=== PATIENT | female | born 1945 | race Caucasian/White ===

== ENCOUNTER 2023-02-13 19:44 | Inpatient (IN) ==
--- NOTE | 2023-02-13 20:37 | Emergency Department Note ---
Impression & Plan Ambulatory dysfunction, Thrombocytopenia, Anemia, Pancytopenia, Fall from standing, Hematoma of scalp ED Provider Note HISTORY OF PRESENT ILLNESS: Patient is a 78-year-old female presenting after a fall from standing. Patient is not on any anticoagulation. She reportedly has had significant balance issues for the last few weeks. She recently moved from [place] to be closer to family. She is currently living on her own in an apartment. She reportedly ambulates with a rollator walker. Son reports he last saw her at 630 this evening and then he got a call from a med that she was being transported to the hospital at 725. Patient reports she lost her balance and fell backwards, striking the back of her head. Denies loss of consciousness. She did have 1 episode of vomiting since falling. Denies any numbness or tingling or weakness in her extremities. Denies any changes in vision. She denies any chest pain, shortness of breath or lightheadedness prior to the fall. ROS: as above PHYSICAL EXAM: Constitutional: Patient appears in no acute distress. HENT: Head: Normocephalic. Hematoma to the posterior scalp. No obvious laceration or bleeding Eyes: EOMI, PERRL Mouth/Throat: Mucous membranes moist. Neck: Trachea midline. Neck supple. Cardiovascular: RRR, No murmurs, rubs or gallops. Intact distal pulses. Pulmonary/Chest: No respiratory distress. Breath sounds clear and equal bilaterally. No wheezes or rales. No chest wall tenderness to palpation. Abdominal: Abdomen soft, no tenderness, rebound or guarding. Back: No midline spinal tenderness, no paraspinal tenderness, no CVA tenderness. Patient is able to straight leg raise bilaterally without any pain. Musculoskeletal: No edema, tenderness or deformity noted. No tenderness to palpation of the pelvis. Skin: Warm and dry. No rash, erythema, pallor or cyanosis Neurological: Alert and keenly responsive. CN II-XII grossly intact, moving all extremities equally and fully. MDM: - Vitals signs stable. - History obtained via patient. Patient presents with scalp hematoma after fall from standing. Patient reportedly lost her balance earlier this evening while walking with her rollator walker and fell backwards, striking the back of her head. Denies loss of consciousness. She is not on anticoagulation. She recently moved from [place] to be closer to family. She lives at home alone. Family reports that she has been very unsteady on her feet recently. Patient denies any chest pain, shortness of breath or lightheadedness prior to the fall. Denies any syncope. - Chronic conditions affecting care: HTN; HLD; valve replacement surgery - Differential diagnoses include, but are not limited to: CVA; intracranial hemorrhage; ACS; dysrhythmia; UTI - Order placed for continuous cardiac monitoring. At this time, monitor showed rate of 95 bpm with normal sinus rhythm, per my interpretation. - External medical records reviewed. EMS run sheet was reviewed. Patient was vitally stable in route. No medications were given prehospital. - EKG reviewed by myself showed normal sinus rhythm. Rate tachycardic at 104 bpm. QTc 489. Noted to have a left bundle branch block. Also noted to have some PVCs. No previous EKGs available. - Laboratory workup interpreted by myself showed pancytopenia (WBC 1.94; hemoglobin 7.8; plt 108); hyponatremia (Na 123); normal liver function - CT head wo contrast negative for acute intracranial pathology. Noted to have a posterior scalp soft tissue swelling - CT cervical spine wo contrast negative for acute injury. - UA ordered. - Discussed results with patient and her family at bedside. Son expresses concern about the patient coming home, she does live alone and she has had multiple falls in the last few weeks. She is been very unsteady on her feet. - Discussion was had with social work about patient's case and need for admission - Hospitalist consulted for admission - Patient admitted to [facility] for further evaluation and management. ASSESSMENT AND PLAN: Diagnosis: ambulatory dysfunction;Fall from standing; posterior scalp hematoma; pancytopenia; thrombocytopenia; anemia; hyponatremia Plan: Admit Past Med/Surg History Social History Smoking Status: Never smoker Feels Safe at Home: Yes Allergies Allergies Allergy/AdvReac Type Severity Reaction Status Date / Time No Known Allergies Allergy Unverified 02/13/23 20:29 Home Meds Home Medications Medication Instructions Recorded Confirmed amoxicillin 250 mg chewable tablet 0 mg PO BID 02/13/23 02/13/23 metoprolol succinate 25 mg 25 mg PO DAILY 02/13/23 02/13/23 tablet,extended release 24 hr pramipexole 0.25 mg tablet 0.25 mg PO QPM 02/13/23 02/13/23 Results & Data (ED) Vital Signs Vital Signs - 24 hr 02/13/23 19:52 02/13/23 19:51 02/13/23 20:02 Temperature 36.8 C Temperature Source Oral Pulse Rate 112 H 104 H Pulse Rate from SpO2 Sensor Pulse Rhythm Regular Pulse Rhythm [Apical] Pulse Strength Normal Pulse Strength [Apical] Respiratory Rate 23 Respiratory Effort / Characteristics Non-Labored Respiratory Depth Normal Respiratory Pattern Regular Blood Pressure 138/77 Blood Pressure Mean 97 Pulse Oximetry 99 97 Oxygen Delivery Method Room Air Room Air Sepsis Recent Fever Within 48 Hours No Sepsis New/Unexplained Change in Mental Status No Sepsis Action Taken by Nursing Physician Notified 02/13/23 19:52 02/13/23 19:52 02/13/23 20:00 Temperature Temperature Source Pulse Rate 113 H 104 H Pulse Rate from SpO2 Sensor 105 H 103 H Pulse Rhythm Pulse Rhythm [Apical] Regular Pulse Strength Pulse Strength [Apical] Normal Respiratory Rate 22 29 H Respiratory Effort / Characteristics Non-Labored Respiratory Depth Normal Respiratory Pattern Regular Blood Pressure 138/77 146/72 H Blood Pressure Mean 97 96 Pulse Oximetry 99 99 Oxygen Delivery Method Room Air Room Air Room Air Sepsis Recent Fever Within 48 Hours Sepsis New/Unexplained Change in Mental Status Sepsis Action Taken by Nursing 02/13/23 20:30 02/13/23 21:01 02/13/23 21:30 Temperature Temperature Source Pulse Rate 100 H 108 H 93 H Pulse Rate from SpO2 Sensor 100 H 99 H 95 H Pulse Rhythm Pulse Rhythm [Apical] Pulse Strength Pulse Strength [Apical] Respiratory Rate 24 24 13 Respiratory Effort / Characteristics Respiratory Depth Respiratory Pattern Blood Pressure 115/71 133/53 L 128/57 L Blood Pressure Mean 85 79 80 Pulse Oximetry 100 99 100 Oxygen Delivery Method Room Air Room Air Room Air Sepsis Recent Fever Within 48 Hours Sepsis New/Unexplained Change in Mental Status Sepsis Action Taken by Nursing 02/13/23 22:00 02/13/23 22:30 02/13/23 23:00 Temperature Temperature Source Pulse Rate 97 H 92 H 94 H Pulse Rate from SpO2 Sensor 97 H 92 H 94 H Pulse Rhythm Pulse Rhythm [Apical] Pulse Strength Pulse Strength [Apical] Respiratory Rate 25 H 24 27 H Respiratory Effort / Characteristics Respiratory Depth Respiratory Pattern Blood Pressure 119/57 L 108/53 L 127/52 L Blood Pressure Mean 77 71 77 Pulse Oximetry 100 99 100 Oxygen Delivery Method Room Air Room Air Room Air Sepsis Recent Fever Within 48 Hours Sepsis New/Unexplained Change in Mental Status Sepsis Action Taken by Nursing 02/13/23 23:52 Temperature Temperature Source Pulse Rate 92 H Pulse Rate from SpO2 Sensor Pulse Rhythm Pulse Rhythm [Apical] Pulse Strength Pulse Strength [Apical] Respiratory Rate Respiratory Effort / Characteristics Respiratory Depth Respiratory Pattern Blood Pressure Blood Pressure Mean Pulse Oximetry Oxygen Delivery Method Sepsis Recent Fever Within 48 Hours Sepsis New/Unexplained Change in Mental Status Sepsis Action Taken by Nursing Laboratory Data 02/13/23 20:00 02/13/23 20:00 Lab Results 02/13/23 02/13/23 Range/Units 20:00 20:00 WBC 1.94 L (4.8-10.8) K/ul RBC 2.55 L (4.20-5.40) M/uL Hgb 7.8 L (12.0-16.0) g/dl Hct 22.6 L (37.0-47.0) % MCV 88.6 (80.0-100.0) fL MCH 30.6 (25.0-34.0) pg MCHC 34.5 (32.0-36.0) g/dL RDW Std Deviation 60.8 H (36.4-46.3) fL RDW Coeff of Angus 19.4 H (11.5-14.5) % Plt Count 108 L (130-400) K/uL MPV 9.0 L (9.4-12.4) fL Immature Gran % (Auto) 3.1 % Neut % (Auto) 78.9 % Lymph % (Auto) 13.4 % [place] % (Auto) 4.1 % Eos % (Auto) 0.0 % Baso % (Auto) 0.5 % Neut # (Auto) 1.53 (1.40-6.50) K/uL Lymph # (Auto) 0.26 L (1.20-3.40) K/uL [place] # (Auto) 0.08 L (0.11-0.59) K/uL Eos # (Auto) 0.00 (0.00-0.50) K/uL Baso # (Auto) 0.01 (0.00-0.20) K/uL Immature Gran # (Auto) 0.06 (0.01-0.20) K/uL Absolute Nucleated RBC 0.02 (0.00-0.12) K/uL Nucleated RBC % (auto) 1.0 % Tear Drop Cells 2+ Ovalocytes 1+ Sodium 123 L (136-145) mmol/L Potassium 4.5 (3.5-5.1) mmol/L Chloride 95 L (98-107) mmol/L Carbon Dioxide 17 L (21-32) mmol/L Anion Gap 11 (3-11) BUN 16 (6-23) mg/dl Creatinine 0.49 L (0.6-1.2) mg/dl Est Cr Clr Drug Dosing 96.7 ml/min Est GFR ( Amer) 108.9 ml/min Est GFR (Non-Af Amer) 94.0 ml/min BUN/Creatinine Ratio 32.7 H (10-20) Glucose 154 H (70-99(Fasting)) mg/dl Calcium 9.4 (8.6-10.3) mg/dl Total Bilirubin 3.1 H (0.2-1.0) mg/dl AST 37 (13-39) U/L ALT 16 (7-52) U/L Alkaline Phosphatase 64 (34-104) U/L Total Protein 7.0 (6.0-8.3) gm/dl Albumin 4.6 (3.4-5.0) gm/dl Globulin 2.4 L (2.5-4.0) gm/dl Albumin/Globulin Ratio 1.9 (0.9-2) Imaging Data Radiologist's Impression: Cervical Spine CT 02/13/23 20:16 Exam(s): CT C SPINE EXAM: CT Cervical Spine Without Intravenous Contrast CLINICAL HISTORY: Reason for exam: fall from standing. TECHNIQUE: Axial computed tomography images of the cervical spine without intravenous contrast. CTDI is 37.79 mGy and DLP is 1079.19 mGy-cm. Automated exposure control was utilized for the study. A dose lowering technique was utilized adhering to the principles of ALARA. COMPARISON: No relevant prior studies available. FINDINGS: The vertebral body heights are maintained. The craniocervical junction is intact. The atlanto-dens interval is maintained. The dens is intact. There is no spondylolisthesis. Multilevel cervical spondylosis and degenerative disc disease. Straightening of the cervical lordosis. Enlarged, nodular thyroid gland. IMPRESSION: No acute fracture or subluxation of the cervical spine. Electronically signed by: David Lowry MD 02/13/23 21:[address] 02/13/23 20:16 Exam(s): CT HEAD Without Contrast EXAM: CT Head Without Intravenous Contrast CLINICAL HISTORY: Reason for exam: fall from standing. TECHNIQUE: Axial computed tomography images of the head/brain without intravenous contrast. CTDI is 37.78 mGy and DLP is 1079.19 mGy-cm. Automated exposure control was utilized for the study. A dose lowering technique was utilized adhering to the principles of ALARA. COMPARISON: No relevant prior studies available. FINDINGS: No acute intracranial hemorrhage. No midline shift or mass effect. The territorial delcid-white matter differentiation is maintained throughout. Age-related cerebral volume loss. Periventricular and subcortical white matter hypoattenuation, consistent with chronic microangiopathy. The visualized orbits appear grossly unremarkable. The calvarium is intact. Posterior scalp soft tissue swelling. The visualized paranasal sinuses and mastoid air cells are grossly clear. IMPRESSION: No acute intracranial hemorrhage, midline shift, or mass effect. Posterior scalp soft tissue swelling. Electronically signed by: David Lowry MD 02/13/23 21:51 PM Discharge Plan Visit Data Chief Complaint: Fall Stated Complaint: fall ED Provider: Adina Bermudez Discharge Problem: Ambulatory dysfunction, Thrombocytopenia, Anemia, Pancytopenia, Fall from standing, Hematoma of scalp Forms Stand Alone Forms: My [facility] [place] Prescriptions Prescriptions: No Action pramipexole 0.25 mg tablet 0.25 mg PO QPM metoprolol succinate 25 mg tablet extended release 24 hr 25 mg PO DAILY amoxicillin 250 mg Tablet,Chewable 0 mg PO BID Rx Instructions: BEGIN 02/13/23, TAKE THIS MED TWICE DAILY Referrals Referrals: PCP,NO [Physician] -
[2023-02-13 20:46] LABS: Albumin Globulin Ratio 1.9 (0.9-2); Albumin Level 4.6 gm/dl (3.4-5.0); BUN Creatinine Ratio 32.7 (10-20); Bilirubin,Total 3.1 mg/dl (0.2-1.0); Calcium 9.4 mg/dl (8.6-10.3); Creatinine Clr Calc Pharmacy 96.7 ml/min; Est GFR (African American) 108.9 ml/min; Globulin 2.4 gm/dl (2.5-4.0); Potassium 4.5 mmol/L (3.5-5.1)
[2023-02-13 20:47] LABS: Hematocrit (blood only) 22.6 % (37.0-47.0); Hemoglobin 7.8 g/dl (12.0-16.0); Mean Corpuscular Hemoglobin 30.6 pg (25.0-34.0); Mean Corpuscular Hgb Conc 34.5 g/dL (32.0-36.0); Mean Corpuscular Volume 88.6 fL (80.0-100.0); Nucleated RBC # (auto) 0.02 K/uL (0.00-0.12); Platelet Count 108 K/uL (130-400); RDW Coefficient of Variation 19.4 % (11.5-14.5); RDW Standard Deviation 60.8 fL (36.4-46.3); Red Blood Count 2.55 M/uL (4.20-5.40); White Blood Count 1.94 K/ul (4.8-10.8)
[2023-02-13 20:50] LABS: Basophils # (auto) 0.01 K/uL (0.00-0.20); Basophils % (auto) 0.5 %; Immature Granulocytes # (auto) 0.06 K/uL (0.01-0.20); Immature Granulocytes % (auto) 3.1 %; Lymphocytes # (auto) 0.26 K/uL (1.20-3.40); Lymphocytes % (auto) 13.4 %; Monocytes # (auto) 0.08 K/uL (0.11-0.59); Monocytes % (auto) 4.1 %; Neutrophils # (auto) 1.53 K/uL (1.40-6.50); Neutrophils % (auto) 78.9 %; Ovalocytes 1+; Tear Drop Cells 2+
--- NOTE | 2023-02-13 21:52 | CT Scan Report ---
Exam(s): CT HEAD Without Contrast EXAM: CT Head Without Intravenous Contrast CLINICAL HISTORY: Reason for exam: fall from standing. TECHNIQUE: Axial computed tomography images of the head/brain without intravenous contrast. CTDI is 37.78 mGy and DLP is 1079.19 mGy-cm. Automated exposure control was utilized for the study. A dose lowering technique was utilized adhering to the principles of ALARA. COMPARISON: No relevant prior studies available. FINDINGS: No acute intracranial hemorrhage. No midline shift or mass effect. The territorial delcid-white matter differentiation is maintained throughout. Age-related cerebral volume loss. Periventricular and subcortical white matter hypoattenuation, consistent with chronic microangiopathy. The visualized orbits appear grossly unremarkable. The calvarium is intact. Posterior scalp soft tissue swelling. The visualized paranasal sinuses and mastoid air cells are grossly clear. IMPRESSION: No acute intracranial hemorrhage, midline shift, or mass effect. Posterior scalp soft tissue swelling. Electronically signed by: David Lowry MD 02/13/23 21:51 PM
--- NOTE | 2023-02-13 21:53 | CT Scan Report ---
Exam(s): CT C SPINE EXAM: CT Cervical Spine Without Intravenous Contrast CLINICAL HISTORY: Reason for exam: fall from standing. TECHNIQUE: Axial computed tomography images of the cervical spine without intravenous contrast. CTDI is 37.79 mGy and DLP is 1079.19 mGy-cm. Automated exposure control was utilized for the study. A dose lowering technique was utilized adhering to the principles of ALARA. COMPARISON: No relevant prior studies available. FINDINGS: The vertebral body heights are maintained. The craniocervical junction is intact. The atlanto-dens interval is maintained. The dens is intact. There is no spondylolisthesis. Multilevel cervical spondylosis and degenerative disc disease. Straightening of the cervical lordosis. Enlarged, nodular thyroid gland. IMPRESSION: No acute fracture or subluxation of the cervical spine. Electronically signed by: David Lowry MD 02/13/23 21:53 PM
[2023-02-14 00:10] LABS: Troponin I High Sensitivity 8.8 pg/ml (0-14)
[2023-02-14] MEDS ORDERED: PRAMIPEXOLE DIHYDROCHLO 0.25 MG TAB PO STA ×2 (01:32→03:53)
--- NOTE | 2023-02-14 01:40 | History & Physical Report ---
Date of Service February 14, 2023 Assessment & Plan (1) Psoriatic arthritis: (2) Hx of falling: (3) Status post fall: (4) Aortic valve prosthesis present: (5) Pancytopenia: (6) Ambulatory dysfunction: (7) Restless leg syndrome: (8) Hypo-osmolality and hyponatremia: Plan Status post fall/history of recurrent falls- Contributing factors include but not limited to: History of General debilitation, history of frequent falls, psoriatic arthritis, hyponatremia Consult PT/OT Hyponatremia- Sodium 123 on admission Serum osmolality is 270 with urine osmolality pending Patient overall appears dehydrated, start NSS at 60 mils per hour, adjust as results return Pancytopenia- WBC 1.94, hemoglobin 7.8, hematocrit 22.8, and platelets 108 Record review suggests history of pancytopenia, unsure if work-up has been performed Peripheral smear Order iron studies, B12 and folate Consult hematology Dr. Enrique Psoriatic arthritis- Patient reports having been on methotrexate and Enbrel in the past without significant improvement Discussed the possibility with family of additional medications that could be tried, as her arthritis significantly impedes her ability to ambulate Restless leg syndrome- Continue pramipexole Severe aortic stenosis status post TAVR 05/14- Noted and follow Hyperglycemia- No history diabetes mellitus Glucose 154 on admission Check hemoglobin A1c History of Present Illness Chief Complaint: The patient presents to the emergency department after having a fall at [facility], a residential home. Primary Care Provider: Nicole Troy MD The patient is a 78-year-old female with a past medical history including psoriatic arthritis, restless leg syndrome, severe aortic stenosis status post TAVR 05/14, osteoarthritis, pancytopenia, history of recurrent falls, history of rectovaginal fistula previously surgically repaired, ADITYA/BSO, bowel resection status post SBO. Family reports upon questioning, that she probably has had a 30 pound weight gain in the past 2 years. She was found after having a fall at [facility] today. Her son reports that she had been at a dental visit today, was found to have an abscess tooth in her left upper area, and was told that she would probably need a root canal. He did purchase a prescription for amoxicillin for today, but when he came back to give it to her he found her on the floor at that time. She was then brought into the emergency department, and family is present to provide her history. The patient had been living in [place], [place], and after her significant other passed earlier in the year, she was brought to live with her family close by in [place] in October. She has established with Dr. Troy locally, however, this evening for admission, HER MEDICAL RECORD has a duplication, which medical records will need to fix in the morning. The correct spelling of her name will be necessary as well Allergies Allergy/AdvReac Type Severity Reaction Status Date / Time No Known Allergies Allergy Unverified 02/13/23 20:29 Home Medications Medication Instructions Recorded Confirmed Type amoxicillin 250 mg chewable tablet 0 mg PO BID 02/13/23 02/13/23 History metoprolol succinate 25 mg 25 mg PO DAILY 02/13/23 02/13/23 History tablet,extended release 24 hr pramipexole 0.25 mg tablet 0.25 mg PO QPM 02/13/23 02/13/23 History Past Med/Surg History Medical History (Updated 02/14/23 @ 01:55 by Isai Gutierrez MD) Hx of falling Psoriatic arthritis Restless leg syndrome Surgical History (Updated 02/14/23 @ 01:55 by Isai Gutierrez MD) Aortic valve prosthesis present Social History Smoking Status: Never smoker Feels Safe at Home: Yes Review of Systems Review of Systems: The patient denies chest pain, palpitations, shortness of breath, dyspnea on exertion, cough, lower extremity swelling, sore throat, fevers, chills, sweats, nausea, vomiting, diarrhea , constipation, abdominal pain, pelvic pain, blood in urine or stool, dysuria, urinary frequency or urgency, rash, abnormal bruising or bleeding, focal weakness, numbness or tingling in arms or legs, back or neck pain, or night sweats. The review of systems is otherwise negative other than for that already noted above, and at least 10 systems have been reviewed. Physical Exam Physical Exam: The patient is awake, alert and oriented 3, normocephalic and atraumatic, lying in bed and in no acute distress. HEENT--PERRL, EOMI. Tongue with multiple bite valdez laterally bilaterally. Neck--supple. No JVD. No bruits. Thyroid normal, trachea midline, no adenopathy. Heart--normal S1 and S2. No murmurs, rubs or gallops. Lungs--clear bilaterally, no respiratory distress, no accessory muscle use. Abdomen--normal bowel sounds and soft. Nontender. Nondistended Extremities--no cyanosis or clubbing. No edema. Dermatologic--normal skin turgor, normal color, no abnormal lymph nodes, no rash. Neurologic--cranial nerves II through XII grossly intact. Rheumatologic--limited exam Psychiatric--normal affect. Results & Data Results & Data Vital Signs (Past 12 Hours) Vital Signs Temp Pulse Resp BP Pulse Ox O2 Del Method 02/13/23 23:52 92 H 02/13/23 23:00 94 H 27 H 127/52 L 100 Room Air 02/13/23 22:30 92 H 24 108/53 L 99 Room Air 02/13/23 22:00 97 H 25 H 119/57 L 100 Room Air 02/13/23 21:30 93 H 13 128/57 L 100 Room Air 02/13/23 21:01 108 H 24 133/53 L 99 Room Air 02/13/23 20:30 100 H 24 115/71 100 Room Air 02/13/23 20:00 104 H 29 H 146/72 H 99 Room Air 02/13/23 19:52 113 H 22 138/77 99 Room Air 02/13/23 19:52 Room Air 02/13/23 20:02 97 Room Air 02/13/23 19:51 104 H 02/13/23 19:52 36.8 C 112 H 23 138/77 99 Room Air Laboratory Results Laboratory Results WBC 1.94 K/ul (4.8-10.8) L 02/13/23 20:00 RBC 2.55 M/uL (4.20-5.40) L 02/13/23 20:00 Hgb 7.8 g/dl (12.0-16.0) L 02/13/23 20:00 Hct 22.6 % (37.0-47.0) L 02/13/23 20:00 MCV 88.6 fL (80.0-100.0) 02/13/23 20:00 MCH 30.6 pg (25.0-34.0) 02/13/23 20:00 MCHC 34.5 g/dL (32.0-36.0) 02/13/23 20:00 RDW Std Deviation 60.8 fL (36.4-46.3) H 02/13/23 20:00 RDW Coeff of Angus 19.4 % (11.5-14.5) H 02/13/23 20:00 Plt Count 108 K/uL (130-400) L 02/13/23 20:00 MPV 9.0 fL (9.4-12.4) L 02/13/23 20:00 Immature Gran % (Auto) 3.1 % 02/13/23 20:00 Neut % (Auto) 78.9 % 02/13/23 20:00 Lymph % (Auto) 13.4 % 02/13/23 20:00 Burnet % (Auto) 4.1 % 02/13/23 20:00 Eos % (Auto) 0.0 % 02/13/23 20:00 Baso % (Auto) 0.5 % 02/13/23 20:00 Neut # (Auto) 1.53 K/uL (1.40-6.50) 02/13/23 20:00 Lymph # (Auto) 0.26 K/uL (1.20-3.40) L 02/13/23 20:00 Burnet # (Auto) 0.08 K/uL (0.11-0.59) L 02/13/23 20:00 Eos # (Auto) 0.00 K/uL (0.00-0.50) 02/13/23 20:00 Baso # (Auto) 0.01 K/uL (0.00-0.20) 02/13/23 20:00 Immature Gran # (Auto) 0.06 K/uL (0.01-0.20) 02/13/23 20:00 Absolute Nucleated RBC 0.02 K/uL (0.00-0.12) 02/13/23 20:00 Nucleated RBC % (auto) 1.0 % 02/13/23 20:00 Tear Drop Cells 2+ 02/13/23 20:00 Ovalocytes 1+ 02/13/23 20:00 Sodium 123 mmol/L (136-145) L 02/13/23 20:00 Potassium 4.5 mmol/L (3.5-5.1) 02/13/23 20:00 Chloride 95 mmol/L (98-107) L 02/13/23 20:00 Carbon Dioxide 17 mmol/L (21-32) L 02/13/23 20:00 Anion Gap 11 (3-11) 02/13/23 20:00 BUN 16 mg/dl (6-23) 02/13/23 20:00 Creatinine 0.49 mg/dl (0.6-1.2) L 02/13/23 20:00 Est Cr Clr Drug Dosing 96.7 ml/min 02/13/23 20:00 Est GFR ( Amer) 108.9 ml/min 02/13/23 20:00 Est GFR (Non-Af Amer) 94.0 ml/min 02/13/23 20:00 BUN/Creatinine Ratio 32.7 (10-20) H 02/13/23 20:00 Glucose 154 mg/dl (70-99(Fasting)) H 02/13/23 20:00 Osmolality 270 mOsm/kg (280-300) L 02/13/23 20:00 Calcium 9.4 mg/dl (8.6-10.3) 02/13/23: Total Bilirubin 3.1 mg/dl (0.2-1.0) H 02/13/23 20:00 AST 37 U/L (13-39) 02/13/23 20:00 ALT 16 U/L (7-52) 02/13/23 20:00 Alkaline Phosphatase 64 U/L (34-104) 02/13/23 20:00 Troponin I High Sens 8.8 pg/ml (0-14) 02/13/23 20: Total Protein 7.0 gm/dl (6.0-8.3) 02/13/23 20:00 Albumin 4.6 gm/dl (3.4-5.0) 02/13/23 20:00 Globulin 2.4 gm/dl (2.5-4.0) L 02/13/23 20:00 Albumin/Globulin Ratio 1.9 (0.9-2) 02/13/23 20:[address] 02/13/23 20:16 Exam(s): CT C SPINE EXAM: CT Cervical Spine Without Intravenous Contrast CLINICAL HISTORY: Reason for exam: fall from standing. TECHNIQUE: Axial computed tomography images of the cervical spine without intravenous contrast. CTDI is 37.79 mGy and DLP is 1079.19 mGy-cm. Automated exposure control was utilized for the study. A dose lowering technique was utilized adhering to the principles of ALARA. COMPARISON: No relevant prior studies available. FINDINGS: The vertebral body heights are maintained. The craniocervical junction is intact. The atlanto-dens interval is maintained. The dens is intact. There is no spondylolisthesis. Multilevel cervical spondylosis and degenerative disc disease. Straightening of the cervical lordosis. Enlarged, nodular thyroid gland. IMPRESSION: No acute fracture or subluxation of the cervical spine. Electronically signed by: David Lowry MD 02/13/23 21:[address] 02/13/23 20:16 Exam(s): CT HEAD Without Contrast EXAM: CT Head Without Intravenous Contrast CLINICAL HISTORY: Reason for exam: fall from standing. TECHNIQUE: Axial computed tomography images of the head/brain without intravenous contrast. CTDI is 37.78 mGy and DLP is 1079.19 mGy-cm. Automated exposure control was utilized for the study. A dose lowering technique was utilized adhering to the principles of ALARA. COMPARISON: No relevant prior studies available. FINDINGS: No acute intracranial hemorrhage. No midline shift or mass effect. The territorial delcid-white matter differentiation is maintained throughout. Age-related cerebral volume loss. Periventricular and subcortical white matter hypoattenuation, consistent with chronic microangiopathy. The visualized orbits appear grossly unremarkable. The calvarium is intact. Posterior scalp soft tissue swelling. The visualized paranasal sinuses and mastoid air cells are grossly clear. IMPRESSION: No acute intracranial hemorrhage, midline shift, or mass effect. Posterior scalp soft tissue swelling. Electronically signed by: David Lowry MD 02/13/23 21:51 PM Code Status & VTE Plan Code Status Full code VTE Prophylaxis Plan VTE Prophylaxis will be ordered: Yes PG Care Time/CCT Total # of Minutes Spent Total Time Spent with Patient: Total time spent is greater than 50% in coordination of care (as documented) at patient's floor/unit and/or counseling patient: Coding Level of Care Code 19725 INT INP/OBS CARE 3/75MIN Diagnoses Psoriatic arthritis L40.50 Hx of falling Z91.81 Status post fall Z91.81 Aortic valve prosthesis present Z95.2 Pancytopenia D61.818 Ambulatory dysfunction R26.2 Restless leg syndrome G25.81 Hypo-osmolality and hyponatremia E87.1
[2023-02-14] MEDS ORDERED: SODIUM CHLORIDE 0.9% 1,000 ML IV SCH (01:45)
[2023-02-14] MEDS ORDERED: ONDANSETRON INJ 2 MG/ML 2 ML VIAL IV PRN (04:27)
[2023-02-14 05:22] LABS: Appearance Urine Clear (Clear); Bilirubin Urine 1+ (Negative); Blood Urine Trace-intact (Negative); Color Urine Yellow; Glucose Urine UA Negative (Negative); Ketones Urine 4+ (Negative); Leukocyte Esterase Urine 1+ (Negative); Nitrite Urine Positive (Negative); Protein Urine 2+ (Negative); Specific Gravity Urine 1.025 (1.000-1.030); Urobilinogen Urine Negative (Negative)
[2023-02-14 05:30] LABS: Albumin Level 4.1 gm/dl (3.4-5.0); BUN Creatinine Ratio 30.4 (10-20); Calcium 8.9 mg/dl (8.6-10.3); Est GFR (African American) 111.2 ml/min; Magnesium 2.1 mg/dl (1.7-2.4); Phosphorus 2.3 mg/dl (2.5-4.9); Potassium 4.2 mmol/L (3.5-5.1)
[2023-02-14] MEDS: SODIUM CHLORIDE 0.9% 1,000 ML IV SCH ×2 (05:46→22:27)
[2023-02-14 06:00] LABS: Hematocrit (blood only) 18.8 % (37.0-47.0); Hemoglobin 6.5 g/dl (12.0-16.0); Mean Corpuscular Hemoglobin 30.8 pg (25.0-34.0); Mean Corpuscular Hgb Conc 34.6 g/dL (32.0-36.0); Mean Corpuscular Volume 89.1 fL (80.0-100.0); Mean Platelet Volume 9.6 fL (9.4-12.4); Platelet Count 110 K/uL (130-400); RDW Coefficient of Variation 19.1 % (11.5-14.5); RDW Standard Deviation 60.1 fL (36.4-46.3); Red Blood Count 2.11 M/uL (4.20-5.40); White Blood Count 2.07 K/ul (4.8-10.8)
[2023-02-14 06:03] LABS: Immature Granulocytes # (auto) 0.05 K/uL (0.01-0.20); Immature Granulocytes % (auto) 2.4 %; Lymphocytes # (auto) 0.51 K/uL (1.20-3.40); Lymphocytes % (auto) 24.6 %; Monocytes # (auto) 0.09 K/uL (0.11-0.59); Monocytes % (auto) 4.3 %; Neutrophils # (auto) 1.42 K/uL (1.40-6.50); Neutrophils % (auto) 68.7 %; Tear Drop Cells 1+
[2023-02-14 06:09] LABS: Bacteria Urine Negative (Negative); RBC Urine 0-4 /hpf (0-4); WBC Urine >30 /hpf (0-5)
[2023-02-14 06:41] LABS: Reticulocytes # 0.11 10^6/uL (0.02-0.10)
[2023-02-14 06:49] LABS: Hematocrit (blood only) 18.8 % (37.0-47.0); Hemoglobin 6.5 g/dl (12.0-16.0)
[2023-02-14 07:13] LABS: Estimated Average Glucose 68 mg/dl
[2023-02-14] MEDS: METOPROLOL SUCC 25MG EXT REL TAB PO SCH (07:58)
[2023-02-14] MEDS: cefTRIAXone SODIUM 1,000 MG in DEXTROSE 5 % MINI-B 50 ML IV SCH (07:58)
[2023-02-14] MEDS: SODIUM CHLORIDE 1 GM TABLET PO SCH ×2 (07:58→20:33)
--- NOTE | 2023-02-14 08:57 | Oncology Consultation ---
Date of Consultation February 14, 2023 Assessment & Plan (1) Pancytopenia: Present on Admission?: Yes (2) Thrombocytopenia: Present on Admission?: Yes (3) Anemia: Present on Admission?: Yes (4) Aortic valve replaced: Present on Admission?: Yes Plan We are currently trying to get the patient's outside records including the previously done bone marrow biopsy from 2020. As noticed the patient has been transfusion independent since 2020 in the previous outside record, however she has now developed severe anemia. She also has leukopenia and thrombocytopenia. Her peripheral smear was reviewed and revealed atypical red blood cells with a lot of teardrop cells. This raises a concern for significant extramedullary hematopoiesis and underlying marrow dysfunction. We will try to get the outside bone marrow biopsy from Dr. Clement Jane's office. Given the significant pancytopenia it is prudent to perform a repeat bone marrow biopsy especially now since the patient is requiring another blood transfusion. We want to rule out an underlying condition such as myelodysplastic syndrome which is now progressing. The other reason behind her significant anemia and pancytopenia may be mechanical hemolysis because of the previously done TAVR procedure. However she did not have a lot of schistocytosis on peripheral smear review which is usually seen with mechanical hemolysis. Regardless I will also request a hemolytic work-up for this patient, which will include reticulocyte count, LDH, haptoglobin level. Since the patient is significantly anemic with a hemoglobin of 6.5 g/dL she will require a blood transfusion. She will be admitted to the hospital. We are also waiting for the results of her basic hematological work-up which was performed. Case discussed with Dr. Heck from [facility] medicine. Thank you for this interesting hematological consult. Hematology will continue to follow the patient and make appropriate recommendations. A total of 60 minutes were spent in review of prior records, counseling and coordination of care for this patient. History of Present Illness Reason for Consultation: Pancytopenia Severe anemia Thrombocytopenia, chronic post TAVR Attending Physician: Ursula Heck MD History of Present Illness The patient is a very pleasant 78-year-old woman with a past medical history of severe aortic stenosis, chronic pancytopenia who is transfusion dependent. She moved to the [facility] from [place], [place]. There she was getting her medical care at [facility]. Her prior history is consistent with severe aortic stenosis and she has undergone TAVR procedure back in April 2022. She has a history of pancytopenia, was following Dr. Hector in [place] and had last bone marrow biopsy in 2020. Based on outside reports she had been transfusion independent since 2020 however her post TAVR hemoglobin had dropped from a baseline of about 11 to 8 g/dl. At this point we do not have that outside bone marrow biopsy from 2020. Yesterday the patient sustained a fall and came to the ED. The patient was evaluated and hematology was consulted because of the pancytopenia where her CBC revealed a WBC count ofthree 2.07, hemoglobin of 6.5 g/dL, platelet count of 110,000/mcL. Based on a review of outside records it seems at the patient's baseline he platelet count was somewhere around 70,000/mcL. He will be transfused a unit of blood today. Her peripheral smear was reviewed and revealed atypical red blood cells with a lot of teardrop cells. A basic work-up from a hematological standpoint has been ordered and is pending. Hematology has been consulted to assist in management of this patient with severe pancytopenia who is currently requiring blood transfusions. Her other medical history includes psoriatic arthritis. Currently the patient is feeling very fatigued, tired. She looks very pale, has no energy. Allergies Allergy/AdvReac Type Severity Reaction Status Date / Time No Known Allergies Allergy Verified 02/14/23 07:39 Home Medications Medication Instructions Recorded Confirmed Type metoprolol succinate 25 mg 25 mg PO 1200 01/18/23 02/05/23 History tablet,extended release 24 hr pramipexole 0.25 mg tablet 0.25 mg PO HS 01/18/23 02/05/23 History halobetasol propionate 0.05 % 1 applic topical DAILY #15 grams 01/21/23 02/05/23 Rx topical ointment amoxicillin 250 mg chewable tablet 0 mg PO BID 02/13/23 02/13/23 History metoprolol succinate 25 mg 25 mg PO DAILY 02/13/23 02/13/23 History tablet,extended release 24 hr pramipexole 0.25 mg tablet 0.25 mg PO QPM 02/13/23 02/13/23 History Patient History Medical History Former smoker Frequent falls unknown reason, [place] was ~01/04/23. no injury at that time. Psoriatic arthritis Restless leg syndrome Stress incontinence Urgency incontinence Surgical History Aortic valve replaced Adams AMY 3 Value, done in [place], [place] Heart valve replaced April 2022 a hospital [place], replaced with a mechanical aortic valve. Followed with Dr Gerry Quintero [facility]. History of arthroscopy of right knee History of cardiac cath [facility] in [place] March 2022 - no stents. History of hysterectomy ADITYA with BSO Hx of cholecystectomy Hx of tonsillectomy Family History Other No family history of adverse response to anesthesia Denies family history of Ovarian cancer Prostate cancer Myocardial infarction Breast cancer Colorectal cancer Social History (System 02/14/23 @ 07:39 by Citlalli Gallegos) Smoking Status: Never smoker Tobacco Type: Cigarettes Second Hand Exposure: No; Do You Dip or Chew Tobacco: No; Tobacco Cessation Education Requested by Patient: No Hx Alcohol Use: No Hx Substance Use: No Preferred Language: Urdu Communication Ability: Effective Fire Marshal Required: No Beliefs That Will Affect Care: None Current Living Situation: Alone Current Living Situation Comment: has an apartment 5 minutes from her son Other Information That Helps Us Care for You: No Feels Safe at Home: Yes Safety Concerns: Feels Safe At This Time Dental Care, Regularly: Yes Seatbelt Use: always Sunscreen Use: No Assistive Devices: Walker Review of Systems Review of Systems: All systems reviewed & are unremarkable except as noted in HPI & below patient is complaining of fatigue, weight loss. She has moved to the [facility] recently. Constitutional: + fatigue and + weight loss Physical Exam Constitutional: + ill appearing and + thin Eyes: PERRL, conjunctivae normal, anicteric sclerae ENMT: external ear and nose normal, oropharynx normal Neck: trachea midline, no thyromegaly Respiratory: normal respiratory effort, lungs clear to auscultation Cardiovascular: RRR, no murmur, no edema Gastrointestinal (Abdomen): normal bowel sounds, soft, nontender, no hepatosplenomegaly Musculoskeletal: no cyanosis or clubbing, extremities motor strength 5/5 Skin: no rashes, warm and dry Results & Data Vital Signs (Past 12 Hours) Vital Signs Pulse Resp BP Pulse Ox Pulse Ox O2 Del Method O2 Del Method 02/14/23 07:00 82 17 113/50 L 94 Room Air 02/14/23 07:14 76 02/14/23 06:30 74 20 109/49 L 99 Room Air 02/14/23 06:00 80 21 100/45 L 100 Room Air 02/14/23 05:30 74 20 99/40 L 100 Room Air 02/14/23 05:00 83 17 118/59 L 100 02/14/23 04:36 81 22 101/50 L 100 Room Air 02/14/23 04:52 Room Air 02/14/23 04:27 Room Air 02/14/23 04:27 97 Room Air 02/14/23 04:30 79 24 100 02/14/23 04:00 83 19 100 02/14/23 03:30 86 24 100 02/14/23 03:01 89 16 110/64 100 02/14/23 03:00 89 17 122/42 L 100 02/14/23 03:50 89 02/14/23 02:30 90 16 123/55 L 100 Room Air 02/14/23 02:00 87 22 124/50 L 100 Room Air 02/14/23 01:30 87 25 H 100 Room Air 02/14/23 01:00 94 H 21 130/49 L 100 Room Air 02/14/23 00:30 87 24 119/65 100 Room Air 02/14/23 00:00 91 H 14 133/55 L 100 Room Air 02/13/23 23:30 87 25 H 119/54 L 99 Room Air 02/13/23 23:52 92 H 02/13/23 23:00 94 H 27 H 127/52 L 100 Room Air 02/13/23 22:30 92 H 24 108/53 L 99 Room Air 02/13/23 22:00 97 H 25 H 119/57 L 100 Room Air 02/13/23 21:30 93 H 13 128/57 L 100 Room Air 02/13/23 21:01 108 H 24 133/53 L 99 Room Air
[2023-02-14] MEDS ORDERED: PRAMIPEXOLE DIHYDROCHLO 0.25 MG TAB PO SCH (09:00)
[2023-02-14] MEDS ORDERED: SODIUM CHLORIDE 0.9% 250 ML IV PRN ×3 (09:43→17:21)
[2023-02-14] MEDS ORDERED: fentaNYL citrate PF 100 MCG/2 ML VIAL ONE (10:41)
[2023-02-14] MEDS ORDERED: ACETAMINOPHEN 1000 MG/100 ML IV IV ONE (10:42)
[2023-02-14 10:44] LABS: BUN Creatinine Ratio 33.3 (10-20); Calcium 8.9 mg/dl (8.6-10.3); Creatinine Clr Calc Pharmacy 114.1 ml/min; Est GFR (African American) 114.6 ml/min; Est GFR (Non-African American) 98.9 ml/min; Potassium 3.9 mmol/L (3.5-5.1)
[2023-02-14 11:04] LABS: Ferritin 263.4 ng/ml (8-388)
[2023-02-14 11:46] LABS: Folate (Folic Acid),Ser orPlas 16.4 ng/ml (>5.38)
--- NOTE | 2023-02-14 12:00 | History & Physical Bridge Note ---
Date of Service February 14, 2023 History & Physical Bridge Note I have examined the patient, reviewed the History & Physical and in the interval since the performance of the History & Physical I have noted the following changes of clinical significance: Pt feels lightheaded with sitting upright Hgb dropped further to 6.5 this AM after some IVF hydration overnight. Na+ did improve to 129 on repeat BMP this AM after NS IVFs She denies bleeding from anywhere but has been having multiple falls with bruises all over her body of various ages. Lives independently in a cottage at [facility]. She does not recall ever seeing a Telephone Lineman or having a bone marrow biopsy although records reviewed from chart from [place] (previous residence) state she followed regularly with Heme and had BMBx in 2020, chronic pancytopenia. She has not seen a Safe Deposit Clerk since leaving [place]. Denies headache, neck pain, CP, SOB, abd pain. She is not surprised she has a UTI as she gets them frequently I discussed her care with Heme/Onc Pt consents for PRBC transfusion Vitals reviewed NAD, AAOx2 Small hematoma posterior scalp RRR +gallop, 2/6 SHARON at [facility] CTAB no wcr +BS soft NT ND Ext no edema, multiple bruises and chronic venous stasis changes bilat MAEW, good strength throughout Labs to include CBC, BMP, mag, trop, phos, iron studies reviewed repeat BMP reviewed B12, folate pending Tele with [facility] 78 yo female here with syncope and multiple falls with acute on chronic anemia with chronic pancytopenia likely contributing. Does have TAVR from earlier this year and gallop on exam -monitor on tele for arrhythmias, check ECHO, add serial trop -transfuse 1 unit PRBCs -suspect possible hemolysis given elevated retic count and TBili, heart valve prosthetic-> check LDH, haptoglobin, TBili, serial CBC -appreciate Heme consult-recommends BMBx, check B12, folalte, iron studies are normal -no bleeding from anywhere but with multiple bruises from falls
--- NOTE | 2023-02-14 12:21 | CT Scan Report ---
CT-guided bone marrow biopsy Clinical indication: Pancytopenia Procedure: Procedure and risks were explained. Informed consent was obtained. A final timeout was com pleted. The patient was placed prone on the CT exam table. The skin of the left gluteal region was pr epped and draped in sterile fashion. 1% buffered lidocaine was utilized for skin anesthesia. The yun ent received 1 g Tylenol IV. Utilizing CT guidance, an 11-gauge bone biopsy needle was advanced into the left iliac bone. Multiple aspirates and one bone core was obtained and given to the lab for review. The needle was removed and Band-Aid applied. The patient tolerated the procedure well. Vital signs will be monitored postproced ure. IMPRESSION: CT-guided bone marrow biopsy as described above. Performed, dictated, and signed by Brando Conner PA-C; to be co-signed by Dr. Bryan Carr. Electronically signed by: Bryan Carr M.D. 02/14/2023 12:26 PM
[2023-02-14 13:44] LABS: Albumin Level 4.1 gm/dl (3.4-5.0); Bilirubin Direct 0.5 mg/dl (0-0.2); Bilirubin,Total 2.3 mg/dl (0.2-1.0); Total Protein 6.3 gm/dl (6.0-8.3)
[2023-02-14 13:50] LABS: Troponin I High Sensitivity 7.6 pg/ml (0-14)
[2023-02-14] MEDS: ACETAMINOPHEN 325 MG TAB PO PRN (16:55)
[2023-02-14 17:13] LABS: Hematocrit (blood only) 19.1 % (37.0-47.0); Hemoglobin 6.6 g/dl (12.0-16.0); Mean Corpuscular Hemoglobin 30.1 pg (25.0-34.0); Mean Corpuscular Hgb Conc 34.6 g/dL (32.0-36.0); Mean Corpuscular Volume 87.2 fL (80.0-100.0); Mean Platelet Volume 9.3 fL (9.4-12.4); Nucleated RBC # (auto) 0.03 K/uL (0.00-0.12); Nucleated RBC % (auto) 1.8 %; Platelet Count 105 K/uL (130-400); RDW Coefficient of Variation 18.7 % (11.5-14.5); RDW Standard Deviation 58.7 fL (36.4-46.3); Red Blood Count 2.19 M/uL (4.20-5.40); White Blood Count 1.63 K/ul (4.8-10.8)
[2023-02-14 17:39] LABS: Polychromasia 1+; Schistocytes 1+; Tear Drop Cells 2+
[2023-02-14 17:41] LABS: Immature Granulocytes # (auto) 0.07 K/uL (0.01-0.20); Immature Granulocytes % (auto) 4.3 %; Lymphocytes % (auto) 30.7 %; Monocytes # (auto) 0.19 K/uL (0.11-0.59); Monocytes % (auto) 11.7 %; Neutrophils # (auto) 0.87 K/uL (1.40-6.50); Neutrophils % (auto) 53.3 %
[2023-02-14] MEDS: CYANOCOBALAMIN 1000 MCG/ML VIAL IM SCH (18:33)
--- NOTE | 2023-02-14 18:57 | XCELERA ---
[id number]
[2023-02-14] MEDS: PRAMIPEXOLE DIHYDROCHLO 0.25 MG TAB PO SCH (20:33)
[2023-02-14 23:51] LABS: Hematocrit (blood only) 22.2 % (37.0-47.0); Hemoglobin 7.7 g/dl (12.0-16.0); Mean Corpuscular Hemoglobin 30.6 pg (25.0-34.0); Mean Corpuscular Hgb Conc 34.7 g/dL (32.0-36.0); Mean Corpuscular Volume 88.1 fL (80.0-100.0); Mean Platelet Volume 8.8 fL (9.4-12.4); Nucleated RBC # (auto) 0.03 K/uL (0.00-0.12); Nucleated RBC % (auto) 1.8 %; Platelet Count 102 K/uL (130-400); RDW Coefficient of Variation 18.4 % (11.5-14.5); RDW Standard Deviation 56.4 fL (36.4-46.3); Red Blood Count 2.52 M/uL (4.20-5.40); White Blood Count 1.67 K/ul (4.8-10.8)
[2023-02-15] MEDS ORDERED: OPTIRAY 320 100ml IV ONE (02:29)
--- NOTE | 2023-02-15 03:36 | CT Scan Report ---
Exam(s): CT ABDOMEN + PELVIS W/WO Contrast IV Amt: 93 ml opti 320 EXAM: CT Abdomen and Pelvis Without and With Intravenous Contrast CLINICAL HISTORY: Reason for exam: elevated LFTs,pancytopenia,h/o splenomegaly. TECHNIQUE: Axial computed tomography images of the abdomen and pelvis without and with intravenous contrast. CTDI is 21.79 mGy and DLP is 1085.03 mGy-cm. Automated exposure control was utilized for the study. A dose lowering technique was utilized adhering to the principles of ALARA. CONTRAST: Patient received 93 ml opti 320 of IV contrast COMPARISON: None. FINDINGS: Lung bases: Minimal left lower lobe atelectasis, otherwise clear lung bases. Heart: Cardiomegaly. ABDOMEN: Liver: Unremarkable. No mass. Gallbladder and bile ducts: Nonvisualized gallbladder suggestive of previous cholecystectomy versus severe contraction. Nonspecific mild biliary distention. No ductal dilation. Pancreas: Unremarkable. No mass. No ductal dilation. Spleen: Marked enlargement of the spleen measuring 23 cm. Adrenals: Unremarkable. No mass. Kidneys and ureters: Unremarkable. No solid mass. No obstructing stones. No hydronephrosis. Stomach and bowel: Moderate fecal debris within the colon. Postoperative changes in the distal sigmoid/rectal junction. The stomach is decompressed. No obstruction. No mucosal thickening. PELVIS: Appendix: Nonvisualized appendix with no inflammation by the cecum to suggest appendicitis. Bladder: Unremarkable. No mass. No stones. Reproductive: Nonvisualized uterus suggestive of previous hysterectomy. ABDOMEN and PELVIS: Intraperitoneal space: Unremarkable. No free air. No significant fluid collection. Bones/joints: Multilevel degenerative disease throughout the spine, bilateral SI joints and hips. No acute fracture. No dislocation. Soft tissues: Unremarkable. Vasculature: Calcified at the scar disease of aorta with no aneurysm. Lymph nodes: Unremarkable. No enlarged lymph nodes. IMPRESSION: 1. Severe splenomegaly, spleen measuring up to 23 cm. 2. Status post cholecystectomy versus contracted gallbladder. Remainder of abdominal viscera are unremarkable 3. No bowel obstruction or focal inflammatory process throughout the gastrointestinal tract. Electronically signed by: Savana Montejo MD 02/15/23 03:35 AM
[2023-02-15 07:48] LABS: BUN Creatinine Ratio 31.4 (10-20); Bilirubin Direct 0.7 mg/dl (0-0.2); Calcium 8.7 mg/dl (8.6-10.3); Creatinine Clr Calc Pharmacy 84.8 ml/min; Est GFR (African American) 107.5 ml/min; Est GFR (Non-African American) 92.8 ml/min; Magnesium 2.1 mg/dl (1.7-2.4); Phosphorus 2.6 mg/dl (2.5-4.9); Potassium 3.8 mmol/L (3.5-5.1); Total Protein 6.1 gm/dl (6.0-8.3)
[2023-02-15] MEDS: ACETAMINOPHEN 325 MG TAB PO PRN ×2 (07:50→16:18)
[2023-02-15 08:16] LABS: Hematocrit (blood only) 20.7 % (37.0-47.0); Hemoglobin 7.1 g/dl (12.0-16.0); Mean Corpuscular Hemoglobin 30.7 pg (25.0-34.0); Mean Corpuscular Hgb Conc 34.3 g/dL (32.0-36.0); Mean Corpuscular Volume 89.6 fL (80.0-100.0); Mean Platelet Volume 8.2 fL (9.4-12.4); Nucleated RBC # (auto) 0.02 K/uL (0.00-0.12); Nucleated RBC % (auto) 1.8 %; Platelet Count 96 K/uL (130-400); RDW Coefficient of Variation 19.1 % (11.5-14.5); Red Blood Count 2.31 M/uL (4.20-5.40); White Blood Count 1.13 K/ul (4.8-10.8)
[2023-02-15 08:18] LABS: Reticulocyte % 5.3 % (0.5-2.0); Reticulocytes # 0.12 10^6/uL (0.02-0.10)
[2023-02-15 08:23] LABS: ALC (manual) 0.31 K/uL (1.2-3.4); ANC (manual) 0.82 K/uL (1.4-6.5); Lymphocytes # (manual) 0.31 K/uL (1.2-3.4); Lymphocytes % (manual) 27 %; Neutrophils # (manual) 0.82 K/uL (1.40-6.50); Neutrophils % (manual) 73 %; Platelet Estimate Decreased (Normal); Schistocytes 1+; Tear Drop Cells 1+
--- NOTE | 2023-02-15 09:26 | Hematology/Oncology Prog Note ---
Date of Service February 15, 2023 Assessment & Plan (1) Pancytopenia: (2) Thrombocytopenia: (3) Anemia: (4) Aortic valve replaced: Plan I reviewed the prior bone marrow biopsy from 2020 which revealed hypercellular marrow, with left shifted erythroid hyperplasia, megaloblastoid changes, reduced stainable iron. A basic work-up for anemia revealed B12 deficiency, which is being replaced. CT scan of the abdomen revealed severe splenomegaly, measuring 23 cm, bone marrow biopsy has been performed, results are pending. Preliminary read does show some dysplasia. However we are waiting for a final bone marrow biopsy report. Given the elevated LDH, elevated reticulocyte count, there are concerns for underlying hemolysis and we have also sent for Donny test. I am not surprised that she has not responded well to the blood transfusions, given the massive splenomegaly and sequestration of transfused products in the large spleen. At this time I would recommend to maintain her hemoglobin close to 7 g/dL for hemodynamic safety. Given her living situation, I would not be surprised if there are other reasons for her pancytopenia including nutritional deficiency along with the B12 deficiency. At some point I will check for micronutrient deficiency, which could be done when she was discharged from the hospital. This would include checking for copper and zinc levels as that can mimic myelodysplastic syndrome. 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 At this point we are trying to figure out how much of that component is contributing to the severe anemia. I discussed her case with our hematopathologist, Dr. Salazar; and there were only a few schistocytes on the peripheral smear. Case discussed with Dr. Ursula Heck DO from [facility] Hematology will continue to follow the patient and make appropriate recommendations. A total of 60 minutes were spent in review of prior records, counseling and coordination of care for this patient. Admission and Anticipated Discharge Date Admission Date: February 14, 2023 Subjective The patient evaluated this morning, who is awake, lying in the bed comfortably. Reported no distress or pain, however never did report feeling weak. Today she remembered that she moved here from [place], [place] and remembered that she was being followed by a production controller over the. I went over the prior bone marrow biopsy. I went over the results of the CT scan with the patient She has been afebrile and is feeling generally weak. She has been transfused a couple of units, however her hemoglobin is only improved to 7.1 g/dL. There has been no active bleeding while she has been in the hospital. No hematuria. Review of Systems Review of Systems: patient is complaining of fatigue, weight loss. She has moved to the [facility] recently. Rest of the review of system per HPI Constitutional: + fatigue and + weight loss Physical Exam Constitutional: + ill appearing and + thin Eyes: PERRL, conjunctivae normal, anicteric sclerae ENMT: external ear and nose normal, oropharynx normal Neck: trachea midline, no thyromegaly Respiratory: normal respiratory effort, lungs clear to auscultation Cardiovascular: RRR, no murmur, no edema Gastrointestinal (Abdomen): normal bowel sounds, soft, nontender, no hepat osplenomegaly Musculoskeletal: no cyanosis or clubbing, extremities motor strength 5/5 Skin: no rashes, warm and dry Results & Data Vital Signs (Past 12 Hours) Vital Signs Temp Pulse Pulse Resp BP Pulse Ox O2 Del Method 02/15/23 07:46 36.9 C 85 18 113/61 99 Room Air 02/15/23 03:46 36.8 C 88 20 121/61 98 Room Air 02/15/23 00:32 37.3 C 82 20 110/65 98 Room Air 02/15/23 00:26 79
[2023-02-15] MEDS: SODIUM CHLORIDE 1 GM TABLET PO SCH ×2 (09:54→21:52)
[2023-02-15] MEDS: cefTRIAXone SODIUM 1,000 MG in DEXTROSE 5 % MINI-B 50 ML IV SCH (09:54)
[2023-02-15] MEDS: CYANOCOBALAMIN 1000 MCG/ML VIAL IM SCH (11:14)
[2023-02-15] MEDS: METOPROLOL SUCC 25MG EXT REL TAB PO SCH (11:15)
[2023-02-15] MEDS: SODIUM CHLORIDE 0.9% 1,000 ML IV SCH (15:22)
--- NOTE | 2023-02-15 17:35 | Hospitalist Progress Note ---
Date of Service February 15, 2023 Assessment & Plan (1) Pancytopenia: Plan: Severe, acute on chronic Now s/p bone marrow biopsy on 02/14-awaiting results but preliminary read does show some dysplasia-awaiting final report Appreciate hematology/oncology consultation B12 deficiency discovered-replacing with IM B12 Folate normal, iron studies normal, TSH not performed yet. No bleeding from anywhere With known history of splenomegaly and pancytopenia and had bone marrow biopsy in 2020-hematology was able to track down these results which showed hypercellular marrow with left shifted erythroid hyperplasia, megaloblastoid changes, reduced stainable iron With some possible evidence of hemolysis here with elevated total bilirubin, elevated reticulocyte count, elevated LDH, and known prosthetic heart valve. She has been transfused 2 units of blood and hemoglobin remains at 7.1 which is similar to admission. A few schistocytes were seen as per pathology review. Follow haptoglobin which is pending, LDH, reticulocyte count Check EBV, await bone marrow studies Follow CBC Transfuse only to keep hemoglobin around 7 given severe splenomegaly and possible hemolysis (2) Hypo-osmolality and hyponatremia: Plan: Sodium 123 on admission patient has been steadily declining with weakness and mental status changes over the last month as per discussion with her son Most likely due to hypovolemia from severe anemia, poor p.o. intake Sodium continues to improve after normal saline infusion and blood transfusion Follow BMP Stop IV fluids (3) Hx of falling: Plan: Status post fall/history of recurrent falls- Contributing factors include but not limited to: History of General debilitation, history of frequent falls, psoriatic arthritis, hyponatremia, severe anemia Consult PT/OT (4) Splenomegaly: Plan: Massive splenomegaly [address] Ongoing for a few years patient reports she was told this was secondary to taking Enbrel Spleen is likely sequestering RBCs and platelets as well as WBCs Keep hemoglobin only at 7-do not over transfuse Checking Donny test Will also consider EBV testing-we will discuss with hematology (5) UTI (urinary tract infection): Plan: Continue ceftriaxone Follow urine culture (6) Hyperbilirubinemia: Plan: Total bilirubin persistently 2-3, check CT abdomen/pelvis-no liver abnormalities that are significant Suspect possible hemolysis Discussed with hematology Follow LFTs (7) Aortic valve replaced: Plan: Severe aortic stenosis status post TAVR 05/14- Echo here with mild aortic stenosis (8) Psoriatic arthritis: Plan: Psoriatic arthritis- Patient reports having been on methotrexate and Enbrel in the past without significant improvement Discussed the possibility with family of additional medications that could be tried, as her arthritis significantly impedes her ability to ambulate (9) Restless leg syndrome: Plan: Continue pramipexole Iron levels normal Plan Disposition-continued stay Discussed care with son on the phone on 02/15 Admission and Anticipated Discharge Date Admission Date: February 14, 2023 Subjective Patient feeling much better today and not as confused. No nausea or abdominal pains. Discussed her care with heme-onc. No longer lightheaded. Telemetry with normal sinus rhythm IVCD, rates in the 70s to 80s Physical Exam Constitutional: WD/WN, vitals as above Neck: trachea midline, no thyromegaly Respiratory: normal respiratory effort, lungs clear to auscultation Cardiovascular: RRR, no murmur, no edema Chest (Breasts): Chest: normal inspection of chest Gastrointestinal (Abdomen): Inspection/Auscultation: abdomen normal to inspection and normal bowel sounds; abdomen not distended Musculoskeletal: Extremities: extremities normal to inspection; no cyanosis and no clubbing Skin: no rashes, warm and dry Neurologic: moves all extremities and awake; no focal motor deficits Psychiatric: A+Ox3, euthymic affect Lymphatic: no lymphedema Results & Data Results & Data Vital Signs (Past 12 Hours) Vital Signs Temp Pulse Pulse Resp BP BP Pulse Ox 02/15/23 17:19 84 02/15/23 15:14 36.7 C 84 16 101/62 98 02/15/23 13:40 80 02/15/23 11:26 36.5 C 83 16 160/84 H 97 02/15/23 07:46 36.9 C 85 18 113/61 99 O2 Del Method 02/15/23 17:19 02/15/23 15:14 Room Air 02/15/23 13:40 02/15/23 11:26 Room Air 02/15/23 07:46 Room Air Laboratory Results CBC, reticulocyte count, BMP, magnesium, LFTs, urine culture, LDH reviewed PG Care Time/CCT Total # of Minutes Spent Total Time Spent with Patient: Total time spent is greater than 50% in coordination of care (as documented) at patient's floor/unit and/or counseling patient: Coding Level of Care Code 66355 SUB INP/OBS CARE 3/50MIN Diagnoses Pancytopenia D61.818 Hypo-osmolality and hyponatremia E87.1 Hx of falling Z91.81 Splenomegaly R16.1 UTI (urinary tract infection) N39.0 Hyperbilirubinemia E80.6 Aortic valve replaced Z95.2 Psoriatic arthritis L40.50 Restless leg syndrome G25.81
--- NOTE | 2023-02-15 20:45 | Electrocardiogram Report ---
Test Reason : Blood Pressure : / mmHG Vent. Rate : 104 BPM Atrial Rate : 104 BPM P-R Int : 156 ms QRS Dur : 128 ms QT Int : 372 ms P-R-T Axes : 058 -40 081 degrees QTc Int : 489 ms Sinus tachycardia with Premature supraventricular complexes Left axis deviation Left bundle branch block Abnormal ECG No previous ECGs available Confirmed by Bruno Montez ([id number]) on 02/15/2023 8:45:23 PM Referred By: REFERRED SELF Confirmed By:Bruno Montez
[2023-02-15] MEDS: PRAMIPEXOLE DIHYDROCHLO 0.25 MG TAB PO SCH (21:52)
[2023-02-16] MEDS: ACETAMINOPHEN 325 MG TAB PO PRN ×2 (01:58→19:42)
[2023-02-16 06:32] LABS: Hemoglobin 6.3 g/dl (12.0-16.0); Mean Corpuscular Hemoglobin 30.9 pg (25.0-34.0); Mean Corpuscular Hgb Conc 33.2 g/dL (32.0-36.0); Mean Corpuscular Volume 93.1 fL (80.0-100.0); Mean Platelet Volume 8.5 fL (9.4-12.4); Nucleated RBC # (auto) 0.03 K/uL (0.00-0.12); Nucleated RBC % (auto) 2.7 %; Platelet Count 64 K/uL (130-400); RDW Coefficient of Variation 20.1 % (11.5-14.5); RDW Standard Deviation 64.4 fL (36.4-46.3); Red Blood Count 2.04 M/uL (4.20-5.40); White Blood Count 1.11 K/ul (4.8-10.8)
[2023-02-16 06:45] LABS: Anisocytosis Present; Schistocytes 1+; Tear Drop Cells 1+
[2023-02-16] MEDS ORDERED: SODIUM CHLORIDE 0.9% 250 ML IV PRN (06:50)
[2023-02-16 06:53] LABS: Immature Granulocytes # (auto) 0.05 K/uL (0.01-0.20); Immature Granulocytes % (auto) 4.5 %; Lymphocytes # (auto) 0.59 K/uL (1.20-3.40); Lymphocytes % (auto) 53.2 %; Monocytes # (auto) 0.11 K/uL (0.11-0.59); Monocytes % (auto) 9.9 %; Neutrophils # (auto) 0.36 K/uL (1.40-6.50); Neutrophils % (auto) 32.4 %
[2023-02-16 06:55] LABS: Albumin Level 3.7 gm/dl (3.4-5.0); Calcium 8.5 mg/dl (8.6-10.3); Creatinine Clr Calc Pharmacy 86.5 ml/min; Est GFR (African American) 108.2 ml/min; Est GFR (Non-African American) 93.4 ml/min; Magnesium 2.1 mg/dl (1.7-2.4); Phosphorus 3.5 mg/dl (2.5-4.9); Potassium 3.7 mmol/L (3.5-5.1)
[2023-02-16] MEDS: cefTRIAXone SODIUM 1,000 MG in DEXTROSE 5 % MINI-B 50 ML IV SCH (06:59)
[2023-02-16] MEDS: METOPROLOL SUCC 25MG EXT REL TAB PO SCH (09:34)
[2023-02-16] MEDS: CYANOCOBALAMIN 1000 MCG/ML VIAL IM SCH (09:34)
[2023-02-16] MEDS: SODIUM CHLORIDE 1 GM TABLET PO SCH ×2 (09:34→20:44)
--- NOTE | 2023-02-16 09:58 | Hematology/Oncology Prog Note ---
Date of Service February 16, 2023 Assessment & Plan (1) Pancytopenia: (2) Thrombocytopenia: (3) Anemia: (4) Aortic valve replaced: Plan ?MDS: waiting for final bone marrow biopsy results. Prelim reports suggest some dysplasia and tear drop cells in peripheral blood. 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 To me it seems unlikely that this splenomegaly is due to increased vascular congestion as there is no evidence of heart failure of liver cirrhosis. The massive spleen is probably causing additional sequestration of blood and we are not seeing an appropriate response to transfusions. Severe anemia refractory to transfusions: Retic count elevated, LDH high, Donny positive. There may be a a component of hemolysis. Donny was positive after a blood transfusion, so will wait for BM result to call it AIHA. What we are probably seeing is extravascular hemolysis due to the massive spleen and splenic sequestration. No significant schistocytes or spherocytes in peripheral blood. Continue transfusions to maintain Hb level ~ 7-8 g/dl. Nutritional deficiency: B12 level are low, being replaced. Copper/Zinc levels pending. H/o Severe aortic stenosis and TAVR: H/o psoriasis and methotrexate use: Hematology will continue to follow the patient and make appropriate recommendations. A total of 60 minutes were spent in review of prior records, counseling and coordination of care for this patient. Admission and Anticipated Discharge Date Admission Date: February 14, 2023 Subjective Awake this AM. Lying very comfortably. Reports no shortness of breath, cough, chest pain, abdominal pain. Reports generalized weakness and lightheadedness when she gets up. Reports getting up and walking. No reports of bleeding/blood in urine or stool. No excessive bruising. No fever. She has been eating well and is able to swallow food. No bruising on gums or oral bleeding. Review of Systems Review of Systems: Complete ROS done, pertinent positives mentioned in HPI. Constitutional: + fatigue and + weight loss Physical Exam Constitutional: + ill appearing, + thin and cooperative Eyes: PERRL, conjunctivae normal, anicteric sclerae ENMT: external ear and nose normal, oropharynx normal Neck: trachea midline, no thyromegaly Respiratory: normal respiratory effort, lungs clear to auscultation Cardiovascular: RRR, no murmur, no edema Gastrointestinal (Abdomen): normal bowel sounds, soft, nontender, no hepatosplenomegaly splenomegaly present Musculoskeletal: no cyanosis or clubbing, extremities motor strength 5/5 Skin: no rashes, warm and dry Results & Data Vital Signs (Past 12 Hours) Vital Signs Temp Pulse Pulse Resp BP BP BP 02/16/23 09:20 36.5 C 84 18 105/55 L 02/16/23 08:48 36.5 C 77 18 109/61 02/16/23 08:33 36.7 C 76 18 104/56 L 02/16/23 08:17 36.8 C 71 18 111/58 L 02/16/23 08:16 36.8 C 76 18 109/61 97/42 L 02/16/23 07:17 71 02/16/23 05:04 86 02/16/23 03:27 36.9 C 70 18 90/45 L 02/15/23 23:35 36.7 C 87 18 110/36 L Pulse Ox O2 Del Method 02/16/23 09:20 99 02/16/23 08:48 99 02/16/23 08:33 99 02/16/23 08:17 100 02/16/23 08:16 100 Room Air 02/16/23 07:17 02/16/23 05:04 02/16/23 03:27 97 Room Air 02/15/23 23:35 94 Room Air
[2023-02-16 12:13] LABS: Thyroid Stimulating Hormone 5.395 uIu/ml (0.300-4.500)
[2023-02-16 13:05] LABS: T4 Free Thyroxine 0.76 ng/dl (0.61-1.60)
[2023-02-16] MEDS ORDERED: POLYETHYLENE (MIRALAX) 17 GM PACK PO PRN (14:56)
--- NOTE | 2023-02-16 15:08 | Hospitalist Progress Note ---
Date of Service February 16, 2023 Assessment & Plan (1) Pancytopenia: Plan: Severe, acute on chronic Now s/p bone marrow biopsy on 02/14-awaiting results but preliminary read does show some dysplasia-awaiting final report Appreciate hematology/oncology consultation B12 deficiency discovered-replacing with IM B12 Folate normal, iron studies normal, TSH only mildly elevated. No bleeding from anywhere With known history of splenomegaly and pancytopenia and had bone marrow biopsy in 2020-hematology was able to track down these results which showed hypercellular marrow with left shifted erythroid hyperplasia, megaloblastoid changes, reduced stainable iron With some possible evidence of hemolysis here with elevated total bilirubin, elevated reticulocyte count, elevated LDH, and known prosthetic heart valve. She has been transfused 2 units of blood and hemoglobin still only 6.3. A few schistocytes were seen as per pathology review. Follow haptoglobin which is pending, LDH, reticulocyte count Donny positive but could be false positive due to recent transfusion Splenomegaly likely from extramedullary hematopoiesis and may be causing sequestration as per Heme Check EBV, await bone marrow studies hopefully Saturday Copper and Zinc also pending as per Heme Follow CBC Transfuse only to keep hemoglobin around 7 given severe splenomegaly and possible hemolysis (2) Hypo-osmolality and hyponatremia: Plan: Sodium 123 on admission patient has been steadily declining with weakness and mental status changes over the last month as per discussion with her son Most likely due to hypovolemia from severe anemia, poor p.o. intake Sodium normalized after normal saline infusion and blood transfusion Follow BMP (3) Hx of falling: Plan: Status post fall/history of recurrent falls-from lightheadedness and weakness from severe anemia and hyponatremia in setting of psoriatic arthritis Consult PT/OT-may need rehab (4) Splenomegaly: Plan: Massive splenomegaly [address] Ongoing for a few years patient reports she was told this was secondary to taking Enbrel Spleen is likely sequestering RBCs and platelets as well as WBCs Keep hemoglobin only at 7-do not over transfuse EBV titer pending (5) UTI (urinary tract infection): Plan: received ceftriaxone x 3 doses, no symptoms urine culture mixed tamia no further treatment needed (6) Hyperbilirubinemia: Plan: Total bilirubin persistently 2-3, check CT abdomen/pelvis-no liver abnormalities that are significant Suspect possible hemolysis Discussed with hematology Follow LFTs (7) Aortic valve replaced: Plan: Severe aortic stenosis status post TAVR 05/14- Echo here with mild aortic stenosis, preserved EF (8) Psoriatic arthritis: Plan: Psoriatic arthritis- Patient reports having been on methotrexate and Enbrel in the past without significant improvement Her arthritis significantly impedes her ability to ambulate (9) Restless leg syndrome: Plan: Severe, causing her a lot of issues Continue pramipexole but increase dose to 0.25mg po bid Iron levels normal Plan Disposition-continued stay Discussed care with son on the phone on 02/15 Admission and Anticipated Discharge Date Admission Date: February 14, 2023 Subjective Pt feeling very lightheaded with standing up today but it did improve after some time of sitting in the chair. Has not moved her bowels since admission. Denies CP, SOB. Is having severe restless legs and asking for Mirapex dose to be increased. Tele with NSR, IVCD, rates 60-80s Physical Exam Constitutional: WD/WN, vitals as above Neck: trachea midline, no thyromegaly Respiratory: normal respiratory effort, lungs clear to auscultation Cardiovascular: RRR, no murmur, no edema Chest (Breasts): Chest: normal inspection of chest Gastrointestinal (Abdomen): Inspection/Auscultation: abdomen normal to inspection and normal bowel sounds; abdomen not distended P ercussion/Palpation: + splenomegaly Musculoskeletal: Extremities: extremities normal to inspection; no cyanosis and no clubbing Skin: no rashes, warm and dry (with numerous ecchymoses on legs) Neurologic: moves all extremities and awake; no focal motor deficits Psychiatric: A+Ox3, euthymic affect Lymphatic: no lymphedema Results & Data Results & Data Vital Signs (Past 12 Hours) Vital Signs Temp Pulse Pulse Resp BP BP BP 02/16/23 12:00 36.9 C 76 18 123/67 02/16/23 12:00 36.9 C 76 18 123/67 02/16/23 10:50 37.0 C 77 17 119/71 02/16/23 09:50 36.6 C 86 18 119/64 02/16/23 09:20 36.5 C 84 18 105/55 L 02/16/23 08:48 36.5 C 77 18 109/61 02/16/23 08:33 36.7 C 76 18 104/56 L 10/28/23 08:17 36.8 C 71 18 111/58 L 02/16/23 08:16 36.8 C 76 18 109/61 97/42 L 02/16/23 07:17 71 02/16/23 05:04 86 02/16/23 03:27 36.9 C 70 18 90/45 L Pulse Ox O2 Del Method O2 Flow Rate 02/16/23 12:00 100 0 02/16/23 12:00 100 0 02/16/23 10:50 100 02/16/23 09:50 99 02/16/23 09:20 99 02/16/23 08:48 99 02/16/23 08:33 99 02/16/23 08:17 100 02/16/23 08:16 100 Room Air 02/16/23 07:17 02/16/23 05:04 02/16/23 03:27 97 Room Air Laboratory Results CBC, CMP, TSH, magnesium reviewed PG Care Time/CCT Total # of Minutes Spent Total Time Spent with Patient: Total time spent is greater than 50% in coordination of care (as documented) at patient's floor/unit and/or counseling patient: Coding Level of Care Code 97749 SUB INP/OBS CARE 3/50MIN Diagnoses Pancytopenia D61.818 Hypo-osmolality and hyponatremia E87.1 Hx of falling Z91.81 Splenomegaly R16.1 UTI (urinary tract infection) N39.0 Hyperbilirubinemia E80.6 Aortic valve replaced Z95.2 Psoriatic arthritis L40.50 Restless leg syndrome G25.81
[2023-02-16] MEDS: DOCUSATE SODIUM 100 MG CAP PO SCH ×2 (15:20→20:44)
[2023-02-16] MEDS: PRAMIPEXOLE DIHYDROCHLO 0.25 MG TAB PO SCH ×2 (15:20→20:44)
[2023-02-17 01:07] LABS: Hematocrit (blood only) 20.9 % (37.0-47.0); Mean Corpuscular Hemoglobin 30.7 pg (25.0-34.0); Mean Corpuscular Hgb Conc 33.5 g/dL (32.0-36.0); Mean Corpuscular Volume 91.7 fL (80.0-100.0); Mean Platelet Volume 9.2 fL (9.4-12.4); Platelet Count 66 K/uL (130-400); RDW Coefficient of Variation 20.3 % (11.5-14.5); RDW Standard Deviation 62.8 fL (36.4-46.3); Red Blood Count 2.28 M/uL (4.20-5.40); White Blood Count 1.14 K/ul (4.8-10.8)
[2023-02-17 01:53] LABS: Immature Granulocytes # (auto) 0.02 K/uL (0.01-0.20); Immature Granulocytes % (auto) 1.8 %; Lymphocytes # (auto) 0.61 K/uL (1.20-3.40); Lymphocytes % (auto) 53.5 %; Monocytes % (auto) 8.8 %; Neutrophils # (auto) 0.41 K/uL (1.40-6.50); Neutrophils % (auto) 35.9 %; Polychromasia 1+; Tear Drop Cells 2+
[2023-02-17 06:58] LABS: Hemoglobin 7.1 g/dl (12.0-16.0); Mean Corpuscular Hemoglobin 30.5 pg (25.0-34.0); Mean Corpuscular Hgb Conc 32.3 g/dL (32.0-36.0); Mean Corpuscular Volume 94.4 fL (80.0-100.0); Mean Platelet Volume 8.5 fL (9.4-12.4); Platelet Count 60 K/uL (130-400); RDW Coefficient of Variation 20.5 % (11.5-14.5); RDW Standard Deviation 65.4 fL (36.4-46.3); Red Blood Count 2.33 M/uL (4.20-5.40); Reticulocyte % 6.7 % (0.5-2.0); Reticulocytes # 0.16 10^6/uL (0.02-0.10); White Blood Count 1.24 K/ul (4.8-10.8)
[2023-02-17 07:32] LABS: Acanthocytes 1+; Polychromasia 1+; Schistocytes 1+; Tear Drop Cells 1+
[2023-02-17 07:35] LABS: Immature Granulocytes # (auto) 0.04 K/uL (0.01-0.20); Immature Granulocytes % (auto) 3.2 %; Lymphocytes # (auto) 0.63 K/uL (1.20-3.40); Lymphocytes % (auto) 50.8 %; Monocytes # (auto) 0.11 K/uL (0.11-0.59); Monocytes % (auto) 8.9 %; Neutrophils # (auto) 0.46 K/uL (1.40-6.50); Neutrophils % (auto) 37.1 %
[2023-02-17 07:36] LABS: Albumin Level 3.8 gm/dl (3.4-5.0); BUN Creatinine Ratio 38.1 (10-20); Bilirubin Direct 0.8 mg/dl (0-0.2); Bilirubin,Total 3.3 mg/dl (0.2-1.0); Calcium 8.7 mg/dl (8.6-10.3); Est GFR (African American) 114.6 ml/min; Est GFR (Non-African American) 98.9 ml/min; Magnesium 2.2 mg/dl (1.7-2.4); Potassium 3.6 mmol/L (3.5-5.1); Total Protein 5.8 gm/dl (6.0-8.3)
[2023-02-17] MEDS: SODIUM CHLORIDE 1 GM TABLET PO SCH ×2 (10:02→21:12)
[2023-02-17] MEDS: PRAMIPEXOLE DIHYDROCHLO 0.25 MG TAB PO SCH ×2 (10:02→21:12)
[2023-02-17] MEDS: METOPROLOL SUCC 25MG EXT REL TAB PO SCH (10:02)
[2023-02-17] MEDS: DOCUSATE SODIUM 100 MG CAP PO SCH ×2 (10:04→21:25)
--- NOTE | 2023-02-17 11:34 | Hematology/Oncology Prog Note ---
Date of Service February 17, 2023 Assessment & Plan (1) Pancytopenia: (2) Thrombocytopenia: (3) Anemia: (4) Aortic valve replaced: Plan ?MDS: waiting for final bone marrow biopsy results. Prelim reports suggest some dysplasia and tear drop cells in peripheral blood. 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 To me it seems unlikely that this splenomegaly is due to increased vascular congestion as there is no evidence of heart failure of liver cirrhosis. The massive spleen is probably causing additional sequestration of blood and we are not seeing an appropriate response to transfusions. Severe anemia refractory to transfusions: Retic count elevated, LDH high, Donny positive. There may be a a component of hemolysis. Donny was positive after a blood transfusion, so will wait for BM result to call it AIHA. What we are probably seeing is extravascular hemolysis due to the massive spleen and splenic sequestration. No significant schistocytes or spherocytes in peripheral blood. Continue transfusions to maintain Hb level ~ 7-8 g/dl. Nutritional deficiency: B12 level are low, being replaced. Copper/Zinc levels pending. H/o Severe aortic stenosis and TAVR H/o psoriasis and methotrexate use Hematology will continue to follow the patient and make appropriate recommendations. A total of 60 minutes were spent in review of prior records, counseling and coordination of care for this patient. Admission and Anticipated Discharge Date Admission Date: February 14, 2023 Subjective Patient evaluated this AM in the presence of son and daughter in law. Currently patient lying comfortably in bed. Overall continues to be tired and lightheaded, especially when she gets up from a lying position. Has been eating and drinking well. Denies any fever, chills, night sweats, nausea or vomiting. No diarrhea. No pain anywhere. Review of Systems Review of Systems: All systems reviewed & are unremarkable except as noted in HPI & below Physical Exam Constitutional: + thin and + cachectic Eyes: PERRL, conjunctivae normal, anicteric sclerae ENMT: external ear and nose normal, oropharynx normal Neck: trachea midline, no thyromegaly Respiratory: normal respiratory effort, lungs clear to auscultation Cardiovascular: RRR, no murmur, no edema Gastrointestinal (Abdomen): Inspection/Auscultation: abdomen normal to inspection Musculoskeletal: no cyanosis or clubbing, extremities motor strength 5/5 Lymphatic: no cervical or axillary lymphadenopathy Results & Data Vital Signs (Past 12 Hours) Vital Signs Temp Pulse Pulse Resp BP Pulse Ox O2 Del Method 02/17/23 07:41 37.2 C 63 18 118/53 L 100 Room Air 02/17/23 02:24 36.9 C 66 18 100/57 L 99 Room Air 02/17/23 01:24 70
--- NOTE | 2023-02-17 14:29 | Hospitalist Progress Note ---
Date of Service February 17, 2023 Assessment & Plan (1) Pancytopenia: Plan: acute on chronic. Extravascular sequestration associated with massive splenomegaly is a consideration. Donny positive and autoimmune hemolytic anemia remains in the differential. Hemoglobin improved after transfusion to 7.1. She remains pancytopenic. The patient and family are hopeful for SNF or IPR placement at the time of discharge. S/p bone marrow biopsy on 02/14- awaiting final results but preliminary read reveals dysplasia. Appreciate hematology/oncology consultation. She has B12 deficiency. Replacement therapy underway. No evidence of gastrointestinal bleeding. With known history of splenomegaly and pancytopenia. She apparently had bone marrow biopsy in 2020-hematology was able to track down these results which showed hypercellular marrow with left shifted erythroid hyperplasia, megaloblastoid changes, reduced stainable iron. Some evidence of hemolysis here with elevated total bilirubin, elevated reticulocyte count, elevated LDH, and known prosthetic heart valve. She has received blood transfusion. Hemoglobin continues to remain low. (2) Hypo-osmolality and hyponatremia: Plan: Sodium 123 on admission. Improving. Fluid restriction. Serial labs. (3) Hx of falling: Plan: Status post fall/history of recurrent falls-from lightheadedness and weakness from severe anemia and hyponatremia in setting of psoriatic arthritis. Continue OT and PT while hospitalized (4) Splenomegaly: Plan: Massive splenomegaly [address] Ongoing for a few years patient reports she was told this was secondary to taking Enbrel. Likely causing sequestration of RBCs and platelets as well as WBCs (5) UTI (urinary tract infection): Plan: received ceftriaxone x 3 doses, no symptoms. Urine culture revealed mixed tamia. No further treatment needed (6) Hyperbilirubinemia: Plan: Total bilirubin persistently 2-3. CT abdomen/pelvis-no liver abnormalities that are significant. Serial labs (7) Aortic valve replaced: Plan: History of severe aortic stenosis. 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 Echo revealed mild aortic stenosis, preserved EF (8) Psoriatic arthritis: Plan: Treated with methotrexate and Enbrel in the past without significant improvement. Her arthritis significantly impedes her ability to ambulate (9) Restless leg syndrome: Plan: Severe. Pramipexole dosage uptitrated this admission. Plan Hopeful discharge to SNF or IPR at discharge. Possibly within the next day or 2 Admission and Anticipated Discharge Date Admission Date: February 14, 2023 Subjective Alert and oriented. No distress. Case discussed with hematologyoncology. Bone marrow biopsy obtained February 14 remains pending. The patient is agreeable to going to SNF for rehab at the time of discharge. She remains pancytopenic. Autoimmune hemolytic anemia remains in the differential. Review of Systems Review of Systems: Constitutional-no fever or chills ENT-no blurred vision, no double vision, no epistaxis, no sore throat Respiratory-no cough, no wheezing, no shortness of breath Cardiac-no palpitations, no chest pain, no syncope GI-no nausea, vomiting, diarrhea, melena, hematochezia -no urinary retention, no urinary incontinence, no dysuria, no hematuria Musculoskeletal-no joint pain, no muscle tenderness Skin-no bruising, no rashes, no pruritus. Pallor noted Neuro-generalized weakness Psych-no depression, no anxiety Physical Exam Physical Exam: General-alert and oriented x3, no fevers, no chills HEENT-head atraumatic and normocephalic, pupils equal and reactive to light, extraocular muscles intact Neck-no lymphadenopathy or thyromegaly, trachea midline Chest-clear to auscultation percussion. No rales wheezing or rhonchi Cardiac-regular rate and rhythm, normal S1 and S2 Abdomen-normal bowel sounds, nontender, no hepatosplenomegaly Extremities-no cyanosis, clubbing, or edema Skinpallor noted Neuro-cranial nerves II through XII intact, motor and sensory function within normal limits, strength symmetrical , no focal deficits Psych-normal affect, normal mood Results & Data Results & Data Vital Signs (Past 12 Hours) Vital Signs Temp Pulse Pulse Resp BP Pulse Ox O2 Del Method 02/17/23 13:00 64 02/17/23 11:37 36.8 C 78 18 127/69 99 Room Air 02/17/23 07:41 37.2 C 63 18 118/53 L 100 Room Air 02/17/23 02:24 36.9 C 66 18 100/57 L 99 Room Air Laboratory Results 02/17/23 06:33 02/17/23 06:33 PG Care Time/CCT Total # of Minutes Spent Total Time Spent with Patient: Total time spent is greater than 50% in coordination of care (as documented) at patient's floor/unit and/or counseling patient: Coding Level of Care Code 32207 SUB INP/OBS CARE 350MIN Diagnoses Pancytopenia D61.818 Hypo-osmolality and hyponatremia E87.1 Hx of falling Z91.81 Splenomegaly R16.1 UTI (urinary tract infection) N39.0 Hyperbilirubinemia E80.6 Aortic valve replaced Z95.2 Psoriatic arthritis L40.50 Restless leg syndrome G25.81
[2023-02-17] MEDS: ACETAMINOPHEN 325 MG TAB PO PRN (16:34)
[2023-02-18] MEDS: ACETAMINOPHEN 325 MG TAB PO PRN ×3 (04:08→22:01)
[2023-02-18 07:20] LABS: Hematocrit (blood only) 21.6 % (37.0-47.0); Mean Corpuscular Hemoglobin 30.3 pg (25.0-34.0); Mean Corpuscular Hgb Conc 32.4 g/dL (32.0-36.0); Mean Corpuscular Volume 93.5 fL (80.0-100.0); Mean Platelet Volume 9.7 fL (9.4-12.4); Platelet Count 69 K/uL (130-400); RDW Coefficient of Variation 21.2 % (11.5-14.5); RDW Standard Deviation 68.6 fL (36.4-46.3); Red Blood Count 2.31 M/uL (4.20-5.40); White Blood Count 1.37 K/ul (4.8-10.8)
[2023-02-18 07:38] LABS: BUN Creatinine Ratio 32.5 (10-20); Calcium 8.6 mg/dl (8.6-10.3); Creatinine Clr Calc Pharmacy 108.1 ml/min; Est GFR (African American) 116.4 ml/min; Est GFR (Non-African American) 100.5 ml/min; Potassium 3.8 mmol/L (3.5-5.1)
[2023-02-18 07:46] LABS: ALC (manual) 0.63 K/uL (1.2-3.4); Anisocytosis Present; Lymphocytes # (manual) 0.63 K/uL (1.2-3.4); Lymphocytes % (manual) 46 %; Monocytes # (manual) 0.01 K/uL (0.11-0.59); Monocytes % (manual) 1 %; Myelocytes # (manual) 0.03 K/uL (0-0); Myelocytes % (manual) 2 %; Neutrophils % (manual) 51 %; Polychromasia 1+; Tear Drop Cells 1+
[2023-02-18] MEDS: PRAMIPEXOLE DIHYDROCHLO 0.25 MG TAB PO SCH ×2 (08:45→20:11)
[2023-02-18] MEDS: METOPROLOL SUCC 25MG EXT REL TAB PO SCH (08:46)
[2023-02-18] MEDS: DOCUSATE SODIUM 100 MG CAP PO SCH ×2 (08:46→20:11)
[2023-02-18] MEDS: SODIUM CHLORIDE 1 GM TABLET PO SCH ×2 (08:46→20:11)
--- NOTE | 2023-02-18 12:16 | Hospitalist Progress Note ---
Date of Service February 18, 2023 Assessment & Plan (1) Pancytopenia: Plan: acute on chronic. Extravascular sequestration associated with massive splenomegaly is a consideration. Donny positive and autoimmune hemolytic anemia remains in the differential. Hemoglobin improved after transfusion to 7.1. She remains pancytopenic. The patient and family are hopeful for SNF or IPR placement at the time of discharge. S/p bone marrow biopsy on 02/14- awaiting final results but preliminary read reveals dysplasia. Appreciate hematology/oncology consultation. She has B12 deficiency. Replacement therapy underway. No evidence of gastrointestinal bleeding. With known history of splenomegaly and pancytopenia. She apparently had bone marrow biopsy in 2020-hematology was able to track down these results which showed hypercellular marrow with left shifted erythroid hyperplasia, megaloblastoid changes, reduced stainable iron. Some evidence of hemolysis here with elevated total bilirubin, elevated reticulocyte count, elevated LDH, and known prosthetic heart valve. She has received blood transfusion. Hemoglobin continues to remain low. (2) Hypo-osmolality and hyponatremia: Plan: Sodium 123 on admission. Now normalized. Serial labs. (3) Hx of falling: Plan: Status post fall/history of recurrent falls-from lightheadedness and weakness from severe anemia and hyponatremia in setting of psoriatic arthritis. Continue OT and PT while hospitalized (4) Splenomegaly: Plan: Massive splenomegaly [address] Ongoing for a few years patient reports she was told this was secondary to taking Enbrel. Likely causing sequestration of RBCs and platelets as well as WBCs (5) UTI (urinary tract infection): Plan: received ceftriaxone x 3 doses, no symptoms. Urine culture revealed mixed tamia. No further treatment needed (6) Hyperbilirubinemia: Plan: Total bilirubin persistently 2-3. CT abdomen/pelvis-no liver abnormalities that are significant. Serial labs (7) Aortic valve replaced: Plan: History of severe aortic stenosis. 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 Echo revealed normal TAVR function with mild aortic stenosis parameters, preserved EF (8) Psoriatic arthritis: Plan: Treated with methotrexate and Enbrel in the past without significant improvement. Her arthritis significantly impedes her ability to ambulate (9) Restless leg syndrome: Plan: Severe. Pramipexole dosage uptitrated this admission. Plan Hopeful discharge to SNF or IPR at discharge. She is medically stable for discharge. Admission and Anticipated Discharge Date Admission Date: February 14, 2023 Subjective Alert and oriented. No distress. She states she would like to go to inpatient rehab at discharge. Bone marrow biopsy done February 14 remains pending. Hemoglobin stable at 7.0. White blood cell count up slightly to 1.3. Platelet count remains low but stable at 69,000. Cardiac echo revealed normal ejection fraction with normal TAVR function. Review of Systems Review of Systems: Constitutional-no fever or chills ENT-no blurred vision, no double vision, no epistaxis, no sore throat Respiratory-no cough, no wheezing, no shortness of breath Cardiac-no palpitations, no chest pain, no syncope GI-no nausea, vomiting, diarrhea, melena, hematochezia -no urinary retention, no urinary incontinence, no dysuria, no hematuria Musculoskeletal-no joint pain, no muscle tenderness Skin-no bruising, no rashes, no pruritus. Pallor noted Neuro-generalized weakness Psych-no depression, no anxiety Physical Exam Physical Exam: General-alert and oriented x3, no fevers, no chills HEENT-head atraumatic and normocephalic, pupils equal and reactive to light, extraocular muscles intact Neck-no lymphadenopathy or thyromegaly, trachea midline Chest-clear to auscultation percussion. No rales wheezing or rhonchi Cardiac-regular rate and rhythm, normal S1 and S2 Abdomen-normal bowel sounds, nontender, no hepatosplenomegaly Extremities-no cyanosis, clubbing, or edema Skinpallor noted Neuro-cranial nerves II through XII intact, motor and sensory function within normal limits, strength symmetrical , no focal deficits Psych-normal affect, normal mood Results & Data Results & Data Vital Signs (Past 12 Hours) Vital Signs Temp Pulse Pulse Pulse Resp BP Pulse Ox 02/18/23 06:00 66 02/18/23 07:12 36.9 C 68 18 110/49 L 96 02/18/23 02:39 37.0 C 71 18 114/63 100 02/18/23 00:54 72 O2 Del Method 02/18/23 06:00 02/18/23 07:12 Room Air 02/18/23 02:39 Room Air 02/18/23 00:54 Laboratory Results 02/18/23 06:42 02/18/23 06:42 PG Care Time/CCT Total # of Minutes Spent Total Time Spent with Patient: Total time spent is greater than 50% in coordination of care (as documented) at patient's floor/unit and/or counseling patient: Coding Level of Care Code 43564 SUB INP/OBS CARE 2/35MIN Diagnoses Pancytopenia D61.818 Hypo-osmolality and hyponatremia E87.1 Hx of falling Z91.81 Splenomegaly R16.1 UTI (urinary tract infection) N39.0 Hyperbilirubinemia E80.6 Aortic valve replaced Z95.2 Psoriatic arthritis L40.50 Restless leg syndrome G25.81
--- NOTE | 2023-02-18 13:13 | Electrocardiogram Report ---
Test Reason : Blood Pressure : / mmHG Vent. Rate : 077 BPM Atrial Rate : 077 BPM P-R Int : 156 ms QRS Dur : 134 ms QT Int : 420 ms P-R-T Axes : 063 -39 102 degrees QTc Int : 475 ms Sinus rhythm with Premature supraventricular complexes Left axis deviation Left bundle branch block Abnormal ECG No previous ECGs available Confirmed by Neville Chávez ([id number] on 02/18/2023 1:13:15 PM Referred By: REFERRED SELF Confirmed By:Casey Chávez
[2023-02-18 18:12] LABS: Copper, Serum 120 mcg/dL (70-175); Zinc 63 mcg/dL (60-130)
[2023-02-19] MEDS: METOPROLOL SUCC 25MG EXT REL TAB PO SCH (07:38)
[2023-02-19] MEDS: DOCUSATE SODIUM 100 MG CAP PO SCH ×2 (07:38→20:39)
[2023-02-19] MEDS: PRAMIPEXOLE DIHYDROCHLO 0.25 MG TAB PO SCH ×2 (07:39→20:39)
[2023-02-19] MEDS: SODIUM CHLORIDE 1 GM TABLET PO SCH ×2 (07:39→20:40)
[2023-02-19 07:55] LABS: Hematocrit (blood only) 20.8 % (37.0-47.0); Hemoglobin 6.7 g/dl (12.0-16.0); Mean Corpuscular Hemoglobin 30.3 pg (25.0-34.0); Mean Corpuscular Hgb Conc 32.2 g/dL (32.0-36.0); Mean Corpuscular Volume 94.1 fL (80.0-100.0); Mean Platelet Volume 9.5 fL (9.4-12.4); Nucleated RBC # (auto) 0.02 K/uL (0.00-0.12); Nucleated RBC % (auto) 1.7 %; Platelet Count 74 K/uL (130-400); RDW Coefficient of Variation 20.9 % (11.5-14.5); RDW Standard Deviation 69.1 fL (36.4-46.3); Red Blood Count 2.21 M/uL (4.20-5.40); White Blood Count 1.18 K/ul (4.8-10.8)
[2023-02-19 07:57] LABS: BUN Creatinine Ratio 26.2 (10-20); Calcium 8.5 mg/dl (8.6-10.3); Est GFR (African American) 114.6 ml/min; Est GFR (Non-African American) 98.9 ml/min; Potassium 3.8 mmol/L (3.5-5.1)
[2023-02-19 08:26] LABS: Basophils # (auto) 0.01 K/uL (0.00-0.20); Basophils % (auto) 0.8 %; Eosinophils # (auto) 0.01 K/uL (0.00-0.50); Eosinophils % (auto) 0.8 %; Lymphocytes # (auto) 0.53 K/uL (1.20-3.40); Lymphocytes % (auto) 44.9 %; Monocytes % (auto) 8.5 %; Neutrophils # (auto) 0.53 K/uL (1.40-6.50)
[2023-02-19] MEDS: ACETAMINOPHEN 325 MG TAB PO PRN (12:38)
[2023-02-19 14:52] LABS: EBV Nuclear Ag Antibody >600.00 U/mL; EBV Virus Capsid Ag IgG Ab >750.00 U/mL
--- NOTE | 2023-02-19 14:53 | Hospitalist Progress Note ---
Date of Service February 19, 2023 Assessment & Plan (1) Pancytopenia: Plan: acute on chronic. Extravascular sequestration associated with massive splenomegaly is a consideration. Donny positive and autoimmune hemolytic anemia remains in the differential. Hemoglobin improved after transfusion to 7.1. She remains pancytopenic. The patient and family are hopeful for SNF or IPR placement at the time of discharge. S/p bone marrow biopsy on 02/14- awaiting final results but preliminary read reveals dysplasia. Appreciate hematology/oncology consultation. She has B12 deficiency. Replacement therapy underway. No evidence of gastrointestinal bleeding. With known history of splenomegaly and pancytopenia. She apparently had bone marrow biopsy in 2020-hematology was able to track down these results which showed hypercellular marrow with left shifted erythroid hyperplasia, megaloblastoid changes, reduced stainable iron. Some evidence of hemolysis here with elevated total bilirubin, elevated reticulocyte count, elevated LDH, and known prosthetic heart valve. She has received blood transfusion. Hemoglobin continues to remain low. (2) Hypo-osmolality and hyponatremia: Plan: Sodium 123 on admission. Now normalized. Serial labs. (3) Hx of falling: Plan: Status post fall/history of recurrent falls-from lightheadedness and weakness from severe anemia and hyponatremia in setting of psoriatic arthritis. Continue OT and PT while hospitalized (4) Splenomegaly: Plan: Massive splenomegaly [address] Ongoing for a few years patient reports she was told this was secondary to taking Enbrel. Likely causing sequestration of RBCs and platelets as well as WBCs (5) UTI (urinary tract infection): Plan: received ceftriaxone x 3 doses, no symptoms. Urine culture revealed mixed tamia. No further treatment needed (6) Hyperbilirubinemia: Plan: Total bilirubin persistently 2-3. CT abdomen/pelvis-no liver abnormalities that are significant. Serial labs (7) Aortic valve replaced: Plan: History of severe aortic stenosis. 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 Echo revealed normal TAVR function with mild aortic stenosis parameters, preserved EF (8) Psoriatic arthritis: Plan: Treated with methotrexate and Enbrel in the past without significant improvement. Her arthritis significantly impedes her ability to ambulate (9) Restless leg syndrome: Plan: Severe. Pramipexole dosage uptitrated this admission. Plan Hopeful discharge to home tomorrow, February 20, with home health services Admission and Anticipated Discharge Date Admission Date: February 14, 2023 Subjective Alert and oriented. No significant change. Case management is working on home health arrangements. The patient was informed that she will be going home tomorrow, February 20. Unfortunately, the pathology report from the bone marrow aspirate done February 14 remains pending. Hemoglobin is low at 6.7 but she does not respond to blood transfusion. Oncology consultation has stated that she is Donny positive which raises the possibility of autoimmune hemolytic anemia. Review of Systems Review of Systems: Constitutional-no fever or chills ENT-no blurred vision, no double vision, no epistaxis, no sore throat Respiratory-no cough, no wheezing, no shortness of breath Cardiac-no palpitations, no chest pain, no syncope GI-no nausea, vomiting, diarrhea, melena, hematochezia -no urinary retention, no urinary incontinence, no dysuria, no hematuria Musculoskeletal-no joint pain, no muscle tenderness Skin-no bruising, no rashes, no pruritus. Pallor noted Neuro-generalized weakness Psych-no depression, no anxiety Physical Exam Physical Exam: General-alert and oriented x3, no fevers, no chills HEENT-head atraumatic and normocephalic, pupils equal and reactive to light, extraocular muscles intact Neck-no lymphadenopathy or thyromegaly, trachea midline Chest-clear to auscultation percussion. No rales wheezing or rhonchi Cardiac-regular rate and rhythm, normal S1 and S2 Abdomen-normal bowel sounds, nontender, no hepatosplenomegaly Extremities-no cyanosis, clubbing, or edema Skinpallor noted Neuro-cranial nerves II through XII intact, motor and sensory function within normal limits, strength symmetrical , no focal deficits Psych-normal affect, normal mood Results & Data Results & Data Vital Signs (Past 12 Hours) Vital Signs Temp Pulse Pulse Resp BP Pulse Ox O2 Del Method 02/19/23 11:48 36.8 C 76 18 105/59 L 96 Room Air 02/19/23 07:31 36.9 C 78 18 119/68 100 Room Air 02/19/23 07:17 72 02/19/23 03:00 36.9 C 68 16 114/69 96 Room Air Laboratory Results 02/19/23 06:32 02/19/23 06:32 PG Care Time/CCT Total # of Minutes Spent Total Time Spent with Patient: Total time spent is greater than 50% in coordination of care (as documented) at patient's floor/unit and/or counseling patient: Coding Level of Care Code 06964 SUB INP/OBS CARE 2/35MIN Diagnoses Pancytopenia D61.818 Hypo-osmolality and hyponatremia E87.1 Hx of falling Z91.81 Splenomegaly R16.1 UTI (urinary tract infection) N39.0 Hyperbilirubinemia E80.6 Aortic valve replaced Z95.2 Psoriatic arthritis L40.50 Restless leg syndrome G25.81
--- NOTE | 2023-02-19 16:59 | Hematology/Oncology Prog Note ---
Date of Service February 19, 2023 Assessment & Plan (1) Pancytopenia: (2) Thrombocytopenia: (3) Anemia: (4) Aortic valve replaced: Plan ?MDS: bone marrow biopsy pending. 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 To me it seems unlikely that this splenomegaly is due to increased vascular congestion as there is no evidence of heart failure of liver cirrhosis. The massive spleen is probably causing additional sequestration of blood and we are not seeing an appropriate response to transfusions. Severe anemia refractory to transfusions: Recommend transfusion to maintain Hb~ 7.0 g/dll. Nutritional deficiency: B12 level are low, being replaced. Copper/Zinc levels pending. H/o Severe aortic stenosis and TAVR H/o psoriasis and methotrexate use: currently in remission, hasn't used MTX in over 2 years Hematology will continue to follow the patient and make appropriate recommendations. A total of 60 minutes were spent in review of prior records, counseling and coordination of care for this patient. Admission and Anticipated Discharge Date Admission Date: February 14, 2023 Subjective Patient evaluated this am. Doing wel. Sitting upright on a chair comfortably. Reports no bleeding, nausea or vomiting. No diarrhea. No bleeding anywherel. Review of Systems Review of Systems: Complains of fatigue, otherwise no bleeding/bruising Results & Data Vital Signs (Past 12 Hours) Vital Signs Temp Pulse Pulse Resp BP Pulse Ox O2 Del Method 02/19/23 16:19 75 02/19/23 15:41 36.7 C 76 18 107/62 96 Room Air 02/19/23 11:48 36.8 C 76 18 105/59 L 96 Room Air 02/19/23 07:31 36.9 C 78 18 119/68 100 Room Air 02/19/23 07:17 72
[2023-02-20] MEDS: ACETAMINOPHEN 325 MG TAB PO PRN ×2 (01:31→07:33)
[2023-02-20] MEDS: METOPROLOL SUCC 25MG EXT REL TAB PO SCH (07:28)
[2023-02-20] MEDS: DOCUSATE SODIUM 100 MG CAP PO SCH (07:28)
[2023-02-20] MEDS: SODIUM CHLORIDE 1 GM TABLET PO SCH (07:28)
[2023-02-20] MEDS: PRAMIPEXOLE DIHYDROCHLO 0.25 MG TAB PO SCH (07:28)
[2023-02-20 08:37] LABS: Hematocrit (blood only) 23.2 % (37.0-47.0); Hemoglobin 7.6 g/dl (12.0-16.0); Mean Corpuscular Hemoglobin 30.2 pg (25.0-34.0); Mean Corpuscular Hgb Conc 32.8 g/dL (32.0-36.0); Mean Corpuscular Volume 92.1 fL (80.0-100.0); Nucleated RBC # (auto) 0.02 K/uL (0.00-0.12); Nucleated RBC % (auto) 1.4 %; Platelet Count 87 K/uL (130-400); RDW Coefficient of Variation 20.9 % (11.5-14.5); RDW Standard Deviation 68.1 fL (36.4-46.3); Red Blood Count 2.52 M/uL (4.20-5.40); White Blood Count 1.38 K/ul (4.8-10.8)
[2023-02-20 08:51] LABS: BUN Creatinine Ratio 21.7 (10-20); Calcium 8.8 mg/dl (8.6-10.3); Est GFR (African American) 111.2 ml/min; Potassium 3.8 mmol/L (3.5-5.1)
[2023-02-20 09:02] LABS: Tear Drop Cells 2+
[2023-02-20 09:03] LABS: Basophils # (auto) 0.01 K/uL (0.00-0.20); Basophils % (auto) 0.7 %; Eosinophils # (auto) 0.02 K/uL (0.00-0.50); Eosinophils % (auto) 1.4 %; Immature Granulocytes # (auto) 0.05 K/uL (0.01-0.20); Immature Granulocytes % (auto) 3.6 %; Lymphocytes # (auto) 0.63 K/uL (1.20-3.40); Lymphocytes % (auto) 45.7 %; Monocytes # (auto) 0.11 K/uL (0.11-0.59); Neutrophils # (auto) 0.56 K/uL (1.40-6.50); Neutrophils % (auto) 40.6 %
--- NOTE | 2023-02-20 11:59 | Discharge Summary ---
Date of Service February 20, 2023 Admission HPI Per Admitting Provider The patient is a 78-year-old female with a past medical history including psoriatic arthritis, restless leg syndrome, severe aortic stenosis status post TAVR 05/14, osteoarthritis, pancytopenia, history of recurrent falls, history of rectovaginal fistula previously surgically repaired, ADITYA/BSO, bowel resection status post SBO. Family reports upon questioning, that she probably has had a 30 pound weight gain in the past 2 years. She was found after having a fall at [facility] living today. Her son reports that she had been at a dental visit today, was found to have an abscess tooth in her left upper area, and was told that she would probably need a root canal. He did purchase a prescription for amoxicillin for today, but when he came back to give it to her he found her on the floor at that time. She was then brought into the emergency department, and family is present to provide her history. The patient had been living in [place], [place], and after her significant other passed earlier in the year, she was brought to live with her family close by in [place] in October. She has established with Dr. Troy locally, however, this evening for admission, HER MEDICAL RECORD has a duplication, which medical records will need to fix in the morning. The correct spelling of her name will be necessary as well Principal Diagnosis Pancytopenia, splenomegaly, possible autoimmune hemolytic anemia, PSVT Discharge Exam General-alert and oriented x3, no fevers, no chills HEENT-head atraumatic and normocephalic, pupils equal and reactive to light, extraocular muscles intact Neck-no lymphadenopathy or thyromegaly, trachea midline Chest-clear to auscultation percussion. No rales wheezing or rhonchi Cardiac-regular rate and rhythm, normal S1 and S2 Abdomen-normal bowel sounds, nontender, no hepatosplenomegaly Extremities-no cyanosis, clubbing, or edema Skinpallor noted Neuro-cranial nerves II through XII intact, motor and sensory function within normal limits, strength symmetrical , no focal deficits Psych-normal affect, normal mood Discharge Data Allergies Allergy/AdvReac Type Severity Reaction Status Date / Time No Known Allergies Allergy Verified 02/14/23 07:39 Consultations 02/13/23 23:49 ED Decision to Admit Stat 02/14/23 04:27 Consult Hematology Routine Ordered Studies 02/13/23 20:16 CT cervical spine wo con Stat CT head/brain wo con Stat 02/14/23 09:30 IR bone marrow bx & asp Urgent 02/14/23 17:03 CT abdomen pelvis wo/w con Routine Hospital Course (1) Pancytopenia: acute on chronic. Extravascular sequestration associated with massive splenomegaly is a consideration. Donny positive and autoimmune hemolytic anemia remains in the differential. Hemoglobin improved after transfusion to 7.1. She remains pancytopenic. The patient and family are hopeful for SNF or IPR placement at the time of discharge. S/p bone marrow biopsy on 02/14- awaiting final results but preliminary read reveals dysplasia. Appreciate hematology/oncology consultation. She has B12 deficiency. Replacement therapy underway. No evidence of gastrointestinal bleeding. With known history of splenomegaly and pancytopenia. She apparently had bone marrow biopsy in 2020- hematology was able to track down these results which showed hypercellular marrow with left shifted erythroid hyperplasia, megaloblastoid changes, reduced stainable iron. Some evidence of hemolysis here with elevated total bilirubin, elevated reticulocyte count, elevated LDH, and known prosthetic heart valve. She has received blood transfusion. Hemoglobin continues to remain low. (2) Hypo-osmolality and hyponatremia: Sodium 123 on admission. Now normalized. Serial labs. (3) Hx of falling: Status post fall/history of recurrent falls-from lightheadedness and weakness from severe anemia and hyponatremia in setting of psoriatic arthritis. Continue OT and PT while hospitalized (4) Splenomegaly: Massive splenomegaly [address] Ongoing for a few years patient reports she was told this was secondary to taking Enbrel. Likely causing sequestration of RBCs and platelets as well as WBCs (5) UTI (urinary tract infection): received ceftriaxone x 3 doses, no symptoms. Urine culture revealed mixed tamia. No further treatment needed (6) Hyperbilirubinemia: Total bilirubin persistently 2-3. CT abdomen/pelvis-no liver abnormalities that are significant. Serial labs (7) Aortic valve replaced: History of severe aortic stenosis. 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 Echo revealed normal TAVR function with mild aortic stenosis parameters, preserved EF (8) Psoriatic arthritis: Treated with methotrexate and Enbrel in the past without significant impro vement. Her arthritis significantly impedes her ability to ambulate (9) Restless leg syndrome: Severe. Pramipexole dosage uptitrated this admission. (10) PSVT (paroxysmal supraventricular tachycardia): Occasional short bursts of SVT. Metoprolol dosage has been increased Plan Home today, February 20, with home health services Total Time Total Time Spent Total Time Spent (In Minutes): 45 minutes Discharge Plan Discharge Items Patient Disposition: Home - Home Health Services Reason For Visit: S/P FALL, HYPONATREMIA, PANCYTOPENIA Discharge Diagnosis: Pancytopenia, splenomegaly, possible autoimmune hemolytic anemia, PSVT Activity: Resume your previous activity Non-emergency contact: Primary Care Provider and Oncologist Call non-emergency contact if: you have any medication questions and your symptoms worsen Follow-up/Referrals: Nicole Troy MD [Primary Care Provider] - Diet: Regular Addtl Attending Provider Instructions: Metoprolol succinate dosage has been increased. Pramipexole dosage has been increased. Follow-up with primary care physician and oncology as soon as possible. Pathology report from the bone marrow assessment is still pending at the time of discharge from the hospital Pending Studies at Discharge: Yes Studies:: Recent bone marrow biopsy pathology report Stand-Alone Forms: [facility], Smoking Cessation Medications and DC Order Prescriptions: New metoprolol succinate 50 mg Tablet Extended Release 24 Hr 50 mg PO DAILY Qty: 30 0RF pramipexole 0.25 mg Tablet 0.25 mg PO BID Qty: 60 0RF polyethylene glycol 3350 [Miralax] 17 gram Powder In Packet 17 g PO DAILY PRN (Reason: constipation) Qty: 0 0RF docusate sodium 100 mg Capsule 100 mg PO BID Qty: 0 0RF Continued halobetasol propionate 0.05 % ointment 1 applic topical DAILY Qty: 15 2RF pramipexole 0.25 mg tablet 0.25 mg PO QPM amoxicillin 250 mg Tablet,Chewable 0 mg PO BID Rx Instructions: BEGIN 02/13/23, TAKE THIS MED TWICE DAILY Discontinued pramipexole 0.25 mg tablet 0.25 mg PO HS metoprolol succinate 25 mg tablet extended release 24 hr 25 mg PO 1200 metoprolol succinate 25 mg tablet extended release 24 hr 25 mg PO DAILY Discharge Orders: Discharge Order (Routine); Ordered 02/20/23 Ordered By: Wing Solis Admission Data Admit Date/Time: 02/14/23 01:40 Attending Provider: Wing Solis Admit Provider: Isai Gutierrez Primary Care Provider: Nicole Troy Other Providers: Isai Gutierrez ; Karrie Enrqiue ; [facility] Fax Coding Level of Care Code 76627 INP/OBS DISCH >30 MIN Diagnoses Pancytopenia D61.818 Hypo-osmolality and hyponatremia E87.1 Hx of falling Z91.81 Splenomegaly R16.1 UTI (urinary tract infection) N39.0 Hyperbilirubinemia E80.6 Aortic valve replaced Z95.2 Psoriatic arthritis L40.50 Restless leg syndrome G25.81 PSVT (paroxysmal supraventricular tachycardia) I47.10
[2023-02-20] MEDS ORDERED: METOPROLOL SUCC 25MG EXT REL TAB PO ONE (12:15)
[2023-02-21] MEDS ORDERED: METOPROLOL SUCC 50MG EXT REL TAB PO SCH (09:00)
--- NOTE | 2023-03-08 04:16 | Coding Query ---
PATHOLOGY To promote full compliance with coding requirements relating to patient care, physician participation is requested in all cases of buhr dresser uncertainty. Please assist us with the question(s) below: Please review the Pathology report and document any relevant diagnosis(es) below. Patient admitted with acute/chronic pancytopenia and spelenomegaly. Core & aspiration bone marrow biopsies done. Thanks for your help. [facility] Diagnosis(es): Acute T-cell lymphocytic lymphoma MTDD
== END 2023-02-20 17:46 | disposition home health service (06) | DRG 841 ==
LOC: ED 19:44 → EDINP 02-14 01:40 → SUATTDRO 02-14 01:40 → MERGE 02-14 01:40 → 2N 02-14 04:28

== ENCOUNTER 2023-03-26 21:40 | Inpatient (IN) ==
--- NOTE | 2023-03-26 22:34 | Emergency Department Note ---
History of Present Illness General Chief complaint: Fall Stated complaint: FALL, UNABLE TO GET UP Time Seen by Provider: 03/26/23 22:19 History of Present Illness Maximum Pain Intensity: 4 This is a 78-year-old female with a history of malignancy that presents to the emergency department via EMS with complaints of "fall, unable to get up". Patient's son as well as [id number] are at bedside. Patient as well as family provides history. The family note that this evening shortly after 8 PM they were visiting the patient and then left. Not long after they received notification that the patient had fallen and EMS was summoned. The patient notes that she believes that her foot slipped on the bathroom floor on some water causing her to fall. She notes that she struck her head on a round bar. She denies loss of consciousness. She notes she was unable to get up and had to pull the call peace summoning EMS therefore bring her here for evaluation. She estimates the amount of time she was on the floor was about 20 minutes. No prolonged time on the floor. The patient is following with hematology for underlying malignancy. Patient as well as family note that she was here in the hospital about a month ago. The family at bedside also notes that patient has been noting some dizziness and lightheadedness as well as frequent falls over the past few days. No chest pain or shortness of breath. Patient feels overall well at this time. Home Medications Medication Instructions Recorded Confirmed Type docusate sodium 100 mg capsule 100 mg PO BID #0 caps 02/20/23 03/27/23 Rx metoprolol succinate 50 mg 50 mg PO DAILY #30 tabs 02/20/23 03/27/23 Rx tablet,extended release 24 hr polyethylene glycol 3350 17 gram 17 g PO DAILY PRN constipation #0 02/20/23 03/27/23 Rx oral powder packet (Miralax) ea pramipexole 0.25 mg tablet 0.25 mg PO BID #60 tabs 02/20/23 03/27/23 Rx acyclovir 400 mg tablet 400 mg PO BID 03/27/23 03/27/23 History ciprofloxacin HCl 0.3 % eye drops 0 drp ophthalmic (eye) UD 03/27/23 03/27/23 History Allergies Allergy/AdvReac Type Severity Reaction Status Date / Time No Known Allergies Allergy Verified 03/27/23 00:34 Past Med/Surg History Medical History Symptomatic anemia Restless leg syndrome Hx of falling Psoriatic arthritis Frequent falls unknown reason, following with pcpCONTRERAS -- last fall was ~01/04/23. no injury at that time. Urgency incontinence Stress incontinence Psoriatic arthritis Restless leg syndrome Former cigarette smoker Former smoker Psoriasis Surgical History Aortic valve prosthesis present History of cardiac cath [facility] in [place] March 2022 - no stents. History of arthroscopy of right knee Aortic valve replaced Adams AMY 3 Value, done in [place], [place] Hx of tonsillectomy Hx of cholecystectomy History of hysterectomy ADITYA with BSO Heart valve replaced April 2022 a hospital [place], replaced with a mechanical aortic valve. Followed with Dr Gerry Quintero [facility]. Family History Other No family history of adverse response to anesthesia Denies family history of Ovarian cancer Prostate cancer Myocardial infarction Breast cancer Colorectal cancer Social History Smoking Status: Former smoker Tobacco Type: Cigarettes Second Hand Exposure: No; Do You Dip or Chew Tobacco: No; Hx Alcohol Use: No Hx Substance Use: No Preferred Language: Swedish Communication Ability: Effective Accounts Payable Specialist Required: No Beliefs That Will Affect Care: None Current Living Situation: Alone Current Living Situation Comment: has an apartment 5 minutes from her son Feels Safe at Home: Yes Safety Concerns: Feels Safe At This Time Dental Care, Regularly: Yes Seatbelt Use: always Sunscreen Use: No Assistive Devices: Walker Review of Systems A total of 10 systems reviewed and were otherwise negative Physical Exam Vital Signs Vital Signs - 24 hr 03/26/23 21:44 03/26/23 23:06 03/27/23 01:16 Temperature 36.5 C Temperature Source Temporal Artery Scan Pulse Rate 96 H 80 Pulse Rate [Finger] 84 Pulse Rhythm [Finger] Regular Pulse Strength [Finger] Normal Respiratory Rate 18 17 Respiratory Effort / Characteristics Non-Labored Spontaneous Non-Labored Spontaneous Respiratory Depth Normal Normal Respiratory Pattern Regular Blood Pressure 124/76 Blood Pressure [Right Arm] 110/51 L Blood Pressure Mean 92 Blood Pressure Mean [Right Arm] 70 Blood Pressure Position [Right Arm] Lying Pulse Oximetry 100 100 Oxygen Delivery Method Room Air Room Air Sepsis Recent Fever Within 48 Hours No Sepsis New/Unexplained Change in Mental Status No Sepsis Action Taken by Nursing No Action Required VITAL SIGNS - Vital signs and nursing notes were reviewed. Stable and afebrile. GENERAL -78-year-old female appearing her stated age. Communicates well with provider and answers questions appropriately. SKIN - Gross examination of the entire body surface demonstrates no lacerations to the body surface. Small superficial abrasion noted to the left mid medial/dorsal forearm region. There is ecchymosis present overlying the patient's upper and lower extremities. HEAD - Normocephalic, Atraumatic. No Stephenson's Sign or Raccoon's Eyes. No depressed skull fractures palpable. EYES - PERRL with EOMI bilaterally. Without subconjunctival hemorrhage. No hyphema. Palpebral conjunctiva pink and moist with no injection. EARS - No deformities of external structures noted on gross examination bilaterally. No hemotympanum present. NOSE - Midline and without cyanosis. No epistaxis or clear watery discharge noted. MOUTH/OROPHARYNX - Without perioral cyanosis. NECK -no tenderness to palpation over the cervical spinous processes. No cervical paraspinal muscle tenderness noted. LUNGS - Chest wall symmetric without accessory muscle use, intercostals retractions, or central cyanosis. No flail chest or depressed fractures noted. Normal vesicular breath sounds CTA B/L. No wheezes, rales, or rhonchi appreciated. CARDIAC - RRR with S1/S2. No murmur, rubs, or gallops appreciated. ABDOMEN - Abdominal contour normal and without pulsations or visible masses. No signs of abdominal trauma. EXTREMITIES - No gross deformities noted of the extremities. No tenderness of the arms or legs. +5/5 strength noted in UE/LE bilaterally. NEUROLOGIC - Cranial nerves II through XII grossly intact. PSYCH - A&Ox3 and cooperates fully with examiner. Pt is very pleasant and interacts well with examiner. Course Administered Medications Acyclovir (Acyclovir 400 Mg Tab) 400 mg PO BID KRISTINA Stop: 04/26/23 08:59 Last Admin: 03/28/23 20:00 Dose: 400 mg Documented By: Admin: 03/28/23 08:10 Dose: 400 mg Documented By: Admin: 03/27/23 22:16 Dose: 400 mg Documented By: Admin: 03/27/23 10:42 Dose: 400 mg Documented By: CARYL Docusate Sodium (Docusate Sodium 100 Mg Cap) 100 mg PO BID KRISTINA Stop: 04/26/23 08:59 Last Admin: 03/28/23 20:32 Dose: 100 mg Documented By: Admin: 03/28/23 08:09 Dose: 100 mg Documented By: Admin: 03/27/23 22:17 Dose: 100 mg Documented By: Admin: 03/27/23 10:42 Dose: 100 mg Documented By: CARYL Metoprolol Succinate (Metoprolol Succ 50mg Ext Rel Tab) 50 mg PO DAILY KRISTINA Stop: 04/26/23 08:59 Last Admin: 03/28/23 08:10 Dose: 50 mg Documented By: Admin: 03/27/23 10:42 Dose: Not Given Documented By: CARYL Miscellaneous (Ciprofloxacin Hcl 0.3% Op Soln - Order Awaiting Action) 1 each N/A QS KRISTINA Stop: 04/26/23 07:59 Last Admin: 03/29/23 00:03 Dose: Not Given Documented By: Admin: 03/28/23 17:45 Dose: Not Given Documented By: Admin: 03/28/23 08:56 Dose: Not Given Documented By: Admin: 03/28/23 00:05 Dose: Not Given Documented By: Admin: 03/27/23 21:56 Dose: Not Given Documented By: Admin: 03/27/23 10:41 Dose: Not Given Documented By: CARYL Pramipexole Dihydrochloride (Pramipexole Dihydrochlo 0.25 Mg Tab) 0.25 mg PO BID KRISTINA Stop: 04/26/23 08:59 Last Admin: 03/28/23 20:00 Dose: 0.25 mg Documented By: Admin: 03/28/23 08:10 Dose: 0.25 mg Documented By: Admin: 03/27/23 22:16 Dose: 0.25 mg Documented By: Admin: 03/27/23 10:42 Dose: 0.25 mg Documented By: CARYL Trimethoprim/Sulfamethoxazole (Sulfamethoxazole/Trimethoprim Ds 800/160mg Tab) 1 tab PO Q2D@2100 KRISTINA Stop: 04/27/23 20:59 Last Admin: 03/28/23 20:32 Dose: 1 tab Documented By: EKF Discontinued Medications Potassium Chloride/Sodium Chloride (Normal Saline W/20 Meq Kcl) 20 meq in 1,000 mls @ 80 mls/hr IV .[id number] KRISTINA Stop: 03/27/23 15:05 Last Infusion: 03/27/23 22:21 Dose: Infused Documented By: Admin: 03/27/23 06:38 Dose: 80 mls/hr Documented By: MARIAELENA Medical Decision Making Laboratory Data 03/28/23 06:30 03/28/23 06:30 Lab Results 03/26/23 03/26/23 03/27/23 Range/Units 23:10 23:11 00:15 WBC 2.00 L (4.8-10.8) K/ul RBC 2.32 L (4.20-5.40) M/uL Hgb 6.8 L* (12.0-16.0) g/dl Hct 19.3 L* (37.0-47.0) % MCV 83.2 (80.0-100.0) fL MCH 29.3 (25.0-34.0) pg MCHC 35.2 (32.0-36.0) g/dL RDW Std Deviation 56.9 H (36.4-46.3) fL RDW Coeff of Angus 19.4 H (11.5-14.5) % Plt Count 91 L (130-400) K/uL MPV 8.3 L (9.4-12.4) fL Immature Gran % (Auto) 2.5 % Neut % (Auto) 77.5 % Lymph % (Auto) 14.0 % Motley % (Auto) 5.5 % Eos % (Auto) 0.0 % Baso % (Auto) 0.5 % Neut # (Auto) 1.55 (1.40-6.50) K/uL Lymph # (Auto) 0.28 L (1.20-3.40) K/uL Motley # (Auto) 0.11 (0.11-0.59) K/uL Eos # (Auto) 0.00 (0.00-0.50) K/uL Baso # (Auto) 0.01 (0.00-0.20) K/uL Immature Gran # (Auto) 0.05 (0.01-0.20) K/uL Absolute Nucleated RBC 0.02 (0.00-0.12) K/uL Nucleated RBC % (auto) 1.0 % Polychromasia 1+ Poikilocytosis Present PT 11.7 (9.0-12.0) Seconds INR 1.1 (0.9-1.1) APTT 30 (21-31) Seconds PTT Ratio 1.1 Sodium 124 L (136-145) mmol/L Potassium 4.3 (3.5-5.1) mmol/L Chloride 94 L (98-107) mmol/L Carbon Dioxide 21 (21-32) mmol/L Anion Gap 9 (3-11) BUN 27 H (6-23) mg/dl Creatinine 1.07 (0.6-1.2) mg/dl Est Cr Clr Drug Dosing 39.6 ml/min Est GFR ( Amer) 58.0 ml/min Est GFR (Non-Af Amer) 50.0 ml/min BUN/Creatinine Ratio 25.2 H (10-20) Glucose 151 H (70-99(Fasting)) mg/dl Osmolality 269 L (280-300) mOsm/kg Calcium 9.4 (8.6-10.3) mg/dl Total Bilirubin 2.8 H (0.2-1.0) mg/dl AST 28 (13-39) U/L ALT 9 (7-52) U/L Alkaline Phosphatase 58 (34-104) U/L Total Protein 6.8 (6.0-8.3) gm/dl Albumin 4.5 (3.4-5.0) gm/dl Globulin 2.3 L (2.5-4.0) gm/dl Albumin/Globulin Ratio 2.0 (0.9-2) Blood Type A Positive Antibody Screen NEGATIVE Crossmatch See Detail Imaging Data Radiologist's Impression: Exam(s): CT HEAD Without Contrast EXAM: CT Head Without Intravenous Contrast CLINICAL HISTORY: Reason for exam: Fall, trauma. TECHNIQUE: Axial computed tomography images of the head/brain without intravenous contrast. Automated exposure control was utilized for the study. A dose lowering technique was utilized adhering to the principles of ALARA. COMPARISON: No relevant prior studies available. FINDINGS: No acute intracranial hemorrhage. No midline shift or mass effect. The territorial delcid-white matter differentiation is maintained throughout. Age-related cerebral volume loss. Periventricular and subcortical white matter hypoattenuation, consistent with chronic microangiopathy. The visualized orbits appear grossly unremarkable. The calvarium is intact. The visualized paranasal sinuses and mastoid air cells are grossly clear. IMPRESSION: No acute intracranial hemorrhage, midline shift, or mass effect. Electronically signed by: David Lowry MD 03/26/23 23:34 PM Exam(s): CT C SPINE EXAM: CT Cervical Spine Without Intravenous Contrast CLINICAL HISTORY: Reason for exam: Fall, trauma. TECHNIQUE: Axial computed tomography images of the cervical spine without intravenous contrast. CTDI is 37.95 mGy and DLP is 1129.91 mGy-cm. Automated exposure control was utilized for the study. A dose lowering technique was utilized adhering to the principles of ALARA. COMPARISON: No relevant prior studies available. FINDINGS: The vertebral body heights are maintained. The craniocervical junction is intact. The atlanto-dens interval is maintained. The dens is intact. There is no spondylolisthesis. Multilevel cervical spondylosis and degenerative disc disease. Straightening of the cervical lordosis. The unenhanced neck soft tissues are grossly unremarkable. The visualized lung apices are grossly clear. IMPRESSION: No acute fracture or subluxation of the cervical spine. Electronically signed by: David Lowry MD 03/26/23 23:34 PM MDM Narrative Patient was seen and evaluated as above in room D03 and then room C04. Review was performed of triage nursing notes and vital signs. I did review pertinent previous visits and patient history. After obtaining a thorough history and physical examination the above work up was performed. Patient presents to us today status post fall and was unable to get up. She was on the floor for about 20 minutes. She was able to pull her call peace and EMS was summoned bring her here for evaluation. Patient's son and [id number] at bedside also help provide history. They note that the patient has been complaining of dizziness and lightheadedness over the past few days and having frequent falls. History of underlying malignancy currently seeing hematology. Patient notes that she is not currently on chemotherapy. No history of transplant or current immunosuppressant therapy. Options of care were discussed with patient and family at bedside. IV access was established. Labs were drawn. CT scan of the head and C-spine were obtained. CT imaging overall negative from a traumatic standpoint. Laboratory studies here reveal pancytopenia noting significantly low hemoglobin at 6.8. Thrombocytopenia noted with platelet count of 91. This anemia is not new however hemoglobin at this time is felt to be low to a point where it is likely causing symptomatic anemia therefore possibly contributory to her falls and certainly likely the cause of her dizziness and lightheadedness over the past few days. Metabolic panel also reveals hyponatremia with sodium of 124. Coags are normal. Serum and urine osmolality ordered. T. bili elevated 2.8. Urinalysis ordered but no urine sample thus far. At this time with the patient having suspected symptomatic anemia I do believe the transfusion is reasonable. I did review benefit versus risk with the patient as well as family at bedside. Appropriate paperwork/consent form completed by patient and completed in conjunction with ED attending physician. At this time it is felt that the benefit of transfusion outweighs risk. 1 unit of PRBC ordered to be transfused as well as 1 unit on hold. I did call and speak with our blood bank at 11:58 PM on 03/26/2023 to review previous transfusion. They noted patient was transfused in late January of this year. Patient did not require irradiated PRBCs. case discussed with the hospitalist service for further evaluation and management. Please refer to further documentation regarding her stay. Patient as well as family amenable to plan of care. Case was discussed with the attending physician. GCS: 15 In the evaluation and treatment of this patient the following differential diagnoses were entertained: Acute intracranial hemorrhage, skull fracture, C- spine injury, anemia, fracture, dislocation, subluxation, contusion, among others. Impression & Plan Symptomatic anemia, Thrombocytopenia, Pancytopenia, Fall from standing Discharge Plan Visit Data Chief Complaint: Fall Stated Complaint: FALL, UNABLE TO GET UP ED Provider: Hansel Diaz ED Midlevel Provider: Lukas Gant Discharge Problem: Symptomatic anemia, Thrombocytopenia, Pancytopenia, Fall from standing Patient Disposition: Admitted As Inpatient Condition: Good Discharge Instructions Interventions: ED Discharge Assessment Last Done: 03/27/23 02:37 Addendum March 29, 2023 00:22 I was consulted by the Advanced Practice Provider and was substantively involved in the patient's visit.This includes aspects of the HPI, MDM, diagnostic interpretations, and disposition/plan. I discussed the case with the ALEX and agree with the findings and plan as documented in ALEX Bamat's note.
--- NOTE | 2023-03-26 23:35 | CT Scan Report ---
Exam(s): CT HEAD Without Contrast EXAM: CT Head Without Intravenous Contrast CLINICAL HISTORY: Reason for exam: Fall, trauma. TECHNIQUE: Axial computed tomography images of the head/brain without intravenous contrast. Automated exposure control was utilized for the study. A dose lowering technique was utilized adhering to the principles of ALARA. COMPARISON: No relevant prior studies available. FINDINGS: No acute intracranial hemorrhage. No midline shift or mass effect. The territorial delcid-white matter differentiation is maintained throughout. Age-related cerebral volume loss. Periventricular and subcortical white matter hypoattenuation, consistent with chronic microangiopathy. The visualized orbits appear grossly unremarkable. The calvarium is intact. The visualized paranasal sinuses and mastoid air cells are grossly clear. IMPRESSION: No acute intracranial hemorrhage, midline shift, or mass effect. Electronically signed by: David Lowry MD 03/26/23 23:34 PM
--- NOTE | 2023-03-26 23:35 | CT Scan Report ---
Exam(s): CT C SPINE EXAM: CT Cervical Spine Without Intravenous Contrast CLINICAL HISTORY: Reason for exam: Fall, trauma. TECHNIQUE: Axial computed tomography images of the cervical spine without intravenous contrast. CTDI is 37.95 mGy and DLP is 1129.91 mGy-cm. Automated exposure control was utilized for the study. A dose lowering technique was utilized adhering to the principles of ALARA. COMPARISON: No relevant prior studies available. FINDINGS: The vertebral body heights are maintained. The craniocervical junction is intact. The atlanto-dens interval is maintained. The dens is intact. There is no spondylolisthesis. Multilevel cervical spondylosis and degenerative disc disease. Straightening of the cervical lordosis. The unenhanced neck soft tissues are grossly unremarkable. The visualized lung apices are grossly clear. IMPRESSION: No acute fracture or subluxation of the cervical spine. Electronically signed by: David Lowry MD 03/26/23 23:34 PM
[2023-03-26 23:43] LABS: Hematocrit (blood only) 19.3 % (37.0-47.0); Hemoglobin 6.8 g/dl (12.0-16.0); Mean Corpuscular Hemoglobin 29.3 pg (25.0-34.0); Mean Corpuscular Hgb Conc 35.2 g/dL (32.0-36.0); Mean Corpuscular Volume 83.2 fL (80.0-100.0); Mean Platelet Volume 8.3 fL (9.4-12.4); Nucleated RBC # (auto) 0.02 K/uL (0.00-0.12); Platelet Count 91 K/uL (130-400); RDW Coefficient of Variation 19.4 % (11.5-14.5); RDW Standard Deviation 56.9 fL (36.4-46.3); Red Blood Count 2.32 M/uL (4.20-5.40)
[2023-03-26 23:44] LABS: Albumin Level 4.5 gm/dl (3.4-5.0); BUN Creatinine Ratio 25.2 (10-20); Bilirubin,Total 2.8 mg/dl (0.2-1.0); Calcium 9.4 mg/dl (8.6-10.3); Creatinine Clr Calc Pharmacy 39.6 ml/min; Globulin 2.3 gm/dl (2.5-4.0); Potassium 4.3 mmol/L (3.5-5.1); Total Protein 6.8 gm/dl (6.0-8.3)
[2023-03-26 23:47] LABS: Basophils # (auto) 0.01 K/uL (0.00-0.20); Basophils % (auto) 0.5 %; Immature Granulocytes # (auto) 0.05 K/uL (0.01-0.20); Immature Granulocytes % (auto) 2.5 %; Lymphocytes # (auto) 0.28 K/uL (1.20-3.40); Monocytes # (auto) 0.11 K/uL (0.11-0.59); Monocytes % (auto) 5.5 %; Neutrophils # (auto) 1.55 K/uL (1.40-6.50); Neutrophils % (auto) 77.5 %; Poikilocytosis Present; Polychromasia 1+
[2023-03-26 23:54] LABS: INR 1.1 (0.9-1.1); Partial Thromboplastin Ratio 1.1; Partial Thromboplastin Time 30 Seconds (21-31); Prothrombin Time 11.7 Seconds (9.0-12.0)
[2023-03-26] MEDS ORDERED: SODIUM CHLORIDE 0.9% 250 ML IV PRN (23:59)
--- NOTE | 2023-03-27 01:41 | History & Physical Report ---
Date of Service March 27, 2023 Assessment & Plan (1) Ambulatory dysfunction: (2) Fall from standing: (3) Status post fall: (4) Aortic valve prosthesis present: (5) Hypo-osmolality and hyponatremia: (6) Psoriatic arthritis: (7) Symptomatic anemia: Plan Symptomatic anemia- Hemoglobin 6.8 on admission, sree has a history of having had 2 units PRBCs transfused during last admission between 02/14 and 02/20/2023 Has been seen by hematology, and workup pending Admit to monitored bed, and is receiving 2 units PRBCs ordered from the ED H&H every 6 hours x 4 CBC with differential and chemistry profile every morning Consideration may be given to use appropriate if requires continued transfusions Consult hematology " Hyponatremia with hyperosmolality- Similar to previous admission, sodium stays 124, last admission was 123 Sodium did normalize to 140 by time of discharge on 02/20/2023 Patient has had overall decreased oral intake, and will continue with IV fluids NSS + KCl 20 mill equivalents at 80 mL/h x 1 L Follow serial chemistry profile as noted above along with magnesium levels Severe aortic stenosis status post TAVR 05/14- Maintain preload so that History of Present Illness Chief Complaint: The patient presents to the emergency department with a recurrence of falls, most recently she fell and hit a basket, and then also fell directly to the floor, without any new joint or other bodily injury, including denying head injury. Primary Care Provider: Nicole Troy MD The patient is a 78-year-old female with past medical history including PSVT, splenomegaly, pancytopenia, prosthetic aortic valve, psoriatic arthritis, ambulatory dysfunction, RLS and recurrent hyponatremia with hyperosmolality. The patient was most recently mated to [facility] from 02/14-02/20/2023 for similar symptoms as today. Family is with her in the emergency department, and confirms that she has overall been stable other than for frequent falling. She has had decreased oral intake during this interval. Allergies Allergy/AdvReac Type Severity Reaction Status Date / Time No Known Allergies Allergy Verified 03/27/23 00:34 Home Medications Medication Instructions Recorded Confirmed Type docusate sodium 100 mg capsule 100 mg PO BID #0 caps 02/20/23 03/27/23 Rx metoprolol succinate 50 mg 50 mg PO DAILY #30 tabs 11/01/23 12/06/23 Rx tablet,extended release 24 hr polyethylene glycol 3350 17 gram 17 g PO DAILY PRN constipation #0 02/20/23 03/27/23 Rx oral powder packet (Miralax) ea pramipexole 0.25 mg tablet 0.25 mg PO BID #60 tabs 02/20/23 03/27/23 Rx acyclovir 400 mg tablet 400 mg PO BID 03/27/23 03/27/23 History ciprofloxacin HCl 0.3 % eye drops 0 drp ophthalmic (eye) UD 03/27/23 03/27/23 History Past Med/Surg History Medical History (Updated 03/27/23 @ 03:33 by Isai Gutierrez MD) Symptomatic anemia Restless leg syndrome Hx of falling Psoriatic arthritis Frequent falls unknown reason, following with pcpCONTRERAS -- last fall was ~01/04/23. no injury at that time. Urgency incontinence Stress incontinence Psoriatic arthritis Restless leg syndrome Former cigarette smoker Former smoker Psoriasis Surgical History (Updated 02/21/23 @ 00:11 by Hannah Manuel) Aortic valve prosthesis present History of cardiac cath [facility] in [place] March 2022 - no stents. History of arthroscopy of right knee Aortic valve replaced Adams AMY 3 Value, done in [place], [place] Hx of tonsillectomy Hx of cholecystectomy History of hysterectomy ADITYA with BSO Heart valve replaced April 2022 a hospital [place], replaced with a mechanical aortic valve. Followed with Dr Gerry Quintero [facility]. Family History Other No family history of adverse response to anesthesia Denies family history of Ovarian cancer Prostate cancer Myocardial infarction Breast cancer Colorectal cancer Social History (System 02/14/23 @ 07:39 by Citlalli Gallegos) Smoking Status: Former smoker Tobacco Type: Cigarettes Second Hand Exposure: No; Do You Dip or Chew Tobacco: No; Hx Alcohol Use: No Hx Substance Use: No Preferred Language: Macanese Communication Ability: Effective Catering Administrative Assistant Required: No Beliefs That Will Affect Care: None Current Living Situation: Alone Current Living Situation Comment: has an apartment 5 minutes from her son Feels Safe at Home: Yes Safety Concerns: Feels Safe At This Time Dental Care, Regularly: Yes Seatbelt Use: always Sunscreen Use: No Assistive Devices: Walker Review of Systems Review of Systems: The patient denies chest pain, palpitations, shortness of breath, dyspnea on exertion, cough, lower extremity swelling, sore throat, fevers, chills, sweats, nausea, vomiting, diarrhea , constipation, abdominal pain, pelvic pain, blood in urine or stool, dysuria, urinary frequency or urgency, headache, loss of consciousness, rash, abnormal bruising or bleeding, focal weakness, numbness or tingling in arms or legs, generalized arthralgias or myalgias, back or neck pain, or night sweats. The review of systems is otherwise negative other than for that already noted above, and at least 10 systems have been reviewed. Physical Exam Physical Exam: The patient is awake, alert and oriented, normocephalic and atraumatic, lying in bed and in no acute distress. HEENT--PERRL, EOMI, mucous membranes and oropharynx mildly dry. Neck--supple. No JVD. No bruits. Thyroid normal, trachea midline, no adenopathy. Heart--normal S1 and S2. No murmurs, rubs or gallops. Lungs--clear bilaterally, no respiratory distress, no accessory muscle use. Abdomen--normal bowel sounds and soft. Nontender. Nondistended. Extremities--no cyanosis or clubbing. No edema. Dermatologic--scattered ecchymoses Neurologic--cranial nerves II through XII grossly intact. Rheumatologic--normal range of motion. Psychiatric--normal affect. Results & Data Results & Data Vital Signs (Past 12 Hours) Vital Signs Temp Pulse Pulse Resp BP BP Pulse Ox 03/27/23 01:16 80 03/26/23 23:06 84 17 110/51 L 100 03/26/23 21:44 36.5 C 96 H 18 124/76 100 O2 Del Method 03/27/23 01:16 03/26/23 23:06 Room Air 03/26/23 21:44 Room Air Laboratory Results Laboratory Results WBC 2.00 K/ul (4.8-10.8) L 03/26/23 23:10 RBC 2.32 M/uL (4.20-5.40) L 03/26/23 23:10 Hgb 6.8 g/dl (12.0-16.0) L* 03/26/23 23:10 Hct 19.3 % (37.0-47.0) L* 03/26/23 23:10 MCV 83.2 fL (80.0-100.0) 03/26/23 23:10 MCH 29.3 pg (25.0-34.0) 03/26/23 23:10 MCHC 35.2 g/dL (32.0-36.0) 03/26/23 23:10 RDW Std Deviation 56.9 fL (36.4-46.3) H 03/26/23 23:10 RDW Coeff of Angus 19.4 % (11.5-14.5) H 03/26/23 23:10 Plt Count 91 K/uL (130-400) L 03/26/23 23:10 MPV 8.3 fL (9.4-12.4) L 03/26/23 23:10 Immature Gran % (Auto) 2.5 % 03/26/23 23:10 Neut % (Auto) 77.5 % 03/26/23 23:10 Lymph % (Auto) 14.0 % 03/26/23 23:10 Kerr % (Auto) 5.5 % 03/26/23 23:10 Eos % (Auto) 0.0 % 03/26/23 23:10 Baso % (Auto) 0.5 % 03/26/23 23:10 Neut # (Auto) 1.55 K/uL (1.40-6.50) 03/26/23 23:10 Lymph # (Auto) 0.28 K/uL (1.20-3.40) L 03/26/23 23:10 Kerr # (Auto) 0.11 K/uL (0.11-0.59) 03/26/23 23:10 Eos # (Auto) 0.00 K/uL (0.00-0.50) 03/26/23 23:10 Baso # (Auto) 0.01 K/uL (0.00-0.20) 03/26/23 23:10 Immature Gran # (Auto) 0.05 K/uL (0.01-0.20) 03/26/23 23:10 Absolute Nucleated RBC 0.02 K/uL (0.00-0.12) 03/26/23 23:10 Nucleated RBC % (auto) 1.0 % 03/26/23 23:10 Polychromasia 1+ 03/26/23 23:10 Poikilocytosis Present 03/26/23 23:10 PT 11.7 Seconds (9.0-12.0) 03/26/23 23:10 INR 1.1 (0.9-1.1) 03/26/23 23:10 APTT 30 Seconds (21-31) 03/26/23 23:10 PTT Ratio 1.1 03/26/23 23:10 Sodium 124 mmol/L (136-145) L 03/26/23 23:10 Potassium 4.3 mmol/L (3.5-5.1) 03/26/23 23:10 Chloride 94 mmol/L (98-107) L 03/26/23 23:10 Carbon Dioxide 21 mmol/L (21-32) 03/26/23 23:10 Anion Gap 9 (3-11) 03/26/23 23:10 BUN 27 mg/dl (6-23) H 03/26/23 23:10 Creatinine 1.07 mg/dl (0.6-1.2) 03/26/23 23:10 Est Cr Clr Drug Dosing 39.6 ml/min 03/26/23 23:10 Est GFR ( Amer) 58.0 ml/min 03/26/23 23:10 Est GFR (Non-Af Amer) 50.0 ml/min 03/26/23 23:10 BUN/Creatinine Ratio 25.2 (10-20) H 03/26/23 23:10 Glucose 151 mg/dl (70-99(Fasting)) H 03/26/23 23:10 Osmolality 269 mOsm/kg (280-300) L 03/26/23 23:11 Calcium 9.4 mg/dl (8.6-10.3) 03/26/23 23:10 Total Bilirubin 2.8 mg/dl (0.2-1.0) H 03/26/23 23:10 AST 28 U/L (13-39) 03/26/23 23:10 ALT 9 U/L (7-52) 03/26/23 23:10 Alkaline Phosphatase 58 U/L (34-104) 03/26/23 23:10 Total Protein 6.8 gm/dl (6.0-8.3) 12/05/23 23:10 Albumin 4.5 gm/dl (3.4-5.0) 03/26/23 23:10 Globulin 2.3 gm/dl (2.5-4.0) L 03/26/23 23:10 Albumin/Globulin Ratio 2.0 (0.9-2) 03/26/23 23:10 Blood Type A Positive 03/27/23 00:15 Antibody Screen NEGATIVE 03/27/23 00:15 Crossmatch See Detail 03/27/23 00:[address] 03/26/23 22:28 Exam(s): CT C SPINE EXAM: CT Cervical Spine Without Intravenous Contrast CLINICAL HISTORY: Reason for exam: Fall, trauma. TECHNIQUE: Axial computed tomography images of the cervical spine without intravenous contrast. CTDI is 37.95 mGy and DLP is 1129.91 mGy-cm. Automated exposure control was utilized for the study. A dose lowering technique was utilized adhering to the principles of ALARA. COMPARISON: No relevant prior studies available. FINDINGS: The vertebral body heights are maintained. The craniocervical junction is intact. The atlanto-dens interval is maintained. The dens is intact. There is no spondylolisthesis. Multilevel cervical spondylosis and degenerative disc disease. Straightening of the cervical lordosis. The unenhanced neck soft tissues are grossly unremarkable. The visualized lung apices are grossly clear. IMPRESSION: No acute fracture or subluxation of the cervical spine. Electronically signed by: David Lowry MD 03/26/23 23:[address] 03/26/23 22:28 Exam(s): CT HEAD Without Contrast EXAM: CT Head Without Intravenous Contrast CLINICAL HISTORY: Reason for exam: Fall, trauma. TECHNIQUE: Axial computed tomography images of the head/brain without intravenous contrast. Automated exposure control was utilized for the study. A dose lowering technique was utilized adhering to the principles of ALARA. COMPARISON: No relevant prior studies available. FINDINGS: No acute intracranial hemorrhage. No midline shift or mass effect. The territorial delcid-white matter differentiation is maintained throughout. Age-related cerebral volume loss. Periventricular and subcortical white matter hypoattenuation, consistent with chronic microangiopathy. The visualized orbits appear grossly unremarkable. The calvarium is intact. The visualized paranasal sinuses and mastoid air cells are grossly clear. IMPRESSION: No acute intracranial hemorrhage, midline shift, or mass effect. Electronically signed by: David Lowry MD 03/26/23 23:34 PM Code Status & VTE Plan Code Status Full code VTE Prophylaxis Plan VTE Prophylaxis will be ordered: Yes PG Care Time/CCT Total # of Minutes Spent Total Time Spent with Patient: Total time spent is greater than 50% in coordination of care (as documented) at patient's floor/unit and/or counseling patient: Coding Level of Care Code 97225 INT INP/OBS CARE 3/75MIN Diagnoses Ambulatory dysfunction R26.2 Fall from standing W19.XXXA Status post fall Z91.81 Aortic valve prosthesis present Z95.2 Hypo-osmolality and hyponatremia E87.1 Psoriatic arthritis L40.50 Symptomatic anemia D64.9
[2023-03-27] MEDS ORDERED: ONDANSETRON INJ 2 MG/ML 2 ML VIAL IV PRN (02:36)
[2023-03-27] MEDS ORDERED: POLYETHYLENE (MIRALAX) 17 GM PACK PO PRN (02:36)
[2023-03-27] MEDS ORDERED: NSS + 20MEQ KCL 20 MEQ/1,000 ML BAG IV SCH (02:36)
--- NOTE | 2023-03-27 03:40 | Billing Data ---
Date of Service March 27, 2023 Coding Level of Care Code 24258 INT INP/OBS CARE
--- NOTE | 2023-03-27 08:27 | Oncology Consultation ---
Date of Consultation March 27, 2023 Assessment & Plan (1) Pancytopenia: Recommend supportive care at this point, continue prophylactic antibiotics, as infections are cause of mortality in patients with advanced T-LGL with pancytopenia. Previously we have started her on acyclovir, Bactrim and Diflucan for prophylaxis (2) Symptomatic anemia: Recommend as needed blood transfusions to maintain a hemoglobin level of 7 g/dL (3) T-cell large granular lymphocytic leukemia: Previously i had an extensive discussion with the family members regarding T- cell LGL, its prognosis, relative indolent nature, as well as its rarity. I had discussed the option of splenectomy given that her spleen is very large in size and is directly contributing to her pancytopenia. We had placed a referral for surgical opinion. I am not sure whether she has seen one of my surgical colleagues. I am not sure whether surgical evaluation in the hospital at this point will make sense. I will keep having the discussions with the family, about the course of care. She may be served by going to either [facility] or [facility] or [place] given the rarity of T-cell LGL, about thousand cases are diagnosed in the annually. There is some underlying dementia as reported by the daughter. We will have a extensive discussion about goals of care if the family request while she is admitted in the hospital. History of Present Illness Reason for Consultation: Pancytopenia Splenomegaly T-cell LGL Attending Physician: Vijay Giang MD History of Present Illness The patient is a very pleasant 78-year-old woman, who is well-known to me. I evaluated her previously for pancytopenia. We performed a bone marrow biopsy on 02/14/2023, final pathology was reported as T-cell LGL after consult at [facility]. She has massive splenomegaly, size of 23 cm, previously had requested an evaluation by our surgical colleagues for splenectomy. I had also discussed the opinion of going to a tertiary care center such as [facility] or [facility] for consideration of splenectomy. However the patient chose to keep her care locally. She again comes to the hospital after falls, was found to be severely anemic with symptomatic anemia, hemoglobin of 6.8 g/dL. Reports no bleeding or bruising. Reports no fever or chills. Reports no growing lumps. Allergies Allergy/AdvReac Type Severity Reaction Status Date / Time No Known Allergies Allergy Verified 03/27/23 00:34 Home Medications Medication Instructions Recorded Confirmed Type docusate sodium 100 mg capsule 100 mg PO BID #0 caps 02/20/23 03/27/23 Rx metoprolol succinate 50 mg 50 mg PO DAILY #30 tabs 02/20/23 03/27/23 Rx tablet,extended release 24 hr polyethylene glycol 3350 17 gram 17 g PO DAILY PRN constipation #0 02/20/23 03/27/23 Rx oral powder packet (Miralax) ea pramipexole 0.25 mg tablet 0.25 mg PO BID #60 tabs 02/20/23 03/27/23 Rx acyclovir 400 mg tablet 400 mg PO BID 03/27/23 03/27/23 History ciprofloxacin HCl 0.3 % eye drops 0 drp ophthalmic (eye) UD 03/27/23 03/27/23 History Patient History Medical History (Updated 03/27/23 @ 08:29 by Manish Arroyo MD) Symptomatic anemia Restless leg syndrome Hx of falling Psoriatic arthritis Frequent falls unknown reason, following with pcp[facility]ER[facility] -- last fall was ~01/04/23. no injury at that time. Urgency incontinence Stress incontinence Psoriatic arthritis Restless leg syndrome Former cigarette smoker Former smoker Psoriasis Surgical History (Updated 02/21/23 @ 00:11 by Hannah Manuel) Aortic valve prosthesis present History of cardiac cath [facility] in [place] March 2022 - no stents. History of arthroscopy of right knee Aortic valve replaced Adams AMY 3 Value, done in [place], [place] Hx of tonsillectomy Hx of cholecystectomy History of hysterectomy ADITYA with BSO Heart valve replaced April 2022 a [facility], replaced with a mechanical aortic valve. Followed with Dr Gerry Quintero [facility]. Family History Other No family history of adverse response to anesthesia Denies family history of Ovarian cancer Prostate cancer Myocardial infarction Breast cancer Colorectal cancer Social History (System 02/14/23 @ 07:39 by Citlalli Gallegos) Smoking Status: Former smoker Tobacco Type: Cigarettes Second Hand Exposure: No; Do You Dip or Chew Tobacco: No; Hx Alcohol Use: No Hx Substance Use: No Preferred Language: Uzbek Communication Ability: Effective Insurance Office Supervisor Required: No Beliefs That Will Affect Care: None Current Living Situation: Alone Current Living Situation Comment: has an apartment 5 minutes from her son Feels Safe at Home: Yes Safety Concerns: Feels Safe At This Time Dental Care, Regularly: Yes Seatbelt Use: always Sunscreen Use: No Assistive Devices: Walker Results & Data Vital Signs (Past 12 Hours) Vital Signs Temp Pulse Pulse Resp BP BP Pulse Ox 03/27/23 08:20 77 03/27/23 07:23 36.9 C 78 17 110/52 L 98 03/27/23 05:47 37.2 C 77 19 101/48 L 96 03/27/23 04:45 37.2 C 76 18 102/51 L 96 03/27/23 03:45 37.2 C 81 19 124/58 L 96 03/27/23 03:15 37.2 C 81 18 117/60 97 03/27/23 03:15 37.2 C 81 19 124/58 L 99 03/27/23 03:00 37.0 C 78 19 111/53 L 96 03/27/23 02:52 36.8 C 81 18 109/45 L 96 03/27/23 02:41 36.8 C 76 18 109/45 L 98 03/27/23 01:52 85 18 93/50 L 94 03/27/23 01:16 80 03/26/23 23:06 84 17 110/51 L 100 03/26/23 21:44 36.5 C 96 H 18 124/76 100 O2 Del Method 03/27/23 08:20 03/27/23 07:23 Room Air 03/27/23 05:47 03/27/23 04:45 03/27/23 03:45 03/27/23 03:15 03/27/23 03:15 03/27/23 03:00 03/27/23 02:52 Room Air 03/27/23 02:41 03/27/23 01:52 03/27/23 01:16 03/26/23 23:06 Room Air 03/26/23 21:44 Room Air
[2023-03-27 09:24] LABS: Hematocrit (blood only) 19.4 % (37.0-47.0); Hemoglobin 6.9 g/dl (12.0-16.0)
[2023-03-27] MEDS: METOPROLOL SUCC 50MG EXT REL TAB PO SCH (10:42)
[2023-03-27] MEDS: ACYCLOVIR 400 MG TAB PO SCH ×2 (10:42→22:16)
[2023-03-27] MEDS: PRAMIPEXOLE DIHYDROCHLO 0.25 MG TAB PO SCH ×2 (10:42→22:16)
[2023-03-27] MEDS: DOCUSATE SODIUM 100 MG CAP PO SCH ×2 (10:42→22:17)
[2023-03-27 12:34] LABS: Hematocrit (blood only) 19.7 % (37.0-47.0); Hemoglobin 6.9 g/dl (12.0-16.0); Mean Corpuscular Hemoglobin 29.4 pg (25.0-34.0); Mean Corpuscular Volume 83.8 fL (80.0-100.0); Mean Platelet Volume 8.8 fL (9.4-12.4); Nucleated RBC # (auto) 0.02 K/uL (0.00-0.12); Nucleated RBC % (auto) 1.5 %; Platelet Count 83 K/uL (130-400); RDW Coefficient of Variation 18.6 % (11.5-14.5); RDW Standard Deviation 54.8 fL (36.4-46.3); Red Blood Count 2.35 M/uL (4.20-5.40); White Blood Count 1.31 K/ul (4.8-10.8)
[2023-03-27] MEDS ORDERED: SODIUM CHLORIDE 0.9% 250 ML IV PRN (14:24)
[2023-03-27 18:21] LABS: Appearance Urine Cloudy (Clear); Bacteria Urine Automated 4+ (Negative); Bilirubin Urine Negative (Negative); Blood Urine Negative (Negative); Cast Urine Automated 0 /lpf (0-5); Color Urine Orange; Epithelial Cell Urine Auto 0-5 /lpf (0-5); Glucose Urine UA Negative (Negative); Ketones Urine Negative (Negative); Leukocyte Esterase Urine 3+ (Negative); Nitrite Urine Negative (Negative); RBC Urine Automated 0-4 /hpf (0-4); Specific Gravity Urine 1.014 (1.000-1.030); Urobilinogen Urine Negative (Negative); WBC Urine Automated >30 /hpf (0-5)
[2023-03-27 18:23] LABS: Protein Urine Trace (Negative)
[2023-03-27 19:01] LABS: Hemoglobin 7.8 g/dl (12.0-16.0)
[2023-03-28] MEDS: DOCUSATE SODIUM 100 MG CAP PO SCH ×2 (08:09→20:32)
[2023-03-28] MEDS: METOPROLOL SUCC 50MG EXT REL TAB PO SCH (08:10)
[2023-03-28] MEDS: PRAMIPEXOLE DIHYDROCHLO 0.25 MG TAB PO SCH ×2 (08:10→20:00)
[2023-03-28] MEDS: ACYCLOVIR 400 MG TAB PO SCH ×2 (08:10→20:00)
[2023-03-28 08:24] LABS: Albumin Globulin Ratio 2.2 (0.9-2); Albumin Level 4.2 gm/dl (3.4-5.0); BUN Creatinine Ratio 39.3 (10-20); Bilirubin,Total 4.1 mg/dl (0.2-1.0); Calcium 9.2 mg/dl (8.6-10.3); Creatinine Clr Calc Pharmacy 69.5 ml/min; Est GFR (African American) 101.3 ml/min; Est GFR (Non-African American) 87.4 ml/min; Globulin 1.9 gm/dl (2.5-4.0); Magnesium 2.1 mg/dl (1.7-2.4); Potassium 4.5 mmol/L (3.5-5.1); Total Protein 6.1 gm/dl (6.0-8.3)
[2023-03-28 08:50] LABS: Hematocrit (blood only) 21.6 % (37.0-47.0); Hemoglobin 7.4 g/dl (12.0-16.0); Mean Corpuscular Hgb Conc 34.3 g/dL (32.0-36.0); Mean Corpuscular Volume 87.4 fL (80.0-100.0); Mean Platelet Volume 8.9 fL (9.4-12.4); Nucleated RBC # (auto) 0.02 K/uL (0.00-0.12); Nucleated RBC % (auto) 1.5 %; Platelet Count 91 K/uL (130-400); RDW Coefficient of Variation 19.6 % (11.5-14.5); RDW Standard Deviation 58.2 fL (36.4-46.3); Red Blood Count 2.47 M/uL (4.20-5.40)
[2023-03-28 09:09] LABS: Basophils # (auto) 0.02 K/uL (0.00-0.20); Basophils % (auto) 1.5 %; Echinocytes 1+; Eosinophils # (auto) 0.01 K/uL (0.00-0.50); Eosinophils % (auto) 0.8 %; Immature Granulocytes # (auto) 0.05 K/uL (0.01-0.20); Immature Granulocytes % (auto) 3.8 %; Lymphocytes # (auto) 0.51 K/uL (1.20-3.40); Lymphocytes % (auto) 39.2 %; Monocytes # (auto) 0.11 K/uL (0.11-0.59); Monocytes % (auto) 8.5 %; Neutrophils % (auto) 46.2 %; Platelet Estimate Decreased (Normal); Polychromasia 1+; Tear Drop Cells 2+
--- NOTE | 2023-03-28 16:10 | Hematology/Oncology Prog Note ---
Date of Service March 28, 2023 Assessment & Plan (1) Pancytopenia: Plan: Recommend supportive care at this point, continue prophylactic antibiotics, as infections are cause of mortality in patients with advanced T-LGL with pancytopenia. Previously we have started her on acyclovir, Bactrim and Diflucan for prophylaxis (2) Symptomatic anemia: Plan: Continue monitoring hemoglobin level, discharge per primary (3) T-cell large granular lymphocytic leukemia: Plan: Had a discussion with family again yesterday. Will resume outpatient follow-up and discussion for management Admission and Anticipated Discharge Date Admission Date: March 27, 2023 Subjective Patient evaluated this morning. Is doing well. Hemoglobin is steady. Results & Data Vital Signs (Past 12 Hours) Vital Signs Temp Pulse Pulse Resp BP BP Pulse Ox 03/28/23 12:00 36.8 C 75 16 117/63 99 03/28/23 08:15 36.7 C 72 18 113/67 99 03/28/23 08:00 69 03/28/23 03:05 36.8 C 74 17 95/54 L 98 O2 Del Method 03/28/23 12:00 Room Air 03/28/23 08:15 Room Air 03/28/23 08:00 03/28/23 03:05 Room Air
--- NOTE | 2023-03-28 19:01 | Hospitalist Progress Note ---
Date of Service March 28, 2023 Assessment & Plan (1) Ambulatory dysfunction: (2) Fall from standing: (3) Status post fall: (4) Aortic valve prosthesis present: (5) Hypo-osmolality and hyponatremia: (6) Psoriatic arthritis: (7) Symptomatic anemia: Plan Symptomatic anemia History of T-LGL l lymphoma, with huge splenomegaly, as per my discussion with consulting vertical lathe operator only option is to proceed with splenectomy Presented to the hospital with hemoglobin of 6.8, status post 2 unit of packed RBC, currently hemoglobin around 7, discussed with hematology possible discharge tomorrow if hemoglobin stable Patient has leukopenia/thrombocytopenia, neutrophil count is trending down today, discussed with vertical lathe operator if the patient is a candidate for granulocyte disintegrating factor Hem recommend supportive care at this point, continue prophylactic antibiotics, as infections are cause of mortality in patients with advanced T-LGL with pancytopenia. Previously we have started her on acyclovir, Bactrim and Diflucan for prophylaxis Hyponatremia with hyperosmolality- Similar to previous admission, sodium stays 124, last admission was 123 Improving, today sodium is 130 Severe aortic stenosis status post TAVR 05/14- Maintain preload so that Admission and Anticipated Discharge Date Admission Date: March 27, 2023 Subjective Patient evaluated this morning. Is doing well. Hemoglobin is steady. Review of Systems Review of Systems: The patient denies chest pain, palpitations, shortness of breath, dyspnea on exertion, cough, lower extremity swelling, sore throat, fevers, chills, sweats, nausea, vomiting, diarrhea , constipation, abdominal pain, pelvic pain, blood in urine or stool, dysuria, urinary frequency or urgency, headache, loss of consciousness, rash, abnormal bruising or bleeding, focal weakness, numbness or tingling in arms or legs, generalized arthralgias or myalgias, back or neck pain, or night sweats. The review of systems is otherwise negative other than for that already noted above, and at least 10 systems have been reviewed. Physical Exam Physical Exam: The patient is awake, alert and oriented, normocephalic and atraumatic, lying in bed and in no acute distress. HEENT--PERRL, EOMI, mucous membranes and oropharynx mildly dry. Neck--supple. No JVD. No bruits. Thyroid normal, trachea midline, no adenopathy. Heart--normal S1 and S2. No murmurs, rubs or gallops. Lungs--clear bilaterally, no respiratory distress, no accessory muscle use. Abdomen--normal bowel sounds and soft. Nontender. Nondistended. Extremities--no cyanosis or clubbing. No edema. Dermatologic--scattered ecchymoses Neurologic--cranial nerves II through XII grossly intact. Rheumatologic--normal range of motion. Psychiatric--normal affect. Results & Data Results & Data Vital Signs (Past 12 Hours) Vital Signs Temp Pulse Pulse Resp BP BP Pulse Ox 03/28/23 16:05 36.8 C 69 18 93/52 L 98 03/28/23 12:00 36.8 C 75 16 117/63 99 03/28/23 08:15 36.7 C 72 18 113/67 99 03/28/23 08:00 69 O2 Del Method 03/28/23 16:05 Room Air 03/28/23 12:00 Room Air 03/28/23 08:15 Room Air 03/28/23 08:00 PG Care Time/CCT Total # of Minutes Spent Total Time Spent with Patient: Total time spent is greater than 50% in coordination of care (as documented) at patient's floor/unit and/or counseling patient: Coding Level of Care Code 55582 SUB INP/OBS CARE 2/35MIN Diagnoses Ambulatory dysfunction R26.2 Fall from standing W19.XXXA Status post fall Z91.81 Aortic valve prosthesis present Z95.2 Hypo-osmolality and hyponatremia E87.1 Psoriatic arthritis L40.50 Symptomatic anemia D64.9
[2023-03-28] MEDS: SULFAMETHOXAZOLE/TRIMETHOPRIM DS 800/160MG TAB PO SCH (20:32)
[2023-03-29] MEDS: ACETAMINOPHEN 325 MG TAB PO PRN ×2 (04:54→20:37)
[2023-03-29 07:14] LABS: Hematocrit (blood only) 20.5 % (37.0-47.0); Mean Corpuscular Hemoglobin 29.5 pg (25.0-34.0); Mean Corpuscular Hgb Conc 34.1 g/dL (32.0-36.0); Mean Corpuscular Volume 86.5 fL (80.0-100.0); Mean Platelet Volume 8.6 fL (9.4-12.4); Platelet Count 76 K/uL (130-400); RDW Coefficient of Variation 19.5 % (11.5-14.5); RDW Standard Deviation 58.2 fL (36.4-46.3); Red Blood Count 2.37 M/uL (4.20-5.40); White Blood Count 1.38 K/ul (4.8-10.8)
[2023-03-29 07:25] LABS: Albumin Globulin Ratio 2.1 (0.9-2); BUN Creatinine Ratio 42.9 (10-20); Calcium 8.9 mg/dl (8.6-10.3); Creatinine Clr Calc Pharmacy 67.3 ml/min; Est GFR (African American) 100.3 ml/min; Est GFR (Non-African American) 86.5 ml/min; Globulin 1.9 gm/dl (2.5-4.0); Potassium 4.2 mmol/L (3.5-5.1); Total Protein 5.9 gm/dl (6.0-8.3)
[2023-03-29 07:31] LABS: Basophils # (auto) 0.01 K/uL (0.00-0.20); Basophils % (auto) 0.7 %; Eosinophils # (auto) 0.01 K/uL (0.00-0.50); Eosinophils % (auto) 0.7 %; Immature Granulocytes # (auto) 0.04 K/uL (0.01-0.20); Immature Granulocytes % (auto) 2.9 %; Lymphocytes # (auto) 0.68 K/uL (1.20-3.40); Lymphocytes % (auto) 49.3 %; Monocytes # (auto) 0.11 K/uL (0.11-0.59); Neutrophils # (auto) 0.53 K/uL (1.40-6.50); Neutrophils % (auto) 38.4 %
[2023-03-29 07:33] LABS: Anisocytosis Present; Polychromasia 1+; Tear Drop Cells 3+
[2023-03-29] MEDS ORDERED: SODIUM CHLORIDE 0.9% 250 ML IV PRN (07:57)
[2023-03-29] MEDS: ACYCLOVIR 400 MG TAB PO SCH ×2 (10:10→20:35)
[2023-03-29] MEDS: FLUCONAZOLE 100 MG TAB PO SCH (10:11)
[2023-03-29] MEDS: METOPROLOL SUCC 50MG EXT REL TAB PO SCH (10:11)
[2023-03-29] MEDS: PRAMIPEXOLE DIHYDROCHLO 0.25 MG TAB PO SCH ×2 (10:12→20:36)
[2023-03-29] MEDS ORDERED: cefTRIAXone SODIUM 2,000 MG in DEXTROSE 5 % MINI-B 50 ML IV SCH (16:00)
--- NOTE | 2023-03-29 18:47 | Hematology/Oncology Prog Note ---
Date of Service March 29, 2023 Assessment & Plan (1) Pancytopenia: Plan: Recommend supportive care at this point, continue prophylactic antibiotics, as infections are cause of mortality in patients with advanced T-LGL with pancytopenia. Previously we have started her on acyclovir, Bactrim and Diflucan for prophylaxis (2) Symptomatic anemia: Plan: Continue monitoring hemoglobin level, discharge per primary. Patient will need another blood transfusion as hemoglobin is dropping. 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 Review of Systems Review of Systems: All systems reviewed & are unremarkable except as noted in HPI & below Physical Exam Constitutional: WD/WN, vitals as above Eyes: PERRL, conjunctivae normal, anicteric sclerae ENMT: external ear and nose normal, oropharynx normal Neck: trachea midline, no thyromegaly Respiratory: normal respiratory effort, lungs clear to auscultation Cardiovascular: RRR, no murmur, no edema Chest (Breasts): normal inspection/palpation of breasts Gastrointestinal (Abdomen): normal bowel sounds, soft, nontender, no hepatosplenomegaly Musculoskeletal: no cyanosis or clubbing, extremities motor strength 5/5 Results & Data Vital Signs (Past 12 Hours) Vital Signs Temp Pulse Pulse Pulse Resp BP BP 03/29/23 14:50 36.7 C 72 16 102/54 L 03/29/23 12:51 36.9 C 74 24 03/29/23 11:54 36.5 C 68 18 111/52 L 03/29/23 10:56 36.7 C 67 20 104/61 03/29/23 09:56 36.8 C 75 20 114/65 03/29/23 09:56 03/29/23 09:26 36.4 C L 70 20 102/57 L 03/29/23 09:11 70 20 101/60 03/29/23 08:54 36.5 C 71 16 107/61 03/29/23 07:46 36.6 C 67 20 03/29/23 07:10 36.9 C 61 16 102/53 L BP Pulse Ox O2 Del Method 12/08/23 14:50 97 Room Air 03/29/23 12:51 138/62 98 Room Air 03/29/23 11:54 95 03/29/23 10:56 98 03/29/23 09:56 96 03/29/23 09:56 Room Air 03/29/23 09:26 98 03/29/23 09:11 98 03/29/23 08:54 99 03/29/23 07:46 118/62 98 Room Air 03/29/23 07:10 97 Room Air
[2023-03-29] MEDS: DOCUSATE SODIUM 100 MG CAP PO SCH ×2 (18:49→20:38)
--- NOTE | 2023-03-29 20:17 | Hospitalist Progress Note ---
Date of Service March 29, 2023 Assessment & Plan (1) Ambulatory dysfunction: (2) Fall from standing: (3) Status post fall: (4) Aortic valve prosthesis present: (5) Hypo-osmolality and hyponatremia: (6) Psoriatic arthritis: (7) Symptomatic anemia: Plan Symptomatic anemia History of T-LGL l lymphoma, with huge splenomegaly, as per my discussion with consulting paint dipper only option is to proceed with splenectomy Presented to the hospital with hemoglobin of 6.8, status post 2 unit of packed RBC, today hemoglobin dropped to 7, status post unit of packed RBC today, hematocrit after transfusion was 24, message left for paint dipper, patient is a candidate for rehab Patient has leukopenia/thrombocytopenia, neutrophil count is trending down today, discussed with paint dipper if the patient is a candidate for granulocyte disintegrating factor Hem recommend supportive care at this point, continue prophylactic antibiotics, as infections are cause of mortality in patients with advanced T-LGL with pancytopenia. Previously we have started her on acyclovir, Bactrim and Diflucan for prophylaxis Hyponatremia with hyperosmolality- Similar to previous admission, sodium stays 124, last admission was 123 Improving, today sodium is 130 Severe aortic stenosis status post TAVR 05/14- Maintain preload so that Admission and Anticipated Discharge Date Admission Date: March 27, 2023 Subjective Her hemoglobin dropped, patient continues to be fatigued, seen by PT recommended rehab, patient hemoglobin dropped to 7, s/p transfusion 1 unit today, hematocrit evidence her vision is 24 CBC tomorrow Physical Exam Physical Exam: The patient is awake, alert and oriented, normocephalic and atraumatic, lying in bed and in no acute distress. HEENT--PERRL, EOMI, mucous membranes and oropharynx mildly dry. Neck--supple. No JVD. No bruits. Thyroid normal, trachea midline, no adenopathy. Heart--normal S1 and S2. No murmurs, rubs or gallops. Lungs--clear bilaterally, no respiratory distress, no accessory muscle use. Abdomen--normal bowel sounds and soft. Nontender. Nondistended. Extremities--no cyanosis or clubbing. No edema. Dermatologic--scattered ecchymoses Neurologic--cranial nerves II through XII grossly intact. Rheumatologic--normal range of motion. Psychiatric--normal affect. Results & Data Results & Data Vital Signs (Past 12 Hours) Vital Signs Temp Pulse Pulse Pulse Resp BP BP 03/29/23 20:05 37.1 C 68 16 107/58 L 03/29/23 14:50 36.7 C 72 16 102/54 L 03/29/23 12:51 36.9 C 74 24 03/29/23 11:54 36.5 C 68 18 111/52 L 03/29/23 10:56 36.7 C 67 20 104/61 03/29/23 09:56 36.8 C 75 20 114/65 03/29/23 09:56 03/29/23 09:26 36.4 C L 70 20 102/57 L 03/29/23 09:11 70 20 101/60 03/29/23 08:54 36.5 C 71 16 107/61 BP Pulse Ox O2 Del Method 03/29/23 20:05 97 Room Air 03/29/23 14:50 97 Room Air 03/29/23 12:51 138/62 98 Room Air 03/29/23 11:54 95 03/29/23 10:56 98 03/29/23 09:56 96 03/29/23 09:56 Room Air 03/29/23 09:26 98 03/29/23 09:11 98 03/29/23 08:54 99 PG Care Time/CCT Total # of Minutes Spent Total Time Spent with Patient: Total time spent is greater than 50% in coordination of care (as documented) at patient's floor/unit and/or counseling patient: Coding Level of Care Code 76787 SUB INP/OBS CARE 2/35MIN Diagnoses Ambulatory dysfunction R26.2 Fall from standing W19.XXXA Status post fall Z91.81 Aortic valve prosthesis present Z95.2 Hypo-osmolality and hyponatremia E87.1 Psoriatic arthritis L40.50 Symptomatic anemia D64.9
[2023-03-29] MEDS: CEFDINIR 300 MG CAP PO SCH (20:35)
[2023-03-30 07:04] LABS: Hematocrit (blood only) 24.6 % (37.0-47.0); Hemoglobin 8.2 g/dl (12.0-16.0); Mean Corpuscular Hemoglobin 29.3 pg (25.0-34.0); Mean Corpuscular Hgb Conc 33.3 g/dL (32.0-36.0); Mean Corpuscular Volume 87.9 fL (80.0-100.0); Mean Platelet Volume 8.5 fL (9.4-12.4); Platelet Count 74 K/uL (130-400); RDW Coefficient of Variation 20.7 % (11.5-14.5); RDW Standard Deviation 62.5 fL (36.4-46.3); White Blood Count 1.79 K/ul (4.8-10.8)
[2023-03-30 07:51] LABS: Polychromasia 1+; Tear Drop Cells 2+
[2023-03-30 07:53] LABS: Basophils # (auto) 0.01 K/uL (0.00-0.20); Basophils % (auto) 0.6 %; Eosinophils # (auto) 0.02 K/uL (0.00-0.50); Eosinophils % (auto) 1.1 %; Immature Granulocytes # (auto) 0.04 K/uL (0.01-0.20); Immature Granulocytes % (auto) 2.2 %; Lymphocytes # (auto) 0.86 K/uL (1.20-3.40); Monocytes # (auto) 0.14 K/uL (0.11-0.59); Monocytes % (auto) 7.8 %; Neutrophils # (auto) 0.72 K/uL (1.40-6.50); Neutrophils % (auto) 40.3 %
[2023-03-30] MEDS: CEFDINIR 300 MG CAP PO SCH ×2 (08:25→19:59)
[2023-03-30] MEDS: METOPROLOL SUCC 50MG EXT REL TAB PO SCH (08:26)
[2023-03-30] MEDS: ACYCLOVIR 400 MG TAB PO SCH ×2 (08:26→19:59)
[2023-03-30] MEDS: FLUCONAZOLE 100 MG TAB PO SCH (08:26)
[2023-03-30] MEDS: PRAMIPEXOLE DIHYDROCHLO 0.25 MG TAB PO SCH ×2 (08:26→19:59)
[2023-03-30] MEDS: DOCUSATE SODIUM 100 MG CAP PO SCH ×2 (08:30→20:00)
--- NOTE | 2023-03-30 12:18 | Hematology/Oncology Prog Note ---
Date of Service March 30, 2023 Assessment & Plan (1) Pancytopenia: Plan: Continue supportive care, transfusions as needed and prophylactic antibiotics. (2) Symptomatic anemia: Plan: Continue monitoring hemoglobin level, discharge per primary. Patient will need another blood transfusion as hemoglobin is dropping. 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 The patient will need a splenectomy in my opinion however that can be performed on an elective basis. At this point she does not fulfill the criteria for emergent splenectomy. Even if she undergoes splenectomy today, her hemoglobin will likely not improve for the next 4 to 6 weeks. Keeping this in mind will not consult our surgical colleagues while she is admitted to the hospital. At this point the recommendation is going to be continued supportive care with as needed blood transfusions. Her hemoglobin is 8.4 g/dL today. She does not need a blood transfusion today. Disposition Yayo will leave that to our colleagues from hospital medicine, discharge per the recommendations. Plan Case discussed with our colleagues from hospital medicine. Hematology will continue to make appropriate recommendations. Admission and Anticipated Discharge Date Admission Date: March 27, 2023 Subjective Patient evaluated this morning, sitting upright in chair, breathing on room air. Reports no shortness of breath. He is less fatigued. Reports no lightheadedness. She is able to eat a full meal Physical Exam Constitutional: WD/WN, vitals as above Eyes: PERRL, conjunctivae normal, anicteric sclerae ENMT: external ear and nose normal, oropharynx normal Neck: trachea midline, no thyromegaly Respiratory: normal respiratory effort, lungs clear to auscultation Cardiovascular: RRR, no murmur, no edema Results & Data Vital Signs (Past 12 Hours) Vital Signs Temp Pulse Resp BP Pulse Ox O2 Del Method 03/30/23 07:57 36.5 C 65 16 103/63 100 Room Air
--- NOTE | 2023-03-30 17:32 | Hospitalist Progress Note ---
Date of Service March 30, 2023 Assessment & Plan (1) Ambulatory dysfunction: (2) Fall from standing: (3) Status post fall: (4) Aortic valve prosthesis present: (5) Hypo-osmolality and hyponatremia: (6) Psoriatic arthritis: (7) Symptomatic anemia: Plan Symptomatic anemia History of T-LGL l lymphoma, with huge splenomegaly, as per my discussion with consulting piano tuner only option is to proceed with splenectomy Presented to the hospital with hemoglobin of 6.8, status post 2 unit of packed RBC, today hemoglobin dropped to 7, status post unit of packed RBC today, hematocrit after transfusion was 24, patient is a candidate for rehab Patient has leukopenia/thrombocytopenia, neutrophil count is trending down today, discussed with piano tuner if the patient is not a candidate for granulocyte disintegrating factor Hem recommend supportive care at this point, continue prophylactic antibiotics, as infections are cause of mortality in patients with advanced T-LGL with pancytopenia. Previously we have started her on acyclovir, Bactrim and Diflucan for prophylaxis Hyponatremia with hyperosmolality- Similar to previous admission, sodium stays 124, last admission was 123 Improving, today sodium is 130 Severe aortic stenosis status post TAVR 05/14- Maintain preload so that Admission and Anticipated Discharge Date Admission Date: March 27, 2023 Subjective No complaint today, discussed with manager rn case, pending placement, discussed with piano tuner Physical Exam Physical Exam: The patient is awake, alert and oriented, normocephalic and atraumatic, lying in bed and in no acute distress. HEENT--PERRL, EOMI, mucous membranes and oropharynx mildly dry. Neck--supple. No JVD. No bruits. Thyroid normal, trachea midline, no adenopathy. Heart--normal S1 and S2. No murmurs, rubs or gallops. Lungs--clear bilaterally, no respiratory distress, no accessory muscle use. Abdomen--normal bowel sounds and soft. Nontender. Nondistended. Extremities--no cyanosis or clubbing. No edema. Dermatologic--scattered ecchymoses Neurologic--cranial nerves II through XII grossly intact. Rheumatologic--normal range of motion. Psychiatric--normal affect. Results & Data Results & Data Vital Signs (Past 12 Hours) Vital Signs Temp Pulse Resp BP BP Pulse Ox O2 Del Method 03/30/23 15:16 36.9 C 66 16 111/50 L 99 Room Air 03/30/23 07:57 36.5 C 65 16 103/63 100 Room Air PG Care Time/CCT Total # of Minutes Spent Total Time Spent with Patient: Total time spent is greater than 50% in coordination of care (as documented) at patient's floor/unit and/or counseling patient: Coding Level of Care Code 42900 SUB INP/OBS CARE 2/35MIN Diagnoses Ambulatory dysfunction R26.2 Fall from standing W19.XXXA Status post fall Z91.81 Aortic valve prosthesis present Z95.2 Hypo-osmolality and hyponatremia E87.1 Psoriatic arthritis L40.50 Symptomatic anemia D64.9
[2023-03-30] MEDS: SULFAMETHOXAZOLE/TRIMETHOPRIM DS 800/160MG TAB PO SCH (19:59)
[2023-03-30] MEDS: ACETAMINOPHEN 325 MG TAB PO PRN (21:17)
[2023-03-31] MEDS: CEFDINIR 300 MG CAP PO SCH ×2 (08:32→20:57)
[2023-03-31] MEDS: ACYCLOVIR 400 MG TAB PO SCH ×2 (08:32→20:57)
[2023-03-31] MEDS: METOPROLOL SUCC 50MG EXT REL TAB PO SCH (08:33)
[2023-03-31] MEDS: FLUCONAZOLE 100 MG TAB PO SCH (08:33)
[2023-03-31] MEDS: PRAMIPEXOLE DIHYDROCHLO 0.25 MG TAB PO SCH ×2 (08:33→20:57)
[2023-03-31] MEDS: DOCUSATE SODIUM 100 MG CAP PO SCH ×2 (08:34→20:57)
--- NOTE | 2023-03-31 18:23 | Hospitalist Progress Note ---
Date of Service March 31, 2023 Assessment & Plan (1) Ambulatory dysfunction: (2) Fall from standing: (3) Status post fall: (4) Aortic valve prosthesis present: (5) Hypo-osmolality and hyponatremia: (6) Psoriatic arthritis: (7) Symptomatic anemia: Plan Symptomatic anemia History of T-LGL l lymphoma, with huge splenomegaly, as per my discussion with consulting professional skateboarder only option is to proceed with splenectomy Presented to the hospital with hemoglobin of 6.8, status post 2 unit of packed RBC, today hemoglobin dropped to 7, status post unit of packed RBC today, hematocrit after transfusion was 24, patient is a candidate for rehab Patient has leukopenia/thrombocytopenia, neutrophil count is trending down today, discussed with professional skateboarder if the patient is not a candidate for granulocyte disintegrating factor Hem recommend supportive care at this point, continue prophylactic antibiotics, as infections are cause of mortality in patients with advanced T-LGL with pancytopenia. Previously we have started her on acyclovir, Bactrim and Diflucan for prophylaxis Hyponatremia with hyperosmolality- Similar to previous admission, sodium stays 124, last admission was 123 Improving, today sodium is 130 Severe aortic stenosis status post TAVR 05/14- Maintain preload so that Admission and Anticipated Discharge Date Admission Date: March 27, 2023 Subjective No complaint today, discussed with case advocate, pending placement, discussed with professional skateboarder Review of Systems Review of Systems: The patient denies chest pain, palpitations, shortness of breath, dyspnea on exertion, cough, lower extremity swelling, sore throat, fevers, chills, sweats, nausea, vomiting, diarrhea , constipation, abdominal pain, pelvic pain, blood in urine or stool, dysuria, urinary frequency or urgency, headache, loss of consciousness, rash, abnormal bruising or bleeding, focal weakness, numbness or tingling in arms or legs, generalized arthralgias or myalgias, back or neck pain, or night sweats. The review of systems is otherwise negative other than for that already noted above, and at least 10 systems have been reviewed. Physical Exam Physical Exam: The patient is awake, alert and oriented, normocephalic and atraumatic, lying in bed and in no acute distress. HEENT--PERRL, EOMI, mucous membranes and oropharynx mildly dry. Neck--supple. No JVD. No bruits. Thyroid normal, trachea midline, no adenopathy. Heart--normal S1 and S2. No murmurs, rubs or gallops. Lungs--clear bilaterally, no respiratory distress, no accessory muscle use. Abdomen--normal bowel sounds and soft. Nontender. Nondistended. Extremities--no cyanosis or clubbing. No edema. Dermatologic--scattered ecchymoses Neurologic--cranial nerves II through XII grossly intact. Rheumatologic--normal range of motion. Psychiatric--normal affect. Results & Data Results & Data Vital Signs (Past 12 Hours) Vital Signs Temp Pulse Resp BP Pulse Ox O2 Del Method 03/31/23 14:52 36.7 C 76 16 100/62 97 Room Air 03/31/23 07:11 36.7 C 66 16 103/64 98 Room Air PG Care Time/CCT Total # of Minutes Spent Total Time Spent with Patient: Total time spent is greater than 50% in coordination of care (as documented) at patient's floor/unit and/or counseling patient: Coding Level of Care Code 83987 SUB INP/OBS CARE 1/25MIN Diagnoses Ambulatory dysfunction R26.2 Fall from standing W19.XXXA Status post fall Z91.81 Aortic valve prosthesis present Z95.2 Hypo-osmolality and hyponatremia E87.1 Psoriatic arthritis L40.50 Symptomatic anemia D64.9
--- NOTE | 2023-03-31 18:44 | Hospitalist Progress Note ---
Date of Service March 31, 2023 Assessment & Plan Admission and Anticipated Discharge Date Admission Date: March 27, 2023 Subjective The patient is a 89-year-old she is from [place] Results & Data Results & Data Vital Signs (Past 12 Hours) Vital Signs Temp Pulse Resp BP Pulse Ox O2 Del Method 03/31/23 14:52 36.7 C 76 16 100/62 97 Room Air 03/31/23 07:11 36.7 C 66 16 103/64 98 Room Air PG Care Time/CCT Total # of Minutes Spent Total Time Spent with Patient: Total time spent is greater than 50% in coordination of care (as documented) at patient's floor/unit and/or counseling patient: Coding
[2023-03-31] MEDS: ACETAMINOPHEN 325 MG TAB PO PRN (19:32)
[2023-04-01] MEDS: ACYCLOVIR 400 MG TAB PO SCH ×2 (07:50→20:17)
[2023-04-01] MEDS: CEFDINIR 300 MG CAP PO SCH ×2 (07:51→20:17)
[2023-04-01] MEDS: METOPROLOL SUCC 50MG EXT REL TAB PO SCH (07:52)
[2023-04-01] MEDS: PRAMIPEXOLE DIHYDROCHLO 0.25 MG TAB PO SCH ×2 (07:53→20:17)
[2023-04-01] MEDS: FLUCONAZOLE 100 MG TAB PO SCH (07:56)
[2023-04-01] MEDS: DOCUSATE SODIUM 100 MG CAP PO SCH ×2 (07:56→20:18)
[2023-04-01 08:26] LABS: Hematocrit (blood only) 20.8 % (37.0-47.0); Hemoglobin 7.2 g/dl (12.0-16.0); Mean Corpuscular Hemoglobin 29.4 pg (25.0-34.0); Mean Corpuscular Hgb Conc 34.6 g/dL (32.0-36.0); Mean Corpuscular Volume 84.9 fL (80.0-100.0); Mean Platelet Volume 8.9 fL (9.4-12.4); Nucleated RBC # (auto) 0.02 K/uL (0.00-0.12); Nucleated RBC % (auto) 1.3 %; Platelet Count 71 K/uL (130-400); RDW Coefficient of Variation 20.7 % (11.5-14.5); RDW Standard Deviation 61.9 fL (36.4-46.3); Red Blood Count 2.45 M/uL (4.20-5.40); White Blood Count 1.54 K/ul (4.8-10.8)
[2023-04-01 08:35] LABS: Microcytosis Present; Ovalocytes 1+; Polychromasia 1+; Tear Drop Cells 1+
[2023-04-01 08:36] LABS: Basophils # (auto) 0.02 K/uL (0.00-0.20); Basophils % (auto) 1.3 %; Eosinophils # (auto) 0.02 K/uL (0.00-0.50); Eosinophils % (auto) 1.3 %; Immature Granulocytes # (auto) 0.02 K/uL (0.01-0.20); Immature Granulocytes % (auto) 1.3 %; Lymphocytes # (auto) 0.81 K/uL (1.20-3.40); Lymphocytes % (auto) 52.6 %; Monocytes # (auto) 0.14 K/uL (0.11-0.59); Monocytes % (auto) 9.1 %; Neutrophils # (auto) 0.53 K/uL (1.40-6.50); Neutrophils % (auto) 34.4 %
[2023-04-01] MEDS ORDERED: SODIUM CHLORIDE 0.9% 250 ML IV PRN ×2 (09:24→09:41)
--- NOTE | 2023-04-01 18:54 | Hospitalist Progress Note ---
Date of Service April 01, 2023 Assessment & Plan (1) Ambulatory dysfunction: (2) Fall from standing: (3) Status post fall: (4) Aortic valve prosthesis present: (5) Hypo-osmolality and hyponatremia: (6) Psoriatic arthritis: (7) Symptomatic anemia: Plan Symptomatic anemia History of T-LGL l lymphoma, with huge splenomegaly, as per my discussion with consulting semi automatic sewing machine operator only option is to proceed with splenectomy Presented to the hospital with hemoglobin of 6.8, status post 4 unit of packed RBC, - after his transfusion and hemoglobin regulated. And then he started trending down, I discussed with hematology there is no good option unless patient proceed with with the splenectomy can be managed as an outpatient, patient candidate for rehab, as well as the rehab is arranged patient can be discharged. Today hemoglobin dropped to 7 and I transfused the patient again 1 unit of packed RBC, recheck hematocrit tomorrow Patient has leukopenia/thrombocytopenia,, discussed with semi automatic sewing machine operator if the patient is not a candidate for granulocyte stimulating factor Hem recommend supportive care at this point, continue prophylactic antibiotics, as infections are cause of mortality in patients with advanced T-LGL with pancytopenia. Previously we have started her on acyclovir, Bactrim and Diflucan for prophylaxis will continue current regimen Hyponatremia with hyperosmolality- Similar to previous admissions, patient with sodium 124, last sodium on 03/29 was [id number] 1 repeat sodium tomorrow Improving, today sodium is 130 Severe aortic stenosis status post TAVR 05/14- Maintain preload so that Admission and Anticipated Discharge Date Admission Date: March 27, 2023 Subjective no complaint hemoglobin dropped again today, going for transfusion again today Review of Systems Review of Systems: The patient denies chest pain, palpitations, shortness of breath, dyspnea on exertion, cough, lower extremity swelling, sore throat, fevers, chills, sweats, nausea, vomiting, diarrhea , constipation, abdominal pain, pelvic pain, blood in urine or stool, dysuria, urinary frequency or urgency, headache, loss of consciousness, rash, abnormal bruising or bleeding, focal weakness, numbness or tingling in arms or legs, generalized arthralgias or myalgias, back or neck pain, or night sweats. The review of systems is otherwise negative other than for that already noted above, and at least 10 systems have been reviewed. Physical Exam Physical Exam: The patient is awake, alert and oriented, normocephalic and atraumatic, lying in bed and in no acute distress. HEENT--PERRL, EOMI, mucous membranes and oropharynx mildly dry. Neck--supple. No JVD. No bruits. Thyroid normal, trachea midline, no adenopathy. Heart--normal S1 and S2. No murmurs, rubs or gallops. Lungs--clear bilaterally, no respiratory distress, no accessory muscle use. Abdomen--normal bowel sounds and soft. Nontender. Nondistended. Extremities--no cyanosis or clubbing. No edema. Dermatologic--scattered ecchymoses Neurologic--cranial nerves II through XII grossly intact. Rheumatologic--normal range of motion. Psychiatric--normal affect. Results & Data Results & Data Vital Signs (Past 12 Hours) Vital Signs Temp Pulse Pulse Resp BP BP BP 04/01/23 15:14 36.6 C 78 16 105/61 04/01/23 14:20 36.7 C 77 18 102/62 04/01/23 13:20 36.5 C 80 18 122/61 04/01/23 12:20 36.9 C 81 16 117/67 04/01/23 11:50 36.7 C 76 16 91/48 L 04/01/23 11:50 36.9 C 81 16 117/67 04/01/23 11:50 36.7 C 75 16 91/48 L 04/01/23 11:35 36.4 C L 77 16 91/53 L 04/01/23 11:27 36.4 C L 77 16 92/53 L 04/01/23 11:17 36.7 C 77 16 101/54 L 04/01/23 07:29 36.6 C 68 16 97/59 L Pulse Ox O2 Del Method 04/01/23 15:14 94 Room Air 04/01/23 14:20 98 04/01/23 13:20 100 04/01/23 12:20 97 04/01/23 11:50 98 04/01/23 11:50 97 04/01/23 11:50 97 04/01/23 11:35 98 04/01/23 11:27 98 04/01/23 11:17 98 04/01/23 07:29 99 Room Air PG Care Time/CCT Total # of Minutes Spent Total Time Spent with Patient: Total time spent is greater than 50% in coordination of care (as documented) at patient's floor/unit and/or counseling patient: Coding Level of Care Code 16412 SUB INP/OBS CARE 3/50MIN Diagnoses Ambulatory dysfunction R26.2 Fall from standing W19.XXXA Status post fall Z91.81 Aortic valve prosthesis present Z95.2 Hypo-osmolality and hyponatremia E87.1 Psoriatic arthritis L40.50 Symptomatic anemia D64.9
[2023-04-01] MEDS: SULFAMETHOXAZOLE/TRIMETHOPRIM DS 800/160MG TAB PO SCH (20:17)
[2023-04-02] MEDS: ACYCLOVIR 400 MG TAB PO SCH ×2 (08:22→20:20)
[2023-04-02] MEDS: CEFDINIR 300 MG CAP PO SCH ×2 (08:22→20:20)
[2023-04-02] MEDS: FLUCONAZOLE 100 MG TAB PO SCH (08:23)
[2023-04-02] MEDS: PRAMIPEXOLE DIHYDROCHLO 0.25 MG TAB PO SCH ×2 (08:23→20:19)
[2023-04-02] MEDS: METOPROLOL SUCC 50MG EXT REL TAB PO SCH (08:24)
[2023-04-02] MEDS: DOCUSATE SODIUM 100 MG CAP PO SCH ×2 (08:25→20:22)
[2023-04-02 10:06] LABS: Hematocrit (blood only) 22.8 % (37.0-47.0); Hemoglobin 7.8 g/dl (12.0-16.0); Mean Corpuscular Hemoglobin 28.9 pg (25.0-34.0); Mean Corpuscular Hgb Conc 34.2 g/dL (32.0-36.0); Mean Corpuscular Volume 84.4 fL (80.0-100.0); Mean Platelet Volume 9.4 fL (9.4-12.4); Platelet Count 76 K/uL (130-400); RDW Coefficient of Variation 20.8 % (11.5-14.5); RDW Standard Deviation 61.5 fL (36.4-46.3); White Blood Count 1.35 K/ul (4.8-10.8)
[2023-04-02 10:26] LABS: BUN Creatinine Ratio 34.5 (10-20); Calcium 9.2 mg/dl (8.6-10.3); Creatinine Clr Calc Pharmacy 73.1 ml/min; Est GFR (Non-African American) 88.9 ml/min; Potassium 3.7 mmol/L (3.5-5.1)
--- NOTE | 2023-04-02 18:54 | Hospitalist Progress Note ---
Date of Service April 02, 2023 Assessment & Plan (1) Ambulatory dysfunction: (2) Fall from standing: (3) Status post fall: (4) Aortic valve prosthesis present: (5) Hypo-osmolality and hyponatremia: (6) Psoriatic arthritis: (7) Symptomatic anemia: Plan Symptomatic anemia History of T-LGL l lymphoma, with huge splenomegaly, as per discussion with consulting barrel inspector tight only option is to proceed with splenectomy eventually Presented to the hospital with hemoglobin of 6.8, status post 4 unit of packed RBC, And then he started trending down, I discussed with hematology there is no good option unless patient proceed with with the splenectomy can be managed as an outpatient, patient candidate for rehab, as well as the rehab is arranged patient can be discharged. today hemoglobin is stable above 7. Plan is to discharge the patient so she can have an elective splenectomy done outpatient In the meantime we will continue acyclovir, Bactrim, Diflucan for prophylaxis. Hyponatremia with hyperosmolality- Similar to previous admissions, patient with sodium 124, last sodium on 03/29 was [id number] 1 repeat sodium tomorrow Improving, today sodium is 134 Severe aortic stenosis status post TAVR 05/14- Maintain preload Disposition: Awaiting placement. Case management on board. Admission and Anticipated Discharge Date Admission Date: March 27, 2023 Subjective patient feels well. Denies chest pain or shortness of breath. Review of Systems Review of Systems: All systems reviewed & are unremarkable except as noted in Subjective Physical Exam Physical Exam: General: Awake, conversant Heart: S1, S2/regular rate and rhythm, no murmur rubs or gallops Lungs: Clear to auscultation bilaterally. Normal effort Abdomen: Soft/nontender/nondistended. splenomegaly noted Extremities: No clubbing/cyanosis. No edema Behavior: Appropriate, cooperative Results & Data Results & Data Vital Signs (Past 12 Hours) Vital Signs Temp Pulse Resp BP BP Pulse Ox O2 Del Method 04/02/23 15:03 36.6 C 62 16 95/56 L 95 Room Air 04/02/23 07:24 36.4 C L 72 16 122/68 100 Room Air Laboratory Results Abnormal lab results 04/02/23 Range/Units 09:53 WBC 1.35 L (4.8-10.8) K/ul RBC 2.70 L (4.20-5.40) M/uL Hgb 7.8 L (12.0-16.0) g/dl Hct 22.8 L (37.0-47.0) % RDW Std Deviation 61.5 H (36.4-46.3) fL RDW Coeff of Angus 20.8 H (11.5-14.5) % Plt Count 76 L (130-400) K/uL Sodium 134 L (136-145) mmol/L Creatinine 0.58 L (0.6-1.2) mg/dl BUN/Creatinine Ratio 34.5 H (10-20) Glucose 134 H (70-99(Fasting)) mg/dl PG Care Time/CCT Total # of Minutes Spent Total Time Spent with Patient: Total time spent is greater than 50% in coordination of care (as documented) at patient's floor/unit and/or counseling patient: Coding Level of Care Code 28878 SUB INP/OBS CARE 2/35MIN Diagnoses Ambulatory dysfunction R26.2 Fall from standing W19.XXXA Status post fall Z91.81 Aortic valve prosthesis present Z95.2 Hypo-osmolality and hyponatremia E87.1 Psoriatic arthritis L40.50 Symptomatic anemia D64.9
[2023-04-02] MEDS: ACETAMINOPHEN 325 MG TAB PO PRN (21:53)
[2023-04-03 07:35] LABS: Hematocrit (blood only) 22.3 % (37.0-47.0); Hemoglobin 7.6 g/dl (12.0-16.0); Mean Corpuscular Hemoglobin 28.7 pg (25.0-34.0); Mean Corpuscular Hgb Conc 34.1 g/dL (32.0-36.0); Mean Corpuscular Volume 84.2 fL (80.0-100.0); Mean Platelet Volume 8.8 fL (9.4-12.4); Nucleated RBC # (auto) 0.02 K/uL (0.00-0.12); Nucleated RBC % (auto) 1.5 %; Platelet Count 76 K/uL (130-400); RDW Coefficient of Variation 20.8 % (11.5-14.5); RDW Standard Deviation 62.2 fL (36.4-46.3); Red Blood Count 2.65 M/uL (4.20-5.40)
[2023-04-03 07:49] LABS: BUN Creatinine Ratio 35.6 (10-20); Calcium 9.2 mg/dl (8.6-10.3); Creatinine Clr Calc Pharmacy 71.9 ml/min; Est GFR (African American) 102.5 ml/min; Est GFR (Non-African American) 88.4 ml/min; Potassium 4.1 mmol/L (3.5-5.1)
[2023-04-03] MEDS: CEFDINIR 300 MG CAP PO SCH (08:35)
[2023-04-03] MEDS: FLUCONAZOLE 100 MG TAB PO SCH (08:35)
[2023-04-03] MEDS: ACYCLOVIR 400 MG TAB PO SCH ×2 (08:35→20:24)
[2023-04-03] MEDS: METOPROLOL SUCC 50MG EXT REL TAB PO SCH (08:36)
[2023-04-03] MEDS: PRAMIPEXOLE DIHYDROCHLO 0.25 MG TAB PO SCH ×2 (08:36→20:24)
[2023-04-03] MEDS: DOCUSATE SODIUM 100 MG CAP PO SCH ×2 (08:38→20:25)
--- NOTE | 2023-04-03 15:38 | Hospitalist Progress Note ---
Date of Service April 03, 2023 Assessment & Plan (1) Ambulatory dysfunction: (2) Fall from standing: (3) Status post fall: (4) Aortic valve prosthesis present: (5) Hypo-osmolality and hyponatremia: (6) Psoriatic arthritis: (7) Symptomatic anemia: Plan Symptomatic anemia History of T-LGL l lymphoma, with huge splenomegaly, as per discussion with consulting carbonation tester only option is to proceed with splenectomy eventually Presented to the hospital with hemoglobin of 6.8, status post 4 unit of packed RBC, And then he started trending down. The case was discussed with hematology . There is no good option unless patient proceed with with the splenectomy can be managed as an outpatient, patient candidate for rehab, as well as the rehab is arranged patient can be discharged. today hemoglobin is stable above 7. Plan is to discharge the patient so she can have an elective splenectomy done outpatient In the meantime we will continue acyclovir, Bactrim, Diflucan for prophylaxis. Hyponatremia with hyperosmolality- Similar to previous admissions, patient with sodium 124, last sodium on 03/29 was [id number] 1 repeat sodium tomorrow Improving, today sodium is 134 Severe aortic stenosis status post TAVR 05/14- Maintain preload Disposition: Awaiting placement. Case management on board. Admission and Anticipated Discharge Date Admission Date: March 27, 2023 Subjective Patient feels well. Denies chest pain or shortness of breath. Denies dizziness. Review of Systems Review of Systems: All systems reviewed & are unremarkable except as noted in Subjective Physical Exam Physical Exam: General: Awake, conversant Heart: S1, S2/regular rate and rhythm, no murmur rubs or gallops Lungs: Clear to auscultation bilaterally. Normal effort Abdomen: Soft/nontender/nondistended. splenomegaly noted Extremities: No clubbing/cyanosis. No edema Behavior: Appropriate, cooperative Results & Data Results & Data Vital Signs (Past 12 Hours) Vital Signs Temp Pulse Resp BP Pulse Ox O2 Del Method 04/03/23 08:14 36.3 C L 71 16 100/59 L 100 Room Air Laboratory Results Abnormal lab results 04/03/23 Range/Units 07:12 WBC 1.30 L (4.8-10.8) K/ul RBC 2.65 L (4.20-5.40) M/uL Hgb 7.6 L (12.0-16.0) g/dl Hct 22.3 L (37.0-47.0) % RDW Std Deviation 62.2 H (36.4-46.3) fL RDW Coeff of Angus 20.8 H (11.5-14.5) % Plt Count 76 L (130-400) K/uL MPV 8.8 L (9.4-12.4) fL Sodium 134 L (136-145) mmol/L Creatinine 0.59 L (0.6-1.2) mg/dl BUN/Creatinine Ratio 35.6 H (10-20) Glucose 111 H (70-99(Fasting)) mg/dl PG Care Time/CCT Total # of Minutes Spent Total Time Spent with Patient: Total time spent is greater than 50% in coordination of care (as documented) at patient's floor/unit and/or counseling patient: Coding Level of Care Code 76496 SUB INP/OBS CARE 2/35MIN Diagnoses Ambulatory dysfunction R26.2 Fall from standing W19.XXXA Status post fall Z91.81 Aortic valve prosthesis present Z95.2 Hypo-osmolality and hyponatremia E87.1 Psoriatic arthritis L40.50 Symptomatic anemia D64.9
[2023-04-03] MEDS: SULFAMETHOXAZOLE/TRIMETHOPRIM DS 800/160MG TAB PO SCH (20:24)
[2023-04-04 07:15] LABS: Hematocrit (blood only) 21.4 % (37.0-47.0); Hemoglobin 7.2 g/dl (12.0-16.0); Mean Corpuscular Hemoglobin 28.9 pg (25.0-34.0); Mean Corpuscular Hgb Conc 33.6 g/dL (32.0-36.0); Mean Corpuscular Volume 85.9 fL (80.0-100.0); Mean Platelet Volume 8.5 fL (9.4-12.4); Platelet Count 78 K/uL (130-400); RDW Coefficient of Variation 20.8 % (11.5-14.5); RDW Standard Deviation 63.1 fL (36.4-46.3); Red Blood Count 2.49 M/uL (4.20-5.40); White Blood Count 1.41 K/ul (4.8-10.8)
[2023-04-04 07:35] LABS: BUN Creatinine Ratio 37.7 (10-20); Est GFR (African American) 106.1 ml/min; Est GFR (Non-African American) 91.6 ml/min
[2023-04-04] MEDS: ACYCLOVIR 400 MG TAB PO SCH ×2 (08:16→20:51)
[2023-04-04] MEDS: PRAMIPEXOLE DIHYDROCHLO 0.25 MG TAB PO SCH ×2 (08:17→20:51)
[2023-04-04] MEDS: DOCUSATE SODIUM 100 MG CAP PO SCH ×2 (08:17→20:51)
[2023-04-04] MEDS: METOPROLOL SUCC 50MG EXT REL TAB PO SCH (08:17)
[2023-04-04] MEDS: FLUCONAZOLE 100 MG TAB PO SCH (08:17)
[2023-04-04] MEDS ORDERED: SODIUM CHLORIDE 0.9% 250 ML IV PRN (13:48)
--- NOTE | 2023-04-04 15:48 | Hospitalist Progress Note ---
Date of Service April 04, 2023 Assessment & Plan (1) Ambulatory dysfunction: (2) Fall from standing: (3) Status post fall: (4) Aortic valve prosthesis present: (5) Hypo-osmolality and hyponatremia: (6) Psoriatic arthritis: (7) Symptomatic anemia: Plan Symptomatic anemia History of T-LGL l lymphoma, with huge splenomegaly, as per discussion with consulting director of district office only option is to proceed with splenectomy eventually Presented to the hospital with hemoglobin of 6.8, status post 4 unit of packed RBC, And then he started trending down. The case was discussed with hematology . There is no good option unless patient proceed with with the splenectomy can be managed as an outpatient, patient candidate for rehab, as well as the rehab is arranged patient can be discharged. The patient is fatigued today and her hemoglobin is barely above 7. Decided to give her a unit of blood today in preparation for discharge tomorrow Plan is to discharge the patient so she can have an elective splenectomy done outpatient In the meantime we will continue acyclovir, Bactrim, Diflucan for prophylaxis. Hyponatremia with hyperosmolality- Similar to previous admissions, patient with sodium 124 Stable. Sodium is 134 Severe aortic stenosis status post TAVR 05/14- Maintain preload Disposition: Likely discharge tomorrow to home as insurance has denied SNF Admission and Anticipated Discharge Date Admission Date: March 27, 2023 Subjective Patient feels fatigued and tired. But no chest pain or shortness of breath. Nothing else bothering her. Peer to peer completed with insurance company. Denied. She plans to go home tomorrow Review of Systems Review of Systems: All systems reviewed & are unremarkable except as noted in Subjective Physical Exam Physical Exam: General: Awake, conversant Heart: S1, S2/regular rate and rhythm, no murmur rubs or gallops Lungs: Clear to auscultation bilaterally. Normal effort Abdomen: Soft/nontender/nondistended. splenomegaly noted Extremities: No clubbing/cyanosis. No edema Behavior: Appropriate, cooperative Results & Data Results & Data Vital Signs (Past 12 Hours) Vital Signs Temp Pulse Resp BP BP Pulse Ox O2 Del Method 04/04/23 14:25 36.8 C 70 16 111/64 99 Room Air 04/04/23 08:15 76 110/64 04/04/23 08:01 36.5 C 68 16 95/53 L 100 Room Air Laboratory Results Abnormal lab results 04/04/23 04/04/23 Range/Units 06:40 14:17 WBC 1.41 L (4.8-10.8) K/ul RBC 2.49 L (4.20-5.40) M/uL Hgb 7.2 L (12.0-16.0) g/dl Hct 21.4 L (37.0-47.0) % RDW Std Deviation 63.1 H (36.4-46.3) fL RDW Coeff of Angus 20.8 H (11.5-14.5) % Plt Count 78 L (130-400) K/uL MPV 8.5 L (9.4-12.4) fL Sodium 134 L (136-145) mmol/L Creatinine 0.53 L (0.6-1.2) mg/dl BUN/Creatinine Ratio 37.7 H (10-20) Crossmatch See Detail See Detail PG Care Time/CCT Total # of Minutes Spent Total Time Spent with Patient: Total time spent is greater than 50% in coordination of care (as documented) at patient's floor/unit and/or counseling patient: Coding Level of Care Code 13182 SUB INP/OBS CARE 2/35MIN Diagnoses Ambulatory dysfunction R26.2 Fall from standing W19.XXXA Status post fall Z91.81 Aortic valve prosthesis present Z95.2 Hypo-osmolality and hyponatremia E87.1 Psoriatic arthritis L40.50 Symptomatic anemia D64.9
[2023-04-04] MEDS: ACETAMINOPHEN 325 MG TAB PO PRN (20:51)
[2023-04-05 07:44] LABS: Hematocrit (blood only) 22.6 % (37.0-47.0); Hemoglobin 7.9 g/dl (12.0-16.0); Mean Corpuscular Hemoglobin 29.2 pg (25.0-34.0); Mean Corpuscular Volume 83.4 fL (80.0-100.0); Mean Platelet Volume 8.8 fL (9.4-12.4); Platelet Count 83 K/uL (130-400); RDW Coefficient of Variation 20.7 % (11.5-14.5); Red Blood Count 2.71 M/uL (4.20-5.40); White Blood Count 1.38 K/ul (4.8-10.8)
[2023-04-05 08:07] LABS: BUN Creatinine Ratio 34.5 (10-20); Calcium 9.1 mg/dl (8.6-10.3); Creatinine Clr Calc Pharmacy 77.1 ml/min; Est GFR (African American) 104.9 ml/min; Est GFR (Non-African American) 90.5 ml/min
--- NOTE | 2023-04-05 08:40 | Hematology/Oncology Prog Note ---
Date of Service April 05, 2023 Assessment & Plan (1) T-cell large granular lymphocytic leukemia: Plan: We are anticipating that the patient will be discharged today. I will leave the dispositional plan with our hospital internal medicine colleagues. We will continue to discuss goals of care and treatment plan. The patient will be brought into the hematology clinic next week for reassessment of her CBC to see whether she will need further blood transfusions. Further discussion of treatment will be done on an outpatient basis. Will consider starting her on low-dose immunosuppressive therapy on discharge. (2) Symptomatic anemia: Plan: She has received multiple blood transfusions during this admission and is currently awaiting discharge today. CBC will be checked next week to see whether she needs any further blood transfusions on an outpatient basis Plan Hematology will continue to follow the patient and make appropriate rec ommendations. Case discussed with our colleagues from [facility] internal medicine. Admission and Anticipated Discharge Date Admission Date: March 27, 2023 Subjective Patient assessed this morning, continues to feel weak when she gets up. Continues to feel lightheaded. She has received 4 units of blood during this admission. Her hemoglobin is now stable between 7 to 8 g/dL. She reports no active bleeding or bruising. She was sitting upright in the bed eating break fast during my evaluation this morning Review of Systems Review of Systems: Patient complaining of fatigue, tiredness, lightheadedness. Physical Exam Constitutional: + ill appearing and + in distress Eyes: PERRL, conjunctivae normal, anicteric sclerae ENMT: external ear and nose normal, oropharynx normal Neck: trachea midline, no thyromegaly Respiratory: normal respiratory effort, lungs clear to auscultation Cardiovascular: RRR, no murmur, no edema Gastrointestinal (Abdomen): Percussion/Palpation: + hepatosplenomegaly Musculoskeletal: no cyanosis or clubbing, extremities motor strength 5/5 Results & Data Vital Signs (Past 12 Hours) Vital Signs Temp Pulse Pulse Resp BP BP Pulse Ox 04/05/23 07:35 36.7 C 78 17 110/68 100 04/04/23 22:00 36.6 C 71 18 105/61 96 O2 Del Method 04/05/23 07:35 Room Air 04/04/23 22:00 Room Air
[2023-04-05] MEDS: DOCUSATE SODIUM 100 MG CAP PO SCH (09:15)
[2023-04-05] MEDS: PRAMIPEXOLE DIHYDROCHLO 0.25 MG TAB PO SCH (09:16)
[2023-04-05] MEDS: METOPROLOL SUCC 50MG EXT REL TAB PO SCH (09:16)
[2023-04-05] MEDS: FLUCONAZOLE 100 MG TAB PO SCH (09:16)
[2023-04-05] MEDS: ACYCLOVIR 400 MG TAB PO SCH (09:16)
--- NOTE | 2023-04-05 12:16 | Discharge Summary ---
Date of Service April 05, 2023 Admission HPI Per Admitting Provider The patient is a 78-year-old female with past medical history including PSVT, splenomegaly, pancytopenia, prosthetic aortic valve, psoriatic arthritis, ambulatory dysfunction, RLS and recurrent hyponatremia with hyperosmolality. The patient was most recently mated to [facility] from 02/14-02/20/2023 for similar symptoms as today. Family is with her in the emergency department, and confirms that she has overall been stable other than for frequent falling. She has had decreased oral intake during this interval. Admission Exam Per Admitting Provider The patient is awake, alert and oriented, normocephalic and atraumatic, lying in bed and in no acute distress. HEENT--PERRL, EOMI, mucous membranes and oropharynx mildly dry. Neck--supple. No JVD. No bruits. Thyroid normal, trachea midline, no adenopathy. Heart--normal S1 and S2. No murmurs, rubs or gallops. Lungs--clear bilaterally, no respiratory distress, no accessory muscle use. Abdomen--normal bowel sounds and soft. Nontender. Nondistended. Extremities--no cyanosis or clubbing. No edema. Dermatologic--scattered ecchymoses Neurologic--cranial nerves II through XII grossly intact. Rheumatologic--normal range of motion. Psychiatric--normal affect. 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 Normal effort Abdomen: Soft/nontender/nondistended. splenomegaly noted Extremities: No clubbing/cyanosis. No edema Behavior: Appropriate, cooperative Discharge Data Allergies Allergy/AdvReac Type Severity Reaction Status Date / Time No Known Allergies Allergy Verified 03/27/23 00:34 Consultations 03/27/23 00:15 ED Decision to Admit Stat 03/27/23 02:36 Consult Hematology Routine Ordered Studies 03/26/23 22:28 CT cervical spine wo con Stat CT head/brain wo con Stat Hospital Course (1) Ambulatory dysfunction: (2) Fall from standing: (3) Status post fall: (4) Aortic valve prosthesis present: (5) Hypo-osmolality and hyponatremia: (6) Psoriatic arthritis: (7) Symptomatic anemia: Plan Symptomatic anemia History of T-LGL l lymphoma, with huge splenomegaly, as per discussion with consulting peoples[employer] financial developer only option is to proceed with splenectomy eventually Presented to the hospital with hemoglobin of 6.8, status post several units of packed RBC, The case was discussed with hematology . There is no good option unless patient proceed with with the splenectomy which can be arranged as an outpatient Plan is to discharge the patient so she can have an elective splenectomy done outpatient In the meantime we will continue acyclovir, Bactrim, Diflucan for prophylaxis. Hyponatremia with hyperosmolality- Similar to previous admissions, patient initially with sodium 124 Stable. 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 Pending Studies at Discharge: No Stand-Alone Forms: My [facility] Medications and DC Order Prescriptions: New fluconazole [Diflucan] 100 mg tablet 100 mg PO DAILY 21 Days Qty: 21 0RF sulfamethoxazole-trimethoprim [Bactrim DS] 800-160 mg tablet 1 tab PO .qod Qty: 14 0RF Rx Instructions: 1 tab orally every other day Continued acyclovir 400 mg tablet 400 mg PO BID ciprofloxacin HCl 0.3 % drops 0 drp ophthalmic (eye) UD metoprolol succinate 50 mg Tablet Extended Release 24 Hr 50 mg PO DAILY Qty: 30 0RF docusate sodium 100 mg Capsule 100 mg PO BID Qty: 0 0RF pramipexole 0.25 mg Tablet 0.25 mg PO BID Qty: 60 0RF polyethylene glycol 3350 [Miralax] 17 gram Powder In Packet 17 g PO DAILY PRN (Reason: constipation) Qty: 0 0RF Discharge Orders: Discharge Order (Routine); Ordered 04/05/23 Ordered By: Dipti Graff/Other Patient Handouts: Anemia Admission Data Admit Date/Time: 03/27/23 01:40 Attending Provider: Dipti Holm Admit Provider: Isai Gutierrez Primary Care Provider: Nicole Troy Other Providers: Isai Gutierrez; Manish Arroyo; [place],Care Coding Level of Care Code 47201 INP/OBS DISCH >30 MIN Diagnoses Ambulatory dysfunction R26.2 Fall from standing W19.XXXA Status post fall Z91.81 Aortic valve prosthesis present Z95.2 Hypo-osmolality and hyponatremia E87.1 Psoriatic arthritis L40.50 Symptomatic anemia D64.9
== END 2023-04-05 16:07 | disposition home health service (06) | DRG 841 ==
LOC: ED 21:40 → EDINP 03-27 01:40 → SUATTDRO 03-27 01:40 → 2S 03-27 02:37 → 3W 03-28 19:45

== ENCOUNTER 2023-09-06 13:49 | Inpatient (IN) ==
[2023-09-06] MEDS: LORazepam 1 MG/1 ML SYR ED Inj Use IV STA (14:07)
[2023-09-06] MEDS: SODIUM CHLORIDE 0.9% 1,000 ML IV SCH (14:07)
--- NOTE | 2023-09-06 14:20 | Emergency Department Note ---
Impression & Plan Altered mental status, Elevated troponin, Hyponatremia, Acute UTI (urinary tract infection), Ventricular tachycardia ED Provider Note ED Provider Note NAME: RAVEN TORREZ AGE:78 SEX: Female : 1945 ARRIVES VIA: EMS INFORMANT: son, EMS ED PROVIDER(s): Charisse Scales DO CHIEF COMPLAINT: Altered mental status HPI: This is a 78 yo female brought in by EMS after being found alterered and on the floor of her residence by her son who came to pick her up for a doctors appointment. He had last seen her on Saturday. 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 He states she had been recovering well. No recent change in medication and no other recent illness. Patient unable to provide any history on arrival here. PAST MEDICAL HISTORY:See Below PAST SURGICAL HISTORY:See Below FAMILY HISTORY:See Below SOCIAL HISTORY:See Below HOME MEDICATIONS:See Below ALLERGIES:See Below VITALS:See Below PHYSICAL EXAMINATION: GENERAL: unwell appearing, well nourished, agitated appearing HEAD: contusion and edema noted to left periorbital region and left forehead/pentecostal EYE EXAM: normal conjunctiva, PERRL and EOM's grossly intact, left periorbital edema, no obvious hyphema OROPHARYNX: no exudate, no erythema, lips, buccal mucosa, and tongue normal and mucous membranes are dry NECK: supple, no nuchal rigidity, no adenopathy, non-tender LUNGS: Clear to auscultation. Normal chest wall mechanics, no w/r/r HEART: no murmurs, S1 normal and S2 normal ABDOMEN: abdomen soft, non-tender, normo-active bowel sounds, no masses, no rebound or guarding. BACK: Back is symmetrical on inspection and there is no deformity, no midline tenderness, no CVA tenderness. SKIN: no rashes or petechiae UPPER EXTREMITIES: upper extremities are grossly normal. FROM, nml pulses b/l. Several contusion noted, predominantly on the left UE in various stages of healing, no obvious deformities LOWER EXTREMITIES: No pitting edema. FROM, nml pulses b/l, multiple contusions to hips, buttock, and distal LE in various stages of healing, no obvious deformities NEURO EXAM: patient withdrawals to pain, opens eyes to pain, no verbal response, moving all extremities spontaneously Vital Signs: reviewed and remarkable Differential Diagnosis: CHI, ICH, occult fracture, post op complication, TOVA, dehydration, stroke, anemia, hypoglycemia, hyponatremia, hypernatremia, urinary tract infection, pneumonia, bronchitis, sepsis, gastroenteritis, additional abdominal pathology, metabolic abnormalities, as well as others were considered MEDICAL DECISION MAKING: This is a 78 yo female who presents to the ER with altered mental status. Patient unable to provide hx, all hx came from EMS and son. She had stable VS on arrival. Labs drawn and sent, IV established, EKG and CXR and pelvic xray performed and interpreted at bedside, and patient placed on telemetry. SHe was noted to have a fever. Blood cultures, procal, and lactic acid added. POC BMP with stable H/H and mild TOVA. Empiric cefepime and vancomycin added due to recent splenectomy and hospitalization. CXR without obvious infiltrate. She was sent for CT head/cspine/abd and pelvis due to trauma and recent surgery. Son updated several times. Patient's BP remained stable. She was give IVF as she appeared clinically dehydrated but was not hypotensive. CTs ultimately reassuring. In the interim it was noted that the patient's troponin was >1000 and she began having dysrhythmia. No hx of cardiac problems. UA results suggestive of UTI, which I felt was more likely to be the source. SHe began having intermittent runs of VT. Case discussed with cardiology and ED pharmacist and amiodarone bolus/drip started with improvement. She was continued on IVF to reach 30ml/kg sepsis goal as a precaution. She had borderline hypotension following amio initiation, however this continued to improved with volume repletion. Case discussed with hospitalist for additional evaluation and mgmt. While patient with borderline GCS initially, she maintained to respiratory effort and ventilation. No hypoxia. Mental status slowly improved with hydration. Son updated multiple times and we did discuss code status also. Consultation(s): 1558: Discussed with Dr. Chávez, cardiology, after discussion with Smiley, ED pharmacist regarding med options and risks to treat her intermittent VT. 1650: Discussed with Dr. Spencer, [place] hospitalist team, for additional evaluation and mgmt. ER Treatment Provided: See below 1412: Discussed with son who presented to bedside. He states his sister who lives in [place] is the power of criminal defense attorney. He states based on the prior conversations patient would want all appropriate medical interventions until such time as she has something that would render her terminal. He states she did have surgery at [facility] in [place] 3 weeks ago for a splenectomy as she had splenomegaly secondary to her B-cell lymphoma. He states she takes minimal medications, no antiplatelet or anticoagulation medication. Diagnostics Interpreted By Me: -ECG: Sinus tachycardia at 110, leftward axis, left bundle branch block, nonspecific ST/T wave changes, baseline artifact noted; left bundle branch block seen on prior EKG from January 2023 -Cardiac Monitoring: An order was placed for continuous cardiac monitoring. The monitor shows a rate of 112 with sinus tachycardia rhythm. -Laboratory studies: As stated above and show below. -Imaging studies: X-ray Chest: A single view study of the chest was reviewed and was negative for cardiomegaly, focal infiltrate, effusion, pulmonary edema, or wide mediastinum. Triage Nursing Note Reviewed Prior/Outside Records Reviewed Critical Care: Critical care of 72 min performed to assess and manage high likelihood of life- threatening ams, sepsis, dysrhythmia, involving labs and imaging performed with assessment to evaluate ams diagnosis with frequent reassessment. This time includes bedside time, treatment discussions with patient/family/consultants, documentation time and excludes procedure time. Past Med/Surg History Problem List (Updated 09/08/23 @ 11:33 by John Wong MD) Ventricular tachycardia S/p TAVR (transcatheter aortic valve replacement), bioprosthetic Cardiac arrest with successful resuscitation Suspected UTI Lactate blood increased Status post splenectomy Fall Sepsis Ventricular tachycardia (Acute) Acute UTI (urinary tract infection) (Acute) Hyponatremia (Acute) Elevated troponin (Acute) Altered mental status (Acute) Psoriatic arthritis PSVT (paroxysmal supraventricular tachycardia) Hyperbilirubinemia Hypo-osmolality and hyponatremia Pancytopenia (Acute) Bilateral cataracts s/p removal with Dr. 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 no injury at that time. Urgency incontinence Stress incontinence Former cigarette smoker Surgical History H/O splenectomy [place]/16/20[place] [facility] Doug[place] History of cardiac cath [facility] in [place] March 2022 - no stents. History of arthroscopy of right knee Hx of tonsillectomy Hx of cholecystectomy History of hysterectomy ADITYA with BSO Heart valve replaced April 2022 a hospital [place], replaced with a mechanical aortic valve. Followed with Dr Gerry Quintero [facility]. 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 Beliefs That Will Affect Care: None marital status: / Current Living Situation: Alone Current Living Situation Comment: senior apartments current occupational status: retired How many Children do You have: 3 Other Information That Helps Us Care for You: No Feels Safe at Home: Yes Safety Concerns: Feels Safe At This Time Childhood Exposure to Second-Hand Smoke: Yes (occasional smoker) during the past year weight has: decreased > 10 lbs Dental Care, Regularly: Yes Seatbelt Use: always Sunscreen Use: No Assistive Devices: Walker Allergies Allergies Allergy/AdvReac Type Severity Reaction Status Date / Time No Known Allergies Allergy Verified 09/06/23 16:10 Home Meds Home Medications Medication Instructions Recorded Confirmed cyanocobalamin (vitamin B-12) 1,000 mcg PO DAILY 08/21/23 09/06/23 1,000 mcg capsule folic acid 1 mg tablet 1 mg PO DAILY 08/21/23 09/06/23 ondansetron 4 mg disintegrating 4 mg PO Q8H PRN Nausea 08/21/23 09/06/23 tablet acetaminophen 325 mg capsule 650 mg PO Q6H PRN Fever Or Pain 09/06/23 09/06/23 (Tylenol) halobetasol propionate 0.05 % 1 applic topical DAILY PRN .flare 09/06/23 09/06/23 topical cream ups vits no.130-ferrous fum 1 tab PO DAILY 09/06/23 09/06/23 27 mg iron-folic acid 800 mcg tablet ( Vitamin) Previous Rx's Medication Instructions Recorded pramipexole 0.25 mg tablet 0.5 mg (2 x 0.25 mg) PO BID #360 07/11/23 tabs oxybutynin chloride 10 mg 10 mg PO DAILY #30 tabs 08/26/23 tablet,extended release 24 hr Results & Data (ED) Vital Signs Vital Signs - 24 hr 09/06/23 13:59 09/06/23 14:00 09/06/23 14:01 Temperature 36.5 C 37.3 C Temperature Source Pulse Rate 109 H 109 H 110 H Pulse Rate from SpO2 Sensor 104 H 115 H Pulse Rhythm Respiratory Rate 20 30 H Respiratory Effort / Characteristics Respiratory Depth Blood Pressure 129/87 Blood Pressure Mean 101 Pulse Oximetry 90 93 Oxygen Delivery Method Room Air Room Air Sepsis Recent Fever Within 48 Hours Sepsis New/Unexplained Change in Mental Status Sepsis Action Taken by Nursing 09/06/23 14:08 09/06/23 14:10 09/06/23 14:20 Temperature 38.4 C H 38.4 C H 38.6 C H Temperature Source Fischer Cath ( Temp Sensing) Pulse Rate 109 H 108 H 113 H Pulse Rate from SpO2 Sensor 110 H 112 H Pulse Rhythm Regular Respiratory Rate 20 18 24 Respiratory Effort / Characteristics Non-Labored Spontaneous Respiratory Depth Normal Blood Pressure 129/87 Blood Pressure Mean 101 Pulse Oximetry 95 96 92 Oxygen Delivery Method Room Air Room Air Room Air Sepsis Recent Fever Within 48 Hours No Sepsis New/Unexplained Change in Mental Status No Sepsis Action Taken by Nursing Physician Notified 09/06/23 14:30 09/06/23 14:31 09/06/23 14:40 Temperature 38.7 C H 38.7 C H 38.8 C H Temperature Source Pulse Rate 111 H 110 H 103 H Pulse Rate from SpO2 Sensor 119 H 110 H 106 H Pulse Rhythm Respiratory Rate 18 22 30 H Respiratory Effort / Characteristics Respiratory Depth Blood Pressure 129/92 Blood Pressure Mean 104 Pulse Oximetry 91 93 94 Oxygen Delivery Method Room Air Room Air Room Air Sepsis Recent Fever Within 48 Hours Sepsis New/Unexplained Change in Mental Status Sepsis Action Taken by Nursing 09/06/23 15:10 09/06/23 15:11 09/06/23 15:30 Temperature 37.3 C 37.5 C 38.1 C H Temperature Source Pulse Rate 102 H 100 H 101 H Pulse Rate from SpO2 Sensor 102 H 102 H 102 H Pulse Rhythm Respiratory Rate 24 22 22 Respiratory Effort / Characteristics Respiratory Depth Blood Pressure 128/90 122/74 Blood Pressure Mean 102 90 Pulse Oximetry 95 93 95 Oxygen Delivery Method Room Air Room Air Room Air Sepsis Recent Fever Within 48 Hours Sepsis New/Unexplained Change in Mental Status Sepsis Action Taken by Nursing 09/06/23 15:40 09/06/23 15:50 09/06/23 15:58 Temperature 38.5 C H 38.7 C H 38.7 C H Temperature Source Fischer Cath ( Temp Sensing) Pulse Rate 107 H 100 H Pulse Rate from SpO2 Sensor 98 H 99 H Pulse Rhythm Respiratory Rate 20 32 H Respiratory Effort / Characteristics Respiratory Depth Blood Pressure Blood Pressure Mean Pulse Oximetry 94 94 Oxygen Delivery Method Room Air Room Air Sepsis Recent Fever Within 48 Hours Sepsis New/Unexplained Change in Mental Status Sepsis Action Taken by Nursing 09/06/23 15:58 09/06/23 16:00 09/06/23 16:10 Temperature 38.7 C H 38.8 C H Temperature Source Pulse Rate 111 H 108 H Pulse Rate from SpO2 Sensor 92 H 93 H Pulse Rhythm Respiratory Rate 28 H 26 H Respiratory Effort / Characteristics Respiratory Depth Blood Pressure 99/74 L Blood Pressure Mean 82 Pulse Oximetry 96 97 96 Oxygen Delivery Method Room Air Room Air Room Air Sepsis Recent Fever Within 48 Hours Sepsis New/Unexplained Change in Mental Status Sepsis Action Taken by Nursing 09/06/23 16:20 09/06/23 16:30 09/06/23 16:30 Temperature 38.8 C H 38.8 C H Temperature Source Pulse Rate 92 H 89 Pulse Rate from SpO2 Sensor 92 H 88 Pulse Rhythm Respiratory Rate 26 H 25 H Respiratory Effort / Characteristics Respiratory Depth Blood Pressure 117/69 Blood Pressure Mean 98 Pulse Oximetry 98 95 Oxygen Delivery Method Room Air Room Air Sepsis Recent Fever Within 48 Hours Sepsis New/Unexplained Change in Mental Status Sepsis Action Taken by Nursing 09/06/23 16:45 09/06/23 17:00 09/06/23 17:01 Temperature 38.7 C H 38.4 C H Temperature Source Pulse Rate 91 H 98 H Pulse Rate from SpO2 Sensor 92 H 95 H Pulse Rhythm Respiratory Rate 33 H 19 Respiratory Effort / Characteristics Respiratory Depth Blood Pressure 122/94 Blood Pressure Mean 105 Pulse Oximetry 96 94 Oxygen Delivery Method Room Air Room Air Sepsis Recent Fever Within 48 Hours Sepsis New/Unexplained Change in Mental Status Sepsis Action Taken by Nursing 09/06/23 17:01 09/06/23 17:15 09/06/23 17:30 Temperature 38.6 C H 38.6 C H 38.4 C H Temperature Source Pulse Rate 94 H 95 H 100 H Pulse Rate from SpO2 Sensor 95 H 94 H 100 H Pulse Rhythm Respiratory Rate 30 H 22 22 Respiratory Effort / Characteristics Respiratory Depth Blood Pressure Blood Pressure Mean Pulse Oximetry 97 96 100 Oxygen Delivery Method Room Air Room Air Room Air Sepsis Recent Fever Within 48 Hours Sepsis New/Unexplained Change in Mental Status Sepsis Action Taken by Nursing 09/06/23 17:31 09/06/23 17:31 09/06/23 17:45 Temperature 37.8 C H 38.5 C H Temperature Source Pulse Rate 99 H 92 H Pulse Rate from SpO2 Sensor 100 H 92 H Pulse Rhythm Respiratory Rate 19 25 H Respiratory Effort / Characteristics Respiratory Depth Blood Pressure 128/66 Blood Pressure Mean 90 Pulse Oximetry 96 97 Oxygen Delivery Method Room Air Room Air Sepsis Recent Fever Within 48 Hours Sepsis New/Unexplained Change in Mental Status Sepsis Action Taken by Nursing Laboratory Data 09/08/23 04:56 09/08/23 04:56 Lab Results 09/06/23 09/06/23 09/06/23 Range/Units 14:14 14:21 14:40 WBC 26.69 H (4.8-10.8) K/ul RBC 3.94 L (4.20-5.40) M/uL Hgb 12.0 (12.0-16.0) g/dl POC Hgb 13.9 (12.0-16.0) g/dl Hct 37.2 (37.0-47.0) % POC Hct 41 (37-47) % MCV 94.4 (80.0-100.0) fL MCH 30.5 (25.0-34.0) pg MCHC 32.3 (32.0-36.0) g/dL RDW Std Deviation 64.9 H (36.4-46.3) fL RDW Coeff of Angus 18.6 H (11.5-14.5) % Plt Count 461 H (130-400) K/uL MPV 10.6 (9.4-12.4) fL Immature Gran % (Auto) 0.6 % Neut % (Auto) 90.7 % Lymph % (Auto) 5.3 % [place] % (Auto) 3.1 % Eos % (Auto) 0.0 % Baso % (Auto) 0.3 % Neut # (Auto) 24.21 H (1.40-6.50) K/uL Lymph # (Auto) 1.42 (1.20-3.40) K/uL [place] # (Auto) 0.82 H (0.11-0.59) K/uL Eos # (Auto) 0.00 (0.00-0.50) K/uL Baso # (Auto) 0.07 (0.00-0.20) K/uL Immature Gran # (Auto) 0.17 (0.01-0.20) K/uL Absolute Nucleated RBC 0.04 (0.00-0.12) K/uL Nucleated RBC % (auto) 0.1 % PT 11.3 (9.0-12.0) Seconds INR 1.0 (0.9-1.1) VBG pH 7.34 L (7.36-7.41) VBG pCO2 45 (38-50) mmHg VBG pO2 26 mmHg VBG HCO3 24 mmol/L VBG O2 Saturation < 60.0 % VBG Base Excess -1.7 mEq/L POC Sodium 129 L (135-144) mmol/L Sodium 128 L (136-145) mmol/L POC Potassium 4.2 (3.3-5.0) mmol/L Potassium 4.2 (3.5-5.1) mmol/L POC Chloride 93 L (101-112) mmol/L Chloride 92 L (98-107) mmol/L Carbon Dioxide 24 (21-32) mmol/L POC Total CO2 24 (24-31) mmol/L Anion Gap 12 H (3-11) POC Anion Gap 17.0 (16-25) mmol/L POC BUN 9 (7-18) mg/dl BUN 11 (6-23) mg/dl Creatinine 0.50 L (0.6-1.2) mg/dl POC Creatinine 0.4 L (0.6-1.3) mg/dl Est Cr Clr Drug Dosing 81.4 ml/min Est GFR ( Amer) 108.2 ml/min Est GFR (Non-Af Amer) 93.4 ml/min BUN/Creatinine Ratio 22.0 H (10-20) Glucose 170 H (70-99(Fasting)) mg/dl POC Glucose (other) 168 H (70-99) mg/dl Osmolality 273 L (280-300) mOsm/kg Calcium 10.9 H (8.6-10.3) mg/dl POC Ioniz Calcium Jimmy 1.31 (1.12-1.32) mmol/l Magnesium 1.7 (1.7-2.4) mg/dl Total Bilirubin 0.9 (0.2-1.0) mg/dl AST 29 (13-39) U/L ALT 11 (7-52) U/L Alkaline Phosphatase 70 (34-104) U/L Total Creatine Kinase 125 (26-192) U/L Troponin I High Sens 1012.4 H* (0-14) pg/ml Total Protein 7.3 (6.0-8.3) gm/dl Albumin 4.3 (3.4-5.0) gm/dl Globulin 3.0 (2.5-4.0) gm/dl Albumin/Globulin Ratio 1.4 (0.9-2) Lipase 17 (11-82) U/L Procalcitonin 0.47 (0-0.5) ng/ml TSH 5.395 H (0.300-4.500) uIu/ml Free T4 0.93 (0.61-1.60) ng/dl Urine Color Dark Yellow Urine Appearance Cloudy A (Clear) Urine pH 5.5 (4.5-7.5) Ur Specific [place] 1.017 (1.000-1.030) Urine Protein 2+ H (Negative) Urine Glucose (UA) Negative (Negative) Urine Ketones 2+ H (Negative) Urine Blood Trace H (Negative) Urine Nitrite Negative (Negative) Urine Bilirubin Negative (Negative) Urine Urobilinogen Negative (Negative) Ur Leukocyte Esterase 1+ H (Negative) Urine WBC (Auto) 21-50 H (0-5) /hpf Urine RBC (Auto) 11-20 H (0-2) /hpf U Hyaline Cast (Auto) 3-5 H (0-2) /lpf U Epithel Cells (Auto) 0-2 (0-2) /hpf Urine Bacteria (Auto) 4+ H (None Seen) Administered Medications Fentanyl Citrate (Fentanyl Bolus From Bag) 50 mcg IV Q60M PRN PRN Reason: Pain or Agitation Stop: 09/21/23 16:35 Last Admin: 09/08/23 10:29 Dose: 50 mcg Documented By: MEL Co-signed By: RIANNA Acetaminophen (Ofirmev) 1,000 mg in 100 mls @ 400 mls/hr IV Q8H PRN PRN Reason: Pain Stop: 09/10/23 12:57 Last Admin: 09/08/23 15:05 Dose: 400 mls/hr Documented By: Infusion: 09/08/23 01:48 Dose: Infused Documented By: Admin: 09/08/23 00:53 Dose: 400 mls/hr Documented By: Infusion: 09/07/23 16:12 Dose: Infused Documented By: Admin: 09/07/23 14:18 Dose: 400 mls/hr Documented By: DIAMOND Epinephrine HCl () 4 mg in 254 mls @ 51.054 mls/hr IV .[id number] [facility]; Protocol Stop: 10/07/23 15:59 Last Titration: 09/08/23 14:10 Dose: 0.04 mcg/kg/min, 10.2 mls/hr Documented By: Titration: 09/08/23 09:11 Dose: 0.05 mcg/kg/min, 12.8 mls/hr Documented By: Titration: 09/08/23 07:04 Dose: 0.04 mcg/kg/min, 10.2 mls/hr Documented By: MEL Co-signed By: CLC Admin: 09/08/23 06:06 Dose: 0.04 mcg/kg/min, 10.2 mls/hr Documented By: CLC Co-signed By: ANGELIKA Titration: 09/08/23 06:06 Dose: Infused Documented By: FITO Co-signed By: ANGELIKA Titration: 09/08/23 05:45 Dose: 0.045 mcg/kg/min, 11.5 mls/hr Documented By: Admin: 09/08/23 05:01 Dose: Not Given Documented By: Admin: 09/08/23 05:01 Dose: Not Given Documented By: Titration: 09/08/23 04:47 Dose: 0.04 mcg/kg/min, 10.2 mls/hr Documented By: Titration: 09/08/23 03:41 Dose: 0.045 mcg/kg/min, 11.5 mls/hr Documented By: Titration: 09/08/23 03:18 Dose: 0.05 mcg/kg/min, 12.8 mls/hr Documented By: Titration: 09/08/23 03:09 Dose: 0.04 mcg/kg/min, 10.2 mls/hr Documented By: Titration: 09/08/23 02:26 Dose: 0.035 mcg/kg/min, 8.9 mls/hr Documented By: Titration: 09/08/23 02:18 Dose: 0.03 mcg/kg/min, 7.7 mls/hr Documented By: Titration: 09/07/23 23:48 Dose: 0.04 mcg/kg/min, 10.2 mls/hr Documented By: Titration: 09/07/23 23:11 Dose: 0.05 mcg/kg/min, 12.8 mls/hr Documented By: Titration: 09/07/23 21:49 Dose: 0.06 mcg/kg/min, 15.3 mls/hr Documented By: Titration: 09/07/23 21:40 Dose: 0.07 mcg/kg/min, 17.9 mls/hr Documented By: Titration: 09/07/23 21:31 Dose: 0.08 mcg/kg/min, 20.4 mls/hr Documented By: Titration: 09/07/23 21:20 Dose: 0.09 mcg/kg/min, 23 mls/hr Documented By: Titration: 09/07/23 20:55 Dose: 0.1 mcg/kg/min, 25.5 mls/hr Documented By: Titration: 09/07/23 20:19 Dose: 0.09 mcg/kg/min, 23 mls/hr Documented By: Titration: 09/07/23 20:11 Dose: 0.1 mcg/kg/min, 25.5 mls/hr Documented By: Titration: 09/07/23 19:58 Dose: 0.11 mcg/kg/min, 28.1 mls/hr Documented By: Titration: 09/07/23 19:31 Dose: 0.1 mcg/kg/min, 25.5 mls/hr Documented By: Titration: 09/07/23 19:00 Dose: 0.09 mcg/kg/min, 23 mls/hr Documented By: WRS Co-signed By: CLC Titration: 09/07/23 16:59 Dose: 0.09 mcg/kg/min, 23 mls/hr Documented By: Titration: 09/07/23 16:43 Dose: 0.08 mcg/kg/min, 20.4 mls/hr Documented By: Titration: 09/07/23 16:41 Dose: 0.09 mcg/kg/min, 23 mls/hr Documented By: Titration: 09/07/23 16:34 Dose: 0.1 mcg/kg/min, 25.5 mls/hr Documented By: Titration: 09/07/23 16:26 Dose: 0.21 mcg/kg/min, 53.6 mls/hr Documented By: Admin: 09/07/23 16:01 Dose: 0.2 mcg/kg/min, 51.1 mls/hr Documented By: RIANNA Co-signed By: ERIKA Fentanyl Citrate (Fentanyl Citrate) 2,500 mcg in 250 mls @ 7.5 mls/hr IV .[id number] [facility]; Protocol Stop: 09/21/23 16:44 Last Titration: 09/08/23 12:00 Dose: Infused Documented By: MEL Co-signed By: LAF Admin: 09/08/23 10:28 Dose: 75 mcg/hr, 7.5 mls/hr Documented By: MEL Co-signed By: WRS Titration: 09/08/23 10:28 Dose: Infused Documented By: IKERL Co-signed By: WRS Titration: 09/08/23 09:29 Dose: 75 mcg/hr, 7.5 mls/hr Documented By: MEL Co-signed By: WRS Titration: 09/08/23 09:14 Dose: 100 mcg/hr, 10 mls/hr Documented By: IKERL Co-signed By: WRS Titration: 09/08/23 07:04 Dose: 150 mcg/hr, 15 mls/hr Documented By: MEL Co-signed By: CLC Titration: 09/08/23 03:51 Dose: 150 mcg/hr, 15 mls/hr Documented By: CLC Co-signed By: MNM Titration: 09/07/23 20:32 Dose: 125 mcg/hr, 12.5 mls/hr Documented By: CLC Co-signed By: MNM Titration: 09/07/23 19:00 Dose: 100 mcg/hr, 10 mls/hr Documented By: WRS Co-signed By: CLC Titration: 09/07/23 18:20 Dose: 100 mcg/hr, 10 mls/hr Documented By: WRS Co-signed By: LAF Titration: 09/07/23 17:20 Dose: 75 mcg/hr, 7.5 mls/hr Documented By: WRS Co-signed By: LAF Titration: 09/07/23 16:45 Dose: 50 mcg/hr, 5 mls/hr Documented By: WRS Co-signed By: LAF Admin: 09/07/23 16:21 Dose: 25 mcg/hr, 2.5 mls/hr Documented By: MADDYS Co-signed By: ERIKA Heparin Sodium/Dextrose (Heparin Sodium/Dextrose) 25,000 units in 500 mls @ 21 mls/hr IV .[id number] [facility]; Protocol Stop: 10/07/23 17:14 Last Admin: 09/08/23 15:12 Dose: 1,050 units/hr, 21 mls/hr Documented By: MEL Co-signed By: WRNirmal Titration: 09/08/23 15:12 Dose: Infused Documented By: MEL Co-signed By: WRS Titration: 09/08/23 07:04 Dose: 1,050 units/hr, 21 mls/hr Documented By: KJL Co-signed By: CLC Titration: 09/08/23 00:39 Dose: 1,050 units/hr, 21 mls/hr Documented By: CLC Co-signed By: MNM Titration: 09/07/23 19:00 Dose: 1,050 units/hr, 21 mls/hr Documented By: WRS Co-signed By: CLC Admin: 09/07/23 17:21 Dose: 1,050 units/hr, 21 mls/hr Documented By: WRS Co-signed By: ERIKA Thiamine HCl 100 mg/ Syringe 10 mls @ 2 mls/min IV QAM KRISTINA Stop: 10/08/23 08:59 Last Admin: 09/08/23 08:29 Dose: 2 mls/min Documented By: MEL Amiodarone HCl/Dextrose (Nexterone / D5w) 360 mg in 200 mls @ 16.667 mls/hr IV .Q12H KRISTINA Stop: 09/08/23 17:14 Last Admin: 09/08/23 15:12 Dose: 0.5 mg/min, 16.7 mls/hr Documented By: MEL Co-signed By: WRS Infusion: 09/08/23 15:12 Dose: Infused Documented By: KJL Co-signed By: WRS Admin: 09/08/23 03:45 Dose: 0.5 mg/min, 16.7 mls/hr Documented By: CLC Co-signed By: MNM Infusion: 09/08/23 03:45 Dose: Infused Documented By: CLC Co-signed By: MNM Infusion: 09/07/23 19:00 Dose: 0.5 mg/min, 16.7 mls/hr Documented By: WRS Co-signed By: CLC Admin: 09/07/23 17:24 Dose: 0.5 mg/min, 16.7 mls/hr Documented By: WRS Co-signed By: LAF Vasopressin 20 units/ Sodium (Chloride) 101 mls @ 0 mls/hr IV .Q0M KRISTINA Stop: 10/07/23 20:59 Last Infusion: 09/08/23 11:40 Dose: 0 unit/min, 0 mls/hr Documented By: Infusion: 09/08/23 07:04 Dose: 0.04 unit/min, 12.1 mls/hr Documented By: KJL Co-signed By: CLC Admin: 09/08/23 03:45 Dose: 0.04 unit/min, 12.1 mls/hr Documented By: CLC Co-signed By: MNM Infusion: 09/08/23 03:45 Dose: Infused Documented By: CLC Co-signed By: MNM Admin: 09/07/23 21:10 Dose: 0.04 unit/min, 12.1 mls/hr Documented By: CLC Co-signed By: MNM Ceftriaxone Sodium (Rocephin) 1,000 mg in 50 mls @ 100 mls/hr IV Q24H KRISTINA Stop: 09/13/23 11:59 Last Infusion: 09/08/23 13:17 Dose: Infused Documented By: Admin: 09/08/23 12:47 Dose: 100 mls/hr Documented By: MEL Insulin Aspart (Insulin Aspart Per Unit Charge) 0 units SC Q6 [facility] Stop: 10/07/23 18:14 Last Admin: 09/08/23 11:39 Dose: Not Given Documented By: Admin: 09/08/23 06:04 Dose: 1 units Documented By: FITO Co-signed By: ANGELIKA Admin: 09/08/23 00:01 Dose: 1 units Documented By: FITO Co-signed By: ANGELIKA Admin: 09/07/23 18:23 Dose: 3 units Documented By: RIANNA Co-signed By: ERIKA Miconazole Nitrate (Miconazole Nitrate 2% Cr 30 Gm Tube) 1 appln EXT BID [facility] Stop: 10/07/23 11:14 Last Admin: 09/08/23 09:32 Dose: 1 appln Documented By: Admin: 09/07/23 21:52 Dose: 1 appln Documented By: Admin: 09/07/23 12:34 Dose: 1 appln Documented By: DIAMOND Midazolam HCl (Midazolam Hcl 1 Mg/Ml 2ml Vial) 2 mg IV Q4H PRN PRN Reason: Sedation Stop: 10/07/23 16:46 Last Admin: 09/08/23 03:56 Dose: 2 mg Documented By: Admin: 09/07/23 20:51 Dose: 2 mg Documented By: Admin: 09/07/23 16:53 Dose: 2 mg Documented By: RIANNA Discontinued Medications Amiodarone HCl (Amiodarone Iv Bolus & Drip) 1 each IV NOW STA; Protocol Stop: 09/06/23 16:12 Last Admin: 09/06/23 16:25 Dose: 1 each Documented By: REJI Fentanyl Citrate (Fentanyl Citrate Pf 100 Mcg/2 Ml Vial) Confirm Administered Dose 100 mcg .ROUTE .STK-MED ONE Stop: 09/07/23 16:06 Last Admin: 09/07/23 16:10 Dose: 100 mcg Documented By: RIANNA Fentanyl Citrate (Fentanyl Citrate 2,500 Mcg/250 Ml Bag) Confirm Administered Dose 2,500 mcg IV .STK-MED ONE Stop: 09/07/23 16:07 Last Admin: 09/07/23 16:57 Dose: Not Given Documented By: WRS Furosemide (Furosemide 40 Mg/4 Ml Vial) 40 mg IV ONE ONE Stop: 09/08/23 12:01 Last Admin: 09/08/23 12:14 Dose: 40 mg Documented By: MEL Heparin Sodium/Dextrose (Heparin 48267 Unit/500 Ml D5w) Confirm Administered Dose 25,000 units IV .STK-MED ONE Stop: 09/07/23 17:12 Last Admin: 09/07/23 17:35 Dose: Not Given Documented By: MADDYS Sodium Chloride (Nss) 1,000 mls @ 250 mls/hr IV .Q4H KRISTINA Stop: 10/06/23 13:59 Last Infusion: 09/06/23 19:18 Dose: Infused Documented By: Admin: 09/06/23 14:07 Dose: 250 mls/hr Documented By: HS Acetaminophen (Ofirmev) 1,000 mg in 100 mls @ 400 mls/hr IV NOW STA Stop: 09/06/23 14:32 Last Infusion: 09/06/23 14:40 Dose: Infused Documented By: Admin: 09/06/23 14:25 Dose: 400 mls/hr Documented By: HS Vancomycin HCl 1,250 mg/ (Sodium Chloride) 525 mls @ 200 mls/hr IV NOW ONE Stop: 09/06/23 17:20 Last Infusion: 09/06/23 19:19 Dose: Infused Documented By: Admin: 09/06/23 15:42 Dose: 200 mls/hr Documented By: REJI Cefepime HCl (Maxipime) 2,000 mg in 20 mls @ 5 mls/min IV NOW STA; Protocol Stop: 09/06/23 14:46 Last Admin: 09/06/23 15:43 Dose: 5 mls/min Documented By: REJI Magnesium Sulfate/Dextrose (Magnesium Sulfate / D5w) 1 gm in 100 mls @ 100 mls/hr IV NOW STA Stop: 09/06/23 16:25 Last Infusion: 09/06/23 16:49 Dose: Infused Documented By: Admin: 09/06/23 15:43 Dose: 100 mls/hr Documented By: REJI Amiodarone HCl/Dextrose (Nexterone / D5w) 150 mg in 100 mls @ 600 mls/hr IV NOW STA Stop: 09/06/23 16:20 Last Infusion: 09/06/23 16:51 Dose: Infused Documented By: LINDA Co-signed By: REJI Admin: 09/06/23 16:17 Dose: 600 mls/hr Documented By: REJI Co-signed By: ANGIE Amiodarone HCl/Dextrose (Nexterone / D5w) 360 mg in 200 mls @ 33.333 mls/hr IV ONE ONE Stop: 09/06/23 22:20 Last Infusion: 09/06/23 22:35 Dose: Infused Documented By: [id number] Co-signed By: TYSON Admin: 09/06/23 16:32 Dose: 1 mg/min, 33.3 mls/hr Documented By: REJI Co-signed By: LINDA Amiodarone HCl/Dextrose (Nexterone / D5w) 360 mg in 200 mls @ 16.667 mls/hr IV .Q12H KRISTINA Stop: 10/06/23 22:14 Last Infusion: 09/07/23 16:00 Dose: Infused Documented By: RIANNA Co-signed By: LINDA(2) Admin: 09/07/23 14:16 Dose: 0.5 mg/min, 16.7 mls/hr Documented By: DIAMOND Co-signed By: ELIO Infusion: 09/07/23 09:55 Dose: Infused Documented By: DIAMOND Co-signed By: ELIO Infusion: 09/07/23 07:05 Dose: 0.5 mg/min, 16.7 mls/hr Documented By: DIAMOND Co-signed By: [id number] Admin: 09/06/23 21:56 Dose: 0.5 mg/min, 16.7 mls/hr Documented By: [id number] Co-signed By: ESG Lactated Ringer's (Lr) 1,000 mls @ 80 mls/hr IV .[id number] KRISTINA Stop: 09/07/23 18:29 Last Infusion: 09/07/23 16:27 Dose: Infused Documented By: Admin: 09/07/23 06:38 Dose: 80 mls/hr Documented By: [id number] Infusion: 09/07/23 06:38 Dose: Infused Documented By: [id number] Admin: 09/06/23 19:18 Dose: 80 mls/hr Documented By: LINDA Magnesium Sulfate/Dextrose (Magnesium Sulfate / D5w) 1 gm in 100 mls @ 50 mls/hr IV Q2H KRISTINA Stop: 09/06/23 21:29 Last Infusion: 09/06/23 21:45 Dose: Infused Documented By: [id number] Admin: 09/06/23 19:32 Dose: 50 mls/hr Documented By: Infusion: 09/06/23 19:31 Dose: Infused Documented By: Admin: 09/06/23 17:40 Dose: 50 mls/hr Documented By: LINDA Cefepime HCl 2,000 mg/ Syringe 20 mls @ 5 mls/min IV Q8H KRISTINA; Protocol Stop: 09/16/23 21:59 Last Admin: 09/07/23 12:34 Dose: 5 mls/min Documented By: Admin: 09/07/23 05:02 Dose: 5 mls/min Documented By: [id number] Admin: 09/06/23 21:36 Dose: 5 mls/min Documented By: [id number] Vancomycin HCl 1,000 mg/ (Sodium Chloride) 270 mls @ 200 mls/hr IV Q12H KRISTINA Stop: 09/16/23 22:59 Last Admin: 09/07/23 15:46 Dose: Not Given Documented By: Infusion: 09/07/23 00:38 Dose: Infused Documented By: [id number] Admin: 09/06/23 23:15 Dose: 200 mls/hr Documented By: [id number] Acetaminophen (Ofirmev) 1,000 mg in 100 mls @ 400 mls/hr IV NOW STA Stop: 09/06/23 23:26 Last Infusion: 09/06/23 23:55 Dose: Infused Documented By: [id number] Admin: 09/06/23 23:28 Dose: 400 mls/hr Documented By: [id number] Cefepime HCl 1,000 mg/ Syringe 10 mls @ 5 mls/min IV Q8H KRISTINA; Protocol Stop: 09/17/23 19:59 Last Admin: 09/08/23 11:34 Dose: 5 mls/min Documented By: Admin: 09/08/23 04:59 Dose: 5 mls/min Documented By: Admin: 09/07/23 20:11 Dose: 5 mls/min Documented By: FITO Thiamine HCl 500 mg/ Sodium (Chloride) 55 mls @ 210 mls/hr IV NOW STA Stop: 09/07/23 17:27 Last Infusion: 09/07/23 18:27 Dose: Infused Documented By: Admin: 09/07/23 18:06 Dose: 210 mls/hr Documented By: RIANNA Potassium Acetate () 20 meq in 110 mls @ 55 mls/hr IV Q2H KRISTINA Stop: 09/08/23 16:14 Last Admin: 09/08/23 15:06 Dose: 55 mls/hr Documented By: Infusion: 09/08/23 15:06 Dose: Infused Documented By: Admin: 09/08/23 14:10 Dose: 55 mls/hr Documented By: MEL Ioversol (Optiray 320 100ml) 90 ml IV ONCE ONE Stop: 09/06/23 14:58 Last Admin: 09/06/23 14:58 Dose: 90 ml Documented By: BRIAN Ketorolac Tromethamine (Ketorolac Tromethamine 15 Mg/Ml Vial) 10 mg IV NOW ONE Stop: 09/06/23 16:55 Last Admin: 09/06/23 17:08 Dose: 10 mg Documented By: LINDA Lorazepam (Lorazepam 1 Mg/1 Ml Syr Ed Inj Use) 0.25 mg IV ONE STA Stop: 09/06/23 14:00 Last Admin: 09/06/23 14:07 Dose: 0.25 mg Documented By: RASHI Metoprolol Tartrate (Metoprolol Tartrate 25 Mg Tab) 25 mg PO BID [facility] Stop: 10/07/23 14:59 Last Admin: 09/07/23 15:46 Dose: Not Given Documented By: RIANNA Metoprolol Tartrate (Metoprolol Tartrate 1 Mg/Ml Vial) Confirm Administered Dose 5 mg IV .STK-MED ONE Stop: 09/07/23 15:30 Last Admin: 09/07/23 16:25 Dose: Not Given Documented By: RIANNA Miconazole Nitrate (Miconazole Nitrate Powder 85 Gm) 1 appln EXT BID [facility] Stop: 10/07/23 09:44 Last Admin: 09/07/23 15:46 Dose: Not Given Documented By: RIANNA Midazolam HCl (Midazolam Hcl 1 Mg/Ml 2ml Vial) Confirm Administered Dose 2 mg .ROUTE .STK-MED ONE Stop: 09/07/23 16:07 Last Admin: 09/07/23 16:10 Dose: 2 mg Documented By: RIANNA Midazolam HCl (Midazolam Hcl 1 Mg/Ml 2ml Vial) Confirm Administered Dose 2 mg .ROUTE .STK-MED ONE Stop: 09/07/23 16:51 Last Admin: 09/07/23 16:56 Dose: Not Given Documented By: RIANNA [place] (Stat Iv Infusion Titration Per Protocol) 1 each N/A NOW STA Stop: 09/06/23 16:12 Last Admin: 09/06/23 16:25 Dose: 1 each Documented By: REJI [place] (Icu Protocol For Hyperglycemia) 1 each N/A ACHS KRISTINA Stop: 09/08/23 20:59 Last Admin: 09/07/23 15:46 Dose: Not Given Documented By: Admin: 09/06/23 21:31 Dose: Not Given Documented By: [id number] Miscellaneous (Rapid Sequence Induction Bag) Confirm Administered Dose 1 each N/A .STK-MED ONE Stop: 09/07/23 15:37 Last Admin: 09/07/23 15:40 Dose: 1 each Documented By: RIANNA Olanzapine (Olanzapine 10 Mg/2.1 Ml Sdv) 5 mg IM NOW STA Stop: 09/07/23 14:45 Last Admin: 09/07/23 14:54 Dose: 5 mg Documented By: DIAMOND Potassium Chloride (Potassium Chloride 20 Meq/15 Ml Udc) 40 meq PO NOW STA Stop: 09/07/23 17:54 Last Admin: 09/07/23 18:10 Dose: 40 meq Documented By: RIANNA Potassium Chloride (Potassium Chloride 20 Meq/15 Ml Udc) 40 meq PO NOW STA Stop: 09/08/23 05:50 Last Admin: 09/08/23 06:27 Dose: 40 meq Documented By: CLC Imaging Data Radiologist's Impression: Abdomen/Pelvis CT 09/06/23 13:[address] WITH IV CONTRAST HISTORY: Acute generalized abdominal pain trauma TECHNIQUE: Multiaxial CT images of the abdomen and pelvis were performed following the IV administration of 90 cc of Optiray, A dose lowering technique was utilized adhering to the principles of ALARA. COMPARISON STUDY: 07/30/2023 FINDINGS: Cardiomegaly with aortic valvular prosthesis. Trace pleural effusions with bibasilar atelectasis. No free air. The study is limited secondary to upper trauma to positioning and respiratory motion artifact. Interval splenectomy with small amount of free fluid within the abdomen, loculated component within the lesser sac abutting the ectatic tail measuring up to 2.9 cm on image 120. Pancreas is otherwise unchanged. 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 Unremarkable adrenal glands. Cholecystectomy with unchanged biliary ductal dilation. Stable appearance of the liver. Patent portal vein. Unremarkable kidneys. No hydronephrosis. Decompressed bladder with Fischer catheter in place. Air noted within the urinary bladder lumen. Atherosclerosis of the aorta without aneurysm. No lymphadenopathy. Mild wall thickening of the stomach with partial distention. Duodenal diverticulum. Moderate rectal fecal retention. Rectal surgical suture material. Tiny fat filled umbilical hernia. Marginal is body wall edema. Postoperative changes of the anterior midline abdominal wall. Unchanged appearance of the sacrum and coccyx, notably with a chronic appearing fracture at S5 and posteriorly displaced distal coccyx. Mild lumbar levoscoliosis. IMPRESSION: 1. Limited exam as above. 2. Interval splenectomy with small amount of upper abdominal ascites. No drainable fluid collections identified. 3. Loculated 2.9 cm focus of fluid adjacent to the pancreas, likely related to the splenectomy. An acute peripancreatic fluid collection could appear similarly. Correlate with lipase level. 4. No bowel obstruction. 5. No new lymphadenopathy. 6. Additional findings as above. ACT 112: Negative or not required by law. The above report was generated using voice recognition software. It may contain grammatical, syntax or spelling errors. Electronically signed by: Rustam Shanks M.D. 09/06/2023 3:[address] 09/06/23 13:57 CT SCAN OF THE CERVICAL SPINE CLINICAL HISTORY: Trauma. COMPARISON STUDY: CT of the cervical spine dated 03/26/2023. TECHNIQUE: CT scan of the cervical spine is performed from the skull base to the upper thoracic spine. Images are reviewed in the axial, sagittal, and coronal planes. IV contrast was not administered for this examination. A dose lowering technique was utilized adhering to the principles of ALARA. CT DOSE: 2551.54 mGy.cm FINDINGS: Skeletal structures: The skeletal structures are osteopenic. There is no evidence of fracture or subluxation involving the cervical spine. Vertebral body height and alignment are maintained. There is straightening of the cervical lordosis. Anterior osteophytes are seen throughout. The odontoid process and lateral masses are intact. The atlantoaxial articulation is preserved lytic destructive degenerative change. The spinous processes appear intact. Intervertebral discs: There is moderate to severe disc space narrowing at C7-T1 with endplate sclerosis. Mild to moderate narrowing is seen at the remaining cervical levels. Central canal: Posterior disc osteophyte complexes at C5-C6 and C6-C7 may contribute to mild acquired compromise of the central canal. Soft tissues: The prevertebral and paraspinous soft tissues are within normal limits. There is atherosclerotic calcification of the carotid bulbs. The thyroid gland is enlarged and heterogeneous. There is infiltration and trace fluid seen throughout the soft tissues of the left neck. Calvarium: The visualized calvarium at the skull base appears intact. Brain parenchyma: Partially visualized brain parenchyma at the skull base is within normal limits. Sinuses and mastoids: There is trace mucosal thickening in the right sphenoid sinus. There is a small left mastoid effusion. The right mastoid air cells are well pneumatized. Lung apices: Intralobular septal thickening is seen in the upper lobes. IMPRESSION: 1. There is no evidence of fracture or subluxation involving the cervical spine. 2. Osteopenia and spondylotic changes as above. 3. There is evidence of fluid overload/congestive failure. Correlate clinically. 4. There is infiltration and trace fluid seen throughout the subcutaneous soft tissues of the left neck. Correlate clinically for evidence of contusion versus an infectious/inflammatory process. ACT 112: Negative or not required by law. Electronically signed by: Rohit Gorman M.D. 09/06/2023 3:25 PM Chest X-Ray 09/06/23 13:57 XR chest 1V portable CLINICAL HISTORY: trauma TECHNIQUE: Single frontal radiograph of the chest was obtained. Comparison: None available at the time of this dictation. FINDINGS: No lines and tubes are seen. Aortic valvular prosthesis is seen. The lungs are clear. No evidence of pleural effusion or pneumothorax. IMPRESSION: No acute chest disease. ACT 112: Negative or not required by law. Electronically signed by: Johnnie Lee M.D. 09/06/2023 2:[address] 09/06/23 13:57 CT head/brain wo con CLINICAL HISTORY: 78 years-old Female with trauma. Acute trauma TECHNIQUE: Multiple axial CT images of the head were obtained without contrast. A dose lowering technique was utilized adhering to the principles of ALARA. COMPARISON: 03/26/2023 FINDINGS: Motion degraded exam. No acute intracranial hemorrhage, midline shift, intracranial mass, hydrocephalus, territorial ischemia or abnormal extra-axial collection. Age-related cerebral volume loss. Periventricular and subcortical white matter hypoattenuation, consistent with chronic microangiopathy. The calvarium is intact. Small left periorbital subcutaneous contusion. The paranasal sinuses, mastoid air cells, and middle ear cavities are clear. IMPRESSION: 1. No acute intracranial abnormality or calvarial fracture. 2. Left periorbital contusions. ACT 112: Negative or not required by law. The above report was generated using voice recognition software. It may contain grammatical, syntax or spelling errors. Electronically signed by: Rustam Shanks M.D. 09/06/2023 3:19 PM Pelvis X-Ray 09/06/23 13:57 SINGLE VIEW PELVIS CLINICAL HISTORY: Trauma. FINDINGS: An AP, portable, supine pelvic radiograph is correlated with pelvic CT dated 08/09/2023. The skeletal structures are osteopenic. There is no radiographic evidence of acute fracture involving the hips or bony pelvis. Mild/moderate arthritic change and joint space narrowing is seen in the hips. There is degenerative sclerosis of the sacroiliac joints. A catheter projects over the pelvis. There are pelvic phleboliths. Lumbosacral spondylosis is partially visualized. The overlying soft tissues are within normal limits. IMPRESSION: No acute bony abnormality is identified. Electronically signed by: Rohit Gorman M.D. 09/06/2023 3:[address] 09/06/23 14:03 CT facial bones wo con CLINICAL HISTORY: trauma TECHNIQUE: Multidetector row helical CT of the maxillofacial bones was performed without administration of intravenous contrast, and processed with bone and soft tissue algorithms. Coronal and sagittal reformations were obtained. Automated dose lowering techniques and/or adjustment according to patient size were utilized for this exam. Comparison: None available at the time of this dictation. FINDINGS: Nasal bones are normal. The mandible is intact. The temporomandibular joints are anatomically aligned. Pterygoid plates are intact. Zygomatic arches are intact. The globes are normal and symmetric, without proptosis, obvious disruption or lens dislocation. There is no orbital radiopaque foreign body. The orbital martínez are intact. The retrobulbar fat is without evidence of disruption. Extraocular muscles are normal and symmetric. Optic nerve sheath complexes are normal in course and caliber. Imaged portions of the paranasal sinuses and mastoid air cells are clear. Soft tissue swelling is seen in the left periorbital region. IMPRESSION: Soft tissue swelling in the left periorbital region without evidence of fracture. ACT 112: Negative or not required by law. Electronically signed by: Johnnie Lee M.D. 09/06/2023 3:40 PM Forearm X-Ray 09/06/23 17:07 XR forearm LT 2V CLINICAL HISTORY: trauma TECHNIQUE: 2 views of the left forearm were obtained. Comparison: None available at the time of this dictation. FINDINGS: There is no evidence of acute fracture or dislocation. Joint spaces are well- preserved. No soft tissue abnormality is seen. IMPRESSION: No evidence of acute osseous injury. ACT 112: Negative or not required by law. Electronically signed by: Johnnie Lee M.D. 09/06/2023 5:32 PM Knee X-Ray 09/06/23 17:07 XR knee LT 1 or 2V routine CLINICAL HISTORY: trauma TECHNIQUE: 2 views of the left knee were obtained. Comparison: None available at the time of this dictation. FINDINGS: There is no evidence of an acute fracture. Degenerative changes are seen most prominent in the medial compartment. No joint effusion is seen. No soft tissue abnormality is seen. IMPRESSION: Degenerative changes without evidence of acute injury. ACT 112: Negative or not required by law. Electronically signed by: Johnnie Lee M.D. 09/06/2023 5:33 PM Discharge Plan Visit Data Chief Complaint: Unresponsive Stated Complaint: UNRESPONSIVE, BRUISING & SKIN TEARS ED Provider: Charises Scales Discharge Problem: Altered mental status, Elevated troponin, Hyponatremia, Acute UTI (urinary tract infection), Ventricular tachycardia Patient Disposition: Admitted As Inpatient Discharge Instructions Interventions: ED Discharge Assessment Last Done: 09/06/23 19:36
[2023-09-06] MEDS: ACETAMINOPHEN 1,000 MG/100 ML VIAL IV STA ×2 (14:25→23:28)
[2023-09-06 14:31] LABS: Base Excess VBG -1.7 mEq/L; HCO3 VBG 24 mmol/L; Oxygen Saturation VBG < 60.0 %; PCO2 VBG 45 mmHg (38-50); PO2 VBG 26 mmHg; pH VBG 7.34 (7.36-7.41)
[2023-09-06 14:43] LABS: Hematocrit (blood only) 37.2 % (37.0-47.0); Mean Corpuscular Hemoglobin 30.5 pg (25.0-34.0); Mean Corpuscular Hgb Conc 32.3 g/dL (32.0-36.0); Mean Corpuscular Volume 94.4 fL (80.0-100.0); Mean Platelet Volume 10.6 fL (9.4-12.4); Nucleated RBC # (auto) 0.04 K/uL (0.00-0.12); Nucleated RBC % (auto) 0.1 %; Platelet Count 461 K/uL (130-400); RDW Coefficient of Variation 18.6 % (11.5-14.5); RDW Standard Deviation 64.9 fL (36.4-46.3); Red Blood Count 3.94 M/uL (4.20-5.40); White Blood Count 26.69 K/ul (4.8-10.8)
[2023-09-06] MEDS ORDERED: VANCOMYCIN CONSULT ACTIVE PRN (14:43)
--- NOTE | 2023-09-06 14:44 | XRay Report ---
XR chest 1V portable CLINICAL HISTORY: trauma TECHNIQUE: Single frontal radiograph of the chest was obtained. Comparison: None available at the time of this dictation. FINDINGS: No lines and tubes are seen. Aortic valvular prosthesis is seen. The lungs are clear. No evidence of pleural effusion or pneumothorax. IMPRESSION: No acute chest disease. ACT 112: Negative or not required by law. Electronically signed by: Johnnie Lee M.D. 09/06/2023 2:43 PM
[2023-09-06 14:52] LABS: iSTAT Creatinine 0.4 mg/dl (0.6-1.3); iSTAT Hemoglobin 13.9 g/dl (12.0-16.0); iSTAT Ionized Calcium 1.31 mmol/l (1.12-1.32); iSTAT Potassium 4.2 mmol/L (3.3-5.0)
[2023-09-06 14:53] LABS: Albumin Globulin Ratio 1.4 (0.9-2); Albumin Level 4.3 gm/dl (3.4-5.0); Bilirubin,Total 0.9 mg/dl (0.2-1.0); Calcium 10.9 mg/dl (8.6-10.3); Creatinine Clr Calc Pharmacy 81.4 ml/min; Est GFR (African American) 108.2 ml/min; Est GFR (Non-African American) 93.4 ml/min; Magnesium 1.7 mg/dl (1.7-2.4); Potassium 4.2 mmol/L (3.5-5.1); Total Protein 7.3 gm/dl (6.0-8.3)
[2023-09-06] MEDS: OPTIRAY 320 100ml IV ONE (14:58)
[2023-09-06 14:59] LABS: Appearance Urine Cloudy (Clear); Bacteria Urine Automated 4+ (None Seen); Bilirubin Urine Negative (Negative); Blood Urine Trace (Negative); Color Urine Dark Yellow; Epithelial Cell Urine Auto 0-2 /hpf (0-2); Glucose Urine UA Negative (Negative); Ketones Urine 2+ (Negative); Leukocyte Esterase Urine 1+ (Negative); Nitrite Urine Negative (Negative); Protein Urine 2+ (Negative); Specific Gravity Urine 1.017 (1.000-1.030); Urobilinogen Urine Negative (Negative); WBC Urine Automated 21-50 /hpf (0-5); pH Urine 5.5 (4.5-7.5)
[2023-09-06 15:05] LABS: Troponin I High Sensitivity 1012.4 pg/ml (0-14)
[2023-09-06 15:08] LABS: Thyroid Stimulating Hormone 5.395 uIu/ml (0.300-4.500)
[2023-09-06 15:11] LABS: Prothrombin Time 11.3 Seconds (9.0-12.0)
[2023-09-06 15:15] LABS: Basophils # (auto) 0.07 K/uL (0.00-0.20); Basophils % (auto) 0.3 %; Immature Granulocytes # (auto) 0.17 K/uL (0.01-0.20); Immature Granulocytes % (auto) 0.6 %; Lymphocytes # (auto) 1.42 K/uL (1.20-3.40); Lymphocytes % (auto) 5.3 %; Monocytes # (auto) 0.82 K/uL (0.11-0.59); Monocytes % (auto) 3.1 %; Neutrophils # (auto) 24.21 K/uL (1.40-6.50); Neutrophils % (auto) 90.7 %
--- NOTE | 2023-09-06 15:20 | CT Scan Report ---
CT head/brain wo con CLINICAL HISTORY: 78 years-old Female with trauma. Acute trauma TECHNIQUE: Multiple axial CT images of the head were obtained without contrast. A dose lowering tech nique was utilized adhering to the principles of ALARA. COMPARISON: 03/26/2023 FINDINGS: Motion degraded exam. No acute intracranial hemorrhage, midline shift, intracranial mass, hydrocephal us, territorial ischemia or abnormal extra-axial collection. Age-related cerebral volume loss. Perive ntricular and subcortical white matter hypoattenuation, consistent with chronic microangiopathy. The calvarium is intact. Small left periorbital subcutaneous contusion. The paranasal sinuses, mastoi d air cells, and middle ear cavities are clear. IMPRESSION: 1. No acute intracranial abnormality or calvarial fracture. 2. Left periorbital contusions. ACT 112: Negative or not required by law. The above report was generated using voice recognition software. It may contain grammatical, syntax o r spelling errors. Electronically signed by: Rustam Shanks M.D. 09/06/2023 3:19 PM
--- NOTE | 2023-09-06 15:20 | XRay Report ---
SINGLE VIEW PELVIS CLINICAL HISTORY: Trauma. FINDINGS: An AP, portable, supine pelvic radiograph is correlated with pelvic CT dated 08/09/2023. The skeletal structures are osteopenic. There is no radiographic evidence of acute fracture involving th e hips or bony pelvis. Mild/moderate arthritic change and joint space narrowing is seen in the hips. There is degenerative sclerosis of the sacroiliac joints. A catheter projects over the pelvis. There are pelvic phleboliths. Lumbosacral spondylosis is partially visualized. The overlying soft tissues a re within normal limits. IMPRESSION: No acute bony abnormality is identified. Electronically signed by: Rohit Gorman M.D. 09/06/2023 3:18 PM
--- NOTE | 2023-09-06 15:28 | CT Scan Report ---
CT SCAN OF THE CERVICAL SPINE CLINICAL HISTORY: Trauma. COMPARISON STUDY: CT of the cervical spine dated 03/26/2023. TECHNIQUE: CT scan of the cervical spine is performed from the skull base to the upper thoracic spine . Images are reviewed in the axial, sagittal, and coronal planes. IV contrast was not administered fo r this examination. A dose lowering technique was utilized adhering to the principles of ALARA. CT DOSE: 2551.54 mGy.cm FINDINGS: Skeletal structures: The skeletal structures are osteopenic. There is no evidence of fracture or subl uxation involving the cervical spine. Vertebral body height and alignment are maintained. There is s traightening of the cervical lordosis. Anterior osteophytes are seen throughout. The odontoid process and lateral masses are intact. The atlantoaxial articulation is preserved lytic destructive degenera tive change. The spinous processes appear intact. Intervertebral discs: There is moderate to severe disc space narrowing at C7-T1 with endplate scleros is. Mild to moderate narrowing is seen at the remaining cervical levels. Central canal: Posterior disc osteophyte complexes at C5-C6 and C6-C7 may contribute to mild acquired compromise of the central canal. Soft tissues: The prevertebral and paraspinous soft tissues are within normal limits. There is athero sclerotic calcification of the carotid bulbs. The thyroid gland is enlarged and heterogeneous. There is infiltration and trace fluid seen throughout the soft tissues of the left neck. Calvarium: The visualized calvarium at the skull base appears intact. Brain parenchyma: Partially visualized brain parenchyma at the skull base is within normal limits. Sinuses and mastoids: There is trace mucosal thickening in the right sphenoid sinus. There is a small left mastoid effusion. The right mastoid air cells are well pneumatized. Lung apices: Intralobular septal thickening is seen in the upper lobes. IMPRESSION: 1. There is no evidence of fracture or subluxation involving the cervical spine. 2. Osteopenia and spondylotic changes as above. 3. There is evidence of fluid overload/congestive failure. Correlate clinically. 4. There is infiltration and trace fluid seen throughout the subcutaneous soft tissues of the left ne ck. Correlate clinically for evidence of contusion versus an infectious/inflammatory process. ACT 112: Negative or not required by law. Electronically signed by: Rohit Gorman M.D. 09/06/2023 3:25 PM
[2023-09-06] MEDS: VANCOMYCIN HCL 1,250 MG in SODIUM CHLORIDE 0.9% 500 ML IV ONE (15:42)
--- NOTE | 2023-09-06 15:42 | CT Scan Report ---
CT facial bones wo con CLINICAL HISTORY: trauma TECHNIQUE: Multidetector row helical CT of the maxillofacial bones was performed without administrati on of intravenous contrast, and processed with bone and soft tissue algorithms. Coronal and sagittal reformations were obtained. Automated dose lowering techniques and/or adjustment according to patient size were utilized for this exam. Comparison: None available at the time of this dictation. FINDINGS: Nasal bones are normal. The mandible is intact. The temporomandibular joints are anatomically aligned . Pterygoid plates are intact. Zygomatic arches are intact. The globes are normal and symmetric, without proptosis, obvious disruption or lens dislocation. Ther e is no orbital radiopaque foreign body. The orbital martínez are intact. The retrobulbar fat is without evidence of disruption. Extraocular muscles are normal and symmetric. Optic nerve sheath complexes are normal in course and caliber. Imaged portions of the paranasal sinuses and mastoid air cells are clear. Soft tissue swelling is see n in the left periorbital region. IMPRESSION: Soft tissue swelling in the left periorbital region without evidence of fracture. ACT 112: Negative or not required by law. Electronically signed by: Johnnie Lee M.D. 09/06/2023 3:40 PM
[2023-09-06 15:43] LABS: T4 Free Thyroxine 0.93 ng/dl (0.61-1.60)
[2023-09-06] MEDS: MAGNESIUM SULFATE / D5W 1 GM/100 ML BAG IV STA (15:43)
[2023-09-06] MEDS: CEFEPIME 2,000 MG/20 ML VIAL IV STA (15:43)
--- NOTE | 2023-09-06 16:01 | CT Scan Report ---
ABDOMEN AND PELVIS CT WITH IV CONTRAST HISTORY: Acute generalized abdominal pain trauma TECHNIQUE: Multiaxial CT images of the abdomen and pelvis were performed following the IV administrat ion of 90 cc of Optiray, A dose lowering technique was utilized adhering to the principles of ALARA. COMPARISON STUDY: 07/30/2023 FINDINGS: Cardiomegaly with aortic valvular prosthesis. Trace pleural effusions with bibasilar atelec tasis. No free air. The study is limited secondary to upper trauma to positioning and respiratory mot ion artifact. Interval splenectomy with small amount of free fluid within the abdomen, loculated comp onent within the lesser sac abutting the ectatic tail measuring up to 2.9 cm on image 120. Pancreas i s otherwise unchanged. 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 Unremarkabl e adrenal glands. Cholecystectomy with unchanged biliary ductal dilation. Stable appearance of the [place]. Patent portal vein. Unremarkable kidneys. No hydronephrosis. Decompressed bladder with Fischer catheter in place. Air noted within the urinary bladder lumen. Atherosclerosis of the aorta without aneurysm. No lymphadenopathy. Mild wall thickening of the stomach with partial distention. Duodenal diverticulum. Moderate rectal f ecal retention. Rectal surgical suture material. Tiny fat filled umbilical hernia. Marginal is body w all edema. Postoperative changes of the anterior midline abdominal wall. Unchanged appearance of the sacrum and coccyx, notably with a chronic appearing fracture at S5 and posteriorly displaced distal c occyx. Mild lumbar levoscoliosis. IMPRESSION: 1. Limited exam as above. 2. Interval splenectomy with small amount of upper abdominal ascites. No drainable fluid collections identified. 3. Loculated 2.9 cm focus of fluid adjacent to the pancreas, likely related to the splenectomy. An ac nicanor peripancreatic fluid collection could appear similarly. Correlate with lipase level. 4. No bowel obstruction. 5. No new lymphadenopathy. 6. Additional findings as above. ACT 112: Negative or not required by law. The above report was generated using voice recognition software. It may contain grammatical, syntax o r spelling errors. Electronically signed by: Rustam Shanks M.D. 09/06/2023 3:59 PM
[2023-09-06] MEDS ORDERED: 0.2 MICRON FILTER SET 1 EACH IV STA (16:11)
[2023-09-06] MEDS: AMIODARONE / D5W 150 MG/100 ML BAG IV STA (16:17)
[2023-09-06] MEDS: AMIODARONE IV BOLUS & DRIP IV STA (16:25)
[2023-09-06] MEDS: STAT IV Infusion **Titration per Protocol STA (16:25)
[2023-09-06] MEDS: AMIODARONE / D5W 360 MG/200 ML BAG IV ONE (16:32)
--- NOTE | 2023-09-06 16:53 | History & Physical Report ---
Date of Service September 06, 2023 Assessment & Plan (1) Altered mental status: Plan: -Admit to the PCU on tele and pulse oximetry -Currently hemodynamically stable, stable on RA, and able to protect her own at this time -Was found down at home by family earlier today, minimally responsive -CT of the head/brain wo con was negative for acute findings -While her AMS could possible be caused from metabolic encephalopathy from sepsis and dehydration, cannot rule out CVA causing her initial fall -Discussed case with ICU Nurse practitioner who is aware of the patient, if she were to decompensate overnight we will transfer to the ICU, but she is currently stable enough for the PCU at this time -Will obtain MRI of the brain wo con for further evaluation -Q4h neuro checks -Fall/aspiration precautions -BL SCD's for DVT PPX -Strict NPO until she is more alert -AM CBC, CMP, mag, PT/INR (2) Sepsis: Plan: -Noted to be tachycardic, tachypneic, and febrile on arrival -Leukocytosis of 26, lactate of 2.8 -Source appears to be her UTI at this time -S/P sepsis bolus of 1.8L in the ED -Will continue maintenance LR overnight while NPO -Follow blood/urine cultures -Will follow repeat lactate this evening (3) Ventricular tachycardia: Plan: -Patient developed multiple runs of VTACH while in the ED -ED spoke with Cardiology who recommended starting amiodarone drip -Patient has been in sinus tachycardia since starting amiodarone drip, continue for now -Potassium stable, mag at 1.7 -S/P 1gmIV mag sulfate in the ED >Will give another 2gm IV mag sulfate on admission -Continue to monitor on tele (4) Elevated troponin: Plan: -Initial high sen trop of 1012 -->1388 on 2 hour repeat -Patient is without acute ST segment or t-wave changes on ECG -Did have runs of V-tach while in the ED prior to initiation of amiodarone drip -Likely due to demand with sepsis, dehydration, and fall -Continue to trend high sen trop overnight -Cardiology consulted -Will obtain TTE tomorrow (5) Lactate blood increased: Plan: -Initial lactate of 2.8 -Likely due to sepsis and significant dehydration -Currently hemodynamically stable -Continue IV resuscitation -Will follow repeat lactate (6) Hyponatremia: Plan: -Corrected sodium of 129 on arrival -Patient appears dehydrated on exam -Will add on serum osmolality, urine osmolality, and urine sodium for further evaluation (7) Acute UTI (urinary tract infection): Plan: -Likely her source of infection -Has previously e.coli resistant to Bactrim, Levaquin, and Unasyn -S/P one dose of Cefepime and Vancomycin in the ED -Will continue with Cefepime and vancomycin for now -Follow blood and urine cultures (8) Fall: Plan: -Unclear etiology at this time -Is without acute trauma on extensive imaging in the ED -She has multiple possible sources to call her fall including baseline ambulatory dysfunction, UTI/sepsis causing weakness, possible CVA, and recent arrhythmias -CK is WNL -Strict bedrest for now, fall/aspiration precautions -Will need PT/OT if she is stable enough later in the admission (9) Status post splenectomy: Plan: -Surgical scar appears intact and without signs of infection -No acute findings on CT of the abd/pelvis today Plan The patient was seen with and discussed with Dr. 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 On arrival to the ED she was noted to be tachycardic with HR in the 110's, tachypneic at 32, and febrile at 38.8c, but otherwise stable. Labs were significant for a leukocytosis of 26 with neutrophil predominance of 24, VBG pH of 7.34 with pCO2 and pO2 WNL, stable cr with sodium of 128, chloride of 92, AG of 12 with bicarb WNL, glucose of 170, total CK WNL, initial high sen trop of 1012, and UA consistent withi UTI. CT of the head wo con noted Left periorbital contusions but was negative for other acute findings. CT of the cervical spine was read as "1. There is no evidence of fracture or subluxation involving the ce rvical spine. 2. Osteopenia and spondylotic changes as above. 3. There is evidence of fluid overload/congestive failure. Correlate clinically. 4. There is infiltration and trace fluid seen throughout the subcutaneous soft tissues of the left neck. Correlate clinically for evidence of contusion versus an infectious/inflammatory process.". CT of the abd/pelvis was negative for acute infectious or traumatic findings. Xray of the pelvis, face, left forearm and left knee were read as negative for acute trauma. The patient was given 1L NSS, vancomycin, cefepime. The patient started to develop short runs of V-tach after arrival. The ED discussed with Cardiology and the patient was placed on an amiodarone drip with return to sinus tachycardia. She was also given 1gm IV mag- sulfate in the ED. AT the time of the admission the patient was lying in bed in no acute distress. History was obtained from her son, Hesham Orosco, who is bedside. He explains that the patient had been doing well after her splenectomy last month. She was living at home, independently; he would check on her [id number]. He went to pick her up for a follow[place] [facility] and found her on the ground, unresponsive, next to her bed, with dried vomit next to her. She was last known to be well approximately 48 hours earlier. She would only pull away to touch so he called EMS. He states that her baseline previously was alert and completely oriented. She had no complaints 48 hours prior. We explained to her son that she is severely ill, he expressed understanding. He spoke to his sister, Malena Galan, who is the patient's POA. At this time the patient is a full code until we determine her neurologic status moving forward. If she were to have irreversible findings then they will begin to re-think her code status moving forward. Please refer to Dr. Spencer's attestation for any changes to the treatment plan Allergies Allergy/AdvReac Type Severity Reaction Status Date / Time No Known Allergies Allergy Verified 09/06/23 16:10 Home Medications Medication Instructions Recorded Confirmed Type pramipexole 0.25 mg tablet 0.5 mg (2 x 0.25 mg) PO BID #[id number] 07/11/23 09/06/23 Rx tabs cyanocobalamin (vitamin B-12) 1,000 mcg PO DAILY 08/21/23 09/06/23 History 1,000 mcg capsule folic acid 1 mg tablet 1 mg PO DAILY 08/21/23 09/06/23 History ondansetron 4 mg disintegrating 4 mg PO Q8H PRN Nausea 08/21/23 09/06/23 History tablet oxybutynin chloride 10 mg 10 mg PO DAILY #30 tabs 08/26/23 09/06/23 Rx tablet,extended release 24 hr acetaminophen 325 mg capsule 650 mg PO Q6H PRN Fever Or Pain 09/06/23 09/06/23 History (Tylenol) halobetasol propionate 0.05 % 1 applic topical DAILY PRN .flare 09/06/23 09/06/23 History topical cream ups vits no.130-ferrous fum 1 tab PO DAILY 09/06/23 09/06/23 History 27 mg iron-folic acid 800 mcg tablet ( Vitamin) Past Med/Surg History Problem List Suspected UTI Lactate blood increased Status post splenectomy Fall Sepsis Ventricular tachycardia (Acute) Acute UTI (urinary tract infection) (Acute) Hyponatremia (Acute) Elevated troponin (Acute) Altered mental status (Acute) Psoriatic arthritis PSVT (paroxysmal supraventricular tachycardia) Hyperbilirubinemia Hypo-osmolality and hyponatremia Pancytopenia (Acute) Bilateral cataracts s/p removal with Dr. Hernandez T-cell large granular lymphocytic leukemia dx 03/2023>> following w/ Dr Arroyo Aortic valve prosthesis present Medical History Restless leg syndrome Frequent falls unknown reason, following with [facility] -- last fall was ~01/04/23. no injury at that time. Urgency incontinence Stress incontinence Former cigarette smoker Surgical History H/O [place] [facility] [place] History of cardiac cath [facility] [place] March 2022 - no stents. History of arthroscopy of right knee Hx of tonsillectomy Hx of cholecystectomy History of hysterectomy ADITYA with BSO Heart valve replaced April 2022 a hospital [place], replaced with a mechanical aortic valve. Followed with Dr Gerry Quintero [facility]. Family History Brother Stroke Mother Diabetes Other No family history of adverse response to anesthesia Denies family history of Ovarian cancer Prostate cancer Myocardial infarction Breast cancer Colorectal cancer Social History Smoking Status: Former smoker Tobacco Type: Cigarettes Smoking End Date: 1999; Second Hand Exposure: No; Do You Dip or Chew Tobacco: No; Hx Alcohol Use: No Hx Substance Use: No Preferred Language: Kiswahili Communication Ability: Impaired Communication Ability Comment: confusion at this time [employer] Required: No Beliefs That Will Affect Care: None marital status: / Current Living Situation: Alone Current Living Situation Comment: senior apartments current occupational status: retired How many Children do You have: 3 Other Information That Helps Us Care for You: No Feels Safe at Home: Yes Safety Concerns: Feels Safe At This Time Childhood Exposure to Second-Hand Smoke: Yes (occasional smoker) during the past year weight has: decreased > 10 lbs Dental Care, Regularly: Yes Seatbelt Use: always Sunscreen Use: No Assistive Devices: Walker Physical Exam Physical Exam: Physical Exam: General: Responsive to painful stimuli only, acutely ill appearing HEENT: Bruisng noted on the left face/neck from being on the ground for an extended period of time, no scleral icterus, pupils around round, symmetrical, and not currently reactive to light, dry, mucus membranes, trachea midline, no thyromegaly Chest/Pulm: No respiratory distress, symmetrical chest expansion, clear breath sounds throughout Cardiac: tachycardic rate, regular rhythm, no murmurs noted Abdomen: Negative for ascites and bruising, normoactive bowel sounds, central abdominal scar from recent splenectomy is well-healed and without signs of infection, soft, patient noes not grimace or attempt to guard during palpation Musculoskeletal: Patient with bruising noted on the left neck, LUE, left knee, and left lateral [place], will move both upper and lower extremities voluntarily, intermittently, does not follow commands for strength testing Extremities: Radial, dorsalis pedis, and posterior tibial pulses are intact and symmetrical, no edema noted in the BL LE's Skin: Bruising as noted above Neuro: Will open eye when calling name, will follow simple commands but does not respond to questions, no focal neuro defects, will not follow commands for CN testing, does squeeze fingers and move BL feet for strength testing , no tremors notes Psych: In no acute distress, not currently agitated Results & Data Results & Data Vital Signs (Past 12 Hours) Vital Signs Temp Pulse Resp BP Pulse Ox O2 Del Method 09/06/23 16:20 38.8 C H 92 H 26 H 98 Room Air 09/06/23 16:10 38.8 C H 108 H 26 H 96 Room Air 09/06/23 16:00 38.7 C H 111 H 28 H 99/74 L 97 Room Air 09/06/23 15:58 96 Room Air 09/06/23 15:58 38.7 C H 09/06/23 15:50 38.7 C H 100 H 32 H 94 Room Air 09/06/23 15:40 38.5 C H 107 H 20 94 Room Air 09/06/23 15:30 38.1 C H 101 H 22 122/74 95 Room Air 09/06/23 15:11 37.5 C 100 H 22 128/90 93 Room Air 09/06/23 15:10 37.3 C 102 H 24 95 Room Air 09/06/23 14:40 38.8 C H 103 H 30 H 94 Room Air 09/06/23 14:31 38.7 C H 110 H 22 129/92 93 Room Air 09/06/23 14:30 38.7 C H 111 H 18 91 Room Air 09/06/23 14:20 38.6 C H 113 H 24 92 Room Air 09/06/23 14:10 38.4 C H 108 H 18 96 Room Air 09/06/23 14:08 38.4 C H 109 H 20 129/87 95 Room Air 09/06/23 14:01 110 H 09/06/23 14:00 37.3 C 109 H 30 H 129/87 93 Room Air 09/06/23 13:59 36.5 C 109 H 20 90 Room Air Laboratory Results Abnormal lab results 09/06/23 09/06/23 09/06/23 Range/Units 14:14 14:21 14:40 WBC 26.69 H (4.8-10.8) K/ul RBC 3.94 L (4.20-5.40) M/uL RDW Std Deviation 64.9 H (36.4-46.3) fL RDW Coeff of Angus 18.6 H (11.5-14.5) % Plt Count 461 H (130-400) K/uL Neut # (Auto) 24.21 H (1.40-6.50) K/uL [place] # (Auto) 0.82 H (0.11-0.59) K/uL VBG pH 7.34 L (7.36-7.41) POC Sodium 129 L (135-144) mmol/L Sodium 128 L (136-145) mmol/L POC Chloride 93 L (101-112) mmol/L Chloride 92 L (98-107) mmol/L Anion Gap 12 H (3-11) Creatinine 0.50 L (0.6-1.2) mg/dl POC Creatinine 0.4 L (0.6-1.3) mg/dl BUN/Creatinine Ratio 22.0 H (10-20) Glucose 170 H (70-99(Fasting)) mg/dl POC Glucose (other) 168 H (70-99) mg/dl Calcium 10.9 H (8.6-10.3) mg/dl Troponin I High Sens 1012.4 H* (0-14) pg/ml TSH 5.395 H (0.300-4.500) uIu/ml Urine Appearance Cloudy A (Clear) Urine Protein 2+ H (Negative) Urine Ketones 2+ H (Negative) Urine Blood Trace H (Negative) Ur Leukocyte Esterase 1+ H (Negative) Urine WBC (Auto) 21-50 H (0-5) /hpf Urine RBC (Auto) 11-20 H (0-2) /hpf U Hyaline Cast (Auto) 3-5 H (0-2) /lpf Urine Bacteria (Auto) 4+ H (None Seen) Diagnostic Findings Abdomen/Pelvis CT 09/06/23 13:[address] WITH IV CONTRAST HISTORY: Acute generalized abdominal pain trauma TECHNIQUE: Multiaxial CT images of the abdomen and pelvis were performed following the IV administration of 90 cc of Optiray, A dose lowering technique was utilized adhering to the principles of ALARA. COMPARISON STUDY: 07/30/2023 FINDINGS: Cardiomegaly with aortic valvular prosthesis. Trace pleural effusions with bibasilar atelectasis. No free air. The study is limited secondary to upper trauma to positioning and respiratory motion artifact. Interval splenectomy with small amount of free fluid within the abdomen, loculated component within the lesser sac abutting the ectatic tail measuring up to 2.9 cm on image 120. Pancreas is otherwise unchanged. 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 Unremarkable adrenal glands. Cholecystectomy with unchanged biliary ductal dilation. Stable appearance of the liver. Patent portal vein. Unremarkable kidneys. No hydronephrosis. Decompressed bladder with Fischer catheter in place. Air noted within the urinary bladder lumen. Atherosclerosis of the aorta without aneurysm. No lymphadenopathy. Mild wall thickening of the stomach with partial distention. Duodenal diverticulum. Moderate rectal fecal retention. Rectal surgical suture material. Tiny fat filled umbilical hernia. Marginal is body wall edema. Postoperative changes of the anterior midline abdominal wall. Unchanged appearance of the sacrum and coccyx, notably with a chronic appearing fracture at S5 and posteriorly displaced distal coccyx. Mild lumbar levoscoliosis. IMPRESSION: 1. Limited exam as above. 2. Interval splenectomy with small amount of upper abdominal ascites. No drainable fluid collections identified. 3. Loculated 2.9 cm focus of fluid adjacent to the pancreas, likely related to the splenectomy. An acute peripancreatic fluid collection could appear similarly. Correlate with lipase level. 4. No bowel obstruction. 5. No new lymphadenopathy. 6. Additional findings as above. ACT 112: Negative or not required by law. The above report was generated using voice recognition software. It may contain grammatical, syntax or spelling errors. Electronically signed by: Rustam Shanks M.D. 09/06/2023 3:[address] 09/06/23 13:57 CT SCAN OF THE CERVICAL SPINE CLINICAL HISTORY: Trauma. COMPARISON STUDY: CT of the cervical spine dated 03/26/2023. TECHNIQUE: CT scan of the cervical spine is performed from the skull base to the upper thoracic spine. Images are reviewed in the axial, sagittal, and coronal planes. IV contrast was not administered for this examination. A dose lowering technique was utilized adhering to the principles of ALARA. CT DOSE: 2551.54 mGy.cm FINDINGS: Skeletal structures: The skeletal structures are osteopenic. There is no evidence of fracture or subluxation involving the cervical spine. Vertebral body height and alignment are maintained. There is straightening of the cervical lordosis. Anterior osteophytes are seen throughout. The odontoid process and lateral masses are intact. The atlantoaxial articulation is preserved lytic destructive degenerative change. The spinous processes appear intact. Intervertebral discs: There is moderate to severe disc space narrowing at C7-T1 with endplate sclerosis. Mild to moderate narrowing is seen at the remaining cervical levels. Central canal: Posterior disc osteophyte complexes at C5-C6 and C6-C7 may contribute to mild acquired compromise of the central canal. Soft tissues: The prevertebral and paraspinous soft tissues are within normal limits. There is atherosclerotic calcification of the carotid bulbs. The thyroid gland is enlarged and heterogeneous. There is infiltration and trace fluid seen throughout the soft tissues of the left neck. Calvarium: The visualized calvarium at the skull base appears intact. Brain parenchyma: Partially visualized brain parenchyma at the skull base is within normal limits. Sinuses and mastoids: There is trace mucosal thickening in the right sphenoid sinus. There is a small left mastoid effusion. The right mastoid air cells are well pneumatized. Lung apices: Intralobular septal thickening is seen in the upper lobes. IMPRESSION: 1. There is no evidence of fracture or subluxation involving the cervical spine. 2. Osteopenia and spondylotic changes as above. 3. There is evidence of fluid overload/congestive failure. Correlate clinically. 4. There is infiltration and trace fluid seen throughout the subcutaneous soft tissues of the left neck. Correlate clinically for evidence of contusion versus an infectious/inflammatory process. ACT 112: Negative or not required by law. Electronically signed by: Rohit Gorman M.D. 09/06/2023 3:25 PM Chest X-Ray 09/06/23 13:57 XR chest 1V portable CLINICAL HISTORY: trauma TECHNIQUE: Single frontal radiograph of the chest was obtained. Comparison: None available at the time of this dictation. FINDINGS: No lines and tubes are seen. Aortic valvular prosthesis is seen. The lungs are clear. No evidence of pleural effusion or pneumothorax. IMPRESSION: No acute chest disease. ACT 112: Negative or not required by law. Electronically signed by: Johnnie Lee M.D. 09/06/2023 2:[address] 09/06/23 13:57 CT head/brain wo con CLINICAL HISTORY: 78 years-old Female with trauma. Acute trauma TECHNIQUE: Multiple axial CT images of the head were obtained without contrast. A dose lowering technique was utilized adhering to the principles of ALARA. COMPARISON: 03/26/2023 FINDINGS: Motion degraded exam. No acute intracranial hemorrhage, midline shift, intracranial mass, hydrocephalus, territorial ischemia or abnormal extra-axial collection. Age-related cerebral volume loss. Periventricular and subcortical white matter hypoattenuation, consistent with chronic microangiopathy. The calvarium is intact. Small left periorbital subcutaneous contusion. The paranasal sinuses, mastoid air cells, and middle ear cavities are clear. IMPRESSION: 1. No acute intracranial abnormality or calvarial fracture. 2. Left periorbital contusions. ACT 112: Negative or not required by law. The above report was generated using voice recognition software. It may contain grammatical, syntax or spelling errors. Electronically signed by: Rustam Shanks M.D. 09/06/2023 3:19 PM Pelvis X-Ray 09/06/23 13:57 SINGLE VIEW PELVIS CLINICAL HISTORY: Trauma. FINDINGS: An AP, portable, supine pelvic radiograph is correlated with pelvic CT dated 08/09/2023. The skeletal structures are osteopenic. There is no radiographic evidence of acute fracture involving the hips or bony pelvis. Mild/moderate arthritic change and joint space narrowing is seen in the hips. There is degenerative sclerosis of the sacroiliac joints. A catheter projects over the pelvis. There are pelvic phleboliths. Lumbosacral spondylosis is partially visualized. The overlying soft tissues are within normal limits. IMPRESSION: No acute bony abnormality is identified. Electronically signed by: Rohit Gorman M.D. 09/06/2023 3:[address] 09/06/23 14:03 CT facial bones wo con CLINICAL HISTORY: trauma TECHNIQUE: Multidetector row helical CT of the maxillofacial bones was performed without administration of intravenous contrast, and processed with bone and soft tissue algorithms. Coronal and sagittal reformations were obtained. Automated dose lowering techniques and/or adjustment according to patient size were utilized for this exam. Comparison: None available at the time of this dictation. FINDINGS: Nasal bones are normal. The mandible is intact. The temporomandibular joints are anatomically aligned. Pterygoid plates are intact. Zygomatic arches are intact. The globes are normal and symmetric, without proptosis, obvious disruption or lens dislocation. There is no orbital radiopaque foreign body. The orbital martínez are intact. The retrobulbar fat is without evidence of disruption. Extraocular muscles are normal and symmetric. Optic nerve sheath complexes are normal in course and caliber. Imaged portions of the paranasal sinuses and mastoid air cells are clear. Soft tissue swelling is seen in the left periorbital region. IMPRESSION: Soft tissue swelling in the left periorbital region without evidence of fracture. ACT 112: Negative or not required by law. Electronically signed by: Johnnie Lee M.D. 09/06/2023 3:40 PM ECG Additional Comments: Sinus tachycardia Possible Left atrial enlargement Left axis deviation Left ventricular hypertrophy with QRS widening ( Lennox product ) Anterolateral infarct , age undetermined Abnormal ECG When compared with ECG of 17-FEB-2023 19:14, Premature supraventricular complexes are no longer Present Left bundle branch block is no longer Present Anterior infarct is now Present ... Code Status & VTE Plan Code Status Full code VTE Prophylaxis Plan VTE Prophylaxis will be ordered: Yes Supervising Physician Co-Signing Physician Notes I personally saw and examined the patient. I verified all perez points and agree with Rom Louis PA-C with the following exceptions and/or additions: 78 year old female presents to the ER with unresponsive state. Unable to get any history from patient. Found by her son today lying on the floor on her left side. LNK 48 hours previously. O/E unresponsive, GCS 6 (E1V1M4), pupils constricted, equal and responsive to light, Erythema and swelling on left side of face and arm with abrasions down left side of her body, HS RRR, no murmurs, Chest CTAB, Abdo soft A/P Sepsis - ?skin/urine source, lactate 2.8, sepsis bolus of fluids given, broad spectrum coverage vancomycin/cefepime pending culture results Unresponsive state - Brain MRI to assess to stroke, total CK normal, discussed with ICU for possible admission but responsiveness already improving therefore will monitor closely on PCU Ventricular tachycardia - aim Mg > 2, K >4, TTE, trend troponin, continue IV amiodarone Elevated troponin - low suspicion of ACS, TTE pending PG Care Time/CCT Total # of Minutes Spent Total Time Spent with Patient: Total time spent is greater than 50% in coordination of care (as documented) at patient's floor/unit and/or counseling patient: Coding [place] [address] INT INP/OBS CARE 3/75MIN Patient Type Established Medical Decision Making High Complexity Diagnoses Altered mental status R41.82 Sepsis A41.9 Ventricular tachycardia I47.20 Elevated troponin R79.89 Lactate blood increased R79.89 Hyponatremia E87.1 Acute UTI (urinary tract infection) N39.0 Fall W19.XXXA Status post splenectomy Z90.81
[2023-09-06] MEDS: KETOROLAC TROMETHAMINE 15 MG/ML VIAL IV ONE (17:08)
--- NOTE | 2023-09-06 17:34 | XRay Report ---
XR forearm LT 2V CLINICAL HISTORY: trauma TECHNIQUE: 2 views of the left forearm were obtained. Comparison: None available at the time of this dictation. FINDINGS: There is no evidence of acute fracture or dislocation. Joint spaces are well-preserved. No soft tissu e abnormality is seen. IMPRESSION: No evidence of acute osseous injury. ACT 112: Negative or not required by law. Electronically signed by: Johnnie Lee M.D. 09/06/2023 5:32 PM
--- NOTE | 2023-09-06 17:35 | XRay Report ---
XR knee LT 1 or 2V routine CLINICAL HISTORY: trauma TECHNIQUE: 2 views of the left knee were obtained. Comparison: None available at the time of this dictation. FINDINGS: There is no evidence of an acute fracture. Degenerative changes are seen most prominent in the medial compartment. No joint effusion is seen. No soft tissue abnormality is seen. IMPRESSION: Degenerative changes without evidence of acute injury. ACT 112: Negative or not required by law. Electronically signed by: Johnnie Lee M.D. 09/06/2023 5:33 PM
[2023-09-06] MEDS: MAGNESIUM SULFATE / D5W 1 GM/100 ML BAG IV SCH (17:40)
--- NOTE | 2023-09-06 18:59 | Magnetic Resonance Report ---
Exam(s): MRI HEAD Without Contrast EXAM: MR Head Without Intravenous Contrast CLINICAL HISTORY: Reason for exam: ICU requesting stat T2 MRI. TECHNIQUE: Magnetic resonance images of the head/brain without intravenous contrast in multiple planes. COMPARISON: CT head 09/06/23 FINDINGS: Limited MRI is performed consisting of axial T2, DWI, and ADC sequences. There is no diffusion restriction to suggest acute cerebral ischemia. There is no evidence of acute intracranial hemorrhage or abnormal extra- axial fluid collection. There is no mass-effect or midline shift. There is age-related parenchymal volume loss with chronic small vessel ischemic changes in the cerebral white matter. There is no hydrocephalus. Patient has undergone previous bilateral lens replacements. There is trace fluid in the left mastoids. Sinuses are clear. IMPRESSION: No acute findings on limited MRI. Electronically signed by: Natasha Reddy M.D. 09/06/23 18:58 PM
[2023-09-06] MEDS: LACTATED RINGER'S 1,000 ML IV SCH (19:18)
[2023-09-06] MEDS: ICU Protocol for HYPERglycemia SCH (21:31)
[2023-09-06] MEDS: CEFEPIME 2,000 MG in SYRINGE 0 ML IV SCH (21:36)
[2023-09-06] MEDS: AMIODARONE / D5W 360 MG/200 ML BAG IV SCH (21:56)
[2023-09-06] MEDS: VANCOMYCIN HCL 1,000 MG in SODIUM CHLORIDE 0.9% 250 ML IV SCH (23:15)
[2023-09-07 05:14] LABS: Basophils # (auto) 0.08 K/uL (0.00-0.20); Basophils % (auto) 0.6 %; Eosinophils # (auto) 0.01 K/uL (0.00-0.50); Eosinophils % (auto) 0.1 %; Hematocrit (blood only) 31.1 % (37.0-47.0); Hemoglobin 9.9 g/dl (12.0-16.0); Immature Granulocytes % (auto) 0.8 %; Lymphocytes # (auto) 1.94 K/uL (1.20-3.40); Lymphocytes % (auto) 14.7 %; Mean Corpuscular Hemoglobin 30.3 pg (25.0-34.0); Mean Corpuscular Hgb Conc 31.8 g/dL (32.0-36.0); Mean Corpuscular Volume 95.1 fL (80.0-100.0); Monocytes # (auto) 1.28 K/uL (0.11-0.59); Monocytes % (auto) 9.7 %; Neutrophils # (auto) 9.82 K/uL (1.40-6.50); Neutrophils % (auto) 74.1 %; Nucleated RBC # (auto) 0.03 K/uL (0.00-0.12); Nucleated RBC % (auto) 0.2 %; Platelet Count 371 K/uL (130-400); RDW Coefficient of Variation 18.4 % (11.5-14.5); RDW Standard Deviation 64.6 fL (36.4-46.3); Red Blood Count 3.27 M/uL (4.20-5.40); White Blood Count 13.23 K/ul (4.8-10.8)
[2023-09-07 05:26] LABS: Troponin I High Sensitivity 1403.2 pg/ml (0-14)
[2023-09-07 05:34] LABS: Albumin Globulin Ratio 1.5 (0.9-2); Albumin Level 3.6 gm/dl (3.4-5.0); BUN Creatinine Ratio 24.6 (10-20); Bilirubin,Total 0.8 mg/dl (0.2-1.0); Calcium 9.5 mg/dl (8.6-10.3); Creatinine Clr Calc Pharmacy 66.7 ml/min; Est GFR (African American) 101.3 ml/min; Est GFR (Non-African American) 87.4 ml/min; Globulin 2.4 gm/dl (2.5-4.0); Magnesium 2.4 mg/dl (1.7-2.4); Potassium 3.5 mmol/L (3.5-5.1); Prothrombin Time 10.7 Seconds (9.0-12.0)
--- NOTE | 2023-09-07 08:23 | Cardiology Consultation ---
Date of Consultation September 07, 2023 Assessment & Plan (1) Ventricular tachycardia: (2) Elevated troponin: (3) Aortic valve prosthesis present: Plan 1. Ventricular tachycardia: To my knowledge she does not have a history of this and she did not have coronary disease at catheterization a year and a half ago. Despite the troponin elevation is unlikely that this is an ischemic arrhythmia, although the polymorphic nature of it is suspicious. I think it is more likely related to sepsis, possibly her electrolyte abnormalities. It was suppressed easily with amiodarone. She did have a borderline low potassium and magnesium was not measured. I am going to send a magnesium level to make sure that is not very low. For the moment I would continue the amiodarone, if her left ventricular function is poor that we will have to be addressed, but if not she may not need long-term antiarrhythmic therapy but may need long-term monitoring. Those decisions can be made over the next few days. I would make sure she is not hypokalemic or hypomagnesemic. 2. Elevated troponin: I believe her elevated troponin is most likely due to sepsis, not coronary disease. Without coronary disease a year and a half ago it is very unlikely she has developed significant coronary artery disease. If her left ventricular function has deteriorated or she has wall motion abnormalities we may have to reconsider coronary evaluation (we cannot read electrocardiogram due to left bundle branch pattern). 3. Aortic valve prosthesis: Clinically her valve is functioning well, will evaluate this by echocardiogram today. History of Present Illness Reason for Consultation: VT, elevated troponin Attending Physician: Wing Solis MD History of Present Illness This is a 78-year-old woman who has seen cardiology in [facility] and has been hospitalized here but we have not seen the patient. She is scheduled to see Dr. Lazar in our office on October 04, 2023. She has a background history of T-cell leukemia, paroxysmal supraventricular tachycardia and a bioprosthetic aortic valve (TAVR). She was found at home unresponsive and brought to the emergency room on September 06, 2023. She was observed to have runs of ventricular tachycardia in the emergency room, and she has a significantly elevated troponin. Echocardiography is pending. We do have limited cardiac records but that includes a cardiac catheterization there on March 26, 2022 where she was found to have no significant coronary artery disease, however she did have severe aortic stenosis and TAVR was recommended. She is reported to have of transient left bundle branch block during TAVR with a temporary pacemaker which was removed May 18, 2022. The left bundle branch pattern has remained. An echocardiogram May 18, 2022 (post TAVR) showed normal left ventricular size and function with an ejection fraction of 60 to 65%. The aortic valve function was appropriate. An echocardiogram done here February 14, 2023 shows normal left ventricular size and function with an ejection fraction 65 to 70% and possible mild TAVR stenosis. Her presenting electrocardiogram here shows sinus tachycardia at 110 bpm with a left bundle branch block pattern. Although her heart rate has slowed her left bundle has remained. Laboratory studies are notable for an elevated white count, markedly elevated troponins with a peak high-sensitivity troponin of 1462 about 8 hours after presentation with subsequent drop. Her sodium is somewhat low, potassium was borderline at 3.5 and it does not appear that her magnesium level was drawn. I did review telemetry and only 1-lead is available from the emergency room, but it does appear that she had multiple runs of ventricular tachycardia, mostly unifocal but some are polymorphic and none requiring therapy. She was started on intravenous amiodarone and shortly thereafter the ectopy subsided and has not been present for some time now. At the time of my evaluation she was resting in bed, she was confused but conversational and her son was present. She has no complaints and has no memory of yesterday for her hospitalization and no cardiovascular complaints. Allergies Allergy/AdvReac Type Severity Reaction Status Date / Time No Known Allergies Allergy Verified 09/06/23 16:10 Home Medications Medication Instructions Recorded Confirmed Type pramipexole 0.25 mg tablet 0.5 mg (2 x 0.25 mg) PO BID #360 07/11/23 09/06/23 Rx tabs cyanocobalamin (vitamin B-12) 1,000 mcg PO DAILY 08/21/23 09/06/23 History 1,000 mcg capsule folic acid 1 mg tablet 1 mg PO DAILY 08/21/23 09/06/23 History ondansetron 4 mg disintegrating 4 mg PO Q8H PRN Nausea 08/21/23 09/06/23 History tablet oxybutynin chloride 10 mg 10 mg PO DAILY #30 tabs 08/26/23 09/06/23 Rx tablet,extended release 24 hr acetaminophen 325 mg capsule 650 mg PO Q6H PRN Fever Or Pain 09/06/23 09/06/23 History (Tylenol) halobetasol propionate 0.05 % 1 applic topical DAILY PRN .flare 09/06/23 09/06/23 History topical cream ups vits no.130-ferrous fum 1 tab PO DAILY 09/06/23 09/06/23 History 27 mg iron-folic acid 800 mcg tablet ( Vitamin) Patient History Medical History Restless leg syndrome Frequent falls unknown reason, following with pcp, CONTRERAS De [facility] -- last fall was ~. no injury at that time. Urgency incontinence Stress incontinence Former cigarette smoker Surgical History [place] [facility] [place] History of cardiac cath [facility] [place] March 2022 - no stents. History of arthroscopy of right knee Hx of tonsillectomy Hx of cholecystectomy History of hysterectomy ADITYA with BSO Heart valve replaced April 2022 a [facility], replaced with a mechanical aortic valve. Followed with Dr Gerry Quintero [facility]. Family History Brother Stroke Mother Diabetes Other No family history of adverse response to anesthesia Denies family history of Ovarian cancer Prostate cancer Myocardial infarction Breast cancer Colorectal cancer Social History Smoking Status: Former smoker Tobacco Type: Cigarettes Smoking End Date: 1999; Second Hand Exposure: No; Do You Dip or Chew Tobacco: No; Hx Alcohol Use: No Hx Substance Use: No Preferred Language: Uzbek Communication Ability: Impaired Communication Ability Comment: confusion at this time Senior Quality Technician Required: No Beliefs That Will Affect Care: None marital status: / Current Living Situation: Alone Current Living Situation Comment: senior apartments current occupational status: retired How many Children do You have: 3 Other Information That Helps Us Care for You: No Feels Safe at Home: Yes Safety Concerns: Feels Safe At This Time Childhood Exposure to Second-Hand Smoke: Yes (occasional smoker) during the past year weight has: decreased > 10 lbs Dental Care, Regularly: Yes Seatbelt Use: always Sunscreen Use: No Assistive Devices: Walker Review of Systems Review of Systems: Unobtainable due to cognitive status Physical Exam Physical Exam: Constitutional: Alert, cooperative and in no distress. She is resting supine in bed. HEENT: Unremarkable Neck: No jugular venous distention, carotid pulses are normal and equal bilaterally without bruits. Pulmonary: Clear to auscultation bilaterally. Cardiac: Regular rhythm with a grade 2/6 crescendo decrescendo murmur at the base no gallop or rub. Abdomen: Soft, nontender with normal bowel sounds. Extremities: No edema. Neurologic: No focal findings. Skin: No rash or petechiae, she does have ecchymosis on her arms. Results & Data Vital Signs (Past 12 Hours) Vital Signs Temp Pulse Pulse Pulse Resp BP Pulse Ox 09/07/23 07:52 36.6 C 85 16 115/71 96 09/07/23 06:35 37.2 C 77 20 113/70 95 09/07/23 02:00 37.5 C 95 H 24 101/66 95 09/07/23 00:23 38.5 C H 73 24 110/58 L 96 09/06/23 23:00 38.6 C H 24 117/71 97 09/06/23 23:00 77 09/06/23 22:04 36.5 C 24 111/63 O2 Del Method 09/07/23 07:52 Room Air 09/07/23 06:35 Room Air 09/07/23 02:00 Room Air 09/07/23 00:23 Room Air, Nasal Cannula 09/06/23 23:00 Room Air 09/06/23 23:00 09/06/23 22:04 Room Air Laboratory Results Cardiac Enzymes 09/06/23 09/06/23 09/06/23 Range/Units 14:21 18:19 22:36 AST 29 (13-39) U/L Troponin I High Sens 1012.4 H* 1388.4 H* D 1461.9 H* (0-14) pg/ml 09/07/23 Range/Units 04:21 AST 30 (13-39) U/L Troponin I High Sens 1403.2 H* (0-14) pg/ml Coagulation 09/06/23 09/07/23 Range/Units 14:21 04:21 PT 11.3 10.7 (9.0-12.0) Seconds CBC 09/06/23 09/07/23 Range/Units 14:21 04:21 WBC 26.69 H 13.23 H D (4.8-10.8) K/ul RBC 3.94 L 3.27 L (4.20-5.40) M/uL Hgb 12.0 9.9 L (12.0-16.0) g/dl Hct 37.2 31.1 L (37.0-47.0) % Plt Count 461 H 371 (130-400) K/uL Neut # (Auto) 24.21 H 9.82 H (1.40-6.50) K/uL Lymph # (Auto) 1.42 1.94 (1.20-3.40) K/uL Lawrence # (Auto) 0.82 H 1.28 H (0.11-0.59) K/uL Eos # (Auto) 0.00 0.01 (0.00-0.50) K/uL Baso # (Auto) 0.07 0.08 (0.00-0.20) K/uL Comprehensive Metabolic Panel 09/06/23 09/07/23 Range/Units 14:21 04:21 Sodium 128 L 129 L (136-145) mmol/L Potassium 4.2 3.5 (3.5-5.1) mmol/L Chloride 92 L 97 L (98-107) mmol/L Carbon Dioxide 24 23 (21-32) mmol/L BUN 11 15 (6-23) mg/dl Creatinine 0.50 L 0.61 (0.6-1.2) mg/dl Glucose 170 H 117 H (70-99(Fasting)) mg/dl Calcium 10.9 H 9.5 (8.6-10.3) mg/dl AST 29 30 (13-39) U/L ALT 11 11 (7-52) U/L Alkaline Phosphatase 70 57 (34-104) U/L Total Protein 7.3 6.0 (6.0-8.3) gm/dl Albumin 4.3 3.6 (3.4-5.0) gm/dl Intake and Output 09/06/23 09/07/23 09/07/23 22:59 06:59 14:59 Intake Total 2125 / 3501.667 1276.667 / 3501.667 152.805 / 152.805 Output Total 70 / 280 210 / 280 Balance 20541.667 1066.667 / 3221.667 152.805 / 152.805 Intake: IV 2124 3501.667 1276.667 / 3501.667 152.805 / 152.805 Acetaminophen 1,000 mg In 100 100 / 100 ml @ 400 mls/hr IV NOW STA Rx#: [id number] Amiodarone / D5w 150 mg In 100 100 / 100 ml @ 600 mls/hr IV NOW STA Rx#: [id number] Amiodarone / D5w 360 mg In 200 200 / 200 152.805 / 152.805 ml @ 0.5 MG/MIN 16.667 mls/hr IV .Q12H [facility] Rx#:[id number] Lactated Ringer's 1,000 ml @ 80 906.667 / 906.667 mls/hr IV .[id number] [facility] Rx#: [id number] Magnesium Sulfate / D5w 1 gm In 300 / 300 100 ml @ 50 mls/hr IV Q2H [facility] Rx#:[id number] Sodium Chloride 0.9% 1,000 ml @ 1000 / 1000 250 mls/hr IV .Q4H [facility] Rx#: [id number] Vancomycin HCl 1,000 mg In 270 / 270 Sodium Chloride 0.9% 250 ml @ 200 mls/hr IV Q12H [facility] Rx#: [id number] Vancomycin HCl 1,250 mg In 525 / 525 Sodium Chloride 0.9% 500 ml @ 200 mls/hr IV NOW ONE Rx#: [id number] Output: Urine Amount (Catheter) 70 / 280 210 / 280 Fischer/Indwelling 70 / 280 210 / 280 Other: Weight 60.2 kg 67 kg Weight Measurement Method Built in [facility] Built in [facility] Diagnostic Findings Telemetry: Sinus rhythm with intact AV conduction and a wide conducted complex predominantly, period of increased ventricular ectopy in the emergency room which included PVCs, ventricular couplets and nonsustained ventricular tachycardia. Most of brief runs of monomorphic tachycardia (with a different morphology than her conducted left bundle pattern) but some brief runs of polymorphic ventricular tachycardia (several seconds). Very little ectopy once amiodarone was initiated. PG Care Time/CCT Total # of Minutes Spent Total Time Spent with Patient: Total time spent is greater than 50% in coordination of care (as documented) at patient's floor/unit and/or counseling patient: Coding Level of Care Code 26768 INT INP/OBS CARE 3/75MIN Diagnoses Ventricular tachycardia I47.20 Elevated troponin R79.89 Aortic valve prosthesis present Z95.2
--- NOTE | 2023-09-07 09:54 | Hospitalist Progress Note ---
Date of Service September 07, 2023 Assessment & Plan (1) Altered mental status: Plan: Acute metabolic encephalopathy present on admission probably due to UTI. Supportive care. No evidence of acute CVA or intracranial hemorrhage seen on head CT scan and brain MRI scan. (2) Suspected UTI: Plan: Await urine culture results. Continue intravenous cefepime and vancomycin for now. Day 2 (3) Sepsis: Plan: Present on admission. Due to suspected UTI. Fortunately she has not required pressor support. (4) Ventricular tachycardia: Plan: She has a history of SVT. She has had wide-complex beats. Telemetry. Cardiology consultation requested. I doubt if this is actually ventricular tachycardia. (5) Elevated troponin: Plan: Mild. No acute EKG changes. No chest pain. Cardiac echo report pending. No definite evidence of acute coronary syndrome. (6) Hyponatremia: Plan: Mild on admission. Monitor intake and output. Serial labs (7) Fall: Plan: Fall at home probably due to acute UTI with acute metabolic encephalopathy. Supportive care. Treat underlying illness. OT and PT assessments requested (8) Status post splenectomy: Plan: Recently completed at another hospital on August 15 of this year. 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 No intervention necessary at this time. Plan To be determined Admission and Anticipated Discharge Date Admission Date: September 06, 2023 Subjective Awake and alert. No acute distress. She is confused however consistent with acute metabolic encephalopathy. She probably has underlying UTI and remains on cefepime and vancomycin, day 2, for now. She has evidence of tinea corporis on the left hip area and Lotrimin cream has been ordered. Head CT scan negative on admission. Brain MRI scan negative for acute CVA. Face CT scan reveals no evidence of fractures. C-spine CT, right forearm x-ray, pelvis x-rays all negative for fracture. Left knee also negative for fracture. Wide-complex beats seen on EKG and cardiology consultation requested. Continue IV fluids for now. OT and PT assessments requested. She most recently underwent splenectomy procedure at another hospital on August 15 of this year for splenomegaly associated with T-cell leukemia. She has a history of aortic valve stenosis and bioprosthetic aortic valve placement. She also has a history of PSVT. Review of Systems 2 Review of Systems: The patient is confused and unable to reliably answer any questions regarding review of systems at this time Physical Exam 2 Physical Exam: General-alert but disoriented. No fever HEENT-left periorbital bruising from falling at home. Pupils equal and reactive to light, extraocular muscles intact Neck-no lymphadenopathy or thyromegaly, trachea midline Chest-clear to auscultation. No rales, wheezing or rhonchi Cardiac-regular rate and rhythm, normal S1 and S2 Abdomen-normal bowel sounds, no hepatosplenomegaly Extremities-no cyanosis, clubbing, or edema Neuro-cranial nerves II through XII intact, motor and sensory function within normal limits, strength symmetrical, no focal deficits Psych-normal affect although confused Results & Data Results & Data Vital Signs (Past 12 Hours) Vital Signs Temp Pulse Pulse Pulse Resp BP Pulse Ox 09/07/23 07:52 36.6 C 85 16 115/71 96 09/07/23 06:35 37.2 C 77 20 113/70 95 09/07/23 02:00 37.5 C 95 H 24 101/66 95 09/07/23 00:23 38.5 C H 73 24 110/58 L 96 09/06/23 23:00 38.6 C H 24 117/71 97 09/06/23 23:00 77 09/06/23 22:04 36.5 C 24 111/63 O2 Del Method 09/07/23 07:52 Room Air 09/07/23 06:35 Room Air 09/07/23 02:00 Room Air 09/07/23 00:23 Room Air, Nasal Cannula 09/06/23 23:00 Room Air 09/06/23 23:00 09/06/23 22:04 Room Air Laboratory Results 09/07/23 04:21 09/07/23 04:21 PG Care Time/CCT Total # of Minutes Spent Total Time Spent with Patient: Total time spent is greater than 50% in coordination of care (as documented) at patient's floor/unit and/or counseling patient: Coding Level of Care Code 03565 SUB INP/OBS CARE 3/50MIN Diagnoses Altered mental status R41.82 Suspected UTI R39.89 Sepsis A41.9 Ventricular tachycardia I47.20 Elevated troponin R79.89 Hyponatremia E87.1 Fall W19.XXXA Status post splenectomy Z90.81
--- NOTE | 2023-09-07 10:20 | Electrocardiogram Report ---
Test Reason : Blood Pressure : / mmHG Vent. Rate : 110 BPM Atrial Rate : 110 BPM P-R Int : 160 ms QRS Dur : 122 ms QT Int : 390 ms P-R-T Axes : 067 -51 118 degrees QTc Int : 527 ms Sinus tachycardia Possible Left atrial enlargement Left axis deviation Left bundle branch block Abnormal ECG When compared with ECG of 17-FEB-2023 19:14, Premature supraventricular complexes are no longer Present Confirmed by Cameron Ramirez ([id number]) on 09/07/2023 10:20:14 AM Referred By: REFERRED SELF Confirmed By:Cameron Ramirez
--- NOTE | 2023-09-07 10:33 | Electrocardiogram Report ---
Test Reason : Blood Pressure : / mmHG Vent. Rate : 123 BPM Atrial Rate : 049 BPM P-R Int : 154 ms QRS Dur : 134 ms QT Int : 530 ms P-R-T Axes : 080 -57 152 degrees QTc Int : 758 ms Sinus rhythm with frequent and repetitive premature ventricular beats Left axis deviation Left bundle branch block Abnormal ECG When compared with ECG of 06-SEP-2023 14:29, (unconfirmed) Premature ventricular complexes are now Present Confirmed by Cameron Ramirez ([id number]) on 09/07/2023 10:33:30 AM Referred By: REFERRED SELF Confirmed By:Cameron Ramirez
--- NOTE | 2023-09-07 10:39 | Electrocardiogram Report ---
Test Reason : Blood Pressure : / mmHG Vent. Rate : 094 BPM Atrial Rate : 094 BPM P-R Int : 166 ms QRS Dur : 126 ms QT Int : 426 ms P-R-T Axes : 079 -73 164 degrees QTc Int : 532 ms Normal sinus rhythm Left axis deviation Left bundle branch block Abnormal ECG When compared with ECG of 06-SEP-2023 15:31, (unconfirmed) Premature ventricular complexes are no longer Present Confirmed by Cameron Ramirez ([id number]) on 09/07/2023 10:39:07 AM Referred By: REFERRED SELF Confirmed By:Cameron Ramirez
--- NOTE | 2023-09-07 10:53 | Pharmacy Report ---
Pharmacy PK ABX Note - Date of Service September 07, 2023 - Assessment and Plan Assessment 78 year old F receiving IV Vancomycin + Cefepime for treatment of UTI, acute metabolic encephalopathy. WBC 27 --> 13 today. Intermittent fevers. Urine culture growing gram negative bacilli, blood cultures pending. Discussed with Dr Solis, he would like to continue Vancomycin at this time. Tinea corporis on left hip - miconazole cream. Day # 2 of antimicrobial therapy. Plan Vancomycin * Loading dose: 1250 mg IV x 1 * Maintenance dose: 1000 mg IV every 12 hours * Regimen is predicted to achieve target AUC/KENIA of 400-600 mg/L.hr * Pharmacy has transitioned to AUC monitoring for vancomycin. AUC/KENIA is the preferred PK/PD target and is associated with decreased risk of nephrotoxicity compared to traditional trough targets. * Trough level ordered for: 09/08/23 Cefepime 2g IV Q8H Pharmacy will continue to follow and will adjust dose/frequency as necessary. Thank you.
[2023-09-07] MEDS: MICONAZOLE NITRATE 2% CR 30 GM TUBE EXT SCH (12:34)
[2023-09-07] MEDS: ACETAMINOPHEN 1,000 MG/100 ML VIAL IV PRN (14:18)
[2023-09-07] MEDS ORDERED: fentaNYL citrate PF 100 MCG/2 ML VIAL IV ONE (14:24)
[2023-09-07] MEDS ORDERED: ROCURONIUM BROMIDE 10 MG/ML 5 ML VIAL IV ONE (14:24)
[2023-09-07] MEDS ORDERED: OLANZapine 10 MG/2.1 ML SDV IM PRN (14:45)
[2023-09-07] MEDS: OLANZapine 10 MG/2.1 ML SDV IM STA (14:54)
[2023-09-07] MEDS ORDERED: AMIODARONE 200 MG TAB PO SCH (15:05)
[2023-09-07] MEDS: RAPID SEQUENCE INDUCTION BAG ONE (15:40)
[2023-09-07] MEDS: MICONAZOLE NITRATE POWDER 85 GM EXT SCH (15:46)
[2023-09-07] MEDS: METOPROLOL TARTRATE 25 MG TAB PO SCH (15:46)
[2023-09-07] MEDS ORDERED: STAT IV Infusion **Titration per Protocol STA ×3 (15:50→20:51)
--- NOTE | 2023-09-07 15:56 | Procedure Note ---
Procedure Note Date of Service September 07, 2023 Note INTUBATION PROCEDURE NOTE: Dr. Delbert Vickers A time-out was completed verifying correct patient, procedure, site, positioning. Patient was evaluated and required intubation for hypoxemic respiratory failure and altered mental status. Sedative agent used: 75 mcg Paralysis agent used: 30 mg of rocuronium Emergent consent was implied given patients rapidly declining clinical status and need for airway protection. Number of attempts: 2 Grade view: 2 The patient was prepared in the appropriate fashion. Sedation was achieved utilizing fentanyl and Monrovia. The patient was easily ventilated using [id number] to achieve adequate oxygenation. A 7.5 Bangladeshi endotracheal tube was placed under GlideScope guided to 23 cm at the lip. The stylette was removed and balloon was inflated with 10mL of air. Appropriate Colorimetric change was appreciated. Bilateral breath sounds were heard without air sounds in the abdomen. Post Intubation Chest X-ray ordered. Patient tolerated the procedure well and there were no immediate complications. Coding CPT Codes Resuscitation - Resuscitation: 65743 Endotracheal Intubation, emergency ([id number]) [facility] [place] Procedure Codes (Charges) Resuscitation Resuscitation: 04622 Endotracheal Intubation, emergency
[2023-09-07] MEDS: EPINEPHrine/NSS 4 MG/254 ML BAG IV SCH (16:01)
--- NOTE | 2023-09-07 16:07 | Communication Note ---
Date of Service: September 07, 2023 ARMAND GERBER was called this afternoon and I came to the patient's bedside. By the time I Arrived, the patient achieved ROSC, but apneic. I emergently intubated the patient with a size 7.5 endotracheal tube. Patient was defibrillated x 1 for V. tach prior to my arrival and received 1 round of CPR. Patient on amiodarone drip infusing at the time. I ordered for an additional 150 mg bolus of amiodarone. Blood pressure was difficult to ascertain. Patient then became bradycardic with heart rates in the 30s and low 40s. Will give the patient half a milligram of atropine with improvement of the heart rates to 50s which then quickly dropped back to the 40s. We then gave half milligram epinephrine x 2 over period of several minutes and achieved systolic blood pressures in the 90s. Patient had poor IV access and an IO was placed in her tibia. EKG was obtained which revealed deep ST segment depressions in the lateral leads and right bundle branchblock. Care was coordinated with the hospitalist service and critical care service. Cardiology was being called by the hospitalist service along with family. Patient was transferred to the ICU to the critical care team. CRITICAL CARE TIME - I have personally spent 33 minutes of critical care time in the direct management of this patient. This is a life/limb threatening event. This includes time spent evaluating patient, direct bedside care, chart review, placing orders, interpretation of diagnostic studies, discussion with consultants, patient, and family members, as well as other required patient management activities. This time is exclusive of all separately billable procedures, and teaching time and separate from and in addition to any other critical care service time.
[2023-09-07] MEDS: fentaNYL citrate PF 100 MCG/2 ML VIAL ONE (16:10)
[2023-09-07] MEDS: MIDAZOLAM HCL 1 MG/ML 2ML VIAL ONE ×2 (16:10→16:56)
[2023-09-07] MEDS: fentaNYL citrate 2,500 MCG/250 ML BAG IV SCH (16:21)
[2023-09-07] MEDS: METOPROLOL TARTRATE 1 MG/ML VIAL IV ONE (16:25)
[2023-09-07 16:32] LABS: Basophils # (auto) 0.08 K/uL (0.00-0.20); Basophils % (auto) 0.4 %; Hematocrit (blood only) 28.5 % (37.0-47.0); Immature Granulocytes # (auto) 0.17 K/uL (0.01-0.20); Lymphocytes # (auto) 1.57 K/uL (1.20-3.40); Lymphocytes % (auto) 8.8 %; Mean Corpuscular Hemoglobin 30.4 pg (25.0-34.0); Mean Corpuscular Hgb Conc 31.6 g/dL (32.0-36.0); Mean Corpuscular Volume 96.3 fL (80.0-100.0); Mean Platelet Volume 10.3 fL (9.4-12.4); Monocytes # (auto) 1.24 K/uL (0.11-0.59); Neutrophils # (auto) 14.72 K/uL (1.40-6.50); Neutrophils % (auto) 82.8 %; Nucleated RBC # (auto) 0.03 K/uL (0.00-0.12); Nucleated RBC % (auto) 0.2 %; Platelet Count 291 K/uL (130-400); RDW Coefficient of Variation 18.3 % (11.5-14.5); RDW Standard Deviation 64.9 fL (36.4-46.3); Red Blood Count 2.96 M/uL (4.20-5.40); White Blood Count 17.78 K/ul (4.8-10.8)
--- NOTE | 2023-09-07 16:39 | XRay Report ---
XR chest 1V portable HISTORY: 78 years-old Female s/p intubation acute respiratory failure COMPARISON: 09/06/2023 TECHNIQUE: AP view the chest FINDINGS: Endotracheal tube overlies the midline, 3.6 cm superior to the ana cristina. Right subclavian catheter dist al tip noted in the expected location of the mid SVC. Enteric tube courses into the stomach. Cardiomegaly with cardiac valvular prosthesis. Progressive pulmonary edema with asymmetric right danielle r prominence. No pneumothorax. The size of the pleural effusions with bibasilar opacities. IMPRESSION: 1. Lines and tubes as above. 2. Cardiomegaly with progressive pulmonary edema. 3. Small pleural effusions with bibasilar opacities, likely atelectatic. ACT 112: Negative or not required by law. The above report was generated using voice recognition software. It may contain grammatical, syntax o r spelling errors. Electronically signed by: Rustam Shanks M.D. 09/07/2023 4:37 PM
[2023-09-07 16:41] LABS: Albumin Globulin Ratio 1.5 (0.9-2); Albumin Level 3.5 gm/dl (3.4-5.0); BUN Creatinine Ratio 28.1 (10-20); Calcium 9.2 mg/dl (8.6-10.3); Creatinine Clr Calc Pharmacy 77.8 ml/min; Est GFR (African American) 103.6 ml/min; Est GFR (Non-African American) 89.4 ml/min; Globulin 2.4 gm/dl (2.5-4.0); Magnesium 2.4 mg/dl (1.7-2.4); Phosphorus 3.6 mg/dl (2.5-4.9); Potassium 4.5 mmol/L (3.5-5.1); Total Protein 5.9 gm/dl (6.0-8.3); Troponin I High Sensitivity 1151.2 pg/ml (0-14)
[2023-09-07 16:46] LABS: INR 1.1 (0.9-1.1); Partial Thromboplastin Time 28 Seconds (21-31); Prothrombin Time 11.4 Seconds (9.0-12.0)
[2023-09-07] MEDS: MIDAZOLAM HCL 1 MG/ML 2ML VIAL IV PRN (16:53)
[2023-09-07 16:54] LABS: iSTAT Art Bld Gas pCO2 Correct 39 mmHg (35-46); iSTAT Art Bld Gas pH Corrected 7.289 (7.35-7.45); iSTAT Arterial Blood Gas HCO3 19 meg/L (19-24); iSTAT Arterial Blood Gas pCO2 38 mmHg (35-46); iSTAT Arterial Blood Gas pO2 368 mmHg (80-95); iSTAT Arterial Blood Gas pO2 C 370; iSTAT Carbon Dioxide 20 mmol/L (24-31); iSTAT FiO2 100 %; iSTAT Hematocrit 30 % (37-47); iSTAT Hemoglobin 10.2 g/dl (12.0-16.0); iSTAT Potassium 3.4 mmol/L (3.3-5.0); iSTAT Site Art Line; iSTAT Sodium 127 mmol/L (135-144)
[2023-09-07] MEDS: fentaNYL citrate 2,500 MCG/250 ML BAG IV ONE (16:57)
[2023-09-07] MEDS ORDERED: Heparin IV Adult Wt-Based Standard *NO* INITIAL Bolus Protocol IV SCH (17:04)
--- NOTE | 2023-09-07 17:07 | Critical Care Consultation ---
Date of Consultation September 07, 2023 Assessment & Plan (1) Cardiac arrest with successful resuscitation: Reason Critically Ill: 78-year-old female status post ventricular tachycardia cardiac arrest with successful return of spontaneous circulation. PLAN: Neuro: Acute encephalopathy: Likely post resuscitate -Fentanyl infusion and Versed as needed intermittent dosing as needed Resp: Acute respiratory failure secondary to cardiac arrest -Wean ventilator as tolerated, hopeful for extubation within the next 12-24 hours CV: Ventricular tachycardia -Previously on amiodarone this was discontinued secondary to bradycardia -Systemic anticoagulation with heparin -Reviewed cardiology consultation, echo pending -Magnesium greater than 2: Checking repeat, potassium this morning was 4.5 checking repeat -Continue amiodarone half milligram per hour for additional 24 hours -Considering the addition of low-dose beta-jordan given frequency of ectopy Prolonged QTc: This is in the setting of a left bundle branch block Fluids/Renal: Acute high gap metabolic acidosis secondary to lactic acidosis -May have had underlying respiratory component -Continue to trend in the postresuscitative period -500 mg thiamine today then daily thiamine supplementation 100 mg Repeat electrolytes Hyponatremia ID: Sepsis of urinary source with gram-negative bacilli -De-escalated to cefepime I think this is appropriate given findings -Blood cultures no growth after 24 hours GI/Nutrition: N.p.o. -Check LFTs today and tomorrow morning Heme: Anemia NOS DVT prophylaxis: Systemic heparin Endocrine: ICU hyperglycemia protocol Vascular access: Right subclavian CVC, left radial arterial line Code Status: Conditional code okay with emergent defibrillation and ACLS medications, no CPR in event of cardiac arrest Disposition: ICU (2) Ventricular tachycardia: (3) PSVT (paroxysmal supraventricular tachycardia): (4) Status post splenectomy: (5) Acute UTI (urinary tract infection): (6) Elevated troponin: (7) Aortic valve prosthesis present: Supervising Physician Co-Signing Physician Notes I have personally spent 70 minutes of critical care time in the direct management of this patient. This is a life/limb threatening event. This includes time spent evaluating patient, direct bedside care, chart review, placing orders, interpretation of diagnostic studies, discussion with consultants, patient, and/or family members regarding treatment decisions, as well as other required patient management activities. This time is exclusive of all separately billable procedures, and teaching time and separate from and in addition to any other critical care service time. History of Present Illness Reason for Consultation: ARMAND GERBER Attending Physician: Wing Solis MD History of Present Illness Patient is a 78-year-old female who was found down at home brought to the emergency department. In the emergency department she was found to be encephalopathic most likely secondary to urinary tract infection. She was also found to have episodes of ventricular tachycardia. She was started on amiodarone and given magnesium which helped decrease the frequency of the arrhythmia. Also started on broad-spectrum antibiotics. This morning her mental status improved she was conversant with her son. Ultimately the patient developed ventricular tachycardia leading to cardiac arrest. She was defibrillated x 1 and given 1 round of of CPR with successful return of spontaneous circulation. She was intubated and transferred to the ICU for further evaluation and management. During my evaluation she is largely unresponsive the endotracheal tube is present. I emergently placed a central line secondary to poor vascular access, she had an IO in the right tibia, and a left wrist radial art line for hemodynamic monitoring. Her son presented to the bedside he discussed he has beata douglas in contact with his sister in the last 24 hours regarding this admission as well as also discussed long-term goals. She texted him a copy of the patient's living will which indicates she does not want life-sustaining treatment in the event of an end-stage medical condition. We discussed what she would want in the event of subsequent cardiac arrest. All are in agreement that she would not want heroic CPR performed however they are agreeable with shocks should the arrhythmia recur. They also understand that she is very critically ill and reports she has lost her and has numerous medical conditions and has been somewhat going downhill in her functional status. She was relatively recently relocated from [place] to be closer to family's who could participate in her care. Allergies Allergy/AdvReac Type Severity Reaction Status Date / Time No Known Allergies Allergy Verified 09/06/23 16:10 Home Medications Medication Instructions Recorded Confirmed Type pramipexole 0.25 mg tablet 0.5 mg (2 x 0.25 mg) PO BID #360 07/11/23 09/06/23 Rx tabs cyanocobalamin (vitamin B-12) 1,000 mcg PO DAILY 08/21/23 09/06/23 History 1,000 mcg capsule folic acid 1 mg tablet 1 mg PO DAILY 08/21/23 09/06/23 History ondansetron 4 mg disintegrating 4 mg PO Q8H PRN Nausea 08/21/23 09/06/23 History tablet oxybutynin chloride 10 mg 10 mg PO DAILY #30 tabs 08/26/23 09/06/23 Rx tablet,extended release 24 hr acetaminophen 325 mg capsule 650 mg PO Q6H PRN Fever Or Pain 09/06/23 09/06/23 History (Tylenol) halobetasol propionate 0.05 % 1 applic topical DAILY PRN .flare 09/06/23 09/06/23 History topical cream ups vits no.130-ferrous fum 1 tab PO DAILY 09/06/23 09/06/23 History 27 mg iron-folic acid 800 mcg tablet ( Vitamin) Patient History Medical History Restless leg syndrome Frequent falls unknown reason, following with pcp, CONTRERAS De Leon -- last fall was ~01/04/23. no injury at that time. 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 Dougherty History of cardiac cath [facility] in [place] March 2022 - no stents. History of arthroscopy of right knee Hx of tonsillectomy Hx of cholecystectomy History of hysterectomy ADITYA with BSO Heart valve replaced April 2022 a [facility], replaced with a mechanical aortic valve. Followed with Dr Gerry Quintero [facility]. Family History Brother Stroke Mother Diabetes Other No family history of adverse response to anesthesia Denies family history of Ovarian cancer Prostate cancer Myocardial infarction Breast cancer Colorectal cancer Social History Smoking Status: Former smoker Tobacco Type: Cigarettes Smoking End Date: 1999; Second Hand Exposure: No; Do You Dip or Chew Tobacco: No; Hx Alcohol Use: No Hx Substance Use: No Preferred Language: Tamazight Communication Ability: Impaired Communication Ability Comment: confusion at this time Foundry Helper Required: No Beliefs That Will Affect Care: None marital status: / Current Living Situation: Alone Current Living Situation Comment: senior apartments current occupational status: retired How many Children do You have: 3 Other Information That Helps Us Care for You: No Feels Safe at Home: Yes Safety Concerns: Feels Safe At This Time Childhood Exposure to Second-Hand Smoke: Yes (occasional smoker) during the past year weight has: decreased > 10 lbs Dental Care, Regularly: Yes Seatbelt Use: always Sunscreen Use: No Assistive Devices: Walker Physical Exam Physical Exam: General: Sedated. nontoxic. Neuro: Glascow Coma Scale: Eyes: 1, Verbal 1T, Motor 5, Total 6T Skin: Warm, dry, pale Head: Atraumatic Ears, nose, mouth and throat: airway obscured by endotracheal tube Cardiovascular: Normal peripheral perfusion, occasional nonsustained runs of ventricular tachycardia. Respiratory: Ventilator settings reviewed Gastrointestinal: Non distended Musculoskeletal: No deformity Results & Data Results & Data Vital Signs (Past 12 Hours) Vital Signs Temp Pulse Pulse Pulse Resp BP Pulse Ox 09/07/23 16:47 123 H 16 99 09/07/23 15:45 100 09/07/23 15:14 36.5 C 102 H 16 137/72 89 L 09/07/23 11:58 36.9 C 62 18 107/74 97 09/07/23 07:52 36.6 C 85 16 115/71 96 09/07/23 06:35 37.2 C 77 20 113/70 95 O2 Del Method O2 Flow Rate FiO2 09/07/23 16:47 30 09/07/23 15:45 Ambu-Bag 15 09/07/23 15:14 Nasal Cannula 2 09/07/23 11:58 Room Air 09/07/23 07:52 Room Air 09/07/23 06:35 Room Air Critical Care Results & Data Vital Signs (Past 12 Hours) Vital Signs Temp Pulse Pulse Pulse Resp BP Pulse Ox 09/07/23 16:47 123 H 16 99 09/07/23 15:45 100 09/07/23 15:14 36.5 C 102 H 16 137/72 89 L 09/07/23 11:58 36.9 C 62 18 107/74 97 09/07/23 07:52 36.6 C 85 16 115/71 96 09/07/23 06:35 37.2 C 77 20 113/70 95 O2 Del Method O2 Flow Rate FiO2 09/07/23 16:47 30 09/07/23 15:45 Ambu-Bag 15 09/07/23 15:14 Nasal Cannula 2 09/07/23 11:58 Room Air 09/07/23 07:52 Room Air 09/07/23 06:35 Room Air Lab & Micro Results (Past 24 Hours) RBC 2.96 M/uL (4.20-5.40) L 09/07/23 WBC 17.78 K/ul (4.8-10.8) H 09/07/23 Hgb 9.0 g/dl (12.0-16.0) L 09/07/23 Hct 28.5 % (37.0-47.0) L 09/07/23 MCV 96.3 fL (80.0-100.0) 09/07/23 MCH 30.4 pg (25.0-34.0) 09/07/23 MCHC 31.6 g/dL (32.0-36.0) L 09/07/23 RDW Standard Deviation 64.9 fL (36.4-46.3) H 09/07/23 RDW Coefficient of Variation 18.3 % (11.5-14.5) H 09/07/23 Plt Count 291 K/uL (130-400) 09/07/23 MPV 10.3 fL (9.4-12.4) 09/07/23 Nucleated Red Blood Cells % (auto) 0.2 % 09/06 Nucleated RBC Absolute Count (auto) 0.03 K/uL (0.00-0.12) 0 09/07/23 Neutrophils (%) (Auto) 82.8 % 09/07/23 Lymphocytes (%) (Auto) 8.8 % 09/07/23 Monocytes # (Auto) 1.24 K/uL (0.11-0.59) H 09/07/23 Eosinophils # (Auto) 0.00 K/uL (0.00-0.50) 09/07/23 Immature Granulocyte % (Auto) 1.0 % 09/07/23 Neutrophils # (Auto) 14.72 K/uL (1.40-6.50) H 09/07/23 Lymphocytes # (Auto) 1.57 K/uL (1.20-3.40) 09/07/23 Monocytes # (Auto) 1.24 K/uL (0.11-0.59) H 09/07/23 Eosinophils # (Auto) 0.00 K/uL (0.00-0.50) 09/07/23 Basophils # (Auto) 0.08 K/uL (0.00-0.20) 09/07/23 Immature Granulocyte # (Auto) 0.17 K/uL (0.01-0.20) 4 Na 129 mmol/L (136-145) L 09/07/23 K 4.5 mmol/L (3.5-5.1) 09/07/23 Cl 99 mmol/L (98-107) 09/07/23 CO2 18 mmol/L (21-32) L 09/07/23 Anion Gap 12 (3-11) H 09/07/23 BUN 16 mg/dl (6-23) 09/07/23 Creatinine 0.57 mg/dl (0.6-1.2) L 09/07/23 Estimated GFR ( Amer) 103.6 ml/min 09/07/23 Estimated GFR (Non-Af Amer) 89.4 ml/min 09/07/23 BUN/Creatinine Ratio 28.1 (10-20) H 09/07/23 Glu 231 mg/dl (70-99(Fasting)) H 09/07/23 Ca 9.2 mg/dl (8.6-10.3) 09/07/23 Phosphorus Level 3.6 mg/dl (2.5-4.9) 09/07/23 Total Bilirubin 1.0 mg/dl (0.2-1.0) 09/07/23 AST 61 U/L (13-39) H 09/07/23 ALT 24 U/L (7-52) 09/07/23 Alkaline Phosphatase 58 U/L (34-104) 09/07/23 TP 5.9 gm/dl (6.0-8.3) L 09/07/23 Albumin 3.5 gm/dl (3.4-5.0) 09/07/23 Globulin 2.4 gm/dl (2.5-4.0) L 09/07/23 Albumin/Globulin Ratio 1.5 (0.9-2) 09/07/23 Mg 2.4 mg/dl (1.7-2.4) 09/07/23 15:56 Calcium Level 9.2 mg/dl (8.6-10.3) 09/07/23 15:56 Prothromb Time International Ratio 1.1 (0.9-1.1) 09/07/23 16:2 5 Bryan Test NA 09/07/23 16:40 Microbiology 09/06/23 14:35 Aerobic Blood Culture - Preliminary Blood No growth in Aerobic bottle after 24 hours. Anaerobic Blood Culture - Preliminary No growth in Anaerobic bottle after 24 hours. 09/06/23 14:20 Aerobic Blood Culture - Preliminary Blood No growth in Aerobic bottle after 24 hours. Anaerobic Blood Culture - Preliminary No growth in Anaerobic bottle after 24 hours. 09/06/23 14:14 Urine Culture - Preliminary Urine,Straight Cath Gram negative bacilli Diagnostic Findings (Past 24 Hours) Forearm X-Ray 09/06/23 17:07 XR forearm LT 2V CLINICAL HISTORY: trauma TECHNIQUE: 2 views of the left forearm were obtained. Comparison: None available at the time of this dictation. FINDINGS: There is no evidence of acute fracture or dislocation. Joint spaces are well- preserved. No soft tissue abnormality is seen. IMPRESSION: No evidence of acute osseous injury. ACT 112: Negative or not required by law. Electronically signed by: Johnnie Lee M.D. 09/06/2023 5:32 PM Knee X-Ray 09/06/23 17:07 XR knee LT 1 or 2V routine CLINICAL HISTORY: trauma TECHNIQUE: 2 views of the left knee were obtained. Comparison: None available at the time of this dictation. FINDINGS: There is no evidence of an acute fracture. Degenerative changes are seen most prominent in the medial compartment. No joint effusion is seen. No soft tissue abnormality is seen. IMPRESSION: Degenerative changes without evidence of acute injury. ACT 112: Negative or not required by law. Electronically signed by: Johnnie Lee M.D. 09/06/2023 5:33 PM Brain MRI 09/06/23 17:52 Exam(s): MRI HEAD Without Contrast EXAM: MR Head Without Intravenous Contrast CLINICAL HISTORY: Reason for exam: ICU requesting stat T2 MRI. TECHNIQUE: Magnetic resonance images of the head/brain without intravenous contrast in multiple planes. COMPARISON: CT head 09/06/23 FINDINGS: Limited MRI is performed consisting of axial T2, DWI, and ADC sequences. There is no diffusion restriction to suggest acute cerebral ischemia. There is no evidence of acute intracranial hemorrhage or abnormal extra- axial fluid collection. There is no mass-effect or midline shift. There is age-related parenchymal volume loss with chronic small vessel ischemic changes in the cerebral white matter. There is no hydrocephalus. Patient has undergone previous bilateral lens replacements. There is trace fluid in the left mastoids. Sinuses are clear. IMPRESSION: No acute findings on limited MRI. Electronically signed by: Natasha Reddy M.D. 09/06/23 18:58 PM Chest X-Ray 09/07/23 15:54 XR chest 1V portable HISTORY: 78 years-old Female s/p intubation acute respiratory failure COMPARISON: 09/06/2023 TECHNIQUE: AP view the chest FINDINGS: Endotracheal tube overlies the midline, 3.6 cm superior to the ana cristina. Right subclavian catheter distal tip noted in the expected location of the mid SVC. Enteric tube courses into the stomach. Cardiomegaly with cardiac valvular prosthesis. Progressive pulmonary edema with asymmetric right hilar prominence. No pneumothorax. The size of the pleural effusions with bibasilar opacities. IMPRESSION: 1. Lines and tubes as above. 2. Cardiomegaly with progressive pulmonary edema. 3. Small pleural effusions with bibasilar opacities, likely atelectatic. ACT 112: Negative or not required by law. The above report was generated using voice recognition software. It may contain grammatical, syntax or spelling errors. Electronically signed by: Rustam Shanks M.D. 09/07/2023 4:37 PM I & O Totals 24 Hours 09/06/23 09/07/23 09/08/23 06:59 06:59 06:59 Intake Total 3501.667 / 3501.667 1361.128 / 1361.128 Output Total 280 / 280 151 / 151 Balance 3221.667 / 3221.667 1210.128 / 1210.128 Cumulative 09/06/23 13:40 thru 09/07/23 16:43 Intake Total 4862.795 Output Total 431 Balance 4431.795 RT Ventilator Mngmt (Last Documented) Ventilator Ordered Settings Ventilator Support Mode Assist Control 09/07/23 16:47 Respiratory Rate 16 09/07/23 16:47 Ventilator Tidal Volume 345 09/07/23 16:47 Setting Minute Ventilation 7 09/07/23 16:47 Positive End Expiratory 5 09/07/23 16:47 Pressure Fraction of Inspired Oxygen 30 09/07/23 16:47 Ventilator - PT Measurements Respiratory Rate 16 Exhaled Tidal Volume 345 Minute Ventilation 7 Peak Inspiratory Airway 20 Pressure Plateau Pressure 13 Respiratory Cycle Inspiratory: 1:2.2 Expiratory Ratio Inspiratory Phase Time 0.9 End-Tidal CO2 33 Static Lung Compliance 43.13 Dynamic Lung Compliance 23.00 Normal Static Lung Compliance 46.00 Coding Level of Care Code 03619 CRITICAL CARE 1ST 30-74M Diagnoses Cardiac arrest with successful resuscitation I46.9 Ventricular tachycardia I47.20 PSVT (paroxysmal supraventricular tachycardia) I47.10 Status post splenectomy Z90.81 Acute UTI (urinary tract infection) N39.0 Elevated troponin R79.89 Aortic valve prosthesis present Z95.2
[2023-09-07] MEDS ORDERED: 0.2 MICRON FILTER SET 1 EACH IV ONE (17:11)
--- NOTE | 2023-09-07 17:17 | Procedure Note ---
Procedure Note Date of Service September 07, 2023 Supervising Physician Co-Signing Physician Notes Procedure date: Noted above Procedure: Central venous access Pre-procedure indication: Need for vasoactive medication administration Post-procedure Diagnosis: same as above Prior to Procedure: Informed Consent: Emergent consent implied Attending Staff: Ganga Martinez DO Resident/APC: Not applicable Skin Prep: Chlorhexidine Anesthesia: 4 mL 1% lidocaine without epinephrine The identity of the patient was confirmed and a bedside time out was performed. Description of Procedure: After sterile prep and sterile drape utilizing standard sterile technique the superficial skin of the right subclavian area was anesthetized. The target vessel was identified and entered with an 18-gauge needle. Dark venous blood return was noted. A guidewire was inserted through the needle and into the vessel. The needle was withdrawn and a skin christian was made. A tissue dilator was advanced via Seldinger technique and removed. A triple lumen catheter was inserted via Seldinger technique and the guidewire removed. All ports homero and flushed easily. A Biopatch was placed, and the catheter was secured via silk suture. A sterile dressing was then applied. Complications: None Procedure date: Noted above Procedure: Left radial artery cannulation Pre-procedure Diagnosis: Need for invasive monitoring Post-procedure Diagnosis: same as above Prior to Procedure: Informed Consent: Emergent consent implied Attending Staff: Ganga Martinez DO Skin Prep: Chlorhexidine Anesthesia: 3 mL 1% lidocaine without epinephrine The identity of the patient was confirmed and a bedside time out was performed. Description of Procedure: After sterile prep and sterile drape utilizing standard sterile technique the superficial skin of the left radial artery was anesthetized. The target artery was identified via dynamic ultrasound guidance and entered with a 20-gauge arrow Angiocath. Pulsatile bright red blood return was noted. Via modified Seldinger technique the self-contained guidewire was advanced and the Angiocath advanced over the guidewire. The guidewire was removed and brisk arterial blood return was noted. The pressure monitor was connected, and the arterial line was secured via commercial securement device. A sterile dressing was then applied. Complications: None Estimated blood loss: Trace Patient tolerated the procedure well. Coding CPT Codes Tubes, Drains, and Vasc Access - Tubes, Drains, and Vasc Access: [id number] Insertion Of Non-tunneled Catheter Age 6 Yrs> ([id number]) Tubes, Drains, and Vasc Access - Tubes, Drains, and Vasc Access: [id number] Arterial Cath/Cannulation Sampling/Monitoring/Transfusion ([id number]) [facility] Procedure Codes (Charges) Tubes, Drains, and Vasc Access Procedure 1: Tubes, Drains, and Vasc Access: [id number] Insertion Of Non-tunneled Catheter Age 6 Yrs> Procedure 2: Tubes, Drains, and Vasc Access: [id number] Arterial Cath/Cannulation Sampling/Monitoring/Transfusion
[2023-09-07] MEDS ORDERED: GLUCAGON FOR INJ 1 MG VIAL SQ PRN (17:19)
[2023-09-07] MEDS ORDERED: CARBOHYDRATES FOR HYPOGLYCEMIA PO PRN (17:19)
[2023-09-07] MEDS ORDERED: GLUCOSE 10 TAB/TUBE PO PRN (17:19)
[2023-09-07] MEDS ORDERED: GLUCOSE 40% GEL 15 GM TUBE PO PRN (17:19)
[2023-09-07] MEDS ORDERED: DEXTROSE 50% 50 ML SYRINGE IV PRN (17:19)
[2023-09-07] MEDS: HEPARIN SODIUM/DEXTROSE 25,000 UNITS/500 ML BAG IV SCH (17:21)
[2023-09-07] MEDS: AMIODARONE / D5W 360 MG/200 ML BAG IV SCH (17:24)
[2023-09-07] MEDS: HEPARIN 25000 UNIT/500 ML D5W IV ONE (17:35)
[2023-09-07 17:48] LABS: Albumin Level 3.5 gm/dl (3.4-5.0); BUN Creatinine Ratio 30.9 (10-20); Bilirubin Direct 0.4 mg/dl (0-0.2); Bilirubin,Total 0.9 mg/dl (0.2-1.0); Calcium 8.9 mg/dl (8.6-10.3); Creatinine Clr Calc Pharmacy 80.6 ml/min; Est GFR (African American) 104.9 ml/min; Est GFR (Non-African American) 90.5 ml/min; Phosphorus 3.7 mg/dl (2.5-4.9); Potassium 3.4 mmol/L (3.5-5.1); Total Protein 5.6 gm/dl (6.0-8.3)
[2023-09-07] MEDS: THIAMINE HCL 500 MG in SODIUM CHLORIDE 0.9% 50 ML IV STA (18:06)
[2023-09-07] MEDS: POTASSIUM CHLORIDE 20 MEQ/15 ML UDC PO STA (18:10)
[2023-09-07] MEDS: INSULIN ASPART PER UNIT CHARGE SC SCH (18:23)
[2023-09-07] MEDS: CEFEPIME 1,000 MG in SYRINGE 0 ML IV SCH (20:11)
[2023-09-07] MEDS ORDERED: INSULIN ASPART PER UNIT CHARGE SC SCH (21:00)
[2023-09-07] MEDS: VASOPRESSIN 20 UNITS in 0.9 % SODIUM CHLORIDE 100 ML IV SCH (21:10)
[2023-09-08 00:30] LABS: ANTI-Xa, UFH(UnfractionatedHep 0.33 IU/ml (0.3-0.7)
--- NOTE | 2023-09-08 01:10 | XCELERA ---
[id number]
[2023-09-08 05:19] LABS: Basophils # (auto) 0.07 K/uL (0.00-0.20); Basophils % (auto) 0.6 %; Eosinophils # (auto) 0.01 K/uL (0.00-0.50); Eosinophils % (auto) 0.1 %; Hematocrit (blood only) 27.5 % (37.0-47.0); Hemoglobin 8.7 g/dl (12.0-16.0); Immature Granulocytes # (auto) 0.05 K/uL (0.01-0.20); Immature Granulocytes % (auto) 0.4 %; Lymphocytes # (auto) 1.59 K/uL (1.20-3.40); Lymphocytes % (auto) 13.6 %; Mean Corpuscular Hemoglobin 29.9 pg (25.0-34.0); Mean Corpuscular Hgb Conc 31.6 g/dL (32.0-36.0); Mean Corpuscular Volume 94.5 fL (80.0-100.0); Mean Platelet Volume 10.4 fL (9.4-12.4); Monocytes # (auto) 1.43 K/uL (0.11-0.59); Monocytes % (auto) 12.3 %; Nucleated RBC # (auto) 0.05 K/uL (0.00-0.12); Nucleated RBC % (auto) 0.4 %; Platelet Count 269 K/uL (130-400); RDW Coefficient of Variation 18.1 % (11.5-14.5); RDW Standard Deviation 62.9 fL (36.4-46.3); Red Blood Count 2.91 M/uL (4.20-5.40); White Blood Count 11.65 K/ul (4.8-10.8)
[2023-09-08 05:33] LABS: Albumin Level 3.3 gm/dl (3.4-5.0); Bilirubin Direct 0.2 mg/dl (0-0.2); Bilirubin,Total 0.6 mg/dl (0.2-1.0); Total Protein 5.4 gm/dl (6.0-8.3)
[2023-09-08 05:34] LABS: Albumin Globulin Ratio 1.5 (0.9-2); Albumin Level 3.3 gm/dl (3.4-5.0); BUN Creatinine Ratio 39.6 (10-20); Bilirubin,Total 0.6 mg/dl (0.2-1.0); Calcium 8.9 mg/dl (8.6-10.3); Creatinine Clr Calc Pharmacy 92.4 ml/min; Est GFR (African American) 109.7 ml/min; Est GFR (Non-African American) 94.6 ml/min; Globulin 2.2 gm/dl (2.5-4.0); Magnesium 2.2 mg/dl (1.7-2.4); Potassium 3.9 mmol/L (3.5-5.1); Total Protein 5.5 gm/dl (6.0-8.3)
[2023-09-08 05:42] LABS: Troponin I High Sensitivity 1135.7 pg/ml (0-14)
[2023-09-08 05:45] LABS: ANTI-Xa, UFH(UnfractionatedHep 0.35 IU/ml (0.3-0.7); INR 1.1 (0.9-1.1); Prothrombin Time 11.4 Seconds (9.0-12.0)
[2023-09-08] MEDS: POTASSIUM CHLORIDE 20 MEQ/15 ML UDC PO STA (06:27)
[2023-09-08 07:11] LABS: Estimated Average Glucose 71 mg/dl; Hemoglobin A1C 4.1 % (4.5-5.6)
--- NOTE | 2023-09-08 08:08 | XRay Report ---
XR chest 1V portable HISTORY: 78 years-old Female eval ETT/OGT/Lung borges acute respiratory failure COMPARISON: 09/07/2023 TECHNIQUE: AP view of the chest FINDINGS: Endotracheal tube overlies the midline, 3.3 cm superior to the ana cristina. Right subclavian catheter dist al tip noted in the expected location of the mid SVC. Enteric tube courses into the stomach. Cardiome giselle with cardiac valvular prosthesis. Stable pulmonary edema with asymmetric right hilar prominence. No pneumothorax. Stable size of the pleural effusions with bibasilar opacities. IMPRESSION: 1. Lines and tubes as above. 2. Cardiomegaly with unchanged pulmonary edema. 3. Small pleural effusions with persistent bibasilar opacities, mildly progressed on the right. ACT 112: Negative or not required by law. The above report was generated using voice recognition software. It may contain grammatical, syntax o r spelling errors. Electronically signed by: Rustam Shanks M.D. 09/08/2023 8:05 AM
[2023-09-08] MEDS: THIAMINE HCL 100 MG in SYRINGE 9 ML IV SCH (08:29)
--- NOTE | 2023-09-08 08:58 | Electrocardiogram Report ---
Test Reason : Blood Pressure : / mmHG Vent. Rate : 135 BPM Atrial Rate : 107 BPM P-R Int : 208 ms QRS Dur : 136 ms QT Int : 304 ms P-R-T Axes : 048 -82 075 degrees QTc Int : 456 ms Poor data quality, interpretation may be adversely affected Sinus rhythm with frequent episodes of polymorphic ventricular tachycardia Left bundle branch block Abnormal ECG When compared with ECG of 06-SEP-2023 18:59, Ventricular tachycardia now present Confirmed by John Wong ([id number]) on 09/08/2023 8:58:24 AM Referred By: REFERRED SELF Confirmed By:John Wong
--- NOTE | 2023-09-08 08:59 | Electrocardiogram Report ---
Test Reason : Blood Pressure : / mmHG Vent. Rate : 098 BPM Atrial Rate : 082 BPM P-R Int : 000 ms QRS Dur : 096 ms QT Int : 358 ms P-R-T Axes : 000 -43 090 degrees QTc Int : 457 ms Poor data quality, interpretation may be adversely affected Sinus rhythm with 1st degree A-V block with frequent runs of Ventricular tachycardia Left bundle branch block Abnormal ECG When compared with ECG of 07-SEP-2023 14:55, No significant change Confirmed by John Wong ([id number]) on 09/08/2023 8:59:30 AM Referred By: REFERRED SELF Confirmed By:John Wong
--- NOTE | 2023-09-08 09:09 | Electrocardiogram Report ---
Test Reason : Blood Pressure : / mmHG Vent. Rate : 077 BPM Atrial Rate : 153 BPM P-R Int : 000 ms QRS Dur : 160 ms QT Int : 672 ms P-R-T Axes : 069 139 254 degrees QTc Int : 760 ms Sinus rhythm with 1st degree A-V block with frequent Premature ventricular complexes Right bundle branch block T-wave inversion in Anterior leads , consider ischemia Abnormal ECG When compared with ECG of 07-SEP-2023 14:57, Right bundle branch block has replaced Left bundle branch block T-wave inversion in Anterior leads now present Ventricular tachycardia no longer present Confirmed by John Wong ([id number]) on 09/08/2023 9:09:21 AM Referred By: REFERRED SELF Confirmed By:John Wong
--- NOTE | 2023-09-08 09:17 | Electrocardiogram Report ---
Test Reason : Blood Pressure : / mmHG Vent. Rate : 075 BPM Atrial Rate : 072 BPM P-R Int : 176 ms QRS Dur : 136 ms QT Int : 532 ms P-R-T Axes : 066 -65 185 degrees QTc Int : 594 ms Sinus rhythm with frequent Premature ventricular complexes Left axis deviation Left bundle branch block Abnormal ECG When compared with ECG of 07-SEP-2023 15:46, Left bundle branch block has replaced Right bundle branch block Confirmed by John Wong ([id number]) on 09/08/2023 9:17:20 AM Referred By: REFERRED SELF Confirmed By:John Wong
--- NOTE | 2023-09-08 09:18 | Electrocardiogram Report ---
Test Reason : Blood Pressure : / mmHG Vent. Rate : 076 BPM Atrial Rate : 076 BPM P-R Int : 136 ms QRS Dur : 132 ms QT Int : 420 ms P-R-T Axes : 040 -68 201 degrees QTc Int : 472 ms Normal sinus rhythm Left axis deviation Left bundle branch block Abnormal ECG When compared with ECG of 07-SEP-2023 17:58, Premature ventricular complexes no longer present Confirmed by John Wong ([id number]) on 09/08/2023 9:18:41 AM Referred By: REFERRED SELF Confirmed By:John Wong
[2023-09-08] MEDS: fentaNYL BOLUS from BAG IV PRN (10:29)
[2023-09-08] MEDS ORDERED: VANCOMYCIN LEVEL ONE (10:30)
--- NOTE | 2023-09-08 11:34 | Critical Care Progress Note ---
Date of Service September 08, 2023 Assessment & Plan (1) Cardiac arrest with successful resuscitation: Plan: Reason Critically Ill: 78-year-old female status post ventricular tachycardia cardiac arrest with successful return of spontaneous circulation. PLAN: Neuro: Acute encephalopathy: Resolved -Fentanyl infusion and Versed as needed intermittent dosing as needed Resp: Acute respiratory failure secondary to cardiac arrest: Tolerating initial spontaneous breathing trial -Possible extubation, she is still requiring vasoactive medications so this is a relative contraindication CV: Ventricular tachycardia -Continue amiodarone infusion at this time -Systemic anticoagulation with heparin -Echo reviewed, new wall motion abnormalities, troponins downtrending, discussed with cardiology repeat echo limited tomorrow -Optimize electrolytes Prolonged QTc: Resolved Fluids/Renal: Anion gap resolved -daily thiamine supplementation 100 mg Repeat electrolytes Hyponatremia -Suspect hypervolemic hyponatremia, gentle diuresis to see if this improves hemodynamics ID: Sepsis of urinary source with E. coli, sensitivities reviewed -De-escalated to Rocephin day 3 of 7 -Blood cultures no growth after 24 hours Recent splenectomy: Interval fluid findings on CT scan -Possible intra-abdominal abscess is always a possibility however I think the findings are post splenectomy changes, blood cultures remain negative I believe this is a simple uncomplicated urinary tract infection GI/Nutrition: N.p.o. Transaminitis: I suspect this is secondary to cardiac arrest and acute hypotension, improving Heme: Anemia NOS DVT prophylaxis: Systemic heparin Endocrine: ICU hyperglycemia protocol Vascular access: Right subclavian CVC, left radial arterial line Code Status: Conditional code okay with emergent defibrillation and ACLS medications, no CPR in event of cardiac arrest Disposition: ICU Clinical update, vasoactive's continue to be decreasing, patient tolerated spontaneous breathing trial we will proceed with liberation from ventilator. (2) Ventricular tachycardia: (3) PSVT (paroxysmal supraventricular tachycardia): (4) Status post splenectomy: (5) Acute UTI (urinary tract infection): (6) Elevated troponin: (7) Aortic valve prosthesis present: Admission and Anticipated Discharge Date Admission Date: September 06, 2023 Supervising Physician Co-Signing Physician Notes I have personally spent 70 minutes of critical care time in the direct management of this patient. This is a life/limb threatening event. This includes time spent evaluating patient, direct bedside care, chart review, placing orders, interpretation of diagnostic studies, discussion with consultants, patient, and/or family members regarding treatment decisions, as well as other required patient management activities. This time is exclusive of all separately billable procedures, and teaching time and separate from and in addition to any other critical care service time. Subjective With lightening sedation patient is alert able to follow two-step commands. Denies having any pain. Hopes to get the breathing tube removed. Physical Exam Physical Exam: General: Arouses easily follows two-step commands. nontoxic. Skin: Warm, dry, Head: Atraumatic Ears, nose, mouth and throat: airway obscured by endotracheal tube Cardiovascular: Normal peripheral perfusion Respiratory: Ventilator settings reviewed Gastrointestinal: Non distended Musculoskeletal: No deformity, no tenderness with deep palpation no wincing Results & Data Results & Data Vital Signs (Past 12 Hours) Vital Signs Temp Pulse Resp BP BP Pulse Ox O2 Del Method 09/08/23 09:30 37.2 C 63 18 100 09/08/23 09:30 108/52 L 09/08/23 09:11 99/40 L 09/08/23 08:15 114/59 L 09/08/23 08:15 36.7 C 67 17 100 09/08/23 08:00 Mechanical Vent 09/08/23 08:00 56 L 09/08/23 08:00 09/08/23 07:49 70 16 98 09/08/23 07:00 58 L 17 09/08/23 07:00 110/54 L Mechanical Vent 09/08/23 06:00 36.7 C 09/08/23 05:05 36.8 C 09/08/23 05:00 104/51 L 09/08/23 05:00 55 L 13 09/08/23 04:30 57 L 14 09/08/23 04:00 59 L 16 09/08/23 04:00 110/57 L 09/08/23 04:00 09/08/23 04:00 37 C 09/08/23 03:45 112/57 L 09/08/23 03:45 59 L 16 09/08/23 03:30 59 L 14 100 09/08/23 03:00 58 L 14 09/08/23 03:00 37.2 C 09/08/23 02:40 54 L 16 99 09/08/23 02:30 99/54 L 09/08/23 02:30 58 L 14 09/08/23 02:15 62 14 99 09/08/23 02:15 105/58 L 09/08/23 02:00 95/53 L 09/08/23 02:00 61 14 09/08/23 02:00 37.5 C 09/08/23 01:45 96/55 L 09/08/23 01:45 62 17 09/08/23 01:30 98/54 L 09/08/23 01:30 64 19 09/08/23 01:15 98/55 L 09/08/23 01:15 64 16 09/08/23 01:00 37.8 C H 09/08/23 01:00 64 16 09/08/23 00:30 66 16 09/08/23 00:00 38.1 C H 09/08/23 00:00 68 16 09/08/23 00:00 95/55 L 09/08/23 00:00 71 09/08/23 00:00 09/07/23 23:40 69 18 100 FiO2 09/08/23 09:30 09/08/23 09:30 09/08/23 09:11 09/08/23 08:15 09/08/23 08:15 09/08/23 08:00 30 09/08/23 08:00 09/08/23 08:00 30 09/08/23 07:49 30 09/08/23 07:00 09/08/23 07:00 30 09/08/23 06:00 09/08/23 05:05 09/08/23 05:00 09/08/23 05:00 09/08/23 04:30 09/08/23 04:00 09/08/23 04:00 09/08/23 04:00 30 09/08/23 04:00 09/08/23 03:45 09/08/23 03:45 09/08/23 03:30 09/08/23 03:00 09/08/23 03:00 09/08/23 02:40 30 09/08/23 02:30 09/08/23 02:30 09/08/23 02:15 09/08/23 02:15 09/08/23 02:00 09/08/23 02:00 09/08/23 02:00 09/08/23 01:45 09/08/23 01:45 09/08/23 01:30 09/08/23 01:30 09/08/23 01:15 09/08/23 01:15 09/08/23 01:00 09/08/23 01:00 30 09/08/23 00:30 30 09/08/23 00:00 09/08/23 00:00 30 09/08/23 00:00 09/08/23 00:00 09/08/23 00:00 30 09/07/23 23:40 30 Critical Care Results & Data Vital Signs (Past 12 Hours) Vital Signs Temp Pulse Resp BP BP Pulse Ox O2 Del Method 09/08/23 09:30 37.2 C 63 18 100 09/08/23 09:30 108/52 L 09/08/23 09:11 99/40 L 09/08/23 08:15 114/59 L 09/08/23 08:15 36.7 C 67 17 100 09/08/23 08:00 Mechanical Vent 09/08/23 08:00 56 L 09/08/23 08:00 09/08/23 07:49 70 16 98 09/08/23 07:00 58 L 17 09/08/23 07:00 110/54 L Mechanical Vent 09/08/23 06:00 36.7 C 09/08/23 05:05 36.8 C 09/08/23 05:00 104/51 L 09/08/23 05:00 55 L 13 09/08/23 04:30 57 L 14 09/08/23 04:00 59 L 16 09/08/23 04:00 110/57 L 09/08/23 04:00 09/08/23 04:00 37 C 09/08/23 03:45 112/57 L 09/08/23 03:45 59 L 16 09/08/23 03:30 59 L 14 100 09/08/23 03:00 58 L 14 09/08/23 03:00 37.2 C 09/08/23 02:40 54 L 16 99 09/08/23 02:30 99/54 L 09/08/23 02:30 58 L 14 09/08/23 02:15 62 14 99 09/08/23 02:15 105/58 L 09/08/23 02:00 95/53 L 09/08/23 02:00 61 14 09/08/23 02:00 37.5 C 09/08/23 01:45 96/55 L 09/08/23 01:45 62 17 09/08/23 01:30 98/54 L 09/08/23 01:30 64 19 09/08/23 01:15 98/55 L 09/08/23 01:15 64 16 09/08/23 01:00 37.8 C H 09/08/23 01:00 64 16 09/08/23 00:30 66 16 09/08/23 00:00 38.1 C H 09/08/23 00:00 68 16 09/08/23 00:00 95/55 L 09/08/23 00:00 71 09/08/23 00:00 09/07/23 23:40 69 18 100 FiO2 09/08/23 09:30 09/08/23 09:30 09/08/23 09:11 09/08/23 08:15 09/08/23 08:15 09/08/23 08:00 30 09/08/23 08:00 09/08/23 08:00 30 09/08/23 07:49 30 09/08/23 07:00 09/08/23 07:00 30 09/08/23 06:00 09/08/23 05:05 09/08/23 05:00 09/08/23 05:00 09/08/23 04:30 09/08/23 04:00 09/08/23 04:00 09/08/23 04:00 30 09/08/23 04:00 09/08/23 03:45 09/08/23 03:45 09/08/23 03:30 09/08/23 03:00 09/08/23 03:00 09/08/23 02:40 30 09/08/23 02:30 09/08/23 02:30 09/08/23 02:15 09/08/23 02:15 09/08/23 02:00 09/08/23 02:00 09/08/23 02:00 09/08/23 01:45 09/08/23 01:45 09/08/23 01:30 09/08/23 01:30 09/08/23 01:15 09/08/23 01:15 09/08/23 01:00 09/08/23 01:00 30 09/08/23 00:30 30 09/08/23 00:00 09/08/23 00:00 30 09/08/23 00:00 09/08/23 00:00 09/08/23 00:00 30 09/07/23 23:40 30 Lab & Micro Results (Past 24 Hours) RBC 2.91 M/uL (4.20-5.40) L 09/08/23 WBC 11.65 K/ul (4.8-10.8) H 09/08/23 Hgb 8.7 g/dl (12.0-16.0) L 09/08/23 Hct 27.5 % (37.0-47.0) L 09/08/23 MCV 94.5 fL (80.0-100.0) 09/08/23 MCH 29.9 pg (25.0-34.0) 09/08/23 MCHC 31.6 g/dL (32.0-36.0) L 09/08/23 RDW Standard Deviation 62.9 fL (36.4-46.3) H 09/08/23 RDW Coefficient of Variation 18.1 % (11.5-14.5) H 09/08/23 Plt Count 269 K/uL (130-400) 09/08/23 MPV 10.4 fL (9.4-12.4) 09/08/23 Nucleated Red Blood Cells % (auto) 0.4 % 09/07 Nucleated RBC Absolute Count (auto) 0.05 K/uL (0.00-0.12) 0 09/08/23 Neutrophils (%) (Auto) 73.0 % 09/08/23 Lymphocytes (%) (Auto) 13.6 % 09/08/23 Monocytes # (Auto) 1.43 K/uL (0.11-0.59) H 09/08/23 Eosinophils # (Auto) 0.01 K/uL (0.00-0.50) 09/08/23 Immature Granulocyte % (Auto) 0.4 % 09/08/23 Neutrophils # (Auto) 8.50 K/uL (1.40-6.50) H 09/08/23 Lymphocytes # (Auto) 1.59 K/uL (1.20-3.40) 09/08/23 Monocytes # (Auto) 1.43 K/uL (0.11-0.59) H 09/08/23 Eosinophils # (Auto) 0.01 K/uL (0.00-0.50) 09/08/23 Basophils # (Auto) 0.07 K/uL (0.00-0.20) 09/08/23 Immature Granulocyte # (Auto) 0.05 K/uL (0.01-0.20) 4 Na 129 mmol/L (136-145) L 09/08/23 K 3.9 mmol/L (3.5-5.1) 09/08/23 Cl 100 mmol/L (98-107) 09/08/23 CO2 23 mmol/L (21-32) 09/08/23 Anion Gap 6 (3-11) 09/08/23 BUN 19 mg/dl (6-23) 09/08/23 Creatinine 0.48 mg/dl (0.6-1.2) L 09/08/23 Estimated GFR ( Amer) 109.7 ml/min 09/08/23 Estimated GFR (Non-Af Amer) 94.6 ml/min 09/08/23 BUN/Creatinine Ratio 39.6 (10-20) H 09/08/23 Glu 186 mg/dl (70-99(Fasting)) H 09/08/23 Ca 8.9 mg/dl (8.6-10.3) 09/08/23 Phosphorus Level 3.7 mg/dl (2.5-4.9) 09/07/23 Total Bilirubin 0.6 mg/dl (0.2-1.0) 09/08/23 Direct Bilirubin 0.2 mg/dl (0-0.2) 09/08/23 AST 50 U/L (13-39) H 09/08/23 ALT 25 U/L (7-52) 09/08/23 Alkaline Phosphatase 51 U/L (34-104) 09/08/23 TP 5.5 gm/dl (6.0-8.3) L 09/08/23 Albumin 3.3 gm/dl (3.4-5.0) L 09/08/23 Globulin 2.2 gm/dl (2.5-4.0) L 09/08/23 Albumin/Globulin Ratio 1.5 (0.9-2) 09/08/23 Mg 2.2 mg/dl (1.7-2.4) 09/08/23 04:56 Calcium Level 8.9 mg/dl (8.6-10.3) 09/08/23 04:56 Prothromb Time International Ratio 1.1 (0.9-1.1) 09/08/23 04:5 6 Bryan Test NA 09/07/23 16:40 Microbiology 09/06/23 14:14 Urine Culture - Final Urine,Straight Cath Escherichia coli 09/06/23 14:35 Aerobic Blood Culture - Preliminary Blood No growth in Aerobic bottle after 24 hours. Anaerobic Blood Culture - Preliminary No growth in Anaerobic bottle after 24 hours. 09/06/23 14:20 Aerobic Blood Culture - Preliminary Blood No growth in Aerobic bottle after 24 hours. Anaerobic Blood Culture - Preliminary No growth in Anaerobic bottle after 24 hours. Diagnostic Findings (Past 24 Hours) Chest X-Ray 09/07/23 15:54 XR chest 1V portable HISTORY: 78 years-old Female s/p intubation acute respiratory failure COMPARISON: 09/06/2023 TECHNIQUE: AP view the chest FINDINGS: Endotracheal tube overlies the midline, 3.6 cm superior to the ana cristina. Right subclavian catheter distal tip noted in the expected location of the mid SVC. Enteric tube courses into the stomach. Cardiomegaly with cardiac valvular prosthesis. Progressive pulmonary edema with asymmetric right hilar prominence. No pneumothorax. The size of the pleural effusions with bibasilar opacities. IMPRESSION: 1. Lines and tubes as above. 2. Cardiomegaly with progressive pulmonary edema. 3. Small pleural effusions with bibasilar opacities, likely atelectatic. ACT 112: Negative or not required by law. The above report was generated using voice recognition software. It may contain grammatical, syntax or spelling errors. Electronically signed by: Rustam Shanks M.D. 09/07/2023 4:37 PM Chest X-Ray 09/08/23 05:00 XR chest 1V portable HISTORY: 78 years-old Female eval ETT/OGT/Lung borges acute respiratory failure COMPARISON: 09/07/2023 TECHNIQUE: AP view of the chest FINDINGS: Endotracheal tube overlies the midline, 3.3 cm superior to the ana cristina. Right subclavian catheter distal tip noted in the expected location of the mid SVC. Enteric tube courses into the stomach. Cardiomegaly with cardiac valvular prosthesis. Stable pulmonary edema with asymmetric right hilar prominence. No pneumothorax. Stable size of the pleural effusions with bibasilar opacities. IMPRESSION: 1. Lines and tubes as above. 2. Cardiomegaly with unchanged pulmonary edema. 3. Small pleural effusions with persistent bibasilar opacities, mildly progressed on the right. ACT 112: Negative or not required by law. The above report was generated using voice recognition software. It may contain grammatical, syntax or spelling errors. Electronically signed by: Rustam Shanks M.D. 09/08/2023 8:05 AM I & O Totals 24 Hours 09/07/23 09/08/23 09/09/23 06:59 06:59 06:59 Intake Total 3501.667 / 3501.667 2260.542 / 2260.542 296.957 / 296.957 Output Total 280 / 280 1031 / 1031 90 / 90 Balance 3221.667 / 3221.667 1229.542 / 1229.542 206.957 / 206.957 Cumulative 09/06/23 13:40 thru 09/08/23 10:28 Intake Total 6059.166 Output Total 1401 Balance 4658.166 RT Ventilator Mngmt (Last Documented) Ventilator Ordered Settings Ventilator Support Mode Assist Control 09/08/23 08:00 Respiratory Rate 18 09/08/23 09:30 Ventilator Tidal Volume 370 09/08/23 08:00 Setting Minute Ventilation 7 09/08/23 07:49 Positive End Expiratory 5 09/08/23 08:00 Pressure Fraction of Inspired Oxygen 30 09/08/23 08:00 Ventilator - PT Measurements Respiratory Rate 18 Exhaled Tidal Volume 371 Minute Ventilation 7 Peak Inspiratory Airway 15 Pressure Plateau Pressure 13 Respiratory Cycle Inspiratory: 1:4.8 Expiratory Ratio Inspiratory Phase Time 0.65 End-Tidal CO2 37 Static Lung Compliance 46.38 Dynamic Lung Compliance 37.10 Normal Static Lung Compliance 48.00 Patient Measurements Comment Patient high low purged for thick creamy goodman secretions. Coding Level of Care Code 97473 CRITICAL CARE 1ST 30-74M Diagnoses Cardiac arrest with successful resuscitation I46.9 Ventricular tachycardia I47.20 PSVT (paroxysmal supraventricular tachycardia) I47.10 Status post splenectomy Z90.81 Acute UTI (urinary tract infection) N39.0 Elevated troponin R79.89 Aortic valve prosthesis present Z95.2
--- NOTE | 2023-09-08 11:36 | Cardiology Progress Note ---
Date of Service September 08, 2023 Assessment & Plan (1) S/p TAVR (transcatheter aortic valve replacement), bioprosthetic: (2) Ventricular tachycardia: (3) Elevated troponin: (4) Cardiac arrest with successful resuscitation: Plan Stable overnight but remains intubated and on pressors. Hemodynamics reasonable, wean epinephrine/vasopressin as able. Volume status appears reasonable. No further ventricular tachycardia, continue IV amiodarone, likely will switch to oral amiodarone after extubation. Wall motion abnormalities on echocardiogram and elevated troponin unlikely to be due to acute coronary occlusion given normal coronaries at the time of TAVR less than 2 years ago. Suspect an element of stress-induced cardiomyopathy, will check limited follow-up echocardiogram tomorrow. Troponin trending downward and patient denies chest pain, no indication for acute intervention. Will continue to follow along. Admission and Anticipated Discharge Date Admission Date: September 06, 2023 Subjective Patient remains intubated and on vasopressor support. She did awaken to light touch and denied any chest pain. No further ventricular tachycardia overnight or today on IV amiodarone. Hemodynamics favorable on vasopressor support. Physical Exam Physical Exam: No distress. BP 108/52 mmHg (on pressors). Pulse 63 bpm and regular with ectopy. Skin: no ecchymoses or generalized lesions. HEENT: unremarkable. Neck: JVP mildly elevated. Lungs: Scattered rhonchi, no obvious crackles or wheezes. No accessory muscle use. . Cardiac: regular rhythm, readily audible aortic closure sound, 2/6 systolic ejection murmur right upper sternal border, no diastolic murmur. Abdomen: benign. Extremities: no edema. Neurologic: Nonverbal (intubated), arousable, answers simple questions appropriately (denied chest pain) Results & Data Laboratory Results Hemoglobin 8.7. WBC 11.65. Sodium 129, potassium 3.9, BUN 19, creatinine 0.48. Magnesium 2.2. Troponin peak 1403 early yesterday morning, 1135 this morning. Diagnostic Findings ECG showed sinus rhythm at 76 bpm with left bundle branch block. Chest x-ray showed bibasilar opacities, stable pulmonary edema (which to my eye is not pronounced) with asymmetric right hilar prominence, small pleural effusions. PG Care Time/CCT Total # of Minutes Spent Total Time Spent with Patient: Total time spent is greater than 50% in coordination of care (as documented) at patient's floor/unit and/or counseling patient: Coding Level of Care Code 26171 SUB INP/OBS CARE 350MIN Diagnoses S/p TAVR (transcatheter aortic valve replacement), bioprosthetic Z95.3 Ventricular tachycardia I47.20 Elevated troponin R79.89 Cardiac arrest with successful resuscitation I46.9
[2023-09-08] MEDS: FUROSEMIDE 40 MG/4 ML VIAL IV ONE (12:14)
[2023-09-08] MEDS: cefTRIAXone SODIUM 1,000 MG/50 ML BAG IV SCH (12:47)
[2023-09-08] MEDS: POTASSIUM ACETATE/NSS 20 MEQ/110 ML BAG IV SCH (14:10)
--- NOTE | 2023-09-08 14:55 | Hospitalist Progress Note ---
Date of Service September 08, 2023 Assessment & Plan (1) Altered mental status: Plan: Acute metabolic encephalopathy present on admission probably due to UTI. Supportive care. No evidence of acute CVA or intracranial hemorrhage seen on head CT scan and brain MRI scan. (2) Suspected UTI: Plan: E. coli isolated from urine cultures. Fortunately, blood cultures remain negative. She is on cefepime, day 3 (3) Ventricular tachycardia: (4) Sepsis: Plan: Present on admission. Due to suspected UTI. Fortunately she has not required pressor support. (5) Ventricular tachycardia: Plan: The patient had a CODE BLUE situation on September 06 due to ventricular tachycardia which progressed to ventricular fibrillation. She was resuscitated. Cardiology has seen the patient. This event occurred while she was on IV amiodarone which continues but she is now stabilized. Limited cardiac echo will be repeated tomorrow, September 08 . Telemetry. (6) Elevated troponin: Plan: Mild. No acute EKG changes. No chest pain prior to CODE BLUE. Cardiac echo report noted. Ejection fraction is down to 35% but this could be related to the infectious process. Limited cardiac echo will be repeated tomorrow, September 08. No definite evidence of acute coronary syndrome. (7) Hyponatremia: Plan: Mild on admission. Monitor intake and output. Serial labs (8) Fall: Plan: Fall at home probably due to acute UTI with acute metabolic encephalopathy. Supportive care. Treat underlying illness. OT and PT assessments requested (9) Status post splenectomy: Plan: Recently completed at another hospital on August 15 of this year. 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 No intervention necessary at this time. Plan To be determined Admission and Anticipated Discharge Date Admission Date: September 06, 2023 Subjective The patient remained intubated and sedated at the time of my rounds this morning. Family is present at the bedside. Cardiology and critical care entries subsequently noted. Limited cardiac echo will be repeated tomorrow, September 08. Hopefully she can be extubated soon. Urine culture is growing E. coli and she is on cefepime, day 3. Blood culture fortunately remains negative. Chest x-ray done today, September 07, reveals right lower lobe infiltrate. Review of Systems 2 Review of Systems: The patient is intubated and sedated at this time Physical Exam 2 Physical Exam: General-intubated and sedated. No fever HEENT-head atraumatic and normocephalic, pupils equal and reactive to light, extraocular muscles intact Neck-no lymphadenopathy or thyromegaly, trachea midline Chest-scattered rhonchi. No wheezing Cardiac-regular rate and rhythm, normal S1 and S2 Abdomen-normal bowel sounds, no hepatosplenomegaly Extremities-no cyanosis, clubbing, or edema Neuro-intubated and sedated. Cannot assess Psych-intubated and sedated. Cannot assess Results & Data Results & Data Vital Signs (Past 12 Hours) Vital Signs Temp Pulse Resp BP BP Pulse Ox O2 Del Method 09/08/23 14:09 149/56 H 09/08/23 12:08 75 21 98 09/08/23 11:13 75 21 100 09/08/23 11:00 122/67 09/08/23 11:00 37.4 C 75 24 100 09/08/23 10:00 37.2 C 63 18 100 09/08/23 09:30 37.2 C 63 18 100 09/08/23 09:30 108/52 L 09/08/23 09:11 99/40 L 09/08/23 08:15 114/59 L 09/08/23 08:15 36.7 C 67 17 100 09/08/23 08:00 Mechanical Vent 09/08/23 08:00 56 L 09/08/23 08:00 09/08/23 07:49 70 16 98 09/08/23 07:00 58 L 17 09/08/23 07:00 110/54 L Mechanical Vent 09/08/23 06:00 36.7 C 09/08/23 05:05 36.8 C 09/08/23 05:00 104/51 L 09/08/23 05:00 55 L 13 09/08/23 04:30 57 L 14 09/08/23 04:00 59 L 16 09/08/23 04:00 110/57 L 09/08/23 04:00 09/08/23 04:00 37 C 09/08/23 03:45 112/57 L 09/08/23 03:45 59 L 16 09/08/23 03:30 59 L 14 100 09/08/23 03:00 58 L 14 09/08/23 03:00 37.2 C FiO2 09/08/23 14:09 09/08/23 12:08 09/08/23 11:13 30 09/08/23 11:00 09/08/23 11:00 09/08/23 10:00 09/08/23 09:30 09/08/23 09:30 09/08/23 09:11 09/08/23 08:15 09/08/23 08:15 09/08/23 08:00 30 09/08/23 08:00 09/08/23 08:00 30 09/08/23 07:49 30 09/08/23 07:00 09/08/23 07:00 30 09/08/23 06:00 09/08/23 05:05 09/08/23 05:00 09/08/23 05:00 09/08/23 04:30 09/08/23 04:00 09/08/23 04:00 09/08/23 04:00 30 09/08/23 04:00 09/08/23 03:45 09/08/23 03:45 09/08/23 03:30 09/08/23 03:00 09/08/23 03:00 Laboratory Results 09/08/23 04:56 09/08/23 04:56 PG Care Time/CCT Total # of Minutes Spent Total Time Spent with Patient: Total time spent is greater than 50% in coordination of care (as documented) at patient's floor/unit and/or counseling patient: Coding Level of Care Code 94693 SUB INP/OBS CARE 3/50MIN Diagnoses Altered mental status R41.82 Suspected UTI R39.89 Ventricular tachycardia I47.20 Sepsis A41.9 Elevated troponin R79.89 Hyponatremia E87.1 Fall W19.XXXA Status post splenectomy Z90.81
[2023-09-09 02:23] LABS: A calco-baum cmplx NotReported Not Detected (NotDetected); Bact fragilis Not Reported Not Detected (NotDetected); Blood Culture Id Panel PCR Panel Negative (NotDetected); C auris Not Reported Not Detected (NotDetected); Calbicans Not Reported Not Detected (NotDetected); Candida glabrata Not Reported Not Detected (NotDetected); Candida krusei Not Reported Not Detected (NotDetected); Cneoformans/gatti Not Reported Not Detected (NotDetected); Cparapsilosis Not Reported Not Detected (NotDetected); E cloacae compx Not Reported Not Detected (NotDetected); Efaecalis Not Reported Not Detected (NotDetected); Efaecium Not Reported Not Detected (NotDetected); Enterobacterales Not Reported Not Detected (NotDetected); Escherichia coli Not Reported Not Detected (NotDetected); H influenzae Not Reported Not Detected (NotDetected); K aerogenes Not Reported Not Detected (NotDetected); Koxytoca Not Reported Not Detected (NotDetected); Kpneumoniae grp Not Reported Not Detected (NotDetected); Lmonocyt Not Reported Not Detected (NotDetected); N meningitidis Not Reported Not Detected (NotDetected); P aeruginosa Not Reported Not Detected (NotDetected); Proteus spp Not Reported Not Detected (NotDetected); Salmonella spp Not Reported Not Detected (NotDetected); Smarcescens Not Reported Not Detected (NotDetected); Staph lugdunensis Not Reported Not Detected (NotDetected); Staph spp. Not Reported Not Detected (NotDetected); Staphaureus Not Reported Not Detected (NotDetected); Staphepi Not Reported Not Detected (NotDetected); Stenmaltophilia Not Reported Not Detected (NotDetected); Strep agal(GrpB) Not Reported Not Detected (NotDetected); Strep pneum Not Reported Not Detected (NotDetected); Strep pyog (GrpA) Not Reported Not Detected (NotDetected); Strep spp Not Reported Not Detected (NotDetected)
[2023-09-09 04:53] LABS: Basophils # (auto) 0.07 K/uL (0.00-0.20); Basophils % (auto) 0.7 %; Eosinophils # (auto) 0.02 K/uL (0.00-0.50); Eosinophils % (auto) 0.2 %; Hematocrit (blood only) 33.6 % (37.0-47.0); Hemoglobin 10.5 g/dl (12.0-16.0); Immature Granulocytes # (auto) 0.04 K/uL (0.01-0.20); Immature Granulocytes % (auto) 0.4 %; Lymphocytes # (auto) 1.57 K/uL (1.20-3.40); Lymphocytes % (auto) 16.5 %; Mean Corpuscular Hemoglobin 29.6 pg (25.0-34.0); Mean Corpuscular Hgb Conc 31.3 g/dL (32.0-36.0); Mean Corpuscular Volume 94.6 fL (80.0-100.0); Mean Platelet Volume 11.3 fL (9.4-12.4); Monocytes # (auto) 1.11 K/uL (0.11-0.59); Monocytes % (auto) 11.7 %; Neutrophils # (auto) 6.69 K/uL (1.40-6.50); Neutrophils % (auto) 70.5 %; Nucleated RBC # (auto) 0.06 K/uL (0.00-0.12); Nucleated RBC % (auto) 0.6 %; Platelet Count 294 K/uL (130-400); RDW Coefficient of Variation 17.9 % (11.5-14.5); RDW Standard Deviation 62.4 fL (36.4-46.3); Red Blood Count 3.55 M/uL (4.20-5.40)
[2023-09-09 05:14] LABS: INR 1.1 (0.9-1.1); Prothrombin Time 11.5 Seconds (9.0-12.0)
[2023-09-09 05:17] LABS: Albumin Globulin Ratio 1.3 (0.9-2); Albumin Level 3.5 gm/dl (3.4-5.0); BUN Creatinine Ratio 20.3 (10-20); Bilirubin,Total 0.7 mg/dl (0.2-1.0); Calcium 9.6 mg/dl (8.6-10.3); Creatinine Clr Calc Pharmacy 77.4 ml/min; Est GFR (African American) 102.5 ml/min; Est GFR (Non-African American) 88.4 ml/min; Globulin 2.6 gm/dl (2.5-4.0); Magnesium 2.2 mg/dl (1.7-2.4); Total Protein 6.1 gm/dl (6.0-8.3)
[2023-09-09 07:02] LABS: ANTI-Xa, UFH(UnfractionatedHep 0.24 IU/ml (0.3-0.7)
[2023-09-09 09:08] LABS: Troponin I High Sensitivity 629.8 pg/ml (0-14)
--- NOTE | 2023-09-09 09:37 | XCELERA ---
[id number] \\[id number]
--- NOTE | 2023-09-09 11:10 | Critical Care Progress Note ---
Date of Service September 09, 2023 Assessment & Plan (1) Cardiac arrest with successful resuscitation: (2) Ventricular tachycardia: (3) PSVT (paroxysmal supraventricular tachycardia): (4) Status post splenectomy: (5) Acute UTI (urinary tract infection): (6) Elevated troponin: (7) Aortic valve prosthesis present: Plan Reason Critically Ill: 78-year-old female status post ventricular tachycardia cardiac arrest with successful return of spontaneous circulation. 24-hour events: Patient was weaned off of vasopressor agents. She passed a spontaneous breathing trial and was successfully liberated from mechanical ventilator. She has been intermittently febrile PLAN: Neuro: Encephalopathy resolved. Avoid QT prolonging agents. PT OT and out of bed to chair as tolerated. Restart her pramipexole at 0.25 mg nightly. Avoid higher doses to avoid anticipation and augmentation. If she continues to have issues, could consider assessment of iron stores and potentially gabapentin. Resp: Acute respiratory failure secondary to cardiac arrest: Continue to wean oxygen as tolerated. Pulmonary toilet with incentive spirometry and out of bed to chair as tolerated. CV: Ventricular tachycardia. Currently on amiodarone infusion. Can transition to oral per cardiology notes. Follow-up echocardiogram reviewed today with wall motion abnormalities and depressed ejection fraction. Defer to cardiology additional management. Avoid QT prolonging agents. TAVR appears to be functioning appropriately. She is now hemodynamically stable and off pressor agents. Fluids/Renal: No current issues. Will give 1 dose of low-dose Lasix this morning and see how she does. Hyponatremia resolved ID: E. coli identified in the urine resistant to fluoroquinolones Bactrim and ampicillin but sensitive to the ceftriaxone. Day 4 out of 7 Rocephin. Blood cultures 1 out of 2 with gram-positive cocci in chains. PCR was negative and I suspect this was a contaminant. GI/Nutrition: Advance diet as tolerated Heme: Mild anemia. No evidence of active bleeding and hemoglobin today is actually better. Currently on therapeutic infusion of heparin. Duration to be determined by cardiology. 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 Outpatient oncology follow-up Endocrine: ICU hyperglycemia protocol Vascular access: Right subclavian CVC, left radial arterial line Code Status: Conditional code okay with emergent defibrillation and ACLS medications, no CPR in event of cardiac arrest Disposition: Okay to transfer to floor. Critical care services will sign off. Feel free to contact us with questions or concerns Admission and Anticipated Discharge Date Admission Date: September 06, 2023 Subjective Patient seen and examined. EMR reviewed. Discussed with off going sealer sander as well as critical care overnight ALEX. Patient is doing well. She is tolerating bland diet. She has been out of bed to chair with therapy today. Review of Systems Review of Systems: All systems reviewed & are unremarkable except as noted in Subjective Physical Exam Constitutional: WD/WN, vitals as above Neck: trachea midline, no thyromegaly Respiratory: normal respiratory effort, lungs clear to auscultation Cardiovascular: RRR, no murmur, no edema Gastrointestinal (Abdomen): normal bowel sounds, soft, nontender, no hepatosplenomegaly Musculoskeletal: Extremities: extremities normal to inspection Skin: no rashes, warm and dry Neurologic: Nonfocal exam Lymphatic: no cervical lymphadenopathy Results & Data Results & Data Vital Signs (Past 12 Hours) Vital Signs Temp Pulse Resp BP Pulse Ox O2 Del Method O2 Flow Rate 09/09/23 08:44 Nasal Cannula 2 09/09/23 07:00 38.2 C H 108 H 36 H 95 Nasal Cannula 2 09/09/23 07:00 123/75 09/09/23 06:00 38.1 C H 105 H 38 H 09/09/23 06:00 136/82 09/09/23 05:01 129/73 09/09/23 05:01 37.8 C H 104 H 34 H 97 09/09/23 05:00 37.8 C H 102 H 26 H 96 09/09/23 04:00 123/68 09/09/23 04:00 37.5 C 91 H 32 H 97 09/09/23 03:01 37.5 C 90 31 H 09/09/23 03:01 123/67 09/09/23 03:00 37.5 C 76 20 09/09/23 02:29 113/70 09/09/23 02:29 37.6 C H 84 28 H 92 09/09/23 02:00 105/83 09/09/23 02:00 37.7 C H 91 H 26 H 94 09/09/23 01:00 118/63 09/09/23 01:00 38.1 C H 91 H 30 H 92 09/09/23 00:00 124/58 L 09/09/23 00:00 38.5 C H 96 H 09/09/23 00:00 94 H 09/08/23 23:01 120/74 09/08/23 23:01 38.4 C H 103 H 09/08/23 23:00 38.4 C H 101 H 95 Critical Care Results & Data Vital Signs (Past 12 Hours) Vital Signs Temp Pulse Resp BP Pulse Ox O2 Del Method O2 Flow Rate 09/09/23 08:44 Nasal Cannula 2 09/09/23 07:00 38.2 C H 108 H 36 H 95 Nasal Cannula 2 09/09/23 07:00 123/75 09/09/23 06:00 38.1 C H 105 H 38 H 09/09/23 06:00 136/82 09/09/23 05:01 129/73 09/09/23 05:01 37.8 C H 104 H 34 H 97 09/09/23 05:00 37.8 C H 102 H 26 H 96 09/09/23 04:00 123/68 09/09/23 04:00 37.5 C 91 H 32 H 97 09/09/23 03:01 37.5 C 90 31 H 09/09/23 03:01 123/67 09/09/23 03:00 37.5 C 76 20 09/09/23 02:29 113/70 09/09/23 02:29 37.6 C H 84 28 H 92 09/09/23 02:00 105/83 09/09/23 02:00 37.7 C H 91 H 26 H 94 09/09/23 01:00 118/63 09/09/23 01:00 38.1 C H 91 H 30 H 92 09/09/23 00:00 124/58 L 09/09/23 00:00 38.5 C H 96 H 09/09/23 00:00 94 H Lab & Micro Results (Past 24 Hours) RBC 3.55 M/uL (4.20-5.40) L 09/09/23 WBC 9.50 K/ul (4.8-10.8) 09/09/23 Hgb 10.5 g/dl (12.0-16.0) L 09/09/23 Hct 33.6 % (37.0-47.0) L 09/09/23 MCV 94.6 fL (80.0-100.0) 09/09/23 MCH 29.6 pg (25.0-34.0) 09/09/23 MCHC 31.3 g/dL (32.0-36.0) L 09/09/23 RDW Standard Deviation 62.4 fL (36.4-46.3) H 09/09/23 RDW Coefficient of Variation 17.9 % (11.5-14.5) H 09/09/23 Plt Count 294 K/uL (130-400) 09/09/23 MPV 11.3 fL (9.4-12.4) 09/09/23 Nucleated Red Blood Cells % (auto) 0.6 % 09/08 Nucleated RBC Absolute Count (auto) 0.06 K/uL (0.00-0.12) 0 09/09/23 Neutrophils (%) (Auto) 70.5 % 09/09/23 Lymphocytes (%) (Auto) 16.5 % 09/09/23 Monocytes # (Auto) 1.11 K/uL (0.11-0.59) H 09/09/23 Eosinophils # (Auto) 0.02 K/uL (0.00-0.50) 09/09/23 Immature Granulocyte % (Auto) 0.4 % 09/09/23 Neutrophils # (Auto) 6.69 K/uL (1.40-6.50) H 09/09/23 Lymphocytes # (Auto) 1.57 K/uL (1.20-3.40) 09/09/23 Monocytes # (Auto) 1.11 K/uL (0.11-0.59) H 09/09/23 Eosinophils # (Auto) 0.02 K/uL (0.00-0.50) 09/09/23 Basophils # (Auto) 0.07 K/uL (0.00-0.20) 09/09/23 Immature Granulocyte # (Auto) 0.04 K/uL (0.01-0.20) 4 Na 138 mmol/L (136-145) 09/09/23 K 4.0 mmol/L (3.5-5.1) 09/09/23 Cl 105 mmol/L (98-107) 09/09/23 CO2 24 mmol/L (21-32) 09/09/23 Anion Gap 9 (3-11) 09/09/23 BUN 12 mg/dl (6-23) 09/09/23 Creatinine 0.59 mg/dl (0.6-1.2) L 09/09/23 Estimated GFR ( Amer) 102.5 ml/min 09/09/23 Estimated GFR (Non-Af Amer) 88.4 ml/min 09/09/23 BUN/Creatinine Ratio 20.3 (10-20) H 09/09/23 Glu 106 mg/dl (70-99(Fasting)) H 09/09/23 Ca 9.6 mg/dl (8.6-10.3) 09/09/23 Total Bilirubin 0.7 mg/dl (0.2-1.0) 09/09/23 AST 42 U/L (13-39) H 09/09/23 ALT 29 U/L (7-52) 09/09/23 Alkaline Phosphatase 56 U/L (34-104) 09/09/23 TP 6.1 gm/dl (6.0-8.3) 09/09/23 Albumin 3.5 gm/dl (3.4-5.0) 09/09/23 Globulin 2.6 gm/dl (2.5-4.0) 09/09/23 Albumin/Globulin Ratio 1.3 (0.9-2) 09/09/23 Mg 2.2 mg/dl (1.7-2.4) 09/09/23 04:29 Calcium Level 9.6 mg/dl (8.6-10.3) 09/09/23 04:29 Prothromb Time International Ratio 1.1 (0.9-1.1) 09/09/23 04:2 9 Microbiology 09/06/23 14:35 Aerobic Blood Culture - Preliminary Blood No growth in Aerobic bottle after 48 hours. Anaerobic Blood Culture - Preliminary Gram positive cocci in chains 09/06/23 14:20 Aerobic Blood Culture - Preliminary Blood No growth in Aerobic bottle after 48 hours. Anaerobic Blood Culture - Preliminary No growth in Anaerobic bottle after 48 hours. 09/06/23 14:14 Urine Culture - Final Urine,Straight Cath Escherichia coli I & O Totals 24 Hours 09/08/23 09/09/23 09/10/23 06:59 06:59 06:59 Intake Total 2260.542 / 2260.542 1597.778 / 1597.778 351.65 / 351.65 Output Total 1031 / 1031 2685 / 2685 Balance 1229.542 / 1229.542 -1087.222 / -1087.222 351.65 / 351.65 Cumulative 09/06/23 13:40 thru 09/09/23 07:14 Intake Total 7711.637 Output Total 3996 Balance 3715.637 RT Ventilator Mngmt (Last Documented) Ventilator Ordered Settings Ventilator Support Mode Assist Control 09/08/23 11:13 Respiratory Rate 36 09/09/23 07:00 Ventilator Tidal Volume 370 09/08/23 11:13 Setting Minute Ventilation 7.5 09/08/23 11:13 Positive End Expiratory 5 09/08/23 11:13 Pressure Fraction of Inspired Oxygen 30 09/08/23 11:13 Ventilator - PT Measurements Respiratory Rate 36 Exhaled Tidal Volume 375 Minute Ventilation 7.5 Peak Inspiratory Airway 12 Pressure Plateau Pressure 12 Respiratory Cycle Inspiratory: 1:4.5 Expiratory Ratio Inspiratory Phase Time 0.65 End-Tidal CO2 36 Static Lung Compliance 53.57 Dynamic Lung Compliance 53.57 Normal Static Lung Compliance 49.00 Patient Measurements Comment Patient extubated at this time per verbal order per JOVANA Kohli per Dr. Martinez to 2L Oxymask. Coding Level of Care Code 58378 SUB INP/OBS CARE 3/50MIN Diagnoses Cardiac arrest with successful resuscitation I46.9 Ventricular tachycardia I47.20 PSVT (paroxysmal supraventricular tachycardia) I47.10 Status post splenectomy Z90.81 Acute UTI (urinary tract infection) N39.0 Elevated troponin R79.89 Aortic valve prosthesis present Z95.2
--- NOTE | 2023-09-09 12:38 | Cardiology Progress Note ---
Date of Service September 09, 2023 Assessment & Plan (1) S/p TAVR (transcatheter aortic valve replacement), bioprosthetic: (2) Ventricular tachycardia: (3) Elevated troponin: (4) Cardiac arrest with successful resuscitation: Plan Overall clinical status improving, off pressors and off mechanical ventilation. No evidence of ongoing myocardial ischemia (no chest pain, troponin dropping), dysrhythmia (telemetry benign on oral amiodarone), or overt heart failure (able to lie flat). Agree with continuing amiodarone given her frequent and sustained ventricular tachycardia previously as well as her persistent cardiomyopathy. Volume status appears reasonable. Although it seems unlikely that she has developed significant coronary artery disease given angiographically normal catheterization March 2022, cannot exclude a thrombotic event given extensive and persistent wall motion abnormalities (perhaps due to a low flow state). She has received heparin for 72 hours, could change anticoagulation to DVT prophylaxis at this point. Generally, antiplatelet therapy such as aspirin is recommended long-term post TAVR, unless there is a specific contraindication would recommend initiating aspirin 81 mg daily. After she further recovers from her recent hypotension/respiratory failure, additional evaluation of her recent onset cardiomyopathy is warranted (pharmacologic stress study versus catheterization). Will continue to follow along. Admission and Anticipated Discharge Date Admission Date: September 06, 2023 Subjective Uneventful night. Remains off vasopressors and respiratory status improving off ventilation. Changed from IV to oral amiodarone. Echocardiogram showed EF 25 to 30% with persistent wall motion abnormalities. Compared with study from 2 days prior there was no significant change. Patient denies any chest pain, dyspnea, palpitations, or lightheadedness. She is able to lie flat without difficulty. Physical Exam Physical Exam: No distress. BP 97/71 mmHg. Pulse 88 bpm and regular. Skin: no generalized lesions. HEENT: unremarkable. Neck: JVP unremarkable. Lungs: Scattered rhonchi, no obvious crackles or wheezes. No accessory muscle use. . Cardiac: regular rhythm, readily audible aortic closure sound, 2/6 systolic ejection murmur right upper sternal border, no diastolic murmur. Abdomen: benign. Extremities: no edema. Neurologic: Awake, answers simple questions appropriately, grossly nonfocal. Results & Data Laboratory Results Normal electrolytes, BUN 12, creatinine 0.59. Hemoglobin 10.5. Troponin 1135 yesterday 629 today. Diagnostic Findings Echo results as noted in HPI. PG Care Time/CCT Total # of Minutes Spent Total Time Spent with Patient: Total time spent is greater than 50% in coordination of care (as documented) at patient's floor/unit and/or counseling patient: Coding Level of Care Code 18520 SUB INP/OBS CARE 3/50MIN Diagnoses S/p TAVR (transcatheter aortic valve replacement), bioprosthetic Z95.3 Ventricular tachycardia I47.20 Elevated troponin R79.89 Cardiac arrest with successful resuscitation I46.9
[2023-09-09] MEDS: FUROSEMIDE 20 MG TAB PO SCH (13:10)
[2023-09-09] MEDS ORDERED: VANCOMYCIN CONSULT ACTIVE PRN (13:16)
[2023-09-09 13:35] LABS: ANTI-Xa, UFH(UnfractionatedHep 0.24 IU/ml (0.3-0.7)
--- NOTE | 2023-09-09 13:56 | Pharmacy Report ---
Pharmacy PK ABX Note - Date of Service September 09, 2023 - Assessment and Plan Assessment 78 year old F receiving Vancomycin for possible bacteremia and ceftriaxone for a UTI. * Previously received 2 days of Cefepime then transitioned to Ceftriaxone (day#2) for UTI. Day #1 of vancomycin for bacteremia (did receive a loading dose and one vancomycin maintenance dose on 09/06/23. * Labs/Vitals: persistently febrile (24 hr Tmax of 38.5oC), SCr 0.59 mg/dL, CrCl 77 mL/min, white count 9,500. * Micro: Urine culture grew E. coli that is sensitive to Ceftriaxone. Blood cultures from 09/06/23 grew GPCs in 1 of 2 sets, biofire negative (originally considered a contaminant). Plan Vancomycin * Loading dose: 1750 mg IV x 1 * Maintenance dose: 1000 mg IV every 12 hours * Regimen is predicted to achieve target AUC/KENIA of 400-600 mg/L.hr * Pharmacy has transitioned to AUC monitoring for vancomycin. AUC/KENIA is the preferred PK/PD target and is associated with decreased risk of nephrotoxicity compared to traditional trough targets. * Trough level will be ordered if therapy extends beyond 48 hours Ceftriaxone * 1000 mg IV every 24 hours Pharmacy will continue to follow and will adjust dose/frequency as necessary. Thank you.
[2023-09-09] MEDS: VANCOMYCIN HCL 1,750 MG in SODIUM CHLORIDE 0.9% 500 ML IV STA (14:10)
[2023-09-09] MEDS: ASPIRIN 81 MG ECTAB PO SCH (14:11)
[2023-09-09] MEDS: ENOXAPARIN INJ 40 MG/0.4 ML SYR SQ SCH (14:11)
[2023-09-09] MEDS ORDERED: SODIUM CHLORIDE 0.9% 10ML FLUSH IV ONE (14:19)
[2023-09-09] MEDS ORDERED: ATROPINE SULFATE 0.1 MG/ML 10ML SYR IV ONE (14:19)
[2023-09-09] MEDS: INSULIN ASPART PER UNIT CHARGE SC SCH (17:25)
[2023-09-09] MEDS: AMIODARONE 200 MG TAB PO SCH (17:47)
--- NOTE | 2023-09-09 18:16 | Hospitalist Progress Note ---
Date of Service September 09, 2023 Assessment & Plan (1) Sepsis: Plan: Present on admission. Due to suspected UTI but with ongoing fevers despite adequate treatment for UTI With septic shock, was on vasopressors and on vent after cardiac arrest-now weaned off pressors. Leukocytosis improving, BPs improved, with some tachypnea today with fever, mild cough after eating-possible aspiration? BCxs from 09/05 now growing GPC in chains, BioFire negative -check respiratory viral panel BioFire -check CXR in AM -consider repeat CT abd/pel to assess previously seen fluid collection near pancreas which may be related to recent splenectomy -repeat blood cxs -add on Vanco to cover for GPC in Blood cxs -change ceftriaxone to ZOsyn for better aspiration and Pseudomonas coverage for PNA -consider repeat UA -consider ID consultation (2) Ventricular tachycardia: Plan: Suffered VT and then VF arrest on 09/06, required intubation, amiodarone gtt, and transfer to ICU for pressors after ROSC Appreciate Cardiology management Switch to po amiodarone, dc IV amiodarone Monitor on tele keep Lytes replete (3) Altered mental status: Plan: Acute metabolic encephalopathy present on admission probably due ongoing sepsis, hypotension Brain MRI negative for acute (4) Suspected UTI: Plan: E. coli isolated from urine cultures, remains on Ceftriaxone but with persistent fever-switch to Zosyn Fischer remains in place-will need to remove (5) Elevated troponin: Plan: Troponin peaked at 1325, no chest pain, no acute EKG changes. No chest pain prior to CODE BLUE. Cardiac echo report noted. Ejection fraction is down to 25-35% but this could be related to the infectious process. Limited cardiac echo repeated and again shows the same (6) Hyponatremia: Plan: Mild on admission and now resolved follow BMP (7) Fall: Plan: Fall at home probably due to acute UTI with acute metabolic encephalopathy. Supportive care. Treat underlying illness. OT and PT assessments requested (8) Status post splenectomy: Plan: Recently completed at another hospital on August 15 of this year. 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 No intervention necessary at this time. 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 PT/OT consulted Admission and Anticipated Discharge Date Admission Date: September 06, 2023 Subjective Pt remains slightly confused at times, febrile this AM and again in the evening. Started having a lot of coughing after eating solid foods today. She denies abd pain. She is moving her bowels, no diarrhea. No nausea. Denies CP or SOB. Physical Exam Constitutional: WD/WN, vitals as above Respiratory: + cough and + tachypneic (mild, at rest) Auscultation: + crackles (at right base); no rhonchi and no wheezes Cardiovascular: Rate/Rhythm: regular rate and regular rhythm Heart Sounds: + murmur (2/6 SHARON at the RUSB) Gastrointestinal (Abdomen): Inspection/Auscultation: + abdomen abnormal to inspection (midline lap incision well healed) Percussion/Palpation: abdomen soft; abdomen nontender and no guarding Psychiatric: Orientation: alert, oriented to person, oriented to place and cooperative Results & Data Results & Data Vital Signs (Past 12 Hours) Vital Signs Temp Pulse Resp BP Pulse Ox O2 Del Method O2 Flow Rate 09/09/23 17:00 109/75 09/09/23 17:00 111 H 26 H 95 09/09/23 16:00 144/77 H 09/09/23 16:00 38.4 C H 100 H 97 Nasal Cannula 2 09/09/23 15:00 131/63 09/09/23 15:00 38.3 C H 94 H 99 09/09/23 14:00 123/66 09/09/23 14:00 38.0 C H 90 29 H 100 09/09/23 13:01 116/60 09/09/23 13:01 37.6 C H 82 21 09/09/23 13:00 37.6 C H 82 93 09/09/23 12:00 113/61 09/09/23 12:00 37.4 C 81 26 H 92 Nasal Cannula 2 09/09/23 11:47 111/69 09/09/23 11:47 37.3 C 78 20 92 09/09/23 11:01 97/71 L 09/09/23 11:01 37.5 C 88 21 95 Nasal Cannula 2 09/09/23 11:00 37.6 C H 84 25 H 100 09/09/23 10:14 120/58 L 09/09/23 10:14 37.5 C 100 H 32 H 94 09/09/23 10:12 103/83 09/09/23 10:12 37.5 C 98 H 26 H 95 09/09/23 10:00 111/61 09/09/23 10:00 37.6 C H 88 25 H 96 09/09/23 09:00 37.6 C H 80 21 96 09/09/23 09:00 100/53 L 09/09/23 08:44 Nasal Cannula 2 09/09/23 08:00 37.5 C 96 H 27 H 98 09/09/23 08:00 111/54 L 09/09/23 07:00 38.2 C H 108 H 36 H 95 Nasal Cannula 2 09/09/23 07:00 123/75 Laboratory Results CBC, CMP, magnesium, blood cxs reviewed PG Care Time/CCT Total # of Minutes Spent Total Time Spent with Patient: Total time spent is greater than 50% in coordination of care (as documented) at patient's floor/unit and/or counseling patient: Coding Level of Care Code 26788 SUB INP/OBS CARE 3/50MIN Diagnoses Sepsis A41.9 Ventricular tachycardia I47.20 Altered mental status R41.82 Suspected UTI R39.89 Elevated troponin R79.89 Hyponatremia E87.1 Fall W19.XXXA Status post splenectomy Z90.81 Dysphagia R13.10 T-cell large granular lymphocytic leukemia C91.Z0 Aortic valve prosthesis present Z95.2 Cardiomyopathy I42.9
[2023-09-09] MEDS: PIPERACILLIN/TAZOBACTAM 4.5 GM in DEXTROSE 5% MINI-B 100 ML IV ONE (19:37)
[2023-09-09] MEDS ORDERED: PRAMIPEXOLE DIHYDROCHLO 0.5 MG TAB PO SCH (21:00)
[2023-09-09] MEDS: PRAMIPEXOLE DIHYDROCHLO 0.25 MG TAB PO SCH (21:12)
[2023-09-09] MEDS: ACETAMINOPHEN 325 MG TAB PO PRN (22:41)
[2023-09-09 23:31] LABS: Adenovirus PCR Not Detected (NotDetected); Bordetella parapertussis PCR Not Detected (NotDetected); Bordetella pertussis PCR Not Detected (NotDetected); Chlamydia pneumoniae PCR Not Detected (NotDetected); Coronavirus 229E PCR Not Detected (NotDetected); Coronavirus CoV-2 (COVID19)PCR Not Detected (NotDetected); Coronavirus HKU1 PCR Not Detected (NotDetected); Coronavirus NL63 PCR Not Detected (NotDetected); Coronavirus OC43PCR Not Detected (NotDetected); Human Metapneumovirus PCR Not Detected (NotDetected); Influenza A PCR Not Detected (NotDetected); Influenza B PCR Not Detected (NotDetected); Mycoplasma pneumoniae PCR Not Detected (NotDetected); Parainfluenza Virus 1 PCR Not Detected (NotDetected); Parainfluenza Virus 2 PCR Not Detected (NotDetected); Parainfluenza Virus 3 PCR Not Detected (NotDetected); Parainfluenza Virus 4 PCR Not Detected (NotDetected); Respiratory Syncytial VirusPCR Not Detected (NotDetected); Rhinovirus/Enterovirus PCR Not Detected (NotDetected)
[2023-09-10] MEDS: PIPERACILLIN/TAZOBACTAM 4.5 GM in DEXTROSE 5% MINI-B 100 ML IV SCH (01:10)
[2023-09-10] MEDS: VANCOMYCIN HCL 1,000 MG in SODIUM CHLORIDE 0.9% 250 ML IV SCH (01:10)
[2023-09-10 06:16] LABS: Basophils # (auto) 0.12 K/uL (0.00-0.20); Basophils % (auto) 1.5 %; Eosinophils # (auto) 0.06 K/uL (0.00-0.50); Eosinophils % (auto) 0.8 %; Hematocrit (blood only) 29.3 % (37.0-47.0); Hemoglobin 9.2 g/dl (12.0-16.0); Immature Granulocytes # (auto) 0.03 K/uL (0.01-0.20); Immature Granulocytes % (auto) 0.4 %; Lymphocytes # (auto) 1.15 K/uL (1.20-3.40); Lymphocytes % (auto) 14.4 %; Mean Corpuscular Hemoglobin 29.8 pg (25.0-34.0); Mean Corpuscular Hgb Conc 31.4 g/dL (32.0-36.0); Mean Corpuscular Volume 94.8 fL (80.0-100.0); Mean Platelet Volume 11.5 fL (9.4-12.4); Monocytes # (auto) 1.15 K/uL (0.11-0.59); Monocytes % (auto) 14.4 %; Neutrophils # (auto) 5.45 K/uL (1.40-6.50); Neutrophils % (auto) 68.5 %; Nucleated RBC # (auto) 0.05 K/uL (0.00-0.12); Nucleated RBC % (auto) 0.6 %; Platelet Count 297 K/uL (130-400); RDW Coefficient of Variation 18.4 % (11.5-14.5); RDW Standard Deviation 63.9 fL (36.4-46.3); Red Blood Count 3.09 M/uL (4.20-5.40); White Blood Count 7.96 K/ul (4.8-10.8)
[2023-09-10 06:23] LABS: Albumin Globulin Ratio 1.4 (0.9-2); Albumin Level 3.3 gm/dl (3.4-5.0); Bilirubin,Total 0.9 mg/dl (0.2-1.0); Calcium 9.5 mg/dl (8.6-10.3); Est GFR (African American) 101.9 ml/min; Est GFR (Non-African American) 87.9 ml/min; Globulin 2.4 gm/dl (2.5-4.0); Potassium 3.2 mmol/L (3.5-5.1); Total Protein 5.7 gm/dl (6.0-8.3)
--- NOTE | 2023-09-10 07:16 | XRay Report ---
XR chest 1V portable CLINICAL HISTORY: f/u cough, fever COMPARISON STUDY: Chest radiograph September 08, 2023. FINDINGS: The endotracheal and nasogastric tubes have been removed. Right subclavian central line rem ains in place. There is no pneumothorax. Small bilateral pleural effusions persist. There is a prosth etic aortic valve. There is cardiomegaly with persistent interstitial pulmonary edema. Bibasilar opac ities persist. I IMPRESSION: Persistent pulmonary edema with small bilateral pleural effusions and associated bibasilar opacities. ACT 112: Negative or not required by law. Electronically signed by: Bryan Carr M.D. 09/10/2023 7:14 AM
[2023-09-10] MEDS: CYANOCOBALAMIN (B-12) 500 MCG TABLET PO SCH (11:07)
[2023-09-10] MEDS: FOLIC ACID 1 MG TAB PO SCH (11:07)
[2023-09-10] MEDS: OXYBUTYNIN CHLORIDE XL 5 MG TABCR PO SCH (11:08)
[2023-09-10] MEDS: POTASSIUM CHLORIDE CRTAB 20 MEQ TABCR PO SCH (11:12)
--- NOTE | 2023-09-10 13:59 | Hospitalist Progress Note ---
Date of Service September 10, 2023 Assessment & Plan (1) Sepsis: Plan: Present on admission. Due to suspected UTI but with ongoing fevers for many days despite adequate treatment for UTI With septic shock, was on vasopressors and on vent after cardiac arrest-now weaned off pressors. Leukocytosis resolved, BPs normalized, tachypnea and fever now improved Remains with persistent cough that started after eating-possible aspiration? SPeech consulted and did well with bedside swallow eval BCxs from 09/05 growing GPC in chains, BioFire negative Repeat BCxs 09/08 NGTD Respiratory BioFire negative 09/08 CXR with pleural effusions, possible PNA CT abd/pel on admission w/ fluid collection near pancreas which may be related to recent splenectomy--> if continued fevers, would re-image abdomen Continue Vanco to cover for GPC in Blood cxs until repeat blood cxs negative Changed ceftriaxone to Zosyn on 09/08 for better aspiration and Pseudomonas coverage for PNA and now improving (2) Ventricular tachycardia: Plan: Suffered VT and then VF arrest on 09/06, required intubation, amiodarone gtt, and transfer to ICU for pressors after ROSC Appreciate Cardiology management Continue on po amiodarone loading dose Monitor on tele-only with some brief SVT keep Lytes replete -give po KCl today bid Follow BMP, magnesium Giving IV lasix 20mg x 1 today and then lasix 20mg po bid tomorrow for volume overload on CXR (3) Altered mental status: Plan: Acute metabolic encephalopathy present on admission probably due ongoing sepsis, hypotension Brain MRI negative for acute (4) Suspected UTI: Plan: E. coli isolated from urine cultures, remains on Ceftriaxone but with persistent fever-switched to Zosyn Fischer remains in place-will need to remove tomorrow after IV lasix today (5) Elevated troponin: Plan: Troponin peaked at 1325, no chest pain, no acute EKG changes. No chest pain prior to CODE BLUE. Cardiac echo report noted. Ejection fraction is down to 25-35% but this could be related to the infectious process. Limited cardiac echo repeated and again shows the same (6) Hyponatremia: Plan: Mild on admission and now resolved follow BMP (7) Fall: Plan: Fall at home probably due to acute UTI with acute metabolic encephalopathy. Supportive care. Treat underlying illness. OT and PT assessments requested (8) Status post splenectomy: Plan: Recently completed at another hospital on August 15 of this year. 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 No intervention necessary at this time. 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 PT/OT consulted and recommend acute rehab Called daughter and left VM on 09/09 Admission and Anticipated Discharge Date Admission Date: September 06, 2023 Subjective Pt feeling better today but still c/o bad cough. Feels weak and knows she needs rehab. Tele with a few small runs of SVT but otherwise with NSR, normal rates Physical Exam Constitutional: WD/WN, vitals as above Respiratory: normal respiratory effort and + cough Auscultation: + crackles (bibasilar ); no rhonchi and no wheezes Cardiovascular: Rate/Rhythm: regular rate and regular rhythm Heart Sounds: + murmur (2/6 SHARON at the RUSB) Gastrointestinal (Abdomen): Inspection/Auscultation: + abdomen abnormal to inspection (midline lap incision well healed) Percussion/Palpation: abdomen soft; abdomen nontender and no guarding Psychiatric: Orientation: alert, oriented to person, oriented to place and cooperative Genitourinary: Fischer in place Results & Data Results & Data Vital Signs (Past 12 Hours) Vital Signs Temp Pulse Pulse Resp BP Pulse Ox O2 Del Method 09/10/23 11:21 36.8 C 89 21 115/55 L 94 Nasal Cannula 09/10/23 10:20 Nasal Cannula 09/10/23 08:08 37.2 C 73 21 115/64 91 Room Air 09/10/23 08:00 78 09/10/23 03:05 36.5 C 76 20 114/65 92 Room Air Laboratory Results CBC, BMP, LFTs, blood cxs reviewed Diagnostic Findings CXR reviewed PG Care Time/CCT Total # of Minutes Spent Total Time Spent with Patient: Total time spent is greater than 50% in coordination of care (as documented) at patient's floor/unit and/or counseling patient: Coding Level of Care Code 60284 SUB INP/OBS CARE 3/50MIN Diagnoses Sepsis A41.9 Ventricular tachycardia I47.20 Altered mental status R41.82 Suspected UTI R39.89 Elevated troponin R79.89 Hyponatremia E87.1 Fall W19.XXXA Status post splenectomy Z90.81 Dysphagia R13.10 T-cell large granular lymphocytic leukemia C91.Z0 Aortic valve prosthesis present Z95.2 Cardiomyopathy I42.9
[2023-09-10] MEDS: FUROSEMIDE INJ 20 MG/2 ML VIAL IV ONE ×2 (14:08)
[2023-09-10] MEDS: guaiFENesin/DEXTROM SYRUP 200MG/20MG 10ML UDC PO SCH (14:30)
[2023-09-10] MEDS ORDERED: FUROSEMIDE 20 MG TAB PO SCH (17:00)
[2023-09-11] MEDS: HYDROmorphone INJ 0.5 MG/0.5 ML SYR IV STA (00:56)
[2023-09-11 06:35] LABS: Basophils % (auto) 2.7 %; Eosinophils # (auto) 0.08 K/uL (0.00-0.50); Eosinophils % (auto) 1.1 %; Hematocrit (blood only) 33.9 % (37.0-47.0); Hemoglobin 10.5 g/dl (12.0-16.0); Immature Granulocytes # (auto) 0.04 K/uL (0.01-0.20); Immature Granulocytes % (auto) 0.5 %; Lymphocytes # (auto) 1.56 K/uL (1.20-3.40); Lymphocytes % (auto) 21.4 %; Mean Corpuscular Hemoglobin 29.7 pg (25.0-34.0); Mean Corpuscular Volume 95.8 fL (80.0-100.0); Mean Platelet Volume 11.4 fL (9.4-12.4); Monocytes # (auto) 1.28 K/uL (0.11-0.59); Monocytes % (auto) 17.6 %; Neutrophils # (auto) 4.13 K/uL (1.40-6.50); Neutrophils % (auto) 56.7 %; Nucleated RBC # (auto) 0.08 K/uL (0.00-0.12); Nucleated RBC % (auto) 1.1 %; Platelet Count 293 K/uL (130-400); RDW Coefficient of Variation 18.6 % (11.5-14.5); RDW Standard Deviation 64.9 fL (36.4-46.3); Red Blood Count 3.54 M/uL (4.20-5.40); White Blood Count 7.29 K/ul (4.8-10.8)
[2023-09-11 06:45] LABS: Albumin Globulin Ratio 1.5 (0.9-2); Albumin Level 3.7 gm/dl (3.4-5.0); BUN Creatinine Ratio 15.9 (10-20); Bilirubin,Total 0.7 mg/dl (0.2-1.0); Calcium 9.7 mg/dl (8.6-10.3); Creatinine Clr Calc Pharmacy 71.5 ml/min; Est GFR (African American) 100.3 ml/min; Est GFR (Non-African American) 86.5 ml/min; Globulin 2.5 gm/dl (2.5-4.0); Magnesium 1.9 mg/dl (1.7-2.4); Potassium 3.9 mmol/L (3.5-5.1); Total Protein 6.2 gm/dl (6.0-8.3)
[2023-09-11] MEDS: FUROSEMIDE 20 MG TAB PO SCH (08:49)
[2023-09-11] MEDS ORDERED: STAT IV Infusion **Titration per Protocol STA (10:00)
[2023-09-11] MEDS ORDERED: AMIODARONE IV BOLUS & DRIP IV STA (10:00)
[2023-09-11] MEDS ORDERED: 0.2 MICRON FILTER SET 1 EACH IV STA (10:00)
[2023-09-11] MEDS: METOPROLOL TARTRATE 1 MG/ML VIAL IV STA (10:05)
[2023-09-11] MEDS: NITROGLYCERIN SL 0.4 MG/TAB TAB ONE (10:06)
[2023-09-11] MEDS: AMIODARONE / D5W 360 MG/200 ML BAG IV ONE (10:21)
[2023-09-11] MEDS: NITROGLYCERIN SL 0.4 MG/TAB TAB SL STA (10:22)
--- NOTE | 2023-09-11 10:26 | XRay Report ---
XR chest 1V portable CLINICAL HISTORY: hypoxia,SOB TECHNIQUE: Single frontal radiograph of the chest was obtained. Comparison: Comparison is made to chest radiograph 09/09/1993 FINDINGS: No lines and tubes are seen. Cardiomegaly is noted. There is prominence and cephalization of the vasc ulature with Zack B lines seen. Central airspace opacities are seen. Small bilateral pleural effusi ons are seen. IMPRESSION: 1. Cardiomegaly and moderate pulmonary edema. 2. Central airspace opacities likely represent alveolar edema, less likely infectious/inflammatory p rocess. 3. Small bilateral pleural effusions. ACT 112: Negative or not required by law. Electronically signed by: Johnnie Lee M.D. 09/11/2023 10:25 AM
--- NOTE | 2023-09-11 10:38 | Hospitalist Progress Note ---
Date of Service September 11, 2023 Assessment & Plan (1) STEMI (ST elevation myocardial infarction): Plan: Patient had acute onset of substernal chest pain, sinus tachycardia in the 130s, hypertension, worsening respiratory failure, and ST elevations with left bundle branch block seen on ECG Heart alert was called and cardiac catheterization urgently performed showed only mild to moderate nonobstructive CAD with 40% ostial circumflex and 40% mid RCA Suspect possible vasospasm or strain from heart failure with flash pulmonary edema from hypertension and tachycardia. Did have elevated LVEDP on catheter 27. Troponin did trend upward slightly afterwards to 400s which is still lower than on admission Start Toprol-XL 25 mg daily Start isosorbide 30 mg daily Give Lasix 40 mg IV x 1 now and again daily in the morning, monitor urine output Continue aspirin given history of TAVR Continue to monitor on telemetry (2) Sepsis: Plan: Present on admission. Due to suspected UTI but with ongoing fevers for many days despite adequate treatment for UTI With septic shock, was on vasopressors and on vent after cardiac arrest-now weaned off pressors. Leukocytosis resolved, BPs normalized, tachypnea and fever now resolved since switching antibiotics to Zosyn and vancomycin Remains with persistent cough that started after eating-possible aspiration? SPeech consulted and did well with bedside swallow eval BCxs from 09/05 growing GPC in chains, BioFire negative Repeat BCxs 09/08 NGTD over 48 hours Respiratory BioFire negative 09/08 CXR with pleural effusions, possible PNA CT abd/pel on admission w/ fluid collection near pancreas which may be related to recent splenectomy--> if continued fevers, would re-image abdomen Continue Vanco to cover for GPC in Blood cxs until repeat blood cxs negative-can likely discontinue tomorrow Changed ceftriaxone to Zosyn on 09/08 for better aspiration and Pseudomonas coverage for PNA and now improving-continue Zosyn (3) Ventricular tachycardia: Plan: Suffered VT and then VF arrest on 09/06, required intubation, amiodarone gtt, and transfer to ICU for pressors after ROSC Appreciate Cardiology management Continue on po amiodarone loading dose Monitor on tele-only with some brief SVT occasionally and then sinus tachycardia on 09/10 keep Lytes replete -no replacement needed today Follow BMP, magnesium (4) Cardiomyopathy: Plan: With acute HFrEF as above, echo here with EF 25-30%, +WMAs Had normal cath in prep for TAVR in 2021 so unlikely developed blockages since then. Now with repeat cardiac catheterization on 09/10 as above again with only mild to moderate nonobstructive CAD May have been reduced EF post arrest started ASA 81mg daily Repeat limited echo tomorrow Now that blood pressures are recovered from previous septic shock, start Toprol- XL 25 mg daily Giving diuresis with IV Lasix as above Plan to also add on Entresto versus lisinopril if EF not improving (5) Altered mental status: Plan: Acute metabolic encephalopathy present on admission probably due ongoing sepsis, hypotension Brain MRI negative for acute Now resolved-much improved (6) Suspected UTI: Plan: E. coli isolated from urine cultures, remains on Ceftriaxone but with persistent fever-switched to Zosyn Fischer remains in place-will need to remove tomorrow after IV lasix today (7) Elevated troponin: Plan: Troponin peaked at 1325, no chest pain, no acute EKG changes initially. No chest pain prior to CODE BLUE. Cardiac echo report noted. Then with chest pain as above related to CHF with cardiac catheterization on 09/10 with mild to moderate nonobstructive CAD Trend troponin but likely increased from demand ischemia with CHF (8) Fall: Plan: Fall at home probably due to sepsis with acute metabolic encephalopathy. Supportive care. Treat underlying illness. OT and PT ongoing (9) Status post splenectomy: Plan: Recently completed at another hospital on August 15 of this year. 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 No intervention necessary at this time. 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 PT/OT consulted and recommend acute rehab Updated daughter extensively on 09/10 Admission and Anticipated Discharge Date Admission Date: September 06, 2023 Subjective I was contacted by nursing urgently this morning for suspected runs of ventricular tachycardia and for the patient not looking well. When I arrived, she was complaining of severe substernal chest pain and appeared delcid in color. She was tachycardic in the 130s with a widened QRS but it was sinus tachycardia and she was hypertensive in the 170s over 1 teens. She was complaining of shortness of breath as well. Initial ECG showed perhaps some very subtle ST elevations but was difficult to tell with her bundle branch block. A code purple was called. I consulted with the asset protection representative urgently who recommended bolusing IV amiodarone in case of recurrent sustained ventricular tachycardia until further review. She was given sublingual nitroglycerin and IV Lopressor and began to have improvement in her heart rate, blood pressure, and chest pain. A repeat ECG then showed more pronounced ST elevations in the anterolateral leads with a widened QRS. I decision was made in conjunction with asset protection representative to call a heart alert. She was given the second dose of sublingual nitroglycerin. Chest x-ray showed pulmonary edema and pleural effusions In discussion with the patient she was agreeable to a cardiac catheterization to assess for acute coronary syndrome. I discussed her care with her daughter at length on the phone. Physical Exam Constitutional: + acute distress and + ill appearing Respiratory: + labored breathing, + cough and + tachy pneic Auscultation: + crackles (bibasilar ) and + rhonchi; no wheezes Cardiovascular: Rate/Rhythm: regular rhythm and + tachycardic Heart Sounds: + murmur (2/6 SHARON at the RUSB) Gastrointestinal (Abdomen): Inspection/Auscultation: + abdomen abnormal to inspection (midline lap incision well healed) Percussion/Palpation: abdomen soft; abdomen nontender and no guarding Psychiatric: Orientation: alert, oriented to person, oriented to place and cooperative Results & Data Results & Data Vital Signs (Past 12 Hours) Vital Signs Temp Pulse Resp BP Pulse Ox O2 Del Method O2 Flow Rate 09/11/23 07:51 36.6 C 76 18 130/83 90 Room Air 09/11/23 03:18 36.8 C 80 18 126/74 90 Nasal Cannula 1 09/11/23 00:56 122/80 09/10/23 23:00 37.4 C 72 18 125/61 90 Room Air 09/10/23 22:44 Room Air Laboratory Results CBC, BMP, troponin reviewed Diagnostic Findings Chest x-ray image personally reviewed by me PG Care Time/CCT Total # of Minutes Spent Total Time Spent with Patient: Total time spent is greater than 50% in coordination of care (as documented) at patient's floor/unit and/or counseling patient: Critical Care Time: Yes Total Critical Care Time: 45 Coding Level of Care Code 24112 SUB INP/OBS CARE 3/50MIN (25 - SIGNIFICANT, SEPARATELY IDENTIFIABLE ) Diagnoses STEMI (ST elevation myocardial infarction) I21.3 Sepsis A41.9 Ventricular tachycardia I47.20 Cardiomyopathy I42.9 Altered mental status R41.82 Suspected UTI R39.89 Elevated troponin R79.89 Fall W19.XXXA Status post splenectomy Z90.81 Dysphagia R13.10 T-cell large granular lymphocytic leukemia C91.Z0 Aortic valve prosthesis present Z95.2 Additional Codes Critical Care Time - Critical Care Time: Yes ([id number])
[2023-09-11] MEDS: OPTIRAY 350 ONE (11:43)
--- NOTE | 2023-09-11 11:52 | Pre Anesthesia Assessment ---
Date of Service September 11, 2023 Pre Sedation Assessment Vital Signs Temp Pulse Pulse Resp BP Pulse Ox O2 Del Method 09/11/23 07:51 97.9 F 76 18 130/83 90 Room Air 09/11/23 06:00 69 09/11/23 03:18 98.2 F 80 18 126/74 90 Nasal Cannula 09/11/23 00:56 122/80 09/10/23 23:00 99.3 F 72 18 125/61 90 Room Air 09/10/23 22:44 Room Air 09/10/23 19:00 99.0 F 88 18 129/68 95 Room Air 09/10/23 15:43 Nasal Cannula 09/10/23 15:20 98.8 F 81 19 115/63 92 Room Air 09/10/23 14:53 83 O2 Flow Rate 09/11/23 07:51 09/11/23 06:00 09/11/23 03:18 1 09/11/23 00:56 09/10/23 23:00 09/10/23 22:44 09/10/23 19:00 09/10/23 15:43 2 09/10/23 15:20 09/10/23 14:53 Cardiovascular + regular rate Respiratory + respiratory distress Pre-Sedation Airway Assessment Smoking Status: Former smoker Hx Sleep Apnea: No Hx Difficult Intubation: No Short, Thick Neck: No Thyromental Distance: > or= 3.5 Finger Breadths Oral Cavity: + Dental Abnormalities Mallampati Class: III ASA: ASA4 Procedure Planning Contraindications for Sedation: none Current Medications Reviewed: Yes Notes The planned sedation has been discussed with the patient. Informed Consent was obtained. I have identified the patient, determined the appropriateness of sedation and have assessed the patient immediately prior to the procedure. All medicine(s) and interventions are by my order.
--- NOTE | 2023-09-11 11:53 | Post Anesthesia Assessment ---
Date of Service September 11, 2023 Post Sedation Assessment Vital Signs Temp Pulse Pulse Resp BP Pulse Ox O2 Del Method 09/11/23 07:51 97.9 F 76 18 130/83 90 Room Air 09/11/23 06:00 69 09/11/23 03:18 98.2 F 80 18 126/74 90 Nasal Cannula 09/11/23 00:56 122/80 09/10/23 23:00 99.3 F 72 18 125/61 90 Room Air 09/10/23 22:44 Room Air 09/10/23 19:00 99.0 F 88 18 129/68 95 Room Air 09/10/23 15:43 Nasal Cannula 09/10/23 15:20 98.8 F 81 19 115/63 92 Room Air 09/10/23 14:53 83 O2 Flow Rate 09/11/23 07:51 09/11/23 06:00 09/11/23 03:18 1 09/11/23 00:56 09/10/23 23:00 09/10/23 22:44 09/10/23 19:00 09/10/23 15:43 2 09/10/23 15:20 09/10/23 14:53 Recovery Score Activity: Moves 4 extremities Respiration: Deep Breath/Cough Circulation: +/-20% PreAnes Value Consciousness: Fully Awake Oxygen Saturation: O2 needed for >90% Discharge Sedation Level of Care: Fast Track Phase II Post Sedation Plan On clinical assessment, the patient appears to have tolerated the sedation without complications. Patient is recovering as anticipated. Patient will continue to be monitored by nursing and may be discharged when sedation discharge criteria are met per below protocol. Upon Completions of procedure up to 15 minutes continue every 5 minute vital signs and the P.A.R. score; then discharge to a Phase I or Fast Track to Phase II per the following guidelines: * Discharge Patient to appropriate Phase II area if PAR is 8 or greater or return to pre- procedure baseline. The post - procedure orders will be as directed. * If PAR score is less than 8 or not return to pre-procedure baseline then patient will follow Phase I monitoring till PAR is reached for Phase II. The Phase I may be done in procedure room or may call to secure a Phase I area. * If naloxone or flumazenil are used for reversal, hold in Phase I for continued monitoring from when last reversal dose was given for a minimum of 60 minutes or longer pending the nurse and/or physician discretion of patient condition before discharge to Phase II. Please call the Sedation Physician to re-evaluate and complete post-note for discharge to Phase II area. Do NOT discharge from procedure sedation or Phase 1 until post- sedation evaluation note is complete by procedure /sedation MD Sedation Discharge Instructions to be given to the patient at discharge to home.
--- NOTE | 2023-09-11 12:04 | Cardiac Catheterization ---
[facility] Data: Chief Controller Tower Cardiac Status Clinical evaluation leading to the procedure CAD Presenation: Unstable angina Diagnostic Physicians Name: Neville Antoine MD Closure Device Recommendations: Medical Therapy and/or Counseling Cardiac Cath Procedure Full Procedure Date September 11, 2023 Pre-Procedure Diagnosis Pre-Procedure Diagnosis: Angina and Arrhythmia AUC Score AUC Score: 8 Post-Procedure Diagnosis Post-Procedure Diagnosis: Mild CAD and Elevated Intracardiac Pressures Procedure(s) Performed Procedure(s) Performed: Coronary Angiography and Left Heart Cath Supervisor [employer]ing Neville Antoine MD Clinical Trial Specialist(s) [place] Estimated Blood Loss Estimated Blood Loss: 5 Medication(s) Medication(s): Lidocaine 1% Summary of Findings Indication: Suspected high risk ACS, ventricular arrhythmias Access: 6 Fr right radial artery Catheters: [place], diagnostic JR4 Findings: LM -normal caliber, luminal irregularities LAD -medium caliber, 20% proximal disease. Remainder of vessel without significant disease. Small diagonal without significant disease. Circumflex -large caliber, 40 to 50% ostial stenosis. Medium left PLB without significant disease. RCA -dominant, moderate caliber, 40% mid segment stenosis. Distal vessel without significant disease. RPDA without disease. LVEDP -27 Arterial Closure: TR band Summary: 1. Mild to moderate nonobstructive coronary artery disease -40% ostial circumflex 40% mid RCA 2. Elevated intracardiac filling pressure Recommendations: No acute or high risk coronary artery disease to explain patient's acute symptoms. Consider additional diuresis for elevated left-sided filling pressures Continued ASCVD risk factor modification Hemodynamics Rest Ao:: 137/78/114 Final Ao: 125/64/89 LV: 134/27 Recommendations Recommendations: Medical Therapy and/or Counseling Specimens Specimens: None Radiation Exposure (mGy) 513 Contrast (mls) 25 Anesthesia Moderate [id number] Procedural Complication(s) None Disposition PCU I attest to the content of the Intraoperative Record and any orders documented therein. Any exceptions are noted below. [facility] Card Cath Procedure Codes Cardiac Catheterization Procedure 1: Cardiovascular Cath Procedures: 78620 Coronaries and LHC (+/-LV) PG Care Time/CCT Total # of Minutes Spent Total Time Spent with Patient: Total time spent is greater than 50% in coordination of care (as documented) at patient's floor/unit and/or counseling patient:
--- NOTE | 2023-09-11 12:25 | Pharmacy Report ---
Pharmacy PK ABX Note - Date of Service September 11, 2023 - Assessment and Plan Assessment 78 year old F receiving Vancomycin for possible bacteremia and ceftriaxone for a UTI. * Previously received 2 days of Cefepime then transitioned to Ceftriaxone (day#2) for UTI. Day #1 of vancomycin for bacteremia (did receive a loading dose and one vancomycin maintenance dose on 09/06/23. * Labs/Vitals: persistently febrile (24 hr Tmax of 38.5oC), SCr 0.59 mg/dL, CrCl 77 mL/min, white count 9,500. * Micro: Urine culture grew E. coli that is sensitive to Ceftriaxone. Blood cultures from 09/06/23 grew GPCs in 1 of 2 sets, biofire negative (originally considered a contaminant). 09/10: Repeat bcx negative at 24 hours. Discussed continuation with provider. Given resolution of prolonged fever with vanc/zosyn initiation and use for possible pulmonary source, plan will be to complete a 7 days course of abx. Plan Vancomycin * Current regimen: 1000 mg IV every 12 hours * Random level obtained 09/11/23 @1000 resulted as 14.4 mcg/mL. This is predicted to achieve target AUC/KENIA of 400-600 mg/L.hr * Predicted AUC at steady state: 536 mg/L.hr * Continue 1000 mg IV every 12 hours * Repeat random level ordered for: 09/13/23 @1000 Zosyn Pharmacy will continue to follow and will adjust dose/frequency as necessary. Thank you.
--- NOTE | 2023-09-11 12:48 | Cardiology Progress Note ---
Date of Service September 11, 2023 Assessment & Plan (1) Chest pain syndrome: Plan: -concern for coronary ischemia realizing symptoms and anterior ST elevation. -cardiac catheterization revealed no culprit lesions. -symptoms improved with diuresis and beta blockade. -agree with initiating metoprolol succinate and isosorbide mononitrate. (2) Left ventricular dysfunction: Plan: -nonischemic cardiomyopathy. -may have been secondary to her recent cardiac arrest. -medical management as above. -consider limited echocardiogram to reassess LV function. (3) Ventricular tachycardia: Plan: -continue amiodarone at 400 mg b.i.d. (4) Cardiac arrest with successful resuscitation: Plan: -felt secondary to ventricular dysrhythmias. -continue amiodarone as above. (5) S/p TAVR (transcatheter aortic valve replacement), bioprosthetic: Plan: -adequate function on current echocardiogram. Plan Overall clinical status improving, off pressors and off mechanical ventilation. No evidence of ongoing myocardial ischemia (no chest pain, troponin dropping), dysrhythmia (telemetry benign on oral amiodarone), or overt heart failure (able to lie flat). Agree with continuing amiodarone given her frequent and sustained ventricular tachycardia previously as well as her persistent cardiomyopathy. Volume status appears reasonable. Although it seems unlikely that she has developed significant coronary artery disease given angiographically normal catheterization March 2022, cannot exclude a thrombotic event given extensive and persistent wall motion abnormalities (perhaps due to a low flow state). She has received heparin for 72 hours, could change anticoagulation to DVT prophylaxis at this point. Generally, antiplatelet therapy such as aspirin is recommended long-term post TAVR, unless there is a specific contraindication would recommend initiating aspirin 81 mg daily. After she further recovers from her recent hypotension/respiratory failure, additional evaluation of her recent onset cardiomyopathy is warranted (pha rmacologic stress study versus catheterization). Will continue to follow along. Admission and Anticipated Discharge Date Admission Date: September 06, 2023 Subjective The patient developed crushing substernal chest pain this morning and a code purple was called. Physical Exam Physical Exam: In general this is a well-developed well-nourished white female in no acute distress. HEENT exam is negative. Neck is supple with full carotid upstrokes. There are no carotid bruits. Jugular venous pressure is flat at 90. There is no thyromegaly. Cardiovascular exam reveals a regular rhythm with distant heart sounds. No obvious murmurs. Lungs are clear without rales, rhonchi, or wheezes. Abdomen is soft and nontender without bruits. Extremities reveal intact radial artery and posterior tibial pulses bilaterally. There is no peripheral edema. Results & Data Vital Signs (Past 12 Hours) Vital Signs Temp Pulse Pulse Resp BP Pulse Ox O2 Del Method 09/11/23 12:30 36.4 C L 79 20 121/84 93 Oxymask 09/11/23 11:58 79 18 128/74 90 Room Air 09/11/23 07:51 36.6 C 76 18 130/83 90 Room Air 09/11/23 06:00 69 09/11/23 03:18 36.8 C 80 18 126/74 90 Nasal Cannula 09/11/23 00:56 122/80 O2 Flow Rate 09/11/23 12:30 15 09/11/23 11:58 09/11/23 07:51 09/11/23 06:00 09/11/23 03:18 1 09/11/23 00:56 Diagnostic Findings ECG noted sinus tachycardia with a left bundle branch block, however, new ST elevation noted in the anterior leads. electric organ checker noted sinus tachycardia with a left bundle branch block. PG Care Time/CCT Total # of Minutes Spent Total Time Spent with Patient: Total time spent is greater than 50% in coordination of care (as documented) at patient's floor/unit and/or counseling patient: Coding Level of Care Code 75756 SUB INP/OBS CARE 3/50MIN Diagnoses Chest pain syndrome R07.9 Left ventricular dysfunction I51.9 Ventricular tachycardia I47.20 Cardiac arrest with successful resuscitation I46.9 S/p TAVR (transcatheter aortic valve replacement), bioprosthetic Z95.3
[2023-09-11] MEDS: AMIODARONE 360MG / 200ML D5W IV ONE (13:19)
[2023-09-11] MEDS: AMIODARONE / D5W 150 MG/100 ML BAG IV STA (13:19)
[2023-09-11] MEDS: ISOSORBIDE MONO EXTENDED REL 30 MG TABCR PO SCH (13:21)
[2023-09-11] MEDS: METOPROLOL SUCC 25MG EXT REL TAB PO SCH (13:22)
[2023-09-11] MEDS: fentaNYL citrate PF 100 MCG/2 ML VIAL ONE (14:21)
[2023-09-11] MEDS: niCARdipine HCL INJ 2.5 MG/ML 10 ML AMP ONE (14:22)
[2023-09-11] MEDS: HEPARIN (PORCINE) 1000 UNIT/ML 10 ML (CATH LAB USE ONLY) ONE (14:22)
[2023-09-11] MEDS: MIDAZOLAM HCL 1 MG/ML 2ML VIAL ONE (14:22)
[2023-09-11] MEDS: NITROGLYCERIN/D5W 100MCG/ML 20ML SYR ONE (14:23)
[2023-09-11] MEDS: FUROSEMIDE 40 MG/4 ML VIAL IV ONE (14:58)
[2023-09-11] MEDS: FUROSEMIDE 40 MG/4 ML VIAL IV SCH (14:59)
[2023-09-11] MEDS: FUROSEMIDE INJ 20 MG/2 ML VIAL IV ONE ×2 (15:53→17:31)
[2023-09-11] MEDS ORDERED: AMIODARONE / D5W 360 MG/200 ML BAG IV SCH (16:00)
--- NOTE | 2023-09-11 16:40 | Electrocardiogram Report ---
Test Reason : Blood Pressure : / mmHG Vent. Rate : 125 BPM Atrial Rate : 125 BPM P-R Int : 142 ms QRS Dur : 144 ms QT Int : 306 ms P-R-T Axes : 076 056 084 degrees QTc Int : 441 ms Poor data quality, interpretation may be adversely affected Sinus tachycardia Non-specific intra-ventricular conduction block Possible Anterolateral infarct , age undetermined Abnormal ECG When compared with ECG of 07-SEP-2023 22:29, Vent. rate has increased BY 49 BPM Non-specific intra-ventricular conduction block has replaced Left bundle branch block T wave inversion no longer evident in Anterior leads Confirmed by Ross Lazar ([id number]) on 09/11/2023 4:39:52 PM Referred By: REFERRED SELF Confirmed By:Ross Lazar
--- NOTE | 2023-09-11 16:42 | Electrocardiogram Report ---
Test Reason : Blood Pressure : / mmHG Vent. Rate : 127 BPM Atrial Rate : 127 BPM P-R Int : 192 ms QRS Dur : 134 ms QT Int : 316 ms P-R-T Axes : 068 038 213 degrees QTc Int : 459 ms Sinus tachycardia Non-specific intra-ventricular conduction block Possible Anterolateral infarct (cited on or before 11-SEP-2023) Abnormal ECG When compared with ECG of 11-SEP-2023 09:44, (unconfirmed) Serial changes of Anterior infarct Present Confirmed by Ross Lazar ([id number]) on 09/11/2023 4:41:50 PM Referred By: REFERRED SELF Confirmed By:Ross Lazar
[2023-09-11] MEDS: AMIODARONE 150MG / 100ML D5W IV ONE (17:25)
[2023-09-12 06:50] LABS: Basophils % (auto) 2.5 %; Eosinophils # (auto) 0.32 K/uL (0.00-0.50); Eosinophils % (auto) 4.1 %; Hematocrit (blood only) 30.9 % (37.0-47.0); Hemoglobin 9.7 g/dl (12.0-16.0); Immature Granulocytes # (auto) 0.04 K/uL (0.01-0.20); Immature Granulocytes % (auto) 0.5 %; Lymphocytes # (auto) 2.05 K/uL (1.20-3.40); Mean Corpuscular Hgb Conc 31.4 g/dL (32.0-36.0); Mean Corpuscular Volume 95.7 fL (80.0-100.0); Mean Platelet Volume 11.7 fL (9.4-12.4); Neutrophils # (auto) 3.77 K/uL (1.40-6.50); Neutrophils % (auto) 47.9 %; Nucleated RBC # (auto) 0.15 K/uL (0.00-0.12); Nucleated RBC % (auto) 1.9 %; Platelet Count 280 K/uL (130-400); RDW Coefficient of Variation 18.2 % (11.5-14.5); RDW Standard Deviation 64.3 fL (36.4-46.3); Red Blood Count 3.23 M/uL (4.20-5.40); White Blood Count 7.88 K/ul (4.8-10.8)
[2023-09-12 06:54] LABS: Albumin Globulin Ratio 1.5 (0.9-2); Albumin Level 3.4 gm/dl (3.4-5.0); BUN Creatinine Ratio 13.8 (10-20); Bilirubin,Total 0.8 mg/dl (0.2-1.0); Calcium 9.4 mg/dl (8.6-10.3); Creatinine Clr Calc Pharmacy 69.3 ml/min; Est GFR (African American) 99.3 ml/min; Est GFR (Non-African American) 85.6 ml/min; Globulin 2.3 gm/dl (2.5-4.0); Magnesium 1.8 mg/dl (1.7-2.4); Potassium 3.4 mmol/L (3.5-5.1); Total Protein 5.7 gm/dl (6.0-8.3)
[2023-09-12] MEDS: POTASSIUM CHLORIDE CRTAB 20 MEQ TABCR PO SCH (08:50)
[2023-09-12] MEDS: MAGNESIUM SULFATE / D5W 1 GM/100 ML BAG IV ONE (08:53)
--- NOTE | 2023-09-12 11:30 | Cardiology Progress Note ---
Date of Service September 12, 2023 Assessment & Plan (1) Chest pain syndrome: Plan: -cardiac catheterization revealed no culprit lesions. -symptoms improved with diuresis and beta blockade. -agree with metoprolol succinate and isosorbide mononitrate. (2) Left ventricular dysfunction: Plan: -nonischemic cardiomyopathy. -may have been secondary to her recent cardiac arrest. -medical management as above. -consider limited echocardiogram to reassess LV function. (3) Ventricular tachycardia: Plan: -continue amiodarone at 400 mg b.i.d. (4) Cardiac arrest with successful resuscitation: Plan: -felt secondary to ventricular dysrhythmias. -continue amiodarone as above. (5) S/p TAVR (transcatheter aortic valve replacement), bioprosthetic: Plan: -adequate function on current echocardiogram. Admission and Anticipated Discharge Date Admission Date: September 06, 2023 Subjective The patient is resting comfortably in bed complaints chest pain, dyspnea, or palpitations. Physical Exam Physical Exam: In general this is a well-developed well-nourished white female in no acute distress. HEENT exam is negative. Neck is supple with full carotid upstrokes. There are no carotid bruits. No JVD. There is no thyromegaly. Cardiovascular exam reveals a regular rhythm with distant heart sounds. No obvious murmurs. Lungs are clear without rales, rhonchi, or wheezes. Abdomen is soft and nontender without bruits. Extremities reveal intact radial artery and posterior tibial pulses bilaterally. There is no peripheral edema. Results & Data Vital Signs (Past 12 Hours) Vital Signs Temp Pulse Resp BP Pulse Ox O2 Del Method 09/12/23 08:07 37.1 C 72 20 90/67 L 92 Room Air 09/12/23 02:59 36.7 C 69 18 116/72 94 Room Air Diagnostic Findings case monitor is benign. No ventricular tachycardia. PG Care Time/CCT Total # of Minutes Spent Total Time Spent with Patient: Total time spent is greater than 50% in coordination of care (as documented) at patient's floor/unit and/or counseling patient: Coding Level of Care Code 30085 SUB INP/OBS CARE 3/50MIN Diagnoses Chest pain syndrome R07.9 Left ventricular dysfunction I51.9 Ventricular tachycardia I47.20 Cardiac arrest with successful resuscitation I46.9 S/p TAVR (transcatheter aortic valve replacement), bioprosthetic Z95.3
--- NOTE | 2023-09-12 12:35 | XCELERA ---
[id number]___[id number]
--- NOTE | 2023-09-12 18:20 | Hospitalist Progress Note ---
Date of Service September 12, 2023 Assessment & Plan (1) STEMI (ST elevation myocardial infarction): Plan: On 09/10, had acute onset of substernal chest pain, sinus tachycardia in the 130s, hypertension in 170s/110s, worsening respiratory failure, and ST elevations with old left bundle branch block seen on ECG Urgent consultation with Cardiology and Heart alert was called-cardiac catheterization urgently performed showed only mild to moderate nonobstructive CAD with 40% ostial circumflex and 40% mid RCA Her Chest pain and distress resolved with nitroglycerin x 2 and IV lopressor, IV lasix Suspect possible vasospasm or strain from heart failure with flash pulmonary e cecile from hypertension and tachycardia. Did have elevated LVEDP on catheter 27. Troponin did trend upward slightly afterwards to 400s which is still lower than on admission Started Toprol-XL 25 mg daily Started isosorbide 30 mg daily Continue to diurese with Lasix 40 mg IV daily and will give an extra dose of lasix 20mg IV this evening,continue to monitor urine output Continue aspirin given history of TAVR Continue to monitor on telemetry for recurrent VT (2) Sepsis: Plan: Present on admission. Due to suspected UTI initially but with had ongoing fevers for many days despite adequate treatment for UTI With septic shock, was on vasopressors and on vent after cardiac arrest-now weaned off pressors. Leukocytosis resolved, BPs normalized, tachypnea and fever now resolved since switching antibiotics to Zosyn and vancomycin on 09/08 Cough that started after eating-possible aspiration? SPeech consulted and did well with bedside swallow eval COugh now improved BCxs from 09/05 growing GPC in chains, blood culture BioFire negative Repeat BCxs 09/08 remain with NGTD Respiratory BioFire negative 09/08 CXR with pleural effusions, possible PNA CT abd/pel on admission w/ fluid collection near pancreas which may be related to recent splenectomy--> if continued fevers, would re-image abdomen Can now discontinue Vanco as repeat Blood cxs negative and MRSA nasal swab negative Changed ceftriaxone to Zosyn on 09/08 for better aspiration and Pseudomonas coverage for PNA -now much improved-last day of 7 day course 09/15/23 (3) HFrEF (heart failure with reduced ejection fraction): Plan: With acute HFrEF as above, echo here with EF 25-30%, +WMAs Had normal cath in prep for TAVR in 2021. Now with repeat cardiac catheterization on 09/10 as above again with only mild to moderate nonobstructive CAD May have been reduced EF post arrest started ASA 81mg daily Repeat limited echo 09/11 however with continuing reduced EF 25-30% all segments severely hypokinetic except the base--> likely Takotsubo's Much improved now with BP control, diuresis Now that blood pressures are recovered from previous septic shock, started Toprol-XL 25 mg daily Giving diuresis with IV Lasix as above Plan to also add on Entresto versus lisinopril if EF not improving -defer for n ow Continue isosorbide (4) Ventricular tachycardia: Plan: Suffered VT and then VF arrest on 09/06, required intubation, amiodarone gtt, and transfer to ICU for pressors after ROSC Appreciate Cardiology management Continue on po amiodarone loading dose Monitor on tele-only with some brief SVT occasionally and then sinus tachycardia on 09/10 with acute CHF/suspected STEMI keep Lytes replete -today give KCl and IV magnesium Follow BMP, magnesium (5) Altered mental status: Plan: Acute metabolic encephalopathy present on admission probably due ongoing sepsis, hypotension Brain MRI negative for acute Now resolved-much improved (6) Suspected UTI: Plan: E. coli isolated from urine cultures, was on Ceftriaxone x 2 days but with persistent fever-switched to Zosyn and will complete course on 09/15/23 (7) Elevated troponin: Plan: Troponin peaked at 1325, no chest pain, no acute EKG changes initially. No chest pain prior to CODE BLUE. Cardiac echo report noted. Then with chest pain as above on 09/10 and HEART ALERT related to CHF with cardiac catheterization on 09/10 with mild to moderate nonobstructive CAD troponin likely increased from demand ischemia with CHF (8) Fall: Plan: Fall at home probably due to sepsis with acute metabolic encephalopathy. Supportive care. Treat underlying illness. OT and PT ongoing (9) Status post splenectomy: Plan: Recently completed at another hospital on August 15 of this year. 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 No intervention necessary at this time. 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 PT/OT consulted and recommend acute rehab Updated daughter extensively on 09/10 Admission and Anticipated Discharge Date Admission Date: September 06, 2023 Subjective Pt feeling well today. Says occasionally she has some right sided chest pain but nothing like yesterday's event. SHe is diuresing well, BPs better. Moving bowels, eating. Says she was out of bed to a chair for a bit today and walked around the room. Tele with NSR, rates 60-70s Physical Exam Constitutional: WD/WN, vitals as above Respiratory: normal respiratory effort Auscultation: + crackles (bibasilar ); no wheezes Cardiovascular: Rate/Rhythm: regular rate and regular rhythm Heart Sounds: + murmur (2/6 SHARON at the RUSB) Gastrointestinal (Abdomen): Inspection/Auscultation: + abdomen abnormal to inspection (midline lap incision well healed) Percussion/Palpation: abdomen soft; abdomen nontender and no guarding Psychiatric: Orientation: alert, oriented to person, oriented to place and cooperative Results & Data Results & Data Vital Signs (Past 12 Hours) Vital Signs Temp Pulse Resp BP Pulse Ox O2 Del Method 09/12/23 15:04 36.5 C 63 18 116/61 97 Room Air 09/12/23 11:36 36.8 C 70 20 119/59 L 90 Room Air 09/12/23 08:07 37.1 C 72 20 90/67 L 92 Room Air Laboratory Results CBC, BMP, LFTs, magnesium, troponin, blood cxs reviewed Diagnostic Findings limited repeat ECHO reviewed PG Care Time/CCT Total # of Minutes Spent Total Time Spent with Patient: Total time spent is greater than 50% in coordination of care (as documented) at patient's floor/unit and/or counseling patient: Coding Level of Care Code 18131 SUB INP/OBS CARE 3/50MIN Diagnoses STEMI (ST elevation myocardial infarction) I21.3 Sepsis A41.9 HFrEF (heart failure with reduced ejection fraction) I50.20 Ventricular tachycardia I47.20 Altered mental status R41.82 Suspected UTI R39.89 Elevated troponin R79.89 Fall W19.XXXA Status post splenectomy Z90.81 Dysphagia R13.10 T-cell large granular lymphocytic leukemia C91.Z0 Aortic valve prosthesis present Z95.2
[2023-09-12] MEDS: FUROSEMIDE INJ 20 MG/2 ML VIAL IV ONE (20:35)
[2023-09-13 06:57] LABS: Basophils # (auto) 0.22 K/uL (0.00-0.20); Basophils % (auto) 3.1 %; Eosinophils # (auto) 0.46 K/uL (0.00-0.50); Eosinophils % (auto) 6.6 %; Hematocrit (blood only) 33.6 % (37.0-47.0); Hemoglobin 10.5 g/dl (12.0-16.0); Immature Granulocytes # (auto) 0.05 K/uL (0.01-0.20); Immature Granulocytes % (auto) 0.7 %; Lymphocytes % (auto) 24.2 %; Mean Corpuscular Hemoglobin 29.8 pg (25.0-34.0); Mean Corpuscular Hgb Conc 31.3 g/dL (32.0-36.0); Mean Corpuscular Volume 95.5 fL (80.0-100.0); Mean Platelet Volume 11.6 fL (9.4-12.4); Monocytes # (auto) 1.61 K/uL (0.11-0.59); Monocytes % (auto) 22.9 %; Neutrophils # (auto) 2.98 K/uL (1.40-6.50); Neutrophils % (auto) 42.5 %; Nucleated RBC # (auto) 0.16 K/uL (0.00-0.12); Nucleated RBC % (auto) 2.3 %; Platelet Count 342 K/uL (130-400); RDW Coefficient of Variation 18.3 % (11.5-14.5); RDW Standard Deviation 64.7 fL (36.4-46.3); Red Blood Count 3.52 M/uL (4.20-5.40); White Blood Count 7.02 K/ul (4.8-10.8)
[2023-09-13 07:17] LABS: Hypochromasia Present; Poikilocytosis Present; Polychromasia 2+
[2023-09-13 07:27] LABS: BUN Creatinine Ratio 10.6 (10-20); Calcium 9.4 mg/dl (8.6-10.3); Creatinine Clr Calc Pharmacy 68.1 ml/min; Est GFR (African American) 98.8 ml/min; Est GFR (Non-African American) 85.2 ml/min; Magnesium 1.9 mg/dl (1.7-2.4); Potassium 3.8 mmol/L (3.5-5.1)
[2023-09-13] MEDS: FUROSEMIDE 40 MG/4 ML VIAL IV SCH (10:29)
[2023-09-13] MEDS: metOLazone 5 MG TABLET PO ONE (10:54)
--- NOTE | 2023-09-13 11:07 | Hospitalist Progress Note ---
Date of Service September 13, 2023 Assessment & Plan (1) STEMI (ST elevation myocardial infarction): Plan: On 09/10, had acute onset of substernal chest pain, sinus tachycardia in the 130s, hypertension in 170s/110s, worsening respiratory failure, and ST elevations with old left bundle branch block seen on ECG Urgent consultation with Cardiology and Heart alert was called-cardiac catheterization urgently performed showed only mild to moderate nonobstructive CAD with 40% ostial circumflex and 40% mid RCA Her Chest pain and distress resolved with nitroglycerin x 2 and IV lopressor, IV lasix Suspect possible vasospasm or strain from heart failure with flash pulmonary edema from hypertension and tachycardia. Did have elevated LVEDP on catheter 27. Troponin did trend upward slightly afterwards to 400s which is still lower than on admission Now on Toprol-XL and isosorbide mononitrate. Lasix has been uptitrated to every 12 hour dosing. 1 dose of metolazone 5 mg ordered for today, September 12. Monitor intake and output. Serial chest x-ray. (2) Sepsis: Plan: Present on admission. Due to suspected UTI initially but with had ongoing fevers for many days despite adequate treatment for UTI With septic shock, was on vasopressors and on vent after cardiac arrest-now weaned off pressors. Leukocytosis resolved, BPs normalized, tachypnea and fever now resolved since switching antibiotics to Zosyn and vancomycin on 09/08 Cough that started after eating-possible aspiration? Speech consulted and did well with bedside swallow eval Cough now improved BCxs from 09/05 growing GPC in chains, blood culture BioFire negative Repeat BCxs 09/08 remain with NGTD Respiratory BioFire negative 09/08 CXR with pleural effusions, possible PNA CT abd/pel on admission w/ fluid collection near pancreas which may be related to recent splenectomy--> if continued fevers, would re-image abdomen Can now discontinue Vanco as repeat Blood cxs negative and MRSA nasal swab negative Changed ceftriaxone to Zosyn on 09/08 for better aspiration and Pseudomonas coverage for PNA -now much improved-last day of 7 day course 09/15/23 (3) HFrEF (heart failure with reduced ejection fraction): Plan: With acute HFrEF as above, echo here with EF 25-30%, +WMAs Had normal cath in prep for TAVR in 2022. Now with repeat cardiac catheterization on 09/10 as above again with only mild to moderate nonobstructive CAD May have been reduced EF post arrest started ASA 81mg daily Repeat limited echo 09/11 however with continuing reduced EF 25-30% all segments severely hypokinetic except the base--> likely Takotsubo's Much improved now with BP control, diuresis Now that blood pressures are recovered from previous septic shock, started Toprol-XL 25 mg daily. IV Lasix uptitrated today, September 12. Will administer 1 dose of metolazone 5 mg today also, September 12. Cardiology may add on Entresto or lisinopril if EF not improving -defer for now (4) Ventricular tachycardia: Plan: Suffered VT and then VF arrest on 09/06, required intubation, amiodarone gtt, and transfer to ICU for pressors after ROSC Appreciate Cardiology management Continue on po amiodarone loading dose Monitor on tele-only with some brief SVT occasionally and then sinus tachycardia on 09/10 with acute CHF/suspected STEMI keep Lytes repleted -today give KCl and IV magnesium Follow BMP, magnesium (5) Altered mental status: Plan: Acute metabolic encephalopathy present on admission probably due ongoing sepsis, hypotension Brain MRI negative for acute Now resolved (6) Suspected UTI: Plan: E. coli isolated from urine cultures, was on Ceftriaxone x 2 days but with persistent fever-switched to Zosyn and will complete course on 09/15/23 (7) Elevated troponin: Plan: Troponin peaked at 1325, no chest pain, no acute EKG changes initially. No chest pain prior to CODE BLUE. Cardiac echo report noted. Then with chest pain as above on 09/10 and HEART ALERT related to CHF with cardiac catheterization on 09/10 with mild to moderate nonobstructive CAD troponin likely increased from demand ischemia with CHF (8) Fall: Plan: Fall at home probably due to sepsis with acute metabolic encephalopathy. Supportive care. Treat underlying illness. OT and PT ongoing (9) Status post splenectomy: Plan: Recently completed at another hospital on August 15 of this year. 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 No intervention necessary at this time. (10) Dysphagia: Plan: coughing after eating solids-consulted Speech therapy appreciated-no aspiration on bedside eval. 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 Outpatient Oncology management (12) Aortic valve prosthesis present: Plan: noted to have a h/o TAVR, valve functioning well on ECHO. No intervention necessary at this time. f/u with cardiology Plan Anticip[facility] Admission and Anticipated Discharge Date Admission Date: September 06, 2023 Subjective Alert and oriented. No distress. Chest x-ray repeated today, September 12, continues to reveal evidence of CHF with right pleural effusion. Parenteral Lasix has been uptitrated to every 12 hour dosing and 1 dose of metolazone 5 mg ordered today. She will remain on Zosyn through September 14. Blood culture obtained September 05 reveals parvimonas. Blood culture obtained September 08 remains negative. Cardiology has already switched her IV amiodarone to oral amiodarone. She is also now on metoprolol XL and Imdur. There is a possibility that cardiology will add Entresto or lisinopril to her medication regimen. She will be [facility] to [facility] when arrangements are finalized. Review of Systems 2 Review of Systems: Constitutional-no fever or chills ENT-no blurred vision, no double vision, no epistaxis, no sore throat Respiratory-no cough, no wheezing, no shortness of breath Cardiac-no palpitations, no chest pain, no syncope GI-no nausea, vomiting, diarrhea, melena, hematochezia -no urinary retention, no urinary incontinence, no dysuria, no hematuria Musculoskeletal-no joint pain, no muscle tenderness. Generalized weakness Skin-no bruising, no rashes, no pruritus Neuro-no isolated weakness, no paresthesia. Generalized weakness Psych-no depression, no anxiety Physical Exam 2 Physical Exam: General-alert and oriented x3, no fever, no chills HEENT-head atraumatic and normocephalic, pupils equal and reactive to light, extraocular muscles intact Neck-no lymphadenopathy or thyromegaly, trachea midline Chest-diminished breath sounds bilaterally with dullness at the right base and inspiratory rales. No rhonchi. No wheezing. Cardiac-regular rate and rhythm, normal S1 and S2 Abdomen-normal bowel sounds, no hepatosplenomegaly Extremities-no cyanosis, clubbing, or edema Neuro-cranial nerves II through XII intact, motor and sensory function within normal limits, strength symmetrical with generalized weakness, no focal deficits Psych-normal affect, normal mood Results & Data Results & Data Vital Signs (Past 12 Hours) Vital Signs Temp Pulse Resp BP Pulse Ox O2 Del Method 09/13/23 07:00 36.6 C 74 21 104/63 97 Room Air 09/13/23 03:00 36.5 C 62 18 121/67 95 Room Air Laboratory Results 09/13/23 06:13 09/13/23 06:13 PG Care Time/CCT Total # of Minutes Spent Total Time Spent with Patient: Total time spent is greater than 50% in coordination of care (as documented) at patient's floor/unit and/or counseling patient: Coding Level of Care Code 00848 SUB INP/OBS CARE 3/50MIN Diagnoses STEMI (ST elevation myocardial infarction) I21.3 Sepsis A41.9 HFrEF (heart failure with reduced ejection fraction) I50.20 Ventricular tachycardia I47.20 Altered mental status R41.82 Suspected UTI R39.89 Elevated troponin R79.89 Fall W19.XXXA Status post splenectomy Z90.81 Dysphagia R13.10 T-cell large granular lymphocytic leukemia C91.Z0 Aortic valve prosthesis present Z95.2
--- NOTE | 2023-09-13 12:09 | Cardiology Progress Note ---
Date of Service September 13, 2023 Assessment & Plan (1) Chest pain syndrome: Plan: -cardiac catheterization revealed no culprit lesions. -symptoms improved with diuresis and beta blockade. -agree with metoprolol succinate and isosorbide mononitrate. (2) Left ventricular dysfunction: Plan: -nonischemic cardiomyopathy. -repeat echocardiogram notes any EF of 25-30% with only the base of the heart celina normally. -question Takotsubo cardiomyopathy. -may have been secondary to her recent cardiac arrest. -medical management as above. (3) Ventricular tachycardia: Plan: -continue amiodarone at 400 mg b.i.d. (4) Cardiac arrest with successful resuscitation: Plan: -felt secondary to ventricular dysrhythmias. -continue amiodarone as above. (5) S/p TAVR (transcatheter aortic valve replacement), bioprosthetic: Plan: -adequate function on current echocardiogram. Admission and Anticipated Discharge Date Admission Date: September 06, 2023 Subjective The patient is resting comfortably in bed without complaints of chest pain, dyspnea, or palpitations. Physical Exam Physical Exam: In general this is a well-developed well-nourished white female in no acute distress. HEENT exam is negative. Neck is supple with full carotid upstrokes. There are no carotid bruits. No JVD. There is no thyromegaly. Cardiovascular exam reveals a regular rhythm with distant heart sounds. No obvious murmurs. Lungs are clear without rales, rhonchi, or wheezes. Abdomen is soft and nontender without bruits. Extremities reveal intact radial artery and posterior tibial pulses bilaterally. There is no peripheral edema. Results & Data Vital Signs (Past 12 Hours) Vital Signs Temp Pulse Resp BP Pulse Ox O2 Del Method 09/13/23 07:00 36.6 C 74 21 104/63 97 Room Air 09/13/23 03:00 36.5 C 62 18 121/67 95 Room Air Diagnostic Findings stuntman is benign. PG Care Time/CCT Total # of Minutes Spent Total Time Spent with Patient: Total time spent is greater than 50% in coordination of care (as documented) at patient's floor/unit and/or counseling patient: Coding Level of Care Code 40390 SUB INP/OBS CARE 3/50MIN Diagnoses Chest pain syndrome R07.9 Left ventricular dysfunction I51.9 Ventricular tachycardia I47.20 Cardiac arrest with successful resuscitation I46.9 S/p TAVR (transcatheter aortic valve replacement), bioprosthetic Z95.3
--- NOTE | 2023-09-13 12:48 | XRay Report ---
SINGLE VIEW CHEST CLINICAL HISTORY: Congestive heart failure. FINDINGS: An AP, portable, upright chest radiograph is compared to study dated 09/11/2023. There is ev idence of previous cardiac valve surgery. The heart is enlarged noting atherosclerotic calcification of the thoracic aorta. There is pulmonary vascular congestion with interstitial edema. There are laye ring pleural effusions with dependent consolidation. No pneumothorax is seen. The skeletal structures are osteopenic. The bony thorax is grossly intact. Degenerative change is noted in the shoulders. Max rgical clips are noted in the upper abdomen. IMPRESSION: 1. Cardiomegaly with evidence of congestive failure and pulmonary edema. This is unchanged to modestl y improved as compared to yesterday. 2. Layering pleural effusions with dependent consolidation. ACT 112: Negative or not required by law. Electronically signed by: Rohit Gorman M.D. 09/13/2023 12:46 PM
--- NOTE | 2023-09-14 04:41 | Emergency Department Note ---
ED Visit Note Was called to the patient's room given a CODE BLUE alert. On presentation to patient's room, she is unresponsive but has a pulse. No gag reflex is present on my testing. Her saturations are 96% via oxymask. Confirmed with hospitalist patient's code status - family was agreeable to intubation. Patient endotracheally intubated by myself after receiving 20 mg IV etomidate and 100 mg IV succinylcholine for RSI. Please see procedure note. Endotracheal Intubation Indication: unresponsive; encephalopathy. The patient was on 100% oxygen via oxymask prior to the procedure. Suction, airway equipment, RSI drugs, respiratory equipment, and appropriate personnel were prepared prior to the initiation of the procedure. A time out was taken. Induction was performed with etomidate and succinylcholine. After observing the clinical benefit of the medications, the airway was easily visualized utilizing a S3 glidescope. A 7.5 size ETT tube was placed atraumatically to 22 cm using standard technique. The cuff inflated without signs of malfunction. There were bilateral breath sounds, positive colormetric change, no gastric sounds, a good capnography waveform, and post procedure pulse oximetry was 100%. There were no complications. .
--- NOTE | 2023-09-14 04:51 | Communication Note ---
Date of Service: September 14, 2023 Code purple called early this morning, which quickly became a code blue. Attending Dr. Clarke and WASTE EXAMINER Sean Ann also present at [facility] [place]. Patient found to be in a shockable rhythm with a palpable pulse and was subsequently defibrillated with 200 J shock resulting in return to NSR. Post-intubation CXR with appropriate location of tube. Patient taken to CT to r/o hemorrhagic stroke. Upgraded to ICU - room 110. Ordered EKG, CT Head w/o, CBC, CMP, Mg, Procal, ABG. Further management per pole shaver helper service. SonHesham, contacted by resident to confirm conditional code and update on patient's status. No chest compressions. Defibrillation and intubation/mechanical ventilation okay. Confirmed this was the code status prior to intubation. This is not patient's first round of sustained ventricular arrhythmia and cardiac arrest during this hospitalization. Would recommend discussion of goals of care with family. Case discussed with Dr. Clarke, see attending attestation for further documentation. Resident Activity Tracking Resident Involvement: Resident Care Provided Care Provided: Adult Hospital Medicine
[2023-09-14] MEDS ORDERED: STAT IV Infusion **Titration per Protocol STA (05:01)
[2023-09-14] MEDS ORDERED: PROPOFOL BOLUS FROM BAG IV PRN (05:01)
--- NOTE | 2023-09-14 05:13 | Critical Care Consultation ---
Date of Consultation September 14, 2023 Assessment & Plan (1) HFrEF (heart failure with reduced ejection fraction): (2) Ventricular tachycardia: (3) Cardiac arrest with successful resuscitation: (4) Status post splenectomy: (5) Encephalopathy: (6) Ventricular arrhythmia: Plan Reason Critically Ill: 78 YOF s/p another ventricular arrhythmia arrest - Vfib/Torsades/Vtach with return of ROSC not requiring CPR, intubated for encephalopathy post arrest. To ICU for further managment. Neuro - Encephalopathy, Sedation for mechanical ventilation CAM ICU: MISAEL - Encephalopathy post cardiac arrest- minimal down time however this is the patient's 2nd in house arrest - CT head with questionable basilar thrombus- Head and neck CTA pending - Sedation for mechanical ventilation - Fentanyl drip, versed pushes as needed- avoid propofol with amiodarone- short course during transport from room to CT scanner to ICU - Further diagnostics pending CTA and neurological evaluation Cardiac - Ventricular arrest with return of ROSC, HFrEF, S/p TAVR - Patient with 2nd ventricular arrest in house- torsades appeared to be initiating rhythm, then Vtach, then NSVT now bradycardia - Received defibrillation x1, synchronized cardioversion x1 - Replete electrolytes aggressively - K goal ~4.0, Mag goal 2.0- should be priority daily replacements - vasoactive medications as needed based on hemodynamics- follow bradycardia - Continue with oral amiodarone 400mg IV BID- doubt efficacy of reloading IV at this time - Metoprolol changed to tartrate 5mg IV q6 hours with hold parameters for HR and BP - Pending above eval for basilar thrombus will determine systemic anticoagulation - Normal sinus rhythm Non-specific intra-ventricular conduction block Lateral infarct (cited on or before 11-SEP-2023) Abnormal ECG When compared with ECG of 11-SEP-2023 10:08, Vent. rate has decreased BY 65 BPM QRS axis Shifted left Serial changes of Lateral infarct Present - daily diuretics to be determined on as needed basis Respiratory - emergent intubation and mechanical ventilation - not hypoxic during or post event- however unable to follow commands or protect airway - wean ass appropriate pending the above GI - No acute needs - was being worked up for dysphagia through hospital stay - NPO - place OGT to LIWS RENAL/LYTES - As above - ICU electrolyte protocol - Place Fischer while intubated and sedated ENDO - No acute needs HEME - No acute needs ID - No concern at this time for infectious etiology LINES/IV ACCESS - PIV, Fischer, ETT, OGT, - Likely will need central access as well as arterial line pending further hemodynamic evaluation post stabilization DVT PROPHYLAXIS - Lovenox 40mg sub daily- adjust pending CTA head and neck for thrombus eval Family: Son called an updated post ICU, he was also notified by resident prior to intubation. further code discussions likely warranted. DISPO: ICU while intubated and sedated I have personally spent 65 minutes of critical care time in the direct management of this patient. This is a life/limb threatening event. This includes time spent evaluating patient, direct bedside care, chart review, placing orders, interpretation of diagnostic studies, discussion with consultants, patient, and family members, as well as other required patient management activities. This time is exclusive of all separately billable procedures, and teaching time and separate from and in addition to any other critical care service time. Thank you for allowing us to participate in the care of this patient. Please refer to my attending physician's documentation for any further recommendations. Supervising Physician Co-Signing Physician Notes Patient seen and examined. EMR reviewed. Discussed with bedside critical care nurse and overnight critical care ALEX as well as on multidisciplinary rounds. Agree with assessment plan as noted Patient is currently sedated on fentanyl. She does withdraw all 4 extremities to painful stimuli's. Will try and wean fentanyl to pushes as needed and reassess neurological status ongoing. Initiate ICU electrolyte replacement protocol. Continue amiodarone. Will consult nutrition for initiation of tube feeding. Will keep intubated at least 24 hours and then reassess neurological status for possible ventilator liberation tomorrow. History of Present Illness Reason for Consultation: intubation secondary to enceophalopathy Requesting Physician: Hemalatha Clarke D.O. Attending Physician: Wing Solis MD History of Present Illness 78 YOF known to ICU from previous ICU stay last week following cardiac arrest on the floor. Patient was originally admitted 06Sep2023 where she was found down at home and encephalopathic. She was noted to have Ventricular ectopy and was initiated on amiodarone infusion on admission and treated for UTI. She experienced ventricular arrest on 09/07/23 required intubation and vasopressors. She had an ECHO performed that was noted with RWMA and depressed EF, thought to be stress induced cardiomyopathy. She had repeat ECHO on 09/09/23- noted with EF 25-30%, with akinetic septum/anteroseptal/apex. She continued to have nonspecific chest pain like symptoms and underwent cardiac cath on 09/11/23- this was noted without acute or high risk coronary artery disease- she was noted with elevated LVEDP and was initiated on diuretics. ECHO was also repeated on 09/12/23 where she was noted to remain with EF 25-30% and severely hypokinetic martínez other than the basal segment celina normally. It appears she was maintained on oral amiodarone 400mg PO BID as well as metoprolol. She was getting diuresed. ARMAND GERBER was called at 0415 this morning secondary to patient going into Vfib pulseless arrest, she was given, 1 defibrillation, on my arrival the patient was in wide complex tachycardia at 180 bpm. with a pulse and agonal breathing. She was cardioverted with 200 joules x1 with success in breaking rhythm back to the 80-120. She remained with poor inspiratory effort, not following commands, and inability to protect her airway. She was subsequently intubated. She was taken to the CT scanner for non-con head CT eval for bleed. To the ICU for further management. CT head questionable density with concern for basilar artery thrombus- will obtain head and neck CTA - previous MRI on 09/06/23 without Allergies Allergy/AdvReac Type Severity Reaction Status Date / Time No Known Allergies Allergy Verified 09/06/23 16:10 Home Medications Medication Instructions Recorded Confirmed Type pramipexole 0.25 mg tablet 0.5 mg (2 x 0.25 mg) PO BID #360 07/11/23 09/06/23 Rx tabs cyanocobalamin (vitamin B-12) 1,000 mcg PO DAILY 08/21/23 09/06/23 History 1,000 mcg capsule folic acid 1 mg tablet 1 mg PO DAILY 08/21/23 09/06/23 History ondansetron 4 mg disintegrating 4 mg PO Q8H PRN Nausea 08/21/23 09/06/23 History tablet oxybutynin chloride 10 mg 10 mg PO DAILY #30 tabs 08/26/23 09/06/23 Rx tablet,extended release 24 hr acetaminophen 325 mg capsule 650 mg PO Q6H PRN Fever Or Pain 09/06/23 09/06/23 History (Tylenol) halobetasol propionate 0.05 % 1 applic topical DAILY PRN .flare 09/06/23 09/06/23 History topical cream ups vits no.130-ferrous fum 1 tab PO DAILY 09/06/23 09/06/23 History 27 mg iron-folic acid 800 mcg tablet ( Vitamin) Patient History Medical History Restless leg syndrome Frequent falls unknown reason, following with pcp, CONTRERAS De Leon -- last fall was ~01/04/23. no injury at that time. 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 Dougherty History of cardiac cath [facility] in [place] March 2022 - no stents. History of arthroscopy of right knee Hx of tonsillectomy Hx of cholecystectomy History of hysterectomy ADITYA with BSO Heart valve replaced April 2022 a hospital [place], replaced with a mechanical aortic valve. Followed with Dr Gerry Quintero [facility]. Family History Brother Stroke Mother Diabetes Other No family history of adverse response to anesthesia Denies family history of Ovarian cancer Prostate cancer Myocardial infarction Breast cancer Colorectal cancer Social History Smoking Status: Former smoker Tobacco Type: Cigarettes Smoking End Date: 1999; Second Hand Exposure: No; Do You Dip or Chew Tobacco: No; Hx Alcohol Use: No Hx Substance Use: No Preferred Language: Congolese Communication Ability: Effective Communication Ability Comment: confusion at this time Kaiako Kura [place] Required: No Beliefs That Will Affect Care: None marital status: / Current Living Situation: Alone Current Living Situation Comment: senior apartments current occupational status: retired How many Children do You have: 3 Other Information That Helps Us Care for You: No Feels Safe at Home: Yes Safety Concerns: Feels Safe At This Time Childhood Exposure to Second-Hand Smoke: Yes (occasional smoker) during the past year weight has: decreased > 10 lbs Dental Care, Regularly: Yes Seatbelt Use: always Sunscreen Use: No Assistive Devices: Walker Review of Systems Review of Systems: unable to perform secondary to intubation and sedation Physical Exam Physical Exam: PHYSICAL EXAM: General: obtunded Head: Normocephalic, atraumatic ENT: PERRLA 3 sluggish, no pharyngeal exudate, mucous membranes dry Neuro: no spont movement post arrest, not following commands, remained obtunded- intubated see separate procedure note from EMD provider Chest: equal rise and fall of the chest, no accessory muscle use, no heaves or thrills, Clear to auscultation, ETT advanced 1cm post intubation Cardiac: Regular rate and rhythm, telemetry reviewed- Vfib/torsades appearance, Vtach, NSVT, skin warm dry, cap refill <3 seconds, peripheral pulses +2 no JVD, no murmur, no edema GI: NABS x 4 quadrants, soft, nontender to palpation, no rebound, guarding or tenderness : Spontaneously voiding, no pain, no CVA tenderness, Extremities: Normal inspection, no peripheral edema or erythema, calfs nontender to palpation Psych: Normal mood and affect Skin: no rash or erythema Results & Data Results & Data Vital Signs (Past 12 Hours) Vital Signs Temp Pulse Pulse Resp BP Pulse Ox O2 Del Method 09/14/23 02:52 36.6 C 61 18 117/63 94 Room Air 09/13/23 22:58 37 C 65 18 108/61 95 Room Air 09/13/23 21:57 58 L 09/13/23 20:20 Room Air 09/13/23 19:31 36.6 C 69 18 115/68 95 Room Air Laboratory Results Abnormal lab results 09/13/23 09/14/23 09/14/23 Range/Units 06:13 05:01 05:05 RBC 3.52 L (4.20-5.40) M/uL Hgb 10.5 L (12.0-16.0) g/dl Hct 33.6 L (37.0-47.0) % MCHC 31.3 L 31.3 L (32.0-36.0) g/dL RDW Std Deviation 64.7 H 65.2 H (36.4-46.3) fL RDW Coeff of Angus 18.3 H 18.5 H (11.5-14.5) % Bates # (Auto) 1.61 H 1.70 H (0.11-0.59) K/uL Eos # (Auto) 0.73 H (0.00-0.50) K/uL Baso # (Auto) 0.22 H (0.00-0.20) K/uL Absolute Nucleated RBC 0.16 H (0.00-0.12) K/uL POC pO2 77 L (80-95) mmHg POC HCO3 28 H (19-24) zoey/L POC Base Excess 4.0 H (-9-1.8) zoey/L POC Sodium 133 L (135-144) mmol/L Sodium 135 L (136-145) mmol/L POC Potassium 3.0 L (3.3-5.0) mmol/L Chloride 95 L (98-107) mmol/L Anion Gap 13 H (3-11) Glucose 114 H 150 H (70-99(Fasting)) mg/dl Lactate (0.4-2.0) mmol/L Phosphorus 5.4 H (2.5-4.9) mg/dl Total Bilirubin 1.1 H (0.2-1.0) mg/dl 09/14/23 Range/Units 05:06 RBC (4.20-5.40) M/uL Hgb (12.0-16.0) g/dl Hct (37.0-47.0) % MCHC (32.0-36.0) g/dL RDW Std Deviation (36.4-46.3) fL RDW Coeff of Angus (11.5-14.5) % Bates # (Auto) (0.11-0.59) K/uL Eos # (Auto) (0.00-0.50) K/uL Baso # (Auto) (0.00-0.20) K/uL Absolute Nucleated RBC (0.00-0.12) K/uL POC pO2 (80-95) mmHg POC HCO3 (19-24) zoey/L POC Base Excess (-9-1.8) zoey/L POC Sodium (135-144) mmol/L Sodium (136-145) mmol/L POC Potassium (3.3-5.0) mmol/L Chloride (98-107) mmol/L Anion Gap (3-11) Glucose (70-99(Fasting)) mg/dl Lactate 2.8 H* (0.4-2.0) mmol/L Phosphorus (2.5-4.9) mg/dl Total Bilirubin (0.2-1.0) mg/dl Diagnostic Findings Chest X-Ray 09/13/23 07:41 SINGLE VIEW CHEST CLINICAL HISTORY: Congestive heart failure. FINDINGS: An AP, portable, upright chest radiograph is compared to study dated 09/11/2023. There is evidence of previous cardiac valve surgery. The heart is enlarged noting atherosclerotic calcification of the thoracic aorta. There is pulmonary vascular congestion with interstitial edema. There are layering pleural effusions with dependent consolidation. No pneumothorax is seen. The skeletal structures are osteopenic. The bony thorax is grossly intact. Degenerative change is noted in the shoulders. Surgical clips are noted in the upper abdomen. IMPRESSION: 1. Cardiomegaly with evidence of congestive failure and pulmonary edema. This is unchanged to modestly improved as compared to yesterday. 2. Layering pleural effusions with dependent consolidation. ACT 112: Negative or not required by law. Electronically signed by: Rohit Gorman M.D. 09/13/2023 12:[address] 09/14/23 04:21 CR Exam(s): CT HEAD Without Contrast EXAM: CT Head Without Intravenous Contrast CLINICAL HISTORY: Reason for exam: altered mental status. TECHNIQUE: Axial computed tomography images of the head/brain without intravenous contrast. CTDI is 39.86 mGy and DLP is 663.26 mGy-cm. Automated exposure control was utilized for the study. A dose lowering technique was utilized adhering to the principles of ALARA. COMPARISON: No relevant prior studies available. FINDINGS: Brain: There are some hypodensities within the periventricular and subcortical white matter of a minor degree. No hemorrhage. Ventricles: Unremarkable. No ventriculomegaly. Bones/joints: Unremarkable. No acute fracture. Soft tissues: Unremarkable. Vasculature: There is some increased density demonstrated superior margin of the basilar artery. Sinuses: Unremarkable as visualized. No acute sinusitis. Mastoid air cells: Unremarkable as visualized. No mastoid effusion. IMPRESSION: Some increased density tip of the basilar artery, thrombus within the structure cannot be excluded on this exam. Minor chronic ischemic microvascular process as well. Communications: Call Doctor Above results Electronically signed by: Minh Loving MD 09/14/23 05:22 AM Head CTA 09/14/23 05:32 Exam(s): CTA HEAD With Contrast IV Amt: 120 mls optiray 320 EXAM: CT Angiography Head With Intravenous Contrast CLINICAL HISTORY: Reason for exam: ?thrombus. TECHNIQUE: Axial computed tomographic angiography images of the head with intravenous contrast. CTDI is 36.52 mGy and DLP is 534.63 mGy-cm. Automated exposure control was utilized for the study. A dose lowering technique was utilized adhering to the principles of ALARA. MIP reconstructed images were created and reviewed. CONTRAST: Patient received 120 mls optiray 320 of IV contrast COMPARISON: No relevant prior studies available. FINDINGS: Right internal carotid artery: No acute findings. Intracranial segment is patent with no significant stenosis. No aneurysm. Right anterior cerebral artery: Unremarkable. No occlusion or significant stenosis. No aneurysm. Right middle cerebral artery: Unremarkable. No occlusion or significant stenosis. No aneurysm. Right posterior cerebral artery: Unremarkable. No occlusion or significant stenosis. No aneurysm. Right vertebral artery: Unremarkable as visualized. Left internal carotid artery: No acute findings. Intracranial segment is patent with no significant stenosis. No aneurysm. Left anterior cerebral artery: Unremarkable. No occlusion or significant stenosis. No aneurysm. Left middle cerebral artery: Unremarkable. No occlusion or significant stenosis. No aneurysm. Left posterior cerebral artery: Unremarkable. No occlusion or significant stenosis. No aneurysm. Left vertebral artery: Unremarkable as visualized. Basilar artery: There is some mild expansion to the tip IMPRESSION: Anatomical variation as described, no acute large vessel occlusion seen. Electronically signed by: Minh Loving MD 09/14/23 06:25 AM Neck CTA 09/14/23 05:32 Exam(s): CTA NECK With Contrast IV Amt: 120 mls optiray 320 EXAM: CT Angiography Neck With Intravenous Contrast CLINICAL HISTORY: Reason for exam: ?thrombus. TECHNIQUE: Routine carotid CT angiography protocol was performed with intravenous contrast. NASCET criteria using the distal ICAs for comparison were used for evaluation of stenoses. CTDI is 36.52 mGy and DLP is 534.63 mGy-cm. Automated exposure control was utilized for the study. A dose lowering technique was utilized adhering to the principles of ALARA. MIP reconstructed images were created and reviewed. CONTRAST: Patient received 120 mls optiray 320 of IV contrast COMPARISON: None. FINDINGS: There is calcific atherosclerotic vascular disease centered within the bilateral carotid arterial bulb regions as well as the origin of the great neck vessels particularly origin of the left subclavian artery. No arteriovenous malformation, large vessel occlusion or aneurysm seen. Relatively symmetric bilateral vertebral arteries are present. There is diffuse thyroid enlargement with a 1.6 cm nodule demonstrated right thyroid lobe. Endotracheal tube demonstrated. It is likely in satisfactory position. There are moderate bilateral pleural effusions. CAROTID STENOSIS REFERENCE USING NASCET CRITERIA: % ICA stenosis = (1 - narrowest ICA diameter/diameter of distal cervical ICA) x 100. Mild - <50% stenosis. Moderate - 50-69% stenosis. Severe - 70-94% stenosis. Near occlusion - 95-99% stenosis. Occluded - 100% stenosis. IMPRESSION: No acute vascular abnormality. Bilateral pleural effusions. Thyroid abnormalities as discussed above. Electronically signed by: Minh Loving MD 09/14/23 06:31 AM ECG Additional Comments: Normal sinus rhythm Non-specific intra-ventricular conduction block Lateral i nfarct (cited on or before 11-SEP-2023) Abnormal ECG When compared with ECG of 11-SEP-2023 10:08, Vent. rate has decreased BY 65 BPM QRS axis Shifted left Serial changes of Lateral infarct Present Coding Level of Care Code 82504 CRITICAL CARE 1ST 30-74M Diagnoses HFrEF (heart failure with reduced ejection fraction) I50.20 Ventricular tachycardia I47.20 Cardiac arrest with successful resuscitation I46.9 Status post splenectomy Z90.81 Encephalopathy G93.40 Ventricular arrhythmia I49.9
[2023-09-14 05:15] LABS: iSTAT Allen Test Pass; iSTAT Art Bld Gas pCO2 Correct 43 mmHg (35-46); iSTAT Art Bld Gas pH Corrected 7.424 (7.35-7.45); iSTAT Arterial Blood Gas HCO3 28 meg/L (19-24); iSTAT Arterial Blood Gas pCO2 43 mmHg (35-46); iSTAT Arterial Blood Gas pH 7.42 (7.35-7.45); iSTAT Arterial Blood Gas pO2 77 mmHg (80-95); iSTAT Arterial Blood Gas pO2 C 76; iSTAT Carbon Dioxide 29 mmol/L (24-31); iSTAT FiO2 30 %; iSTAT Hematocrit 41 % (37-47); iSTAT Hemoglobin 13.9 g/dl (12.0-16.0); iSTAT Site L Radial; iSTAT Sodium 133 mmol/L (135-144)
[2023-09-14] MEDS: propofoL 1,000 MG/100 ML VIAL IV SCH (05:15)
[2023-09-14 05:23] LABS: Basophils # (auto) 0.19 K/uL (0.00-0.20); Basophils % (auto) 2.1 %; Eosinophils # (auto) 0.73 K/uL (0.00-0.50); Eosinophils % (auto) 8.2 %; Hematocrit (blood only) 41.9 % (37.0-47.0); Hemoglobin 13.1 g/dl (12.0-16.0); Immature Granulocytes # (auto) 0.09 K/uL (0.01-0.20); Lymphocytes # (auto) 2.33 K/uL (1.20-3.40); Lymphocytes % (auto) 26.1 %; Mean Corpuscular Hemoglobin 29.8 pg (25.0-34.0); Mean Corpuscular Hgb Conc 31.3 g/dL (32.0-36.0); Mean Corpuscular Volume 95.4 fL (80.0-100.0); Mean Platelet Volume 10.5 fL (9.4-12.4); Neutrophils # (auto) 3.89 K/uL (1.40-6.50); Neutrophils % (auto) 43.6 %; Nucleated RBC # (auto) 0.09 K/uL (0.00-0.12); Platelet Count 382 K/uL (130-400); RDW Coefficient of Variation 18.5 % (11.5-14.5); RDW Standard Deviation 65.2 fL (36.4-46.3); Red Blood Count 4.39 M/uL (4.20-5.40); White Blood Count 8.93 K/ul (4.8-10.8)
--- NOTE | 2023-09-14 05:23 | CT Scan Report ---
Exam(s): CT HEAD Without Contrast EXAM: CT Head Without Intravenous Contrast CLINICAL HISTORY: Reason for exam: altered mental status. TECHNIQUE: Axial computed tomography images of the head/brain without intravenous contrast. CTDI is 39.86 mGy and DLP is 663.26 mGy-cm. Automated exposure control was utilized for the study. A dose lowering technique was utilized adhering to the principles of ALARA. COMPARISON: No relevant prior studies available. FINDINGS: Brain: There are some hypodensities within the periventricular and subcortical white matter of a minor degree. No hemorrhage. Ventricles: Unremarkable. No ventriculomegaly. Bones/joints: Unremarkable. No acute fracture. Soft tissues: Unremarkable. Vasculature: There is some increased density demonstrated superior margin of the basilar artery. Sinuses: Unremarkable as visualized. No acute sinusitis. Mastoid air cells: Unremarkable as visualized. No mastoid effusion. IMPRESSION: Some increased density tip of the basilar artery, thrombus within the structure cannot be excluded on this exam. Minor chronic ischemic microvascular process as well. Communications: Call Doctor Above results Electronically signed by: Minh Loving MD 09/14/23 05:22 AM
[2023-09-14] MEDS: fentaNYL citrate 2,500 MCG/250 ML BAG IV ONE (05:24)
[2023-09-14] MEDS: PROPOFOL IV EMULSION 10 MG/ML 100 ML VIAL IV ONE (05:24)
[2023-09-14] MEDS: RAPID SEQUENCE INDUCTION BAG ONE (05:24)
[2023-09-14] MEDS: fentaNYL citrate 2,500 MCG/250 ML BAG IV SCH (05:30)
[2023-09-14] MEDS: fentaNYL citrate PF 100 MCG/2 ML VIAL IV ONE (05:31)
[2023-09-14] MEDS: OPTIRAY 320 125ml IV ONE (05:55)
[2023-09-14 05:56] LABS: Albumin Globulin Ratio 1.4 (0.9-2); BUN Creatinine Ratio 11.5 (10-20); Bilirubin,Total 1.1 mg/dl (0.2-1.0); Calcium 9.9 mg/dl (8.6-10.3); Creatinine Clr Calc Pharmacy 46.8 ml/min; Est GFR (African American) 66.1 ml/min; Globulin 2.8 gm/dl (2.5-4.0); Magnesium 1.9 mg/dl (1.7-2.4); Phosphorus 5.4 mg/dl (2.5-4.9); Potassium 3.6 mmol/L (3.5-5.1); Total Protein 6.8 gm/dl (6.0-8.3)
[2023-09-14 05:57] LABS: INR 1.1 (0.9-1.1); Prothrombin Time 11.7 Seconds (9.0-12.0)
[2023-09-14] MEDS: MIDAZOLAM HCL 1 MG/ML 2ML VIAL IV PRN (06:00)
[2023-09-14] MEDS: MAGNESIUM SULFATE / D5W 1 GM/100 ML BAG IV SCH (06:15)
--- NOTE | 2023-09-14 06:26 | CT Scan Report ---
Exam(s): CTA HEAD With Contrast IV Amt: 120 mls optiray 320 EXAM: CT Angiography Head With Intravenous Contrast CLINICAL HISTORY: Reason for exam: ?thrombus. TECHNIQUE: Axial computed tomographic angiography images of the head with intravenous contrast. CTDI is 36.52 mGy and DLP is 534.63 mGy-cm. Automated exposure control was utilized for the study. A dose lowering technique was utilized adhering to the principles of ALARA. MIP reconstructed images were created and reviewed. CONTRAST: Patient received 120 mls optiray 320 of IV contrast COMPARISON: No relevant prior studies available. FINDINGS: Right internal carotid artery: No acute findings. Intracranial segment is patent with no significant stenosis. No aneurysm. Right anterior cerebral artery: Unremarkable. No occlusion or significant stenosis. No aneurysm. Right middle cerebral artery: Unremarkable. No occlusion or significant stenosis. No aneurysm. Right posterior cerebral artery: Unremarkable. No occlusion or significant stenosis. No aneurysm. Right vertebral artery: Unremarkable as visualized. Left internal carotid artery: No acute findings. Intracranial segment is patent with no significant stenosis. No aneurysm. Left anterior cerebral artery: Unremarkable. No occlusion or significant stenosis. No aneurysm. Left middle cerebral artery: Unremarkable. No occlusion or significant stenosis. No aneurysm. Left posterior cerebral artery: Unremarkable. No occlusion or significant stenosis. No aneurysm. Left vertebral artery: Unremarkable as visualized. Basilar artery: There is some mild expansion to the tip IMPRESSION: Anatomical variation as described, no acute large vessel occlusion seen. Electronically signed by: Minh Loving MD 09/14/23 06:25 AM
--- NOTE | 2023-09-14 06:33 | CT Scan Report ---
Exam(s): CTA NECK With Contrast IV Amt: 120 mls optiray 320 EXAM: CT Angiography Neck With Intravenous Contrast CLINICAL HISTORY: Reason for exam: ?thrombus. TECHNIQUE: Routine carotid CT angiography protocol was performed with intravenous contrast. NASCET criteria using the distal ICAs for comparison were used for evaluation of stenoses. CTDI is 36.52 mGy and DLP is 534.63 mGy-cm. Automated exposure control was utilized for the study. A dose lowering technique was utilized adhering to the principles of ALARA. MIP reconstructed images were created and reviewed. CONTRAST: Patient received 120 mls optiray 320 of IV contrast COMPARISON: None. FINDINGS: There is calcific atherosclerotic vascular disease centered within the bilateral carotid arterial bulb regions as well as the origin of the great neck vessels particularly origin of the left subclavian artery. No arteriovenous malformation, large vessel occlusion or aneurysm seen. Relatively symmetric bilateral vertebral arteries are present. There is diffuse thyroid enlargement with a 1.6 cm nodule demonstrated right thyroid lobe. Endotracheal tube demonstrated. It is likely in satisfactory position. There are moderate bilateral pleural effusions. CAROTID STENOSIS REFERENCE USING NASCET CRITERIA: % ICA stenosis = (1 - narrowest ICA diameter/diameter of distal cervical ICA) x 100. Mild - <50% stenosis. Moderate - 50-69% stenosis. Severe - 70-94% stenosis. Near occlusion - 95-99% stenosis. Occluded - 100% stenosis. IMPRESSION: No acute vascular abnormality. Bilateral pleural effusions. Thyroid abnormalities as discussed above. Electronically signed by: Minh Loving MD 09/14/23 06:31 AM
[2023-09-14] MEDS: POTASSIUM CHLORIDE / WTR 20 MEQ/100 ML PLCT IV ONE (06:52)
--- NOTE | 2023-09-14 06:54 | Procedure Note ---
Procedure Note Date of Service September 14, 2023 Note INTERNAL JUGULAR CENTRAL LINE PROCEDURE NOTE: Procedure: Internal Jugular Central Line Placement Proceduralist: Sean BRADFORD ([facility] Attending: Dr. Sorenson Indication: Central Drug Administration, Poor Venous Access, Multiple Lab Draws Necessary, etc. Anesthesia: [x]Lidocaine 1% Emergent Consent was implied as patient is now post arrest with poor access. Benefits outweigh risks at this point in time A time-out was completed verifying correct patient, procedure, site, positioning, equipment if applicable. Patients RIGHT Neck was, scouted with ultrasound prior to start of porcedure to identify apporpriate target. Following scouting of the vessel. The RIGHT NECK was cleansed and draped in the typical sterile fashion using Chloraprep. The Internal Jugular Vein and Carotid Artery were again identified using ultrasound. The superficial tissue was anesthetized using 5 mL of 1% lidocaine without epinephrine under direct visualization with the ultrasound. After adequate anesthetization was achieved, the Internal Jugular vein was cannulated under direct ultrasound guidance using an introducer needle on a syringe. Good venous blood return was maintained prior to removal of syringe from introducer needle. Using Seldinger Technique, a guide wire was advanced through the introducer needle without resistance. The introducer needle was removed and ultrasound images were obtained of the guide wire within the Internal Jugular Vein. A small incision was made in penetrating fashion at the guide wire insertion site utilizing an 11 blade scalpel. The dilator was advanced to the vessel without resistance. The dilator was exchanged for the triple lumen catheter which was advanced into the vessel without resistance. The guide wire was removed intact from the catheter without issue. Claves were placed on each catheter tip with confirmation of good blood flow from each lumen. Each port was easily flushed with sterile saline. The catheter was placed at 17 cm and sutured in place and a sterile chlorhexidine im pregnated Tegaderm dressing was applied over the catheter with careful attention to sterility. Patient tolerated procedure well. No immediate complications were met. small superficial hematoma at insertion site Post procedure x-ray was completed, placement was appropriate and no pneumothorax was noted. Images obtained are NOT saved for permanent record secondary to urgency Artery AND Vein visualized: YES Compressible Vein: YES Guidewire or Short Catheter seen in vein prior to dilation: YES Coding CPT Codes Tubes, Drains, and Vasc Access - Tubes, Drains, and Vasc Access: [id number] Insertion Of Non-tunneled Catheter Age 6 Yrs> ([id number]) [facility] Procedure Codes (Charges) Tubes, Drains, and Vasc Access Procedure 1: Tubes, Drains, and Vasc Access: [id number] Insertion Of Non-tunneled Catheter Age 6 Yrs>
[2023-09-14] MEDS ORDERED: Nursing to Pharmacy Communication SCH (07:15)
[2023-09-14] MEDS: ICU ELECTROLYTE REPLACEMENT PROTOCOL SCH ×2 (07:52→17:49)
[2023-09-14] MEDS: POTASSIUM CHLORIDE 20 MEQ/15 ML UDC NG STA (08:09)
--- NOTE | 2023-09-14 08:23 | XRay Report ---
XR chest 1V portable HISTORY: eval central line placement- r/o pthx COMPARISON: Chest 09/14/2023. FINDINGS: Endotracheal tube terminates 5.9 cm from the ana cristina. Nasogastric tube terminates below the diaphragm. The tip is not included on this study. A right jugular central venous catheter terminates in the SVC. No pneumothorax. The heart is mildly enlarged. Small bilateral pleural effusions and biba silar densities persist. Mild congestive change again noted. An aortic valve prosthesis is present. IMPRESSION: 1. Satisfactory support line placement. 2. Mild congestive change and small bilateral pleural effusions/densities persist. ACT 112: Negative or not required by law. Electronically signed by: Ozzy Rush M.D. 09/14/2023 8:21 AM
--- NOTE | 2023-09-14 08:23 | XRay Report ---
XR chest 1V portable HISTORY: post-intubation COMPARISON: Chest 09/13/2023. FINDINGS: Endotracheal tube terminates 5 cm from the ana cristina. An aortic valve prosthesis is noted. No pneumothorax. There are small bilateral pleural effusions and bibasilar densities. This is similar to the prior study. There is mild central pulmonary vascular congestion without overt edema. IMPRESSION: 1. The endotracheal tube terminates 5 cm from the ana cristina. 2. Small bilateral pleural effusions and bibasilar densities persist. 3. Cardiomegaly with mild congestive change. ACT 112: Negative or not required by law. Electronically signed by: Ozzy Rush M.D. 09/14/2023 8:21 AM
[2023-09-14] MEDS: METOPROLOL TARTRATE 1 MG/ML VIAL IV SCH (09:32)
[2023-09-14] MEDS: INSULIN ASPART PER UNIT CHARGE SC STA (09:34)
--- NOTE | 2023-09-14 11:25 | Cardiology Progress Note ---
Date of Service September 14, 2023 Assessment & Plan (1) Left ventricular dysfunction: Plan: -nonischemic cardiomyopathy. -repeat echocardiogram notes any EF of 25-30% with only the base of the heart celina normally. -question Takotsubo cardiomyopathy. -may have been secondary to her initial cardiac arrest. -cardiac catheterization showed no ischemic lesions. -medical management. (2) Ventricular tachycardia: Plan: -continue amiodarone at 400 mg b.i.d. (3) Cardiac arrest with successful resuscitation: Plan: -most recent event likely secondary to torsade. -continue amiodarone as above. -Dr. Ramirez will be available tomorrow. (4) S/p TAVR (transcatheter aortic valve replacement), bioprosthetic: Plan: -adequate function on current echocardiogram. Admission and Anticipated Discharge Date Admission Date: September 06, 2023 Subjective The patient is sedated and intubated in the intensive care unit. Physical Exam Physical Exam: In general this is a well-developed well-nourished white female intubated in the intensive care unit. HEENT exam notes an ET tube in place. Neck is supple with full carotid upstrokes. There is no thyromegaly. Cardiovascular exam reveals a regular rhythm with distant heart sounds. No obvious murmurs. Lungs are clear without rales, rhonchi, or wheezes. Abdomen is soft and nontender without bruits. Extremities reveal intact radial artery and posterior tibial pulses bilaterally. There is no peripheral edema. Results & Data Vital Signs (Past 12 Hours) Vital Signs Temp Pulse Pulse Pulse Resp BP BP 09/14/23 10:00 37.7 C H 64 16 130/59 L 09/14/23 09:32 57 L 108/51 L 09/14/23 09:30 37.6 C H 59 L 16 108/51 L 09/14/23 09:15 37.6 C H 60 16 111/52 L 09/14/23 09:00 37.6 C H 61 16 118/55 L 09/14/23 08:45 124/58 L 09/14/23 08:45 62 16 09/14/23 08:30 61 16 118/58 L 09/14/23 08:15 67 17 09/14/23 08:00 58 L 16 142/76 H 09/14/23 08:00 09/14/23 07:45 56 L 18 09/14/23 07:45 61 16 124/56 L 09/14/23 07:30 57 L 16 101/44 L 09/14/23 07:19 09/14/23 07:17 09/14/23 07:15 59 L 16 86/54 L 09/14/23 07:10 57 L 18 87/43 L 09/14/23 06:30 60 16 09/14/23 06:30 105/47 L 09/14/23 06:05 69 18 09/14/23 06:05 129/52 L 09/14/23 05:30 87/44 L 09/14/23 05:30 59 L 19 09/14/23 05:17 85/46 L 09/14/23 05:17 61 16 09/14/23 05:13 61 17 09/14/23 05:08 63 20 09/14/23 05:00 36.5 C 09/14/23 04:24 79 18 09/14/23 04:20 73 22 09/14/23 02:52 36.6 C 61 18 117/63 BP Pulse Ox O2 Del Method FiO2 09/14/23 10:00 100 Mechanical Vent 09/14/23 09:32 09/14/23 09:30 100 Mechanical Vent 09/14/23 09:15 100 Mechanical Vent 09/14/23 09:00 100 Mechanical Vent 09/14/23 08:45 09/14/23 08:45 100 09/14/23 08:30 09/14/23 08:15 100 09/14/23 08:00 100 09/14/23 08:00 Mechanical Vent 09/14/23 07:45 96 30 09/14/23 07:45 100 09/14/23 07:30 99 09/14/23 07:19 Mechanical Vent 09/14/23 07:17 30 09/14/23 07:15 100 09/14/23 07:10 100 09/14/23 06:30 100 09/14/23 06:30 09/14/23 06:05 100 09/14/23 06:05 09/14/23 05:30 09/14/23 05:30 100 09/14/23 05:17 09/14/23 05:17 98 09/14/23 05:13 98 09/14/23 05:08 99 30 05/25/24 05:00 09/14/23 04:24 133/83 100 Mechanical Vent 09/14/23 04:20 134/74 100 Ambu-Bag 09/14/23 02:52 94 Room Air Diagnostic Findings Review of monitor notes a torsade event responsible for her arrest. PG Care Time/CCT Total # of Minutes Spent Total Time Spent with Patient: Total time spent is greater than 50% in coordination of care (as documented) at patient's floor/unit and/or counseling patient: Coding Level of Care Code 17582 SUB INP/OBS CARE 3/50MIN Diagnoses Left ventricular dysfunction I51.9 Ventricular tachycardia I47.20 Cardiac arrest with successful resuscitation I46.9 S/p TAVR (transcatheter aortic valve replacement), bioprosthetic Z95.3
[2023-09-14] MEDS: fentaNYL BOLUS from BAG IV PRN (11:30)
--- NOTE | 2023-09-14 11:34 | Electrocardiogram Report ---
Test Reason : Blood Pressure : / mmHG Vent. Rate : 062 BPM Atrial Rate : 062 BPM P-R Int : 168 ms QRS Dur : 148 ms QT Int : 642 ms P-R-T Axes : 070 257 076 degrees QTc Int : 651 ms Normal sinus rhythm Non-specific intra-ventricular conduction block Lateral infarct (cited on or before 11-SEP-2023) Long QTc Abnormal ECG When compared with ECG of 11-SEP-2023 10:08, Vent. rate has decreased BY 65 BPM QRS axis Shifted left Confirmed by Ross Lazar ([id number]) on 09/14/2023 11:33:49 AM Referred By: REFERRED SELF Confirmed By:Ross Lazar
--- NOTE | 2023-09-14 12:21 | Hospitalist Progress Note ---
Date of Service September 14, 2023 Assessment & Plan (1) STEMI (ST elevation myocardial infarction): Plan: On 09/10, had acute onset of substernal chest pain, sinus tachycardia in the 130s, hypertension in 170s/110s, worsening respiratory failure, and ST elevations with old left bundle branch block seen on ECG Urgent consultation with Cardiology and Heart alert was called-cardiac catheterization urgently performed showed only mild to moderate nonobstructive CAD with 40% ostial circumflex and 40% mid RCA Her Chest pain and distress resolved with nitroglycerin x 2 and IV lopressor, IV lasix Suspect possible vasospasm or strain from heart failure with flash pulmonary edema from hypertension and tachycardia. Did have elevated LVEDP on catheter 27. Troponin did trend upward slightly afterwards to 400s which is still lower than on admission Now on Toprol-XL and isosorbide mononitrate. Lasix was uptitrated to every 12 hour dosing on September 12. 1 dose of metolazone 5 mg ordered on September 12 also. Monitor intake and output. Serial chest x-ray. (2) Sepsis: Plan: Present on admission. Due to suspected UTI initially but with had ongoing fevers for many days despite adequate treatment for UTI With septic shock, was on vasopressors and on vent after cardiac arrest-now weaned off pressors. Leukocytosis resolved, BPs normalized, tachypnea and fever now resolved since switching antibiotics to Zosyn and vancomycin on 09/08 Cough that started after eating-possible aspiration? Speech consulted and did well with bedside swallow eval Cough now improved BCxs from 09/05 growing GPC in chains, blood culture BioFire negative Repeat BCxs 09/08 remain with NGTD Respiratory BioFire negative 09/08 CXR with pleural effusions, possible PNA CT abd/pel on admission w/ fluid collection near pancreas which may be related to recent splenectomy--> if continued fevers, would re-image abdomen Can now discontinue Vanco as repeat Blood cxs negative and MRSA nasal swab negative Changed ceftriaxone to Zosyn on 09/08 for better aspiration and Pseudomonas coverage for PNA -now much improved-last day of 7 day course 09/15/23 (3) HFrEF (heart failure with reduced ejection fraction): Plan: With acute HFrEF as above, echo here with EF 25-30%, +WMAs Had normal cath in prep for TAVR in 2021. Now with repeat cardiac catheterization on 09/10 as above again with only mild to moderate nonobstructive CAD May have been reduced EF post arrest started ASA 81mg daily Repeat limited echo 09/11 however with continuing reduced EF 25-30% all segments severely hypokinetic except the base--> likely Takotsubo's Much improved now with BP control, diuresis Now that blood pressures are recovered from previous septic shock, started Toprol-XL 25 mg daily. IV Lasix uptitrated today, September 12. Will administer 1 dose of metolazone 5 mg today also, September 12. Cardiology may add on Entresto or lisinopril if EF not improving -defer for now (4) Ventricular tachycardia: Plan: Suffered VT and then VF arrest on 09/06 and again last night, September 12. QT interval is prolonged and amiodarone has been discontinued. Appreciate cardiology consultation and recommendations. Telemetry . Serial labs (5) Altered mental status: Plan: Acute metabolic encephalopathy present on admission probably due ongoing sepsis, hypotension. Brain MRI negative for acute CVA (6) Suspected UTI: Plan: E. coli isolated from urine cultures, was on Ceftriaxone x 2 days but with persistent fever. She has since been switched to Zosyn and will complete course on 09/15/23 (7) Elevated troponin: Plan: Troponin peaked at 1325. No chest pain, no acute EKG changes initially. No chest pain prior to CODE BLUE. Cardiac echo report noted. Then with chest pain on 09/10 and HEART ALERT called. Cardiac catheterization on 09/10 revealed mild to moderate nonobstructive CAD. Troponin likely increased from demand ischemia with CHF (8) Fall: Plan: Fall at home probably either due to sepsis or VT/VF. Supportive care. Treat underlying illness. OT and PT ongoing (9) Status post splenectomy: Plan: Recently completed at another hospital on August 15 of this year. 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 No intervention necessary at this time. (10) Dysphagia: Plan: coughing after eating solids. Speech therapy consult appreciated. No apparent aspiration on bedside eval. 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 Normal function on ECHO. No intervention necessary at this time. F/u with cardiology Plan To be determined. Hopefully eventual discharge to [place] care Admission and Anticipated Discharge Date Admission Date: September 06, 2023 Subjective Unfortunately, the patient had another episode of ventricular tachycardia last evening which required electrical cardioversion. She is again intubated and in the ICU. Cardiology has seen the patient. Her QT interval is prolonged and amiodarone has been discontinued. Review of Systems 2 Review of Systems: The patient is intubated and sedated and cannot answer any questions regarding review of systems at this time Physical Exam 2 Physical Exam: General-intubated and sedated. No fever. HEENT-head atraumatic and normocephalic, intubated on ventilator support Neck-no lymphadenopathy or thyromegaly, trachea midline. ET tube and OT tubes in place Chest-diminished breath sounds bilaterally with inspiratory rales. No rhonchi. No wheezing. Cardiac-regular rate and rhythm, normal S1 and S2 Abdomen-normal bowel sounds, no hepatosplenomegaly Extremities-no cyanosis, clubbing, or edema Neuro-cannot assess Psych-cannot assess Results & Data Results & Data Vital Signs (Past 12 Hours) Vital Signs Temp Pulse Pulse Pulse Resp BP BP 09/14/23 10:00 37.7 C H 64 16 130/59 L 09/14/23 09:32 57 L 108/51 L 09/14/23 09:30 37.6 C H 59 L 16 108/51 L 09/14/23 09:15 37.6 C H 60 16 111/52 L 09/14/23 09:00 37.6 C H 61 16 118/55 L 09/14/23 08:45 124/58 L 09/14/23 08:45 62 16 09/14/23 08:30 61 16 118/58 L 09/14/23 08:15 67 17 09/14/23 08:00 09/14/23 08:00 58 L 16 142/76 H 09/14/23 08:00 09/14/23 07:45 56 L 18 09/14/23 07:45 61 16 124/56 L 09/14/23 07:30 57 L 16 101/44 L 09/14/23 07:19 09/14/23 07:17 09/14/23 07:15 59 L 16 86/54 L 09/14/23 07:10 57 L 18 87/43 L 09/14/23 06:30 60 16 09/14/23 06:30 105/47 L 09/14/23 06:05 69 18 09/14/23 06:05 129/52 L 09/14/23 05:30 87/44 L 09/14/23 05:30 59 L 19 09/14/23 05:17 85/46 L 09/14/23 05:17 61 16 09/14/23 05:13 61 17 09/14/23 05:08 63 20 09/14/23 05:00 36.5 C 09/14/23 04:24 79 18 09/14/23 04:20 73 22 09/14/23 02:52 36.6 C 61 18 117/63 BP Pulse Ox O2 Del Method FiO2 09/14/23 10:00 100 Mechanical Vent 09/14/23 09:32 09/14/23 09:30 100 Mechanical Vent 09/14/23 09:15 100 Mechanical Vent 09/14/23 09:00 100 Mechanical Vent 09/14/23 08:45 09/14/23 08:45 100 09/14/23 08:30 09/14/23 08:15 100 09/14/23 08:00 30 09/14/23 08:00 100 09/14/23 08:00 Mechanical Vent 09/14/23 07:45 96 30 09/14/23 07:45 100 09/14/23 07:30 99 09/14/23 07:19 Mechanical Vent 09/14/23 07:17 30 09/14/23 07:15 100 09/14/23 07:10 100 09/14/23 06:30 100 09/14/23 06:30 09/14/23 06:05 100 09/14/23 06:05 09/14/23 05:30 09/14/23 05:30 100 09/14/23 05:17 09/14/23 05:17 98 09/14/23 05:13 98 09/14/23 05:08 99 30 09/14/23 05:00 09/14/23 04:24 133/83 100 Mechanical Vent 09/14/23 04:20 134/74 100 Ambu-Bag 09/14/23 02:52 94 Room Air Laboratory Results 09/14/23 05:05 09/14/23 05:05 PG Care Time/CCT Total # of Minutes Spent Total Time Spent with Patient: Total time spent is greater than 50% in coordination of care (as documented) at patient's floor/unit and/or counseling patient: Coding Level of Care Code 94555 SUB INP/OBS CARE 3/50MIN Diagnoses STEMI (ST elevation myocardial infarction) I21.3 Sepsis A41.9 HFrEF (heart failure with reduced ejection fraction) I50.20 Ventricular tachycardia I47.20 Altered mental status R41.82 Suspected UTI R39.89 Elevated troponin R79.89 Fall W19.XXXA Status post splenectomy Z90.81 Dysphagia R13.10 T-cell large granular lymphocytic leukemia C91.Z0 Aortic valve prosthesis present Z95.2
[2023-09-14] MEDS: PEPTAMEN INTENSE VHP 1.0 CAL 1,000 ML BAG OG SCH (12:58)
[2023-09-14] MEDS: ACETAMINOPHEN 500 MG TAB PO PRN (14:59)
[2023-09-14] MEDS: AMPICILLIN/SULBACTAM SOD 3,000 MG in SODIUM CHLOR 0.9% MINI-B 100 ML IV SCH (14:59)
[2023-09-14] MEDS: TUBE FEEDING WATER FLUSH GT SCH (15:10)
[2023-09-14 20:46] LABS: BUN Creatinine Ratio 13.3 (10-20); Calcium 9.5 mg/dl (8.6-10.3); Creatinine Clr Calc Pharmacy 54.2 ml/min; Est GFR (African American) 78.8 ml/min; Potassium 3.3 mmol/L (3.5-5.1)
[2023-09-14] MEDS: POTASSIUM CHLORIDE 20 MEQ/15 ML UDC NG SCH (21:23)
[2023-09-14 22:15] LABS: Magnesium 2.4 mg/dl (1.7-2.4); Phosphorus 4.2 mg/dl (2.5-4.9)
[2023-09-15 05:06] LABS: Basophils # (auto) 0.19 K/uL (0.00-0.20); Basophils % (auto) 2.3 %; Eosinophils # (auto) 0.38 K/uL (0.00-0.50); Eosinophils % (auto) 4.6 %; Hematocrit (blood only) 38.4 % (37.0-47.0); Immature Granulocytes # (auto) 0.09 K/uL (0.01-0.20); Immature Granulocytes % (auto) 1.1 %; Lymphocytes # (auto) 1.48 K/uL (1.20-3.40); Lymphocytes % (auto) 18.1 %; Mean Corpuscular Hgb Conc 31.3 g/dL (32.0-36.0); Mean Platelet Volume 11.2 fL (9.4-12.4); Monocytes % (auto) 24.4 %; Neutrophils # (auto) 4.05 K/uL (1.40-6.50); Neutrophils % (auto) 49.5 %; Nucleated RBC # (auto) 0.07 K/uL (0.00-0.12); Nucleated RBC % (auto) 0.9 %; Platelet Count 374 K/uL (130-400); RDW Coefficient of Variation 18.2 % (11.5-14.5); White Blood Count 8.19 K/ul (4.8-10.8)
[2023-09-15 05:11] LABS: BUN Creatinine Ratio 17.1 (10-20); Calcium 9.4 mg/dl (8.6-10.3); Creatinine Clr Calc Pharmacy 59.2 ml/min; Est GFR (African American) 87.7 ml/min; Est GFR (Non-African American) 75.7 ml/min; Magnesium 2.4 mg/dl (1.7-2.4); Phosphorus 3.1 mg/dl (2.5-4.9); Potassium 4.4 mmol/L (3.5-5.1)
--- NOTE | 2023-09-15 07:29 | Critical Care Progress Note ---
Date of Service September 15, 2023 Assessment & Plan (1) Cardiac arrest with successful resuscitation: (2) Ventricular tachycardia: (3) PSVT (paroxysmal supraventricular tachycardia): (4) Status post splenectomy: (5) Acute UTI (urinary tract infection): (6) Elevated troponin: (7) Aortic valve prosthesis present: Plan Reason Critically Ill: 78-year-old female status post ventricular tachycardia cardiac arrest (recurrent) with successful return of spontaneous circulation. She was intubated for encephalopathy postarrest 24-hour events: Hemodynamically stable. Febrile overnight. Cultures were obtained. She is already on antibiotics. PLAN: Neuro: Encephalopathy resolved. Avoid QT prolonging agents. Working on sedation break for ventilator liberation today. Will need to reengage PT and OT once liberated from the ventilator. Resp: Acute respiratory failure secondary to cardiac arrest: Currently on spontaneous breathing trial. Will try and pursue vent liberation later today. CV: Ventricular tachycardia. Holding amiodarone given QT prolongation per cardiology notes. Electrophysiology to assess in AM. May need AICD given recurrent events. Continue to correct electrolytes as tolerated. TAVR appears to be functioning appropriately. She is now hemodynamically stable. Hold additional diuresis for now Fluids/Renal: No current issues. Continue ICU electrolyte replacement protocol ID: E. coli identified in the urine resistant to fluoroquinolones Bactrim and ampicillin but sensitive to the ceftriaxone. Repeat cultures are pending. Procalcitonin remains negative. Unclear etiology for fevers but does not appear infectious at this point in time. She has completed 9 days of antibiotics including 3 days of cefepime, 2 days of Rocephin, 6 days of vancomycin, and 6 days of Zosyn/Unasyn. I think antibiotics at this point time can be discontinued and will follow the patient clinically. If she has persistent fevers, repeat cultures might be appropriate and infectious disease consu ltation. Workup for noninfectious etiologies of fever may be appropriate. GI/Nutrition: Tube feeds on hold. Will resume diet once successfully liberated from ventilator. Heme: Mild anemia. 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 Outpatient oncology follow-up. On Lovenox for DVT prophylaxis Endocrine: ICU hyperglycemia protocol Vascular access: Right internal jugular, endotracheal tube Code Status: Apparently there is significant confusion regarding CODE STATUS. Daughter states the patient is DNR/DNI however this was different from when she came in. Will try and get the patient awake alert and conversant to be able to have discussions. Recommend primary care team false pass back with family to ensure that everyone is on the same page. Disposition: Keep in the ICU today to ensure hemodynamic stability Admission and Anticipated Discharge Date Admission Date: September 06, 2023 Subjective Patient seen and examined. EMR reviewed. Discussed with bedside critical care nurse and on multidisciplinary rounds. The patient is minimally sedated and currently following commands on the ventilator. She is been hemodynamically stable with no additional episodes of ventricular irritation or irritability. No pressor requirements. Minimal vent settings. She was febrile overnight. Cultures were obtained Review of Systems Review of Systems: Unobtainable due to endotracheal tube Physical Exam Constitutional: WD/WN, vitals as above + mechanically ventilated Neck: trachea midline, no thyromegaly Respiratory: normal respiratory effort, lungs clear to auscultation Cardiovascular: Rate/Rhythm: regular rate Heart Sounds: normal S1, normal S2 and + murmur Extremities: no edema Gastrointestinal (Abdomen): normal bowel sounds, soft, nontender, no hepatosplenomegaly Musculoskeletal: Extremities: extremities normal to inspection Skin: no rashes, warm and dry Neurologic: Sedated but following commands Lymphatic: no cervical lymphadenopathy Results & Data Results & Data Vital Signs (Past 12 Hours) Vital Signs Temp Pulse Resp BP Pulse Ox O2 Del Method FiO2 09/15/23 06:33 73 98/46 L 09/15/23 06:30 98/46 L 09/15/23 06:30 38.2 C H 70 18 100 09/15/23 06:00 38.3 C H 72 18 100 09/15/23 06:00 121/51 L 09/15/23 05:30 135/60 09/15/23 05:00 38.1 C H 68 19 96 09/15/23 05:00 115/59 L 09/15/23 04:04 68 23 100 30 09/15/23 04:01 105/47 L 09/15/23 04:01 37.9 C H 62 18 100 09/15/23 04:00 30 09/15/23 03:00 37.8 C H 63 18 97 09/15/23 03:00 108/51 L 09/15/23 02:00 37.8 C H 62 18 100 09/15/23 02:00 107/49 L 09/15/23 01:00 37.7 C H 63 17 100 09/15/23 01:00 116/55 L 09/15/23 00:15 125/61 09/15/23 00:15 37.7 C H 63 18 99 09/15/23 00:08 57 L 24 97 30 09/15/23 00:00 30 09/15/23 00:00 60 09/14/23 23:45 101/50 L 09/14/23 23:45 37.7 C H 56 L 18 98 09/14/23 23:10 58 L 95/47 L 09/14/23 23:00 94/47 L 09/14/23 23:00 37.8 C H 58 L 18 99 09/14/23 22:02 96/50 L 09/14/23 22:02 38.1 C H 59 L 16 99 09/14/23 21:00 98/50 L 09/14/23 21:00 38.3 C H 67 18 99 09/14/23 20:14 66 19 99 30 09/14/23 20:00 38.2 C H 66 18 100 09/14/23 20:00 115/55 L 09/14/23 20:00 30 09/14/23 19:30 Mechanical Vent Critical Care Results & Data Vital Signs (Past 12 Hours) Vital Signs Temp Pulse Resp BP Pulse Ox O2 Del Method FiO2 09/15/23 06:33 73 98/46 L 09/15/23 06:30 98/46 L 09/15/23 06:30 38.2 C H 70 18 100 09/15/23 06:00 38.3 C H 72 18 100 09/15/23 06:00 121/51 L 09/15/23 05:30 135/60 09/15/23 05:00 38.1 C H 68 19 96 09/15/23 05:00 115/59 L 09/15/23 04:04 68 23 100 30 09/15/23 04:01 105/47 L 09/15/23 04:01 37.9 C H 62 18 100 09/15/23 04:00 30 09/15/23 03:00 37.8 C H 63 18 97 09/15/23 03:00 108/51 L 09/15/23 02:00 37.8 C H 62 18 100 09/15/23 02:00 107/49 L 09/15/23 01:00 37.7 C H 63 17 100 09/15/23 01:00 116/55 L 09/15/23 00:15 125/61 09/15/23 00:15 37.7 C H 63 18 99 09/15/23 00:08 57 L 24 97 30 09/15/23 00:00 30 09/15/23 00:00 60 09/14/23 23:45 101/50 L 09/14/23 23:45 37.7 C H 56 L 18 98 09/14/23 23:10 58 L 95/47 L 09/14/23 23:00 94/47 L 09/14/23 23:00 37.8 C H 58 L 18 99 09/14/23 22:02 96/50 L 09/14/23 22:02 38.1 C H 59 L 16 99 09/14/23 21:00 98/50 L 09/14/23 21:00 38.3 C H 67 18 99 09/14/23 20:14 66 19 99 30 09/14/23 20:00 38.2 C H 66 18 100 09/14/23 20:00 115/55 L 09/14/23 20:00 30 09/14/23 19:30 Mechanical Vent Lab & Micro Results (Past 24 Hours) RBC 4.00 M/uL (4.20-5.40) L 09/15/23 WBC 8.19 K/ul (4.8-10.8) 09/15/23 Hgb 12.0 g/dl (12.0-16.0) 09/15/23 Hct 38.4 % (37.0-47.0) 09/15/23 MCV 96.0 fL (80.0-100.0) 09/15/23 MCH 30.0 pg (25.0-34.0) 09/15/23 MCHC 31.3 g/dL (32.0-36.0) L 09/15/23 RDW Standard Deviation 64.0 fL (36.4-46.3) H 09/15/23 RDW Coefficient of Variation 18.2 % (11.5-14.5) H 09/15/23 Plt Count 374 K/uL (130-400) 09/15/23 MPV 11.2 fL (9.4-12.4) 09/15/23 Nucleated Red Blood Cells % (auto) 0.9 % 09/14 Nucleated RBC Absolute Count (auto) 0.07 K/uL (0.00-0.12) 0 09/15/23 Neutrophils (%) (Auto) 49.5 % 09/15/23 Lymphocytes (%) (Auto) 18.1 % 09/15/23 Monocytes # (Auto) 2.00 K/uL (0.11-0.59) H 09/15/23 Eosinophils # (Auto) 0.38 K/uL (0.00-0.50) 09/15/23 Immature Granulocyte % (Auto) 1.1 % 09/15/23 Neutrophils # (Auto) 4.05 K/uL (1.40-6.50) 09/15/23 Lymphocytes # (Auto) 1.48 K/uL (1.20-3.40) 09/15/23 Monocytes # (Auto) 2.00 K/uL (0.11-0.59) H 09/15/23 Eosinophils # (Auto) 0.38 K/uL (0.00-0.50) 09/15/23 Basophils # (Auto) 0.19 K/uL (0.00-0.20) 09/15/23 Immature Granulocyte # (Auto) 0.09 K/uL (0.01-0.20) 4 Na 135 mmol/L (136-145) L 09/15/23 K 4.4 mmol/L (3.5-5.1) 09/15/23 Cl 100 mmol/L (98-107) 09/15/23 CO2 30 mmol/L (21-32) 09/15/23 Anion Gap 5 (3-11) 09/15/23 BUN 13 mg/dl (6-23) 09/15/23 Creatinine 0.76 mg/dl (0.6-1.2) 09/15/23 Estimated GFR ( Amer) 87.7 ml/min 09/15/23 Estimated GFR (Non-Af Amer) 75.7 ml/min 09/15/23 BUN/Creatinine Ratio 17.1 (10-20) 09/15/23 Glu 109 mg/dl (70-99(Fasting)) H 09/15/23 Ca 9.4 mg/dl (8.6-10.3) 09/15/23 Phosphorus Level 3.1 mg/dl (2.5-4.9) 09/15/23 Mg 2.4 mg/dl (1.7-2.4) 09/15/23 04:13 Calcium Level 9.4 mg/dl (8.6-10.3) 09/15/23 04:13 Microbiology 09/14/23 15:34 Gram Stain - Final Sputum,Vent Suction 09/09/23 14:03 Aerobic Blood Culture - Final Blood No growth in Aerobic bottle after 5 days. Anaerobic Blood Culture - Final No growth in Anaerobic bottle after 5 days. 09/09/23 14:14 Aerobic Blood Culture - Final Blood No growth in Aerobic bottle after 5 days. Anaerobic Blood Culture - Final No growth in Anaerobic bottle after 5 days. Diagnostic Findings (Past 24 Hours) Chest X-Ray 09/14/23 04:21 XR chest 1V portable HISTORY: post-intubation COMPARISON: Chest 09/13/2023. FINDINGS: Endotracheal tube terminates 5 cm from the ana cristina. An aortic valve prosthesis is noted. No pneumothorax. There are small bilateral pleural effusions and bibasilar densities. This is similar to the prior study. There is mild central pulmonary vascular congestion without overt edema. IMPRESSION: 1. The endotracheal tube terminates 5 cm from the ana cristina. 2. Small bilateral pleural effusions and bibasilar densities persist. 3. Cardiomegaly with mild congestive change. ACT 112: Negative or not required by law. Electronically signed by: Ozzy Rush M.D. 09/14/2023 8:21 AM Chest X-Ray 09/14/23 06:35 XR chest 1V portable HISTORY: eval central line placement- r/o pthx COMPARISON: Chest 09/14/2023. FINDINGS: Endotracheal tube terminates 5.9 cm from the ana cristina. Nasogastric tube terminates below the diaphragm. The tip is not included on this study. A right jugular central venous catheter terminates in the SVC. No pneumothorax. The heart is mildly enlarged. Small bilateral pleural effusions and bibasilar densities persist. Mild congestive change again noted. An aortic valve prosthesis is present. IMPRESSION: 1. Satisfactory support line placement. 2. Mild congestive change and small bilateral pleural effusions/densities persist. ACT 112: Negative or not required by law. Electronically signed by: Ozzy Rush M.D. 09/14/2023 8:21 AM I & O Totals 24 Hours 09/14/23 09/15/23 09/16/23 06:59 06:59 06:59 Intake Total 812.359 / 408.575 1748.375 / 1203.375 Output Total 1600 / 1600 1554 / 1554 Balance -787.641 / -787.641 -350.625 / -350.625 Cumulative 09/06/23 13:40 thru 09/15/23 06:53 Intake Total 31259.988 Output Total 11897 Balance 1514.988 RT Ventilator Mngmt (Last Documented) Ventilator Ordered Settings Ventilator Support Mode Assist Control 09/15/23 04:04 Respiratory Rate 18 09/15/23 06:30 Ventilator Tidal Volume 350 09/15/23 04:04 Setting Minute Ventilation 8 09/15/23 04:04 Positive End Expiratory 5 09/15/23 04:04 Pressure Fraction of Inspired Oxygen 30 09/15/23 04:04 Peak Inspiratory Flow 35 09/14/23 15:30 Ventilator - PT Measurements Respiratory Rate 18 Exhaled Tidal Volume 344 Minute Ventilation 8 Peak Inspiratory Airway 15 Pressure Plateau Pressure 14 Respiratory Cycle Inspiratory: 1:3.2 Expiratory Ratio Inspiratory Phase Time 0.8 End-Tidal CO2 38 Static Lung Compliance 38.22 Dynamic Lung Compliance 34.40 Normal Static Lung Compliance 48.00 Patient Measurements Comment Patient extubated at this time per verbal order per JOVANA Kohli per Dr. Martinez to 2L Oxymask. Coding Level of Care Code 25951 SUB INP/OBS CARE 3/50MIN Diagnoses Cardiac arrest with successful resuscitation I46.9 Ventricular tachycardia I47.20 PSVT (paroxysmal supraventricular tachycardia) I47.10 Status post splenectomy Z90.81 Acute UTI (urinary tract infection) N39.0 Elevated troponin R79.89 Aortic valve prosthesis present Z95.2
--- NOTE | 2023-09-15 12:42 | Cardiology Progress Note ---
Date of Service September 15, 2023 Assessment & Plan (1) Ventricular tachycardia: (2) Elevated troponin: (3) Aortic valve prosthesis present: Plan 1. Ventricular tachycardia: Her ventricular tachycardia appears to have been on a metabolic basis, although the underlying cause is not clear. Her QT interval was markedly prolonged currently suggesting a metabolic abnormality as well although the electrolyte measurements and other measurements are not abnormal and cannot explain it. I would treat her conservatively for now, hopefully it is due to all the issues she has had since presentation (sepsis, cardiac arrest) and that she will not have further difficulty. Her family asked about a ICD, that is not clear-cut. If this is reversible and she does not end up with a low ejection fraction that is not indicated, however she has recurrent difficulty we could consider it. A lot would depend on her CODE STATUS as well which I believe is being addressed. 2. Aortic valve prosthesis: Clinically her valve is functioning well, will evaluate this by echocardiogram today. Admission and Anticipated Discharge Date Admission Date: September 06, 2023 Subjective She looks and feels better today, she has been extubated, she is conversational and her family is with her. She seems to be in good spirits and has no cardiovascular complaints. Physical Exam Physical Exam: Constitutional: Alert, cooperative and in no distress. She is resting in bed. HEENT: Unremarkable Neck: No jugular venous distention, carotid pulses are normal and equal bilaterally without bruits. Pulmonary: Clear to auscultation bilaterally. Cardiac: Regular rhythm with a grade 2/6 crescendo decrescendo murmur at the base no gallop or rub. Abdomen: Soft, nontender with normal bowel sounds. Extremities: No edema. Neurologic: No focal findings. Skin: No rash or petechiae, she does have ecchymosis on her arms. Results & Data Vital Signs (Past 12 Hours) Vital Signs Temp Pulse Pulse Pulse Resp BP BP 09/15/23 11:00 70 22 113/57 L 09/15/23 10:00 70 20 113/56 L 09/15/23 09:00 65 18 114/53 L 09/15/23 09:00 37.6 C H 65 18 114/53 L 09/15/23 08:00 71 09/15/23 08:00 09/15/23 08:00 37.8 C H 65 12 118/55 L 09/15/23 07:10 66 10 L 09/15/23 07:00 38 C H 65 18 108/52 L 09/15/23 06:33 73 98/46 L 09/15/23 06:30 98/46 L 09/15/23 06:30 38.2 C H 70 18 09/15/23 06:00 38.3 C H 72 18 09/15/23 06:00 121/51 L 09/15/23 05:30 135/60 09/15/23 05:00 38.1 C H 68 19 09/15/23 05:00 115/59 L 09/15/23 04:04 68 23 09/15/23 04:01 105/47 L 09/15/23 04:01 37.9 C H 62 18 09/15/23 04:00 09/15/23 03:00 37.8 C H 63 18 09/15/23 03:00 108/51 L 09/15/23 02:00 37.8 C H 62 18 09/15/23 02:00 107/49 L 09/15/23 01:00 37.7 C H 63 17 09/15/23 01:00 116/55 L Pulse Ox O2 Del Method O2 Flow Rate FiO2 09/15/23 11:00 97 Nasal Cannula 2 09/15/23 10:00 100 09/15/23 09:00 100 Mechanical Vent 09/15/23 09:00 100 Mechanical Vent 09/15/23 08:00 09/15/23 08:00 Mechanical Vent 09/15/23 08:00 100 Mechanical Vent 09/15/23 07:10 100 09/15/23 07:00 100 Mechanical Vent 09/15/23 06:33 09/15/23 06:30 09/15/23 06:30 100 09/15/23 06:00 100 09/15/23 06:00 09/15/23 05:30 09/15/23 05:00 96 09/15/23 05:00 09/15/23 04:04 100 30 09/15/23 04:01 09/15/23 04:01 100 09/15/23 04:00 30 09/15/23 03:00 97 09/15/23 03:00 09/15/23 02:00 100 09/15/23 02:00 09/15/23 01:00 100 05/26/24 01:00 Laboratory Results CBC 09/15/23 Range/Units 04:13 WBC 8.19 (4.8-10.8) K/ul RBC 4.00 L (4.20-5.40) M/uL Hgb 12.0 (12.0-16.0) g/dl Hct 38.4 (37.0-47.0) % Plt Count 374 (130-400) K/uL Neut # (Auto) 4.05 (1.40-6.50) K/uL Lymph # (Auto) 1.48 (1.20-3.40) K/uL Randall # (Auto) 2.00 H (0.11-0.59) K/uL Eos # (Auto) 0.38 (0.00-0.50) K/uL Baso # (Auto) 0.19 (0.00-0.20) K/uL Comprehensive Metabolic Panel 09/14/23 09/15/23 Range/Units 19:51 04:13 Sodium 135 L 135 L (136-145) mmol/L Potassium 3.3 L 4.4 D (3.5-5.1) mmol/L Chloride 97 L 100 (98-107) mmol/L Carbon Dioxide 30 30 (21-32) mmol/L BUN 11 13 (6-23) mg/dl Creatinine 0.83 0.76 (0.6-1.2) mg/dl Glucose 108 H 109 H (70-99(Fasting)) mg/dl Calcium 9.5 9.4 (8.6-10.3) mg/dl Intake and Output 09/14/23 09/15/23 09/15/23 22:59 06:59 14:59 Intake Total 655.625 / 1203.375 172.750 / 1203.375 2.75 / 2.75 Output Total 370 / 1554 234 / 1554 190 / 190 Balance 285.625 / -350.625 -61.250 / -350.625 -187.25 / -187.25 Intake: IV 315.625 / 863.375 172.750 / 863.375 2.75 / 2.75 Ampicillin/Sulbactam Sod 3,000 200 / 300 100 / 300 mg In Sodium Chlor 0.9% Mini-B 100 ml @ 100 mls/hr IV Q6H [facility] Rx#:[id number] fentaNYL citrate 2,500 mcg In 115.625 / 188.375 72.750 / 188.375 2.75 / 2.75 250 ml @ 75 MCG/HR 7.5 mls/hr IV .[id number] [facility] Rx#:[id number] Tube Feeding 50 / 50 Tube Irrigant 30 / 30 Other 260 / 260 Output: Urine 55 / 55 Urine Amount (Catheter) 315 / 1498 233 / 1498 190 / 190 Fischer/Indwelling 105 / 338 233 / 338 Straight 210 / 1160 190 / 190 # Bowel Movements Other: Other Intake Source meds/flushes Weight 69.1 kg 66.9 kg Weight Measurement Method Built in [facility] Diagnostic Findings Telemetry: Sinus rhythm, no significant ventricular arrhythmias in several days. PG Care Time/CCT Total # of Minutes Spent Total Time Spent with Patient: Total time spent is greater than 50% in coordination of care (as documented) at patient's floor/unit and/or counseling patient: Coding Level of Care Code 90635 SUB INP/OBS CARE 2/35MIN Diagnoses Ventricular tachycardia I47.20 Elevated troponin R79.89 Aortic valve prosthesis present Z95.2
--- NOTE | 2023-09-15 13:57 | Hospitalist Progress Note ---
Date of Service September 15, 2023 Assessment & Plan (1) STEMI (ST elevation myocardial infarction): Plan: On 09/10, had acute onset of substernal chest pain, sinus tachycardia in the 130s, hypertension in 170s/110s, worsening respiratory failure, and ST elevations with old left bundle branch block seen on ECG Urgent consultation with Cardiology and Heart alert was called-cardiac catheterization urgently performed showed only mild to moderate nonobstructive CAD with 40% ostial circumflex and 40% mid RCA Her Chest pain and distress resolved with nitroglycerin x 2 and IV lopressor, IV lasix Suspect possible vasospasm or strain from heart failure with flash pulmonary edema from hypertension and tachycardia. Did have elevated LVEDP on catheter 27. Troponin did trend upward slightly afterwards to 400s which is still lower than on admission Now on Toprol-XL and isosorbide mononitrate. Lasix was uptitrated to every 12 hour dosing on September 12. 1 dose of metolazone 5 mg ordered on September 12 also. Monitor intake and output. Serial chest x-ray. (2) Sepsis: Plan: Present on admission. Thought to be due to E. coli UTI present on admission. Blood cultures have grown gram-positive cocci in chains identified as parvimonas. Infectious disease consultation requested. She currently is on Zosyn. (3) HFrEF (heart failure with reduced ejection fraction): Plan: Cardiac echo reveals ejection fraction 25 to 30% with regional wall motion abnormalities. Appreciate cardiology consultation and recommendations. She underwent heart catheterization on September 10 with no findings of critical stenosis. TAVR appears to be functioning normally. Takotsubo's cardiomyopathy is a possibility considering all that has occurred this admission. (4) Ventricular tachycardia: Plan: Suffered VT and then VF arrest on 09/06 and again on September 12. QT interval is prolonged and amiodarone has been discontinued. Appreciate cardiology consultation and recommendations. Telemetry . Serial labs (5) Altered mental status: Plan: Acute metabolic encephalopathy present on admission probably due ongoing sepsis, hypotension. Brain MRI negative for acute CVA (6) Suspected UTI: Plan: E. coli isolated from urine cultures. Now on Zosyn (7) Elevated troponin: Plan: Troponin peaked at 1325. No chest pain, no acute EKG changes initially. No chest pain prior to first CODE BLUE. Cardiac echo report noted. She developed chest pain on 09/10 and HEART ALERT called. Cardiac catheterization on 09/10 revealed mild to moderate nonobstructive CAD. Troponin likely increased from demand ischemia with CHF (8) Fall: Plan: Fall at home probably either due to sepsis or VT/VF. Supportive care. Treat underlying illness. OT and PT ongoing (9) Status post splenectomy: Plan: Recently completed at another hospital on August 15 of this year. 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 No intervention necessary at this time. (10) Dysphagia: Plan: coughing after eating solids. Speech therapy consult appreciated. No apparent aspiration on bedside eval. 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 Normal function on ECHO. No intervention necessary at this time. F/u with cardiology Plan To be determined. Hopeful eventual discharge to [facility] Admission and Anticipated Discharge Date Admission Date: September 06, 2023 Subjective The patient was extubated earlier this morning and is alert and oriented. She has made it clear to me that she wants to be a full code. Several family members are at the bedside and they are in agreement. They will speak to a distant daughter, Bryan, who has a different opinion but the patient's requests are to be followed. Infectious disease consultation requested and pending. Cardiology entry noted. Review of Systems 2 Review of Systems: Constitutional-no fever or chills ENT-no blurred vision, no double vision, no epistaxis, no sore throat Respiratory-no cough, no wheezing, no shortness of breath Cardiac-no palpitations, no chest pain, no syncope GI-no nausea, vomiting, diarrhea, melena, hematochezia -no urinary retention, no urinary incontinence, no dysuria, no hematuria Musculoskeletal-no joint pain, no muscle tenderness Skin-no bruising, no rashes, no pruritus Neuro-generalized weakness. No paresthesia Psych-depressed affect Physical Exam 2 Physical Exam: General-alert and oriented x3, no fever, no chills HEENT-head atraumatic and normocephalic, pupils equal and reactive to light, extraocular muscles intact Neck-no lymphadenopathy or thyromegaly, trachea midline Chest-diminished breath sounds bilaterally with a few scattered rhonchi. No wheezing. No dullness to percussion Cardiac-regular rate and rhythm, normal S1 and S2 Abdomen-normal bowel sounds, no hepatosplenomegaly Extremities-no cyanosis, clubbing, or edema Neuro-cranial nerves II through XII intact, motor and sensory function within normal limits, strength symmetrical but with generalized weakness, no focal deficits Psych-depressed affect Results & Data Results & Data Vital Signs (Past 12 Hours) Vital Signs Temp Pulse Pulse Pulse Resp BP BP 09/15/23 13:13 81 112/55 L 09/15/23 13:00 81 23 112/55 L 09/15/23 11:00 70 22 113/57 L 09/15/23 10:00 70 20 113/56 L 09/15/23 09:00 65 18 114/53 L 09/15/23 09:00 37.6 C H 65 18 114/53 L 09/15/23 08:00 71 09/15/23 08:00 09/15/23 08:00 37.8 C H 65 12 118/55 L 09/15/23 07:10 66 10 L 09/15/23 07:00 38 C H 65 18 108/52 L 09/15/23 06:33 73 98/46 L 09/15/23 06:30 98/46 L 09/15/23 06:30 38.2 C H 70 18 09/15/23 06:00 38.3 C H 72 18 09/15/23 06:00 121/51 L 09/15/23 05:30 135/60 09/15/23 05:00 38.1 C H 68 19 09/15/23 05:00 115/59 L 09/15/23 04:04 68 23 09/15/23 04:01 105/47 L 09/15/23 04:01 37.9 C H 62 18 09/15/23 04:00 09/15/23 03:00 37.8 C H 63 18 09/15/23 03:00 108/51 L 09/15/23 02:00 37.8 C H 62 18 09/15/23 02:00 107/49 L Pulse Ox O2 Del Method O2 Flow Rate FiO2 09/15/23 13:13 09/15/23 13:00 100 Nasal Cannula 2 09/15/23 11:00 97 Nasal Cannula 2 09/15/23 10:00 100 09/15/23 09:00 100 Mechanical Vent 09/15/23 09:00 100 Mechanical Vent 30 09/15/23 08:00 09/15/23 08:00 Mechanical Vent 30 09/15/23 08:00 100 Mechanical Vent 09/15/23 07:10 100 30 09/15/23 07:00 100 Mechanical Vent 09/15/23 06:33 09/15/23 06:30 09/15/23 06:30 100 09/15/23 06:00 100 09/15/23 06:00 09/15/23 05:30 09/15/23 05:00 96 09/15/23 05:00 09/15/23 04:04 100 30 09/15/23 04:01 09/15/23 04:01 100 09/15/23 04:00 30 09/15/23 03:00 97 09/15/23 03:00 09/15/23 02:00 100 09/15/23 02:00 Laboratory Results 09/15/23 04:13 09/15/23 04:13 PG Care Time/CCT Total # of Minutes Spent Total Time Spent with Patient: Total time spent is greater than 50% in coordination of care (as documented) at patient's floor/unit and/or counseling patient: Coding Level of Care Code 72551 SUB INP/OBS CARE 3/50MIN Diagnoses STEMI (ST elevation myocardial infarction) I21.3 Sepsis A41.9 HFrEF (heart failure with reduced ejection fraction) I50.20 Ventricular tachycardia I47.20 Altered mental status R41.82 Suspected UTI R39.89 Elevated troponin R79.89 Fall W19.XXXA Status post splenectomy Z90.81 Dysphagia R13.10 T-cell large granular lymphocytic leukemia C91.Z0 Aortic valve prosthesis present Z95.2
[2023-09-15] MEDS: ACETAMINOPHEN 1,000 MG/100 ML VIAL IV STA (17:22)
[2023-09-15 20:37] LABS: BUN Creatinine Ratio 17.6 (10-20); Calcium 9.2 mg/dl (8.6-10.3); Creatinine Clr Calc Pharmacy 43.4 ml/min; Est GFR (African American) 61.4 ml/min; Magnesium 2.2 mg/dl (1.7-2.4); Phosphorus 3.4 mg/dl (2.5-4.9); Potassium 3.8 mmol/L (3.5-5.1)
[2023-09-15] MEDS: POTASSIUM CHLORIDE / WTR 20 MEQ/100 ML PLCT IV SCH (21:17)
[2023-09-16 05:30] LABS: Basophils # (auto) 0.17 K/uL (0.00-0.20); Basophils % (auto) 1.8 %; Eosinophils # (auto) 1.29 K/uL (0.00-0.50); Eosinophils % (auto) 13.9 %; Hematocrit (blood only) 36.1 % (37.0-47.0); Hemoglobin 11.2 g/dl (12.0-16.0); Immature Granulocytes # (auto) 0.07 K/uL (0.01-0.20); Immature Granulocytes % (auto) 0.8 %; Lymphocytes # (auto) 1.97 K/uL (1.20-3.40); Lymphocytes % (auto) 21.2 %; Mean Corpuscular Hemoglobin 29.9 pg (25.0-34.0); Mean Corpuscular Volume 96.3 fL (80.0-100.0); Mean Platelet Volume 11.1 fL (9.4-12.4); Monocytes # (auto) 1.87 K/uL (0.11-0.59); Monocytes % (auto) 20.2 %; Neutrophils # (auto) 3.91 K/uL (1.40-6.50); Neutrophils % (auto) 42.1 %; Nucleated RBC # (auto) 0.05 K/uL (0.00-0.12); Nucleated RBC % (auto) 0.5 %; Platelet Count 320 K/uL (130-400); RDW Coefficient of Variation 18.1 % (11.5-14.5); Red Blood Count 3.75 M/uL (4.20-5.40); White Blood Count 9.28 K/ul (4.8-10.8)
[2023-09-16 05:47] LABS: BUN Creatinine Ratio 20.8 (10-20); Calcium 9.4 mg/dl (8.6-10.3); Creatinine Clr Calc Pharmacy 56.5 ml/min; Est GFR (African American) 93.6 ml/min; Est GFR (Non-African American) 80.8 ml/min; Magnesium 2.1 mg/dl (1.7-2.4); Phosphorus 2.7 mg/dl (2.5-4.9)
--- NOTE | 2023-09-16 07:01 | Electrocardiogram Report ---
Test Reason : Blood Pressure : / mmHG Vent. Rate : 067 BPM Atrial Rate : 067 BPM P-R Int : 170 ms QRS Dur : 146 ms QT Int : 512 ms P-R-T Axes : 069 240 060 degrees QTc Int : 541 ms Normal sinus rhythm Non-specific intra-ventricular conduction block Lateral infarct (cited on or before 11-SEP-2023) Abnormal ECG When compared with ECG of 14-SEP-2023 05:08, No change Confirmed by Neville Chávez ([id number]) on 09/16/2023 7:00:35 AM Referred By: REFERRED SELF Confirmed By:Casey Chávez
--- NOTE | 2023-09-16 08:36 | XRay Report ---
XR chest 1V portable CLINICAL HISTORY: s/p cardiac arrest COMPARISON STUDY: Chest radiograph September 14, 2023. FINDINGS: The endotracheal and nasogastric tubes have been removed. Tip of right internal jugular dominique tral line projects over the right atrium. Prosthetic aortic valve is noted. Cardiomegaly is unchanged . Pulmonary edema persists. Small bilateral pleural effusions are similar to prior exam with hazy bib asilar opacities. There is no pneumothorax. IMPRESSION: 1. Persistent pulmonary edema with small bilateral pleural effusions and associated bibasilar opaciti es. 2. Tip of right internal jugular central line projects over the right atrium. ACT 112: Negative or not required by law. Electronically signed by: Bryan Carr M.D. 09/16/2023 8:34 AM
--- NOTE | 2023-09-16 08:39 | Cardiology Progress Note ---
Date of Service September 16, 2023 Assessment & Plan (1) Ventricular tachycardia: (2) Elevated troponin: (3) Aortic valve prosthesis present: (4) Cardiomyopathy: (5) Coronary artery disease: Plan 1. Ventricular tachycardia: She appears to have had 2 arrests during her hospitalization. Both are believed to be related to metabolic derangements although the exact derangement is unclear. These occurred in the setting of reduced LV systolic function but the absence of any acute coronary syndrome or acute coronary disease. I did have a discussion with the patient today regarding the utility of an implantable defibrillator. She would consent to the procedure if we felt it was indicated. No additional ventricular arrhythmias in the past 48 hours. Continuing metoprolol succinate. Amiodarone discontinued due to concerns over prolonged QT interval and recurrent arrest. 2. Aortic valve prosthesis: Mildly elevated transaortic gradient at the time of admission. 3. Coronary disease: Nonobstructive. Can continue standard risk factor modification the time of discharge. 4. Cardiomyopathy: Blood to be stress related. Certainly nonischemic. Possibly the substrate for her to in hospital a rests. Will attempt to increase medical therapy, this may be difficult due to relatively lower blood pressures. Would be a good option, although she did present with severe sepsis due to suspected urinary tract infection. We can switch her metoprolol tartrate to succinate. I think we will monitor blood pressure for a day and then consider an ARB versus Entresto. 5. Cardiac arrest: This was due to ventricular arrhythmia. She seems to be will recover. Extubated yesterday. Good mental status. No evidence of pulmonary edema on exam or symptom today. Admission and Anticipated Discharge Date Admission Date: September 06, 2023 Subjective This morning the patient claims to be feeling well. She denies any breathing difficulty or chest pain. She has not been ambulatory out of bed and sometimes feels weak, but no pain at other locations. No specific complaints. Review of Systems Review of Systems: Per HPI Physical Exam Physical Exam: She is alert and oriented x3. Mood affect appear normal. She answered all questions appropriately. HEENT: Sclerae are anicteric. Pupils are equal and reactive to light and accommodation. Extraocular movements were intact. Neuro: Cranial nerves intact Neck: Bandage on right neck Lungs: Lungs are clear to auscultation bilaterally. There are no rales wheezes or rhonchi. She has normal respiratory effort without use of accessory muscles. There is normal pulmonary excursion. Cardiac: The rhythm was regular. S1 and S2 were normal. Some crescendo systolic murmur. Extremities: Patient has bilateral radial pulses that are equal in intensity. There is no evidence cyanosis or clubbing. Skin: There are no rashes noted on examination today. Results & Data Vital Signs (Past 12 Hours) Vital Signs Temp Pulse Pulse Resp BP BP Pulse Ox 09/16/23 06:00 110/53 L 09/16/23 06:00 37.6 C H 71 21 99 09/16/23 05:55 68 114/51 L 09/16/23 05:00 37.5 C 67 19 95 09/16/23 05:00 110/50 L 09/16/23 04:00 109/48 L 09/16/23 04:00 37.2 C 65 19 100 09/16/23 03:00 111/48 L 09/16/23 03:00 36.9 C 64 17 99 09/16/23 02:00 102/57 L 09/16/23 02:00 36.6 C 63 19 100 09/16/23 00:08 65 108/53 L 09/16/23 00:00 36.6 C 64 18 108/53 L 100 09/16/23 00:00 63 09/15/23 23:00 36.8 C 63 18 104/51 L 100 09/15/23 22:00 36.8 C 63 17 107/48 L 100 09/15/23 21:00 37.2 C 65 16 103/43 L 100 O2 Del Method O2 Flow Rate 09/16/23 06:00 09/16/23 06:00 09/16/23 05:55 09/16/23 05:00 09/16/23 05:00 09/16/23 04:00 09/16/23 04:00 09/16/23 03:00 09/16/23 03:00 09/16/23 02:00 09/16/23 02:00 09/16/23 00:08 09/16/23 00:00 Nasal Cannula 2 09/16/23 00:00 09/15/23 23:00 Nasal Cannula 2 09/15/23 22:00 Nasal Cannula 2 09/15/23 21:00 Nasal Cannula 2 Laboratory Results Abnormal Lab Results 05/26/24 05/27/24 20:09 04:50 WBC 9.28 RBC 3.75 L Hgb 11.2 L Hct 36.1 L MCV 96.3 MCH 29.9 MCHC 31.0 L RDW Std Deviation 64.0 H RDW Coeff of Angus 18.1 H Plt Count 320 MPV 11.1 Immature Gran % (Auto) 0.8 Neut % (Auto) 42.1 Lymph % (Auto) 21.2 [place] % (Auto) 20.2 Eos % (Auto) 13.9 Baso % (Auto) 1.8 Neut # (Auto) 3.91 Lymph # (Auto) 1.97 [place] # (Auto) 1.87 H Eos # (Auto) 1.29 H Baso # (Auto) 0.17 Immature Gran # (Auto) 0.07 Absolute Nucleated RBC 0.05 Nucleated RBC % (auto) 0.5 Sodium 135 L 135 L Potassium 3.8 4.0 Chloride 100 102 Carbon Dioxide 30 28 Anion Gap 5 5 BUN 18 15 Creatinine 1.02 0.72 D Est Cr Clr Drug Dosing 43.4 56.5 Est GFR ( Amer) 61.4 93.6 Est GFR (Non-Af Amer) 53.0 80.8 BUN/Creatinine Ratio 17.6 20.8 H Glucose 115 H 93 Calcium 9.2 9.4 Phosphorus 3.4 2.7 Magnesium 2.2 2.1 Diagnostic Findings Echocardiogram 09/12/2023: Moderate to severely reduced LV systolic function with ejection fraction 20 30%. Normal basal contractility, remainder the left ventricle severely hypokinetic. Echocardiogram 09/09/2023: Severely reduced LV systolic function ejection fraction 25-30%, regional wall motion abnormalities with normal basal wall motion and severe hypokinesis to akinesis of the remaining segments. Mild elevation and the transaortic gradient of the bioprosthetic aortic valve. 09/11/2023: [id number] nonobstructive coronary disease involving 40% ostial circumflex and 40% mid RCA. Left ventricular end-diastolic pressure 27 PG Care Time/CCT Total # of Minutes Spent Total Time Spent with Patient: Total time spent is greater than 50% in coordination of care (as documented) at patient's floor/unit and/or counseling patient: Coding Level of Care Code 52323 SUB INP/OBS CARE 2/35MIN Diagnoses Ventricular tachycardia I47.20 Elevated troponin R79.89 Aortic valve prosthesis present Z95.2 Cardiomyopathy I42.9 Coronary artery disease I25.10
--- NOTE | 2023-09-16 09:47 | Critical Care Progress Note ---
Date of Service September 16, 2023 Assessment & Plan (1) Cardiac arrest with successful resuscitation: (2) Ventricular tachycardia: (3) PSVT (paroxysmal supraventricular tachycardia): (4) Status post splenectomy: (5) Acute UTI (urinary tract infection): (6) Elevated troponin: (7) Aortic valve prosthesis present: Plan Reason Critically Ill: 78-year-old female status post ventricular tachycardia cardiac arrest (recurrent) with successful return of spontaneous circulation. She was intubated for encephalopathy postarrest 24-hour events: No significant overnight events. PLAN: Neuro: Encephalopathy resolved. Avoid QT prolonging agents. Continue PT and OT. No significant neurological issues currently. Resp: No issues. Extubated successfully. Intubated for airway protection earlier twice this admission. CV: Ventricular tachycardia. Holding amiodarone given QT prolongation per cardiology notes. Appreciate EP input. May need AICD given recurrent events. Continue to correct electrolytes as tolerated. TAVR appears to be functioning appropriately. She is now hemodynamically stable. H Fluids/Renal: No current issues. ID: E. coli identified in the urine resistant to fluoroquinolones Bactrim and ampicillin but sensitive to the ceftriaxone. Unclear etiology for fevers but does not appear infectious at this point in time. She has completed 9 days of antibiotics including 3 days of cefepime, 2 days of Rocephin, 6 days of vancomycin, and 6 days of Zosyn/Unasyn. Cultures negative today. No role for further antibiotics at this time GI/Nutrition: Advance diet as tolerated. Heme: Mild anemia. 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 Outpatient oncology follow-up. On Lovenox for DVT prophylaxis Endocrine: ICU hyperglycemia protocol Vascular access: Peripheral IVs IJ catheter. IJ central line can be removed. Code Status: Full code Disposition: Okay to transfer out of ICU. ICU services to sign off at this time. Please call with questions. Plan of care coordinated with ICU pharmacist and bedside RN. Admission and Anticipated Discharge Date Admission Date: September 06, 2023 Subjective Patient seen and examined. She is doing well denies any complaint. Seen by cardiology today. Appreciate their input. Review of Systems Review of Systems: All systems reviewed & are unremarkable except as noted in HPI & below Physical Exam Constitutional: WD/WN, vitals as above well developed and well nourished; no acute distress Neck: trachea midline, no thyromegaly Respiratory: normal respiratory effort, lungs clear to auscultation Cardiovascular: Rate/Rhythm: regular rate Heart Sounds: normal S1, normal S2 and + murmur Extremities: no edema Gastrointestinal (Abdomen): normal bowel sounds, soft, nontender, no hepatosplenomegaly Musculoskeletal: Extremities: extremities normal to inspection Skin: no rashes, warm and dry Neurologic: PERRL, EOMI, accommodation nl, no face palsy, no dysarthria Psychiatric: A+Ox3, euthymic affect Lymphatic: no cervical lymphadenopathy Results & Data Results & Data Vital Signs (Past 12 Hours) Vital Signs Temp Pulse Pulse Resp BP BP Pulse Ox 09/16/23 08:00 09/16/23 06:00 110/53 L 09/16/23 06:00 37.6 C H 71 21 99 09/16/23 05:55 68 114/51 L 09/16/23 05:00 37.5 C 67 19 95 09/16/23 05:00 110/50 L 09/16/23 04:00 109/48 L 09/16/23 04:00 37.2 C 65 19 100 09/16/23 03:00 111/48 L 09/16/23 03:00 36.9 C 64 17 99 09/16/23 02:00 102/57 L 09/16/23 02:00 36.6 C 63 19 100 09/16/23 00:08 65 108/53 L 09/16/23 00:00 36.6 C 64 18 108/53 L 100 09/16/23 00:00 63 09/15/23 23:00 36.8 C 63 18 104/51 L 100 09/15/23 22:00 36.8 C 63 17 107/48 L 100 O2 Del Method O2 Flow Rate 09/16/23 08:00 Nasal Cannula 2 09/16/23 06:00 09/16/23 06:00 09/16/23 05:55 09/16/23 05:00 09/16/23 05:00 09/16/23 04:00 09/16/23 04:00 09/16/23 03:00 09/16/23 03:00 09/16/23 02:00 09/16/23 02:00 09/16/23 00:08 09/16/23 00:00 Nasal Cannula 2 09/16/23 00:00 09/15/23 23:00 Nasal Cannula 2 09/15/23 22:00 Nasal Cannula 2 Coding Level of Care Code 19557 SUB INP/OBS CARE 3/50MIN Diagnoses Cardiac arrest with successful resuscitation I46.9 Ventricular tachycardia I47.20 PSVT (paroxysmal supraventricular tachycardia) I47.10 Status post splenectomy Z90.81 Acute UTI (urinary tract infection) N39.0 Elevated troponin R79.89 Aortic valve prosthesis present Z95.2
[2023-09-16] MEDS: METOPROLOL TARTRATE 25 MG TAB PO SCH (10:09)
--- NOTE | 2023-09-16 11:42 | Hospitalist Progress Note ---
Date of Service September 16, 2023 Assessment & Plan (1) STEMI (ST elevation myocardial infarction): Plan: On 09/10, had acute onset of substernal chest pain, sinus tachycardia in the 130s, hypertension in 170s/110s, worsening respiratory failure, and ST elevations with old left bundle branch block seen on ECG Urgent consultation with Cardiology and Heart alert was called-cardiac catheterization urgently performed showed only mild to moderate nonobstructive CAD with 40% ostial circumflex and 40% mid RCA Her Chest pain and distress resolved with nitroglycerin x 2 and IV lopressor, IV lasix Suspect possible vasospasm or strain from heart failure with flash pulmonary edema from hypertension and tachycardia. Did have elevated LVEDP on . Troponin did trend upward slightly afterwards to 400s which is still lower than on admission Now on Toprol-XL and isosorbide mononitrate. Lasix was uptitrated to every 12 hour dosing on September 12. 1 dose of metolazone 5 mg ordered on September 12 also. Monitor intake and output. Serial chest x-ray. (2) Sepsis: Plan: Present on admission. Thought to be due to E. coli UTI present on admission. Blood cultures have grown gram-positive cocci in chains identified as parvimonas. Infectious disease consultation requested. She currently is on Zosyn. (3) HFrEF (heart failure with reduced ejection fraction): Plan: Cardiac echo reveals ejection fraction 25 to 30% with regional wall motion abnormalities. Appreciate cardiology consultation and recommendations. She underwent heart catheterization on September 10 with no findings of critical stenosis. TAVR appears to be functioning normally. Takotsubo's cardiomyopathy is a possibility considering all that has occurred this admission. (4) Ventricular tachycardia: Plan: Suffered VT and then VF arrest on 09/06 and again on September 12. QT interval is prolonged and amiodarone has been discontinued. Appreciate cardiology consultation and recommendations. Telemetry . Serial labs (5) Altered mental status: Plan: Acute metabolic encephalopathy present on admission probably due ongoing sepsis, hypotension. Now resolved. Brain MRI negative for acute CVA (6) Suspected UTI: Plan: E. coli isolated from urine cultures. Now on Zosyn (7) Elevated troponin: Plan: Troponin peaked at 1325. No chest pain, no acute EKG changes initially. No chest pain prior to first CODE BLUE. Cardiac echo report noted. She developed chest pain on 09/10 and HEART ALERT called. Cardiac catheterization on 09/10 revealed mild to moderate nonobstructive CAD. Troponin likely increased from demand ischemia with CHF (8) Fall: Plan: Fall at home probably either due to sepsis or VT/VF. Supportive care. Treat underlying illness. OT and PT ongoing (9) Status post splenectomy: Plan: Recently completed at another hospital on August 15 of this year. 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 No intervention necessary at this time. (10) Dysphagia: Plan: coughing after eating solids. Speech therapy consult appreciated. No apparent aspiration on bedside eval. 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 Normal function on ECHO. No intervention necessary at this time. F/u with cardiology Plan Hopeful eventual discharge to [facility] care yet this week Admission and Anticipated Discharge Date Admission Date: September 06, 2023 Subjective Alert and oriented. No distress. She is stable for discharge out of the ICU today, September 15. Infectious disease consultation remains pending. She is now off the amiodarone due to prolonged QT interval. Appreciate cardiology assistance. Review of Systems 2 Review of Systems: Constitutional-no fever or chills ENT-no blurred vision, no double vision, no epistaxis, no sore throat Respiratory-no cough, no wheezing, no shortness of breath Cardiac-no palpitations, no chest pain, no syncope GI-no nausea, vomiting, diarrhea, melena, hematochezia -no urinary retention, no urinary incontinence, no dysuria, no hematuria Musculoskeletal-no joint pain, no muscle tenderness Skin-no bruising, no rashes, no pruritus Neuro-generalized weakness. No paresthesia Psych-depressed affect Physical Exam 2 Physical Exam: General-alert and oriented x3, no fever, no chills HEENT-head atraumatic and normocephalic, pupils equal and reactive to light, extraocular muscles intact Neck-no lymphadenopathy or thyromegaly, trachea midline Chest-diminished breath sounds bilaterally with a few scattered rhonchi. No wheezing. No dullness to percussion Cardiac-regular rate and rhythm, normal S1 and S2 Abdomen-normal bowel sounds, no hepatosplenomegaly Extremities-no cyanosis, clubbing, or edema Neuro-cranial nerves II through XII intact, motor and sensory function within normal limits, strength symmetrical but with generalized weakness, no focal deficits Psych-depressed affect Results & Data Results & Data Vital Signs (Past 12 Hours) Vital Signs Temp Pulse Pulse Resp BP BP Pulse Ox 09/16/23 09:30 116/56 L 09/16/23 09:30 37.6 C H 74 24 100 09/16/23 09:00 115/51 L 09/16/23 09:00 37.6 C H 66 21 98 09/16/23 08:30 117/51 L 09/16/23 08:30 37.7 C H 69 20 99 09/16/23 08:00 109/51 L 09/16/23 08:00 37.6 C H 67 21 98 09/16/23 08:00 09/16/23 07:30 120/55 L 09/16/23 07:30 37.6 C H 70 15 100 09/16/23 07:00 108/50 L 09/16/23 07:00 37.6 C H 66 16 97 09/16/23 06:00 110/53 L 09/16/23 06:00 37.6 C H 71 21 99 09/16/23 05:55 68 114/51 L 09/16/23 05:00 37.5 C 67 19 95 09/16/23 05:00 110/50 L 09/16/23 04:00 109/48 L 09/16/23 04:00 37.2 C 65 19 100 09/16/23 03:00 111/48 L 09/16/23 03:00 36.9 C 64 17 99 09/16/23 02:00 102/57 L 09/16/23 02:00 36.6 C 63 19 100 09/16/23 00:08 65 108/53 L 09/16/23 00:00 36.6 C 64 18 108/53 L 100 09/16/23 00:00 63 O2 Del Method O2 Flow Rate 09/16/23 09:30 09/16/23 09:30 Nasal Cannula 2 09/16/23 09:00 09/16/23 09:00 09/16/23 08:30 09/16/23 08:30 09/16/23 08:00 09/16/23 08:00 Nasal Cannula 2 09/16/23 08:00 Nasal Cannula 2 09/16/23 07:30 09/16/23 07:30 09/16/23 07:00 09/16/23 07:00 09/16/23 06:00 09/16/23 06:00 09/16/23 05:55 09/16/23 05:00 09/16/23 05:00 09/16/23 04:00 09/16/23 04:00 09/16/23 03:00 09/16/23 03:00 09/16/23 02:00 09/16/23 02:00 09/16/23 00:08 09/16/23 00:00 Nasal Cannula 2 09/16/23 00:00 Laboratory Results 09/16/23 04:50 09/16/23 04:50 PG Care Time/CCT Total # of Minutes Spent Total Time Spent with Patient: Total time spent is greater than 50% in coordination of care (as documented) at patient's floor/unit and/or counseling patient: Coding Level of Care Code 29731 SUB INP/OBS CARE 3/50MIN Diagnoses STEMI (ST elevation myocardial infarction) I21.3 Sepsis A41.9 HFrEF (heart failure with reduced ejection fraction) I50.20 Ventricular tachycardia I47.20 Altered mental status R41.82 Suspected UTI R39.89 Elevated troponin R79.89 Fall W19.XXXA Status post splenectomy Z90.81 Dysphagia R13.10 T-cell large granular lymphocytic leukemia C91.Z0 Aortic valve prosthesis present Z95.2
--- NOTE | 2023-09-17 08:04 | Electrocardiogram Report ---
Test Reason : Blood Pressure : / mmHG Vent. Rate : 063 BPM Atrial Rate : 063 BPM P-R Int : 172 ms QRS Dur : 148 ms QT Int : 526 ms P-R-T Axes : 076 -59 093 degrees QTc Int : 538 ms Normal sinus rhythm Left bundle branch block Abnormal ECG When compared with ECG of 16-SEP-2023 06:17, Left bundle branch block has replaced Non-specific intra-ventricular conduction delay Confirmed by John Wong ([id number] on 09/17/2023 8:04:07 AM Referred By: REFERRED SELF Confirmed By:John Wong
[2023-09-17 08:07] LABS: Anion Gap 7 (3-11); BUN Creatinine Ratio 17.2 (10-20); Blood Urea Nitrogen 11 mg/dl (6-23); Calcium 9.7 mg/dl (8.6-10.3); Carbon Dioxide 28 mmol/L (21-32); Chloride 101 mmol/L (98-107); Creatinine Clr Calc Pharmacy 63.6 ml/min; Est GFR (African American) 99.8 ml/min; Est GFR (Non-African American) 86.1 ml/min; Glucose 100 mg/dl (70-99(Fasting)); Sodium 136 mmol/L (136-145)
--- NOTE | 2023-09-17 09:05 | Infectious Disease Consult ---
Date of Consultation September 17, 2023 Assessment & Plan (1) Blood bacterial culture positive: (2) Suspected UTI: (3) Cardiac arrest: (4) Psoriatic arthritis: (5) T-cell large granular lymphocytic leukemia: (6) Aortic valve prosthesis present: Plan 78yo F with h/o T-cell LGL leukemia s/p splenectomy on 08/16/23 at [facility], bioprosthetic AVR in 04/2022 in [place], psoriatic arthritis, paroxysmal SVT who presented on 09/05 after being found unresponsive at home with vomit next to her. Her baseline previously was alert and completely oriented. She had no complaints 48 hours prior. In the ED, she was febrile, tachycardic, and tachypneic. Noted to have runs of VT and was placed on amiodarone briefly. WBC 26, Cr 0.5. LFT wnl. CK wnl. Very high troponin. UA with 21-50 WBCs. PCT 0.47. CTH with left periorbital contusions but otherwise negative. CT c spine noted evidence of fluid overload, no fracture, noted infiltration and trace fluid seen throughout the subcutaneous soft tissue of the left neck, correlate with contusion v infection/inflammatory process. CTAP with IV showing loculated fluid next to pancreas, likely related to splenectomy. XR pelvis, face, left forearm, left knee negative. MRI Brain negative. She was started on empiric vanc and cefepime for a suspected UTI. Course c/b VT/Vfib arrest on 09/06, intubated and transferred to ICU. TTE with mildly elevated transaortic gradient, moderate TR, mild MR. She did require pressors, which were weaned off. ABx were de-escalated to CTX for a suspected E coli UTI. However, given continued fevers, this was changed to zosyn for PNA and possible aspiration. Course c/b STEMI on 09/10 and underwent cath, no high-risk CAD was noted. TTE 09/11 with LVEF 25-30%. Course further c/b ventricular arrest on 09/13. CTA Head/neck without significant findings. She also developed fevers on 09/13-. Multiple CXRs throughout admi ssion noted pulmonary edema and pleural effusions. PCT 0.17. ID consulted 09/16 for assistance. Patient presently afebrile without a leukocytosis. Parvimonas is a gram-positive anaerobe commonly found in the GI tract. Its possible with her vomiting noted when she was found down, that there may have been gut translocation. Would also consider loculated fluid next to pancreas as a possible source, but imaging on admission noted that it was likely more related to splenectomy. Since she doesnt have any abdominal pain or other clinical signs of concern, will hold on further imaging. However, if she develops fevers or new abdominal pain, or any new hemodynamic instability, then would pursue a repeat CTAP with IV contrast for further assessment. Her TTE is negative for valvular vegetations. She has already received 7 days of abx. For a gram positive bacteremia, I will complete an additional 7 days for a total of 2 weeks. This can be done with Unasyn, which can be changed to high dose augmentin on discharge. Abx: Vanc 09/05-, 09/09-09/11 Cefepime 09/05-09/07 CTX 09/07-09/08 Zosyn 09/08-09/13 Unasyn 09/13-09/14 Miconazole Micro: 09/05 UCX: E coli (R- unasyn, FQ) 09/05 BCX: Parvimonas micra 04/25 bottles 09/08 BCX: ngtd 09/13 BCX: ngtd 09/13 UCX: no growth 09/13 Sputum cx: light normal tamia # Parvimonas bacteremia # STEMI and cardiac arrest # H/o T cell LGL s/p splenectomy # bioprosthetic AVR - Manjula resumed Unasyn 3g IV q6h for Parvimonas - continue for 7 more days of abx to complete a total of 14 days from 09/08, eot 09/22 - if plans to be discharged, abx can be changed to augmentin 875mg PO q12h - if she develops new fevers or abdominal pain or hemodynamic instability, would reimage with CTAP with IV contrast ID will discontinue active follow up at this time. Please do not hesitate to reconsult the Infectious Diseases service as needed. Melani Tran MD [facility], Division of Infectious Diseases [facility]: [phone] Consultation Information Consultation was provided via telemedicine using two-way real-time interactive telecommunication between the patient and the telemedicine provider. For the duration of the visit, the provider was performing the assessment from a different facility than the patient. This includesuse of bluetooth stethoscope forauscultationperformed by the telepresenter that the telemedicine provider c an hear if described in the physical exam. Drawing Frame Tender contact information: Please call [facility] Call Center . (Phone Number For Physician Use Only) After establishing a telemedicine visit, patient was: Patient was verified with two unique identifiers, Patient/authorized rep acknowledged consent and understanding and Gave permission to continue telehealth session Time Spent with Patient: Initial => 75 min History of Present Illness Reason for Consultation: parvimonas positive blood cx Attending Physician: Wing Solis MD History of Present Illness 78yo F with h/o T-cell LGL leukemia s/p splenectomy on 08/16/23 at [facility], bioprosthetic AVR in 04/2022 in [place], psoriatic arthritis, paroxysmal SVT who presented on 09/05 after being found unresponsive at home by her son. She had been doing well since her discharge however, on day of admission, son found her unresponsive on the ground with vomit next to her. Her baseline previously was alert and completely oriented. She had no complaints 48 hours prior. EMS was called and patient was brought to the ED. In the ED, she was febrile, tachycardic, and tachypneic. Noted to have runs of VT and was placed on amiodarone briefly. WBC 26, Cr 0.5. LFT wnl. CK wnl. Very high troponin. UA with 21-50 WBCs. PCT 0.47. CTH with left periorbital contusions but otherwise nega tive. CT c spine noted evidence of fluid overload, no fracture, noted infiltration and trace fluid seen throughout the subcutaneous soft tissue of the left neck, correlate with contusion v infection/inflammatory process. CTAP with IV showing loculated fluid next to pancreas, likely related to splenectomy. XR pelvis, face, left forearm, left knee negative. MRI Brain negative. She was started on empiric vanc and cefepime for a suspected UTI. Course c/b VT/Vfib arrest on 09/06, intubated and transferred to ICU. TTE with mildly elevated transaortic gradient, moderate TR, mild MR. She did require pressors, which were weaned off. ABx were de-escalated to CTX for a suspected E coli UTI. However, given continued fevers, this was changed to zosyn for PNA and possible aspiration. Course c/b STEMI on 09/10 and underwent cath, no high-risk CAD was noted. TTE 09/11 with LVEF 25-30%. Course further c/b ventricular arrest on 09/13. CTA Head/neck without significant findings. She also developed fevers on 09/13- . Multiple CXRs throughout admission noted pulmonary edema and pleural effusions. PCT 0.17. ID consulted 09/16 for assistance. On evaluation, patient reports feeling well. She denies having any pain. She has had a cough x 2 weeks, sometimes productive of yellow sputum. No abdominal pain, n/v/d. She has psoriasis, but otherwise no new rashes. Does not recall having dysuria. No new joint pains or swelling. Allergies Allergy/AdvReac Type Severity Reaction Status Date / Time No Known Allergies Allergy Verified 09/06/23 16:10 Home Medications Medication Instructions Recorded Confirmed Type pramipexole 0.25 mg tablet 0.5 mg (2 x 0.25 mg) PO BID #360 07/11/23 09/06/23 Rx tabs cyanocobalamin (vitamin B-12) 1,000 mcg PO DAILY 08/21/23 09/06/23 History 1,000 mcg capsule folic acid 1 mg tablet 1 mg PO DAILY 08/21/23 09/06/23 History ondansetron 4 mg disintegrating 4 mg PO Q8H PRN Nausea 08/21/23 09/06/23 History tablet oxybutynin chloride 10 mg 10 mg PO DAILY #30 tabs 08/26/23 09/06/23 Rx tablet,extended release 24 hr acetaminophen 325 mg capsule 650 mg PO Q6H PRN Fever Or Pain 09/06/23 09/06/23 History (Tylenol) halobetasol propionate 0.05 % 1 applic topical DAILY PRN .flare 09/06/23 09/06/23 History topical cream ups vits no.130-ferrous fum 1 tab PO DAILY 09/06/23 09/06/23 History 27 mg iron-folic acid 800 mcg tablet ( Vitamin) Patient History Medical History Restless leg syndrome Frequent falls unknown reason, following with pcp[facility]ERAS -- last fall was ~01/04/23. no injury at that time. Urgency incontinence Stress incontinence Former cigarette smoker Surgical History H/O splenectomy 08/16/2023 - [facility] [place]- Dr. Dougherty History of cardiac cath [facility] in [place] March 2022 - no stents. History of arthroscopy of right knee Hx of tonsillectomy Hx of cholecystectomy History of hysterectomy ADITYA with BSO Heart valve replaced April 2022 a hospital [place], replaced with a mechanical aortic valve. Followed with Dr Gerry Quintero [facility]. Family History Brother Stroke Mother Diabetes Other No family history of adverse response to anesthesia Denies family history of Ovarian cancer Prostate cancer Myocardial infarction Breast cancer Colorectal cancer Social History Smoking Status: Former smoker Tobacco Type: Cigarettes Smoking End Date: 1999; Second Hand Exposure: No; Do You Dip or Chew Tobacco: No; Hx Alcohol Use: No Hx Substance Use: No Preferred Language: [place] Communication Ability: Effective Communication Ability Comment: confusion at this time Needle Board Repairer Required: No Beliefs That Will Affect Care: None marital status: / Current Living Situation: Alone Current Living Situation Comment: senior apartments current occupational status: retired How many Children do You have: 3 Other Information That Helps Us Care for You: No Feels Safe at Home: Yes Safety Concerns: Feels Safe At This Time Childhood Exposure to Second-Hand Smoke: Yes (occasional smoker) during the past year weight has: decreased > 10 lbs Dental Care, Regularly: Yes Seatbelt Use: always Sunscreen Use: No Assistive Devices: Walker Review of System 10-point review of systems reviewed and are negative except for as above. Physical Exam Physical Exam: General: Awake, alert, no acute distress HEENT: NC/AT, EOMI, mmm Neck: supple Lungs: respirations non-labored Heart: nl peripheral perfusion Abdomen: soft, NT/ND Back: no spinal tenderness Ext: no LE edema Skin: chronic changes in legs Neuro: moving all extremities Results & Data Vital Signs (Past 12 Hours) Vital Signs Temp Pulse Pulse Resp BP Pulse Ox O2 Del Method 09/17/23 06:59 36.5 C 64 18 118/60 97 Room Air 09/17/23 04:01 36.6 C 60 18 117/59 L 90 Room Air 09/16/23 23:55 37.1 C 69 17 112/62 92 Room Air 09/16/23 22:00 75 Laboratory Results Labs reviewed. Diagnostic Findings Imaging reviewed.
--- NOTE | 2023-09-17 10:03 | Cardiology Progress Note ---
Date of Service September 17, 2023 Assessment & Plan (1) Ventricular tachycardia: (2) Cardiomyopathy: (3) S/p TAVR (transcatheter aortic valve replacement), bioprosthetic: (4) Cardiac arrest with successful resuscitation: (5) Coronary artery disease: Plan Recurrent cardiac arrest of uncertain etiology in patient with nonobstructive coronary disease and recent onset nonischemic cardiomyopathy (EF 25-30%), possibly stress cardiomyopathy (Takotsubo). Fortunately, she is hemodynamically and electrically stable on minimal medication (isosorbide and metoprolol). If no contraindication, consider resuming aspirin 81 mg daily for nonobstructive CAD and status post TAVR status. Could change metoprolol to tartrate 25 mg twice daily to metoprolol succinate 50 mg daily. For prognostic purposes, repeat limited echocardiogram at some point to reassess LV function. Serial echoes thus far have shown no change, so would defer the repeat echo until later in her hospitalization or as an outpatient sometime after discharge. Will continue to follow. Admission and Anticipated Discharge Date Admission Date: September 06, 2023 Subjective Uneventful night, no further dysrhythmias. Patient was comfortable and denied any chest pain, dyspnea, or other complaints. Telemetry showed sinus rhythm in the 70 bpm range without dysrhythmia or significant ectopy. Physical Exam Physical Exam: No distress. BP normotensive. Pulse 64 bpm and regular. Skin: no generalized lesions. HEENT: unremarkable. Neck: JVP unremarkable. Lungs: Few basilar crackles, generally clear. Cardiac: regular rhythm, readily audible aortic closure sound, 2/6 systolic ejection murmur right upper sternal border, no diastolic murmur. Abdomen: benign. Extremities: no edema. Neurologic: Awake, answers simple questions appropriately, grossly nonfocal. Results & Data Vital Signs (Past 12 Hours) Vital Signs Temp Pulse Pulse Resp BP Pulse Ox O2 Del Method 09/17/23 06:59 97.7 F 64 18 118/60 97 Room Air 09/17/23 04:01 97.9 F 60 18 117/59 L 90 Room Air 09/16/23 23:55 98.8 F 69 17 112/62 92 Room Air 09/16/23 22:00 75 Laboratory Results Normal electrolytes, BUN 11, creatinine 0.64. Diagnostic Findings ECG today showed sinus rhythm with left bundle branch block, rate 63 bpm. Compared with 09/16/2023 study, left bundle branch block is replaced nonspecific interventricular conduction delay. PG Care Time/CCT Total # of Minutes Spent Total Time Spent with Patient: Total time spent is greater than 50% in coordination of care (as documented) at patient's floor/unit and/or counseling patient: Coding Level of Care Code 39388 SUB INP/OBS CARE 2/35MIN Diagnoses Ventricular tachycardia I47.20 Cardiomyopathy I42.9 S/p TAVR (transcatheter aortic valve replacement), bioprosthetic Z95.3 Cardiac arrest with successful resuscitation I46.9 Coronary artery disease I25.10
[2023-09-17] MEDS: AMPICILLIN/SULBACTAM SOD 3,000 MG in SODIUM CHLOR 0.9% MINI-B 100 ML IV SCH (10:55)
--- NOTE | 2023-09-17 11:05 | Hospitalist Progress Note ---
Date of Service September 17, 2023 Assessment & Plan (1) STEMI (ST elevation myocardial infarction): Plan: On 09/10, had acute onset of substernal chest pain, sinus tachycardia in the 130s, hypertension in 170s/110s, worsening respiratory failure, and ST elevations with old left bundle branch block seen on ECG Urgent consultation with Cardiology and Heart alert was called-cardiac catheterization urgently performed showed only mild to moderate nonobstructive CAD with 40% ostial circumflex and 40% mid RCA Her Chest pain and distress resolved with nitroglycerin x 2 and IV lopressor, IV lasix Suspect possible vasospasm or strain from heart failure with flash pulmonary edema from hypertension and tachycardia. Did have elevated LVEDP on catheter 27. Troponin did trend upward slightly afterwards to 400s which is still lower than on admission Now on Toprol-XL and isosorbide mononitrate. (2) Sepsis: Plan: Present on admission. Thought to be due to E. coli UTI present on admission. Blood cultures are positive for parvimonas. Infectious disease consultation appreciated. She is now on Unasyn which will be switched to oral Augmentin at the time of discharge to complete a 2-week course. (3) HFrEF (heart failure with reduced ejection fraction): Plan: Cardiac echo reveals ejection fraction 25 to 30% with regional wall motion abnormalities. Appreciate cardiology consultation and recommendations. She underwent heart catheterization on September 10 with no findings of critical stenosis. TAVR appears to be functioning normally. Takotsubo's cardiomyopathy is a possibility considering all that has occurred this admission. Cardiac echo will be repeated at a later date (4) Ventricular tachycardia: Plan: Suffered VT and then VF arrest on 09/06 and again on September 12. QT interval is prolonged and amiodarone has been discontinued. Appreciate cardiology consultation and recommendations. No plans for AICD implantation at this time. Telemetry . Serial labs (5) Altered mental status: Plan: Acute metabolic encephalopathy present on admission probably due ongoing sepsis, hypotension. Now resolved. Brain MRI negative for acute CVA (6) Suspected UTI: Plan: E. coli isolated from urine cultures. Initially treated with Zosyn and now on Unasyn. (7) Elevated troponin: Plan: Troponin peaked at 1325. No chest pain, no acute EKG changes initially. No chest pain prior to first CODE BLUE. Cardiac echo report noted. She developed chest pain on 09/10 and HEART ALERT called. Cardiac catheterization on 09/10 revealed mild to moderate nonobstructive CAD. Troponin likely increased from demand ischemia with CHF (8) Fall: Plan: Fall at home probably either due to sepsis or VT/VF. Supportive care. Treat underlying illness. OT and PT ongoing (9) Status post splenectomy: Plan: Recently completed at another hospital on August 15 of this year. 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 No intervention necessary at this time. (10) Dysphagia: Plan: coughing after eating solids. Speech therapy consult appreciated. No apparent aspiration on bedside eval. 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 Normal function on ECHO. No intervention necessary at this time. F/u with cardiology Plan [facility] this [facility] Admission and Anticipated Discharge Date Admission Date: September 06, 2023 Subjective Alert and oriented. No distress. Infectious disease consultation noted. She is now on intravenous Unasyn which will be switched to Augmentin at the time of discharge to complete a 2-week course. Cardiology entry also noted. No plans for ICD implantation at this time. Cardiac echo will be repeated at a later date. Hopefully there will be no recurrence of her ventricular tachycardia. She is medically stable for discharge to rehab facility at this time. Review of Systems 2 Review of Systems: Constitutional-no fever or chills ENT-no blurred vision, no double vision, no epistaxis, no sore throat Respiratory-no cough, no wheezing, no shortness of breath Cardiac-no palpitations, no chest pain, no syncope GI-no nausea, vomiting, diarrhea, melena, hematochezia -no urinary retention, no urinary incontinence, no dysuria, no hematuria Musculoskeletal-no joint pain, no muscle tenderness Skin-no bruising, no rashes, no pruritus Neuro-generalized weakness. No paresthesia Psych-normal affect Physical Exam 2 Physical Exam: General-alert and oriented x3, no fever, no chills HEENT-head atraumatic and normocephalic, pupils equal and reactive to light, extraocular muscles intact Neck-no lymphadenopathy or thyromegaly, trachea midline Chest-clear to auscultation. No wheezing. Cardiac-regular rate and rhythm, normal S1 and S2 Abdomen-normal bowel sounds, no hepatosplenomegaly Extremities-no cyanosis, clubbing, or edema Neuro-cranial nerves II through XII intact, motor and sensory function within normal limits, strength symmetrical but with generalized weakness, no focal deficits Psych-normal affect Results & Data Results & Data Vital Signs (Past 12 Hours) Vital Signs Temp Pulse Pulse Resp BP Pulse Ox O2 Del Method 09/17/23 07:30 66 09/17/23 06:59 36.5 C 64 18 118/60 97 Room Air 09/17/23 04:01 36.6 C 60 18 117/59 L 90 Room Air 09/16/23 23:55 37.1 C 69 17 112/62 92 Room Air Laboratory Results 09/16/23 04:50 09/17/23 08:37 PG Care Time/CCT Total # of Minutes Spent Total Time Spent with Patient: Total time spent is greater than 50% in coordination of care (as documented) at patient's floor/unit and/or counseling patient: Coding Level of Care Code 36106 SUB INP/OBS CARE 3/50MIN Diagnoses STEMI (ST elevation myocardial infarction) I21.3 Sepsis A41.9 HFrEF (heart failure with reduced ejection fraction) I50.20 Ventricular tachycardia I47.20 Altered mental status R41.82 Suspected UTI R39.89 Elevated troponin R79.89 Fall W19.XXXA Status post splenectomy Z90.81 Dysphagia R13.10 T-cell large granular lymphocytic leukemia C91.Z0 Aortic valve prosthesis present Z95.2
[2023-09-18] MEDS: OLANZapine 10 MG/2.1 ML SDV IM STA (02:02)
--- NOTE | 2023-09-18 07:57 | Electrocardiogram Report ---
Test Reason : Blood Pressure : / mmHG Vent. Rate : 062 BPM Atrial Rate : 062 BPM P-R Int : 176 ms QRS Dur : 150 ms QT Int : 482 ms P-R-T Axes : 055 -41 103 degrees QTc Int : 489 ms Normal sinus rhythm Left axis deviation Left bundle branch block Abnormal ECG When compared with ECG of 17-SEP-2023 05:21, No significant change was found Confirmed by John Wong ([id number]) on 09/18/2023 7:57:10 AM Referred By: REFERRED SELF Confirmed By:John Wong
[2023-09-18 08:17] LABS: Calcium 9.3 mg/dl (8.6-10.3); Potassium 3.3 mmol/L (3.5-5.1)
[2023-09-18 08:23] LABS: BUN Creatinine Ratio 18.9 (10-20); Creatinine Clr Calc Pharmacy 76.8 ml/min; Est GFR (African American) 106.1 ml/min; Est GFR (Non-African American) 91.6 ml/min
[2023-09-18] MEDS: POTASSIUM CHLORIDE 10 MEQ TABCR PO SCH (09:15)
[2023-09-18] MEDS: METOPROLOL SUCC 50MG EXT REL TAB PO SCH (09:15)
[2023-09-18] MEDS: ASPIRIN 81 MG ECTAB PO SCH (09:16)
--- NOTE | 2023-09-18 11:27 | Hospitalist Progress Note ---
Date of Service September 18, 2023 Assessment & Plan (1) STEMI (ST elevation myocardial infarction): Plan: On 09/10, had acute onset of substernal chest pain, sinus tachycardia in the 130s, hypertension in 170s/110s, worsening respiratory failure, and ST elevations with old left bundle branch block seen on ECG Urgent consultation with Cardiology and Heart alert was called-cardiac catheterization urgently performed showed only mild to moderate nonobstructive CAD with 40% ostial circumflex and 40% mid RCA Her Chest pain and distress resolved with nitroglycerin x 2 and IV lopressor, IV lasix Suspect possible vasospasm or strain from heart failure with flash pulmonary edema from hypertension and tachycardia. Did have elevated LVEDP on catheter 27. Troponin did trend upward slightly afterwards to 400s which is still lower than on admission Now on Toprol-XL and isosorbide mononitrate. (2) Sepsis: Plan: Present on admission. Thought to be due to E. coli UTI present on admission. Blood cultures are positive for parvimonas. Infectious disease consultation appreciated. She is now on Unasyn which will be switched to oral Augmentin at the time of discharge to complete a 2-week course through September 22. (3) HFrEF (heart failure with reduced ejection fraction): Plan: Cardiac echo reveals ejection fraction 25 to 30% with regional wall motion abnormalities. Appreciate cardiology consultation and recommendations. She underwent heart catheterization on September 10 with no findings of critical stenosis. TAVR appears to be functioning normally. Takotsubo's cardiomyopathy is a possibility considering all that has occurred this admission. Cardiac echo will be repeated at a later date (4) Ventricular tachycardia: Plan: Suffered VT and then VF arrest on 09/06 and again on September 12. QT interval is prolonged and amiodarone has been discontinued. Appreciate cardiology consultation and recommendations. No plans for AICD implantation at this time. Telemetry . Serial labs (5) Altered mental status: Plan: Acute metabolic encephalopathy present on admission probably due ongoing sepsis, hypotension. Now resolved. Brain MRI negative for acute CVA (6) Suspected UTI: Plan: E. coli isolated from urine cultures. Initially treated with Zosyn and now on Unasyn. Will switch to Augmentin at the time of discharge through September 22 (7) Elevated troponin: Plan: Troponin peaked at 1325. No chest pain, no acute EKG changes initially. No chest pain prior to first CODE BLUE. Cardiac echo report noted. She developed chest pain on 09/10 and HEART ALERT called. Cardiac catheterization on 09/10 revealed mild to moderate nonobstructive CAD. Troponin likely increased from demand ischemia with CHF (8) Fall: Plan: Fall at home probably either due to sepsis or VT/VF. Supportive care. Treat underlying illness. OT and PT ongoing (9) Status post splenectomy: Plan: Recently completed at another hospital on August 15 of this year. 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 No intervention necessary at this time. (10) Dysphagia: Plan: coughing after eating solids. Speech therapy consult appreciated. No apparent aspiration on bedside eval. 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 Normal function on ECHO. No intervention necessary at this time. F/u with cardiology Plan [facility]ful discharge to [facility] when arrangements are finalized. She is stable for discharge. Admission and Anticipated Discharge Date Admission Date: September 06, 2023 Subjective Alert and oriented. No new problems. She is medically stable for discharge to [facility] when arrangements are finalized. Aspirin has been restarted. Metoprolol tartrate switched to succinate 50 mg daily. Oral potassium supplementation also started. Review of Systems 2 Review of Systems: Constitutional-no fever or chills ENT-no blurred vision, no double vision, no epistaxis, no sore throat Respiratory-no cough, no wheezing, no shortness of breath Cardiac-no palpitations, no chest pain, no syncope GI-no nausea, vomiting, diarrhea, melena, hematochezia -no urinary retention, no urinary incontinence, no dysuria, no hematuria Musculoskeletal-no joint pain, no muscle tenderness Skin-no bruising, no rashes, no pruritus Neuro-generalized weakness. No paresthesia Psych-normal affect Physical Exam 2 Physical Exam: General-alert and oriented x3, no fever, no chills HEENT-head atraumatic and normocephalic, pupils equal and reactive to light, extraocular muscles intact Neck-no lymphadenopathy or thyromegaly, trachea midline Chest-clear to auscultation. No wheezing. Cardiac-regular rate and rhythm, normal S1 and S2 Abdomen-normal bowel sounds, no hepatosplenomegaly Extremities-no cyanosis, clubbing, or edema Neuro-cranial nerves II through XII intact, motor and sensory function within normal limits, strength symmetrical but with generalized weakness, no focal deficits Psych-normal affect Results & Data Results & Data Vital Signs (Past 12 Hours) Vital Signs Temp Pulse Pulse Resp BP Pulse Ox O2 Del Method 09/18/23 10:48 36.4 C L 58 L 18 116/64 96 Room Air 09/18/23 07:02 36.6 C 60 18 114/53 L 96 Room Air 09/18/23 02:16 36.4 C L 62 17 111/62 95 Room Air 09/18/23 00:00 71 Laboratory Results 09/16/23 04:50 09/18/23 07:18 PG Care Time/CCT Total # of Minutes Spent Total Time Spent with Patient: Total time spent is greater than 50% in coordination of care (as documented) at patient's floor/unit and/or counseling patient: Coding Level of Care Code 10248 SUB INP/OBS CARE 3/50MIN Diagnoses STEMI (ST elevation myocardial infarction) I21.3 Sepsis A41.9 HFrEF (heart failure with reduced ejection fraction) I50.20 Ventricular tachycardia I47.20 Altered mental status R41.82 Suspected UTI R39.89 Elevated troponin R79.89 Fall W19.XXXA Status post splenectomy Z90.81 Dysphagia R13.10 T-cell large granular lymphocytic leukemia C91.Z0 Aortic valve prosthesis present Z95.2
--- NOTE | 2023-09-18 14:19 | Discharge Summary ---
Date of Service September 18, 2023 Admission HPI Per Admitting Provider Chiquita is a 78 year old female with a PMH significant for T-cell LGL leukemia S/P splenectomy at [facility] on 08/16/23, psoriatic arthritis, paroxysmal SVT, and prosthetic aortic valve present who presented to the [facility] ED via EMS on 09/06/23 after being found a home, unresponsive, by her son this afternoon. On arrival to the ED she was noted to be tachycardic with HR in the 110's, tachypneic at 32, and febrile at 38.8c, but otherwise stable. Labs were significant for a leukocytosis of 26 with neutrophil predominance of 24, VBG pH of 7.34 with pCO2 and pO2 WNL, stable cr with sodium of 128, chloride of 92, AG of 12 with bicarb WNL, glucose of 170, total CK WNL, initial high sen trop of 1012, and UA consistent withi UTI. CT of the head wo con noted Left periorbital contusions but was negative for other acute findings. CT of the cervical spine was read as "1. There is no evidence of fracture or subluxation involving the cervical spine. 2. Osteopenia and spondylotic changes as above. 3. There is evidence of fluid overload/congestive failure. Correlate clinically. 4. There is infiltration and trace fluid seen throughout the subcutaneous soft tissues of the left neck. Correlate clinically for evidence of contusion versus an infectious/inflammatory process.". CT of the abd/pelvis was negative for acute infectious or traumatic findings. Xray of the pelvis, face, left forearm and left knee were read as negative for acute trauma. The patient was given 1L NSS, vancomycin, cefepime. The patient started to develop short runs of V-tach after arrival. The ED discussed with Cardiology and the patient was placed on an amiodarone drip with return to sinus tachycardia. She was also given 1gm IV mag- sulfate in the ED. AT the time of the admission the patient was lying in bed in no acute distress. History was obtained from her son, Hesham Orosco, who is bedside. He explains that the patient had been doing well after her splenectomy last month. She was living at home, independently; he would check on her [id number]-eim. He went to pick her up for a follow-up appointment at [facility] this am and found her on the ground, unresponsive, next to her bed, with dried vomit next to her. She was last known to be well approximately 48 hours earlier. She would only pull away to touch so he called EMS. He states that her baseline previously was alert and completely oriented. She had no complaints 48 hours prior. We explained to her son that she is severely ill, he expressed understanding. He spoke to his sister, Malena Galan, who is the patient's POA. At this time the patient is a full code until we determine her neurologic status moving forward. If she were to have irreversible findings then they will begin to re-think her code status moving forward. Please refer to Dr. Spencer's attestation for any changes to the treatment plan Principal Diagnosis Recurrent ventricular tachycardia/ventricular fibrillation, prolonged QT interval, sepsis, E. coli UTI, parvimonas bacteremia Discharge Exam General-alert and oriented x3, no fever, no chills HEENT-head atraumatic and normocephalic, pupils equal and reactive to light, extraocular muscles intact Neck-no lymphadenopathy or thyromegaly, trachea midline Chest-clear to auscultation. No wheezing. Cardiac-regular rate and rhythm, normal S1 and S2 Abdomen-normal bowel sounds, no hepatosplenomegaly Extremities-no cyanosis, clubbing, or edema Neuro-cranial nerves II through XII intact, motor and sensory function within normal limits, strength symmetrical but with generalized weakness, no focal deficits Psych-normal affect Discharge Data Allergies Allergy/AdvReac Type Severity Reaction Status Date / Time No Known Allergies Allergy Verified 09/06/23 16:10 Consultations 09/06/23 18:28 Consult Cardiology Routine 09/15/23 10:23 Consult Infectious Diseases Routine 09/17/23 16:08 Consult Patient Rep [Consult Patient Services] Routine Procedures Performed Operation Date: 09/11/23 11:00 Actual Procedures p Cath, Left with Cors and Vent(Right) - Neville Antoine MD Ordered Studies 09/06/23 13:57 CT abd pelvis IV con only Stat CT cervical spine wo con Stat CT head/brain wo con Stat 09/06/23 14:03 CT facial bones wo con Stat 09/06/23 17:52 MRI Brain [MR brain wo con] Stat 09/11/23 11:05 CL Cath Imgs for PACS use only Stat 09/14/23 04:21 CT head/brain wo con Stat 09/14/23 05:32 CTA head w con [CT angio head w con] Stat CTA neck with con [CT angio neck with con] Stat Hospital Course (1) STEMI (ST elevation myocardial infarction): On 09/10, had acute onset of substernal chest pain, sinus tachycardia in the 130s, hypertension in 170s/110s, worsening respiratory failure, and ST elevations with old left bundle branch block seen on ECG Urgent consultation with Cardiology and Heart alert was called-cardiac catheterization urgently performed showed only mild to moderate nonobstructive CAD with 40% ostial circumflex and 40% mid RCA Her Chest pain and distress resolved with nitroglycerin x 2 and IV lopressor, IV lasix Suspect possible vasospasm or strain from heart failure with flash pulmonary edema from hypertension and tachycardia. Did have elevated LVEDP on catheter 27. Troponin did trend upward slightly afterwards to 400s which is still lower than on admission Now on Toprol-XL and isosorbide mononitrate. (2) Sepsis: Present on admission. Thought to be due to E. coli UTI present on admission. Blood cultures are positive for parvimonas. Infectious disease consultation appreciated. She is now on Unasyn which will be switched to oral Augmentin at the time of discharge to complete a 2-week course through September 22. (3) HFrEF (heart failure with reduced ejection fraction): Cardiac echo reveals ejection fraction 25 to 30% with regional wall motion abnormalities. Appreciate cardiology consultation and recommendations. She underwent heart catheterization on September 10 with no findings of critical stenosis. TAVR appears to be functioning normally. Takotsubo's cardiomyopathy is a possibility considering all that has occurred this admission. Cardiac echo will be repeated at a later date (4) Ventricular tachycardia: Suffered VT and then VF arrest on 09/06 and again on September 12. QT interval is prolonged and amiodarone has been discontinued. Appreciate cardiology consultation and recommendations. No plans for AICD implantation at this time. Telemetry . Serial labs (5) Altered mental status: Acute metabolic encephalopathy present on admission probably due ongoing sepsis, hypotension. Now resolved. Brain MRI negative for acute CVA (6) Suspected UTI: E. coli isolated from urine cultures. Initially treated with Zosyn and now on Unasyn. Will switch to Augmentin at the time of discharge through September 22 (7) Elevated troponin: Troponin peaked at 1325. No chest pain, no acute EKG changes initially. No chest pain prior to first CODE BLUE. Cardiac echo report noted. She developed chest pain on 09/10 and HEART ALERT called. Cardiac catheterization on 09/10 rev ealed mild to moderate nonobstructive CAD. Troponin likely increased from demand ischemia with CHF (8) Fall: Fall at home probably either due to sepsis or VT/VF. Supportive care. Treat underlying illness. OT and PT ongoing (9) Status post splenectomy: Recently completed at another hospital on August 15 of this year. 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 No intervention necessary at this time. (10) Dysphagia: coughing after eating solids. Speech therapy consult appreciated. No apparent aspiration on bedside eval. 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 Outpatient Oncology management (12) Aortic valve prosthesis present: noted to have a h/o TAVR. Normal function on ECHO. No intervention necessary at this time. F/u with cardiology Plan Discharge to [facility] today, September 17 Total Time Total Time Spent Total Time Spent (In Minutes): 45 minutes Discharge Plan Discharge Items Patient Disposition: Transfer [facility] Reason For Visit: UNRESPONSIVE, SEPSIS, UTI, ELEVATED TROP Discharge Diagnosis: Recurrent ventricular tachycardia/ventricular fibrillation, prolonged QT interval, E. coli UTI, sepsis, parvimonas bacteremia Activity: Resume your previous activity Non-emergency contact: Primary Care Provider Call non-emergency contact if: your symptoms worsen Follow-up/Referrals: Nicole Troy MD [Primary Care Provider] - Diet: Regular and Heart Healthy Addtl Attending Provider Instructions: See your primary care provider soon as possible after discharge from [facility] Pending Studies at Discharge: No Stand-Alone Forms: [facility] Skilled Items Patient informed of condition?: Yes DNR: No Discharge Level of Care: Skilled Communicable Disease: No Discharge Prognosis: Stable Lines: None Urinary Catheter: No Medications and DC Order Prescriptions: New metoprolol succinate 50 mg Tablet Extended Release 24 Hr 50 mg PO QAM Qty: 20 0RF isosorbide mononitrate 30 mg Tablet Extended Release 24 Hr 30 mg PO QAM Qty: 20 0RF aspirin 81 mg Tablet,Delayed Release (Dr/Ec) 81 mg PO QAM Qty: 20 0RF potassium chloride 10 mEq Tablet,Er Particles/Crystals 10 meq PO DAILY Qty: 20 0RF Continued pramipexole 0.25 mg tablet 0.5 mg PO BID Qty: 360 1RF folic acid 1 mg tablet 1 mg PO DAILY ondansetron 4 mg tablet,disintegrating 4 mg PO Q8H PRN (Reason: Nausea) cyanocobalamin (vitamin B-12) 1,000 mcg capsule 1,000 mcg PO DAILY Patient Comments: [facility] 08/20/23 PCP provide further management oxybutynin chloride 10 mg tablet extended release 24hr 10 mg PO DAILY Qty: 30 2RF Vitamin 27 mg iron- 800 mcg tablet 1 tab PO DAILY halobetasol propionate 0.05 % cream 1 applic topical DAILY PRN (Reason: .flare ups) acetaminophen [Tylenol] 325 mg capsule 650 mg PO Q6H PRN (Reason: Fever Or Pain) Rx Instructions: [facility] 08/20/23 Discharge Orders: Discharge Order (Routine); Ordered 09/18/23 Ordered By: Wing Solis Admission Data Admit Date/Time: 09/06/23 17:13 Attending Provider: Wing Solis Admit Provider: Matias Spencer Primary Care Provider: Niocle Troy Other Providers: [facility]; [place],[facility]; Neville Chávez Coding Level of Care Code 58610 INP/OBS DISCH >30 MIN Diagnoses STEMI (ST elevation myocardial infarction) I21.3 Sepsis A41.9 HFrEF (heart failure with reduced ejection fraction) I50.20 Ventricular tachycardia I47.20 Altered mental status R41.82 Suspected UTI R39.89 Elevated troponin R79.89 Fall W19.XXXA Status post splenectomy Z90.81 Dysphagia R13.10 T-cell large granular lymphocytic leukemia C91.Z0 Aortic valve prosthesis present Z95.2
== END 2023-09-18 17:00 | DRG 871 ==
LOC: ED 13:49 → SUATTDRO 17:13 → 1E 17:13 → 2S 09-07 06:33 → 1E 09-07 16:09 → 2E 09-09 18:54 → 1E 09-14 04:44 → 2S 09-16 18:41